=== PATIENT | female | born 1945 | race African-American/Black ===

== ENCOUNTER 2017-09-16 14:30 | Inpatient (IN) | payer OTHER, MEDICAID ==
[~2017-09-16] VITALS: Ht 162.6 cm; Wt 92.8 kg
[~2017-09-16 14:30] MED LIST: ALBU05 NEB; AMLO10TA80 PO; ASPI-1159 PO; BACL-141 PO; BACL20TA PO; CARB200T PO; CARB200T6 PO; COMBIVENT; GABA-531 PO; HYDR-4005 PO; INSU100V3 SUBCUT; INSU3INS6 SUBCUT; LOSA100T14 PO; OMEP20CA10 PO; PANT40TA4 PO; RANI150C12 PO; ROSU10TA PO
[2017-09-16 15:35] LABS: BASOPHILS % 0.6 % (0.0-2.0); EOSINOPHILS % 1.2 % (0.0-5.0); MEAN CORPUSCULAR HEMOGLOBIN 23.4 pg (28.0-32.0); MEAN PLATELET VOLUME 7.4 fl (7.4-10.4); MONOCYTES % 10.7 % (2.0-8.0); NEUTROPHILS % 55.5 % (40.0-76.0); PLATELET 680 x1000/uL (130-400); RED BLOOD CELL COUNT 2.47 mill/uL (4.2-5.4); RED CELL DISTRIBUTION WIDTH 17.7 % (11.6-14.6)
[2017-09-16 15:37] LABS: HEMOGLOBIN. 5.8 g/dL (12.0-16.0)
[2017-09-16 15:39] LABS: CHLORIDE 86 mEq/L (98-107)
[2017-09-16 15:49] LABS: INR 4.9
[2017-09-16] MEDS ORDERED: IPRATROPIUM/ALBUTEROL 0.5-3(2.5)MG/3ML NEB INH PRN (16:00)
[2017-09-16] MEDS ORDERED: ACETAMINOPHEN 650MG SUPP PR PRN (16:00)
[2017-09-16] MEDS ORDERED: ONDANSETRON HCL 4MG/2ML VIAL IV PRN (16:00)
[2017-09-16] MEDS ORDERED: POTASSIUM CHLORIDE INJ 40 MEQ in DEXT 5% WATER 250 ML IV ONE ×2 (16:00→16:15)
[2017-09-16] MEDS ORDERED: POTASSIUM CHLORIDE 20MEQ TABLET SR PO ONE (16:15)
[2017-09-16 16:33] LABS: BG BASE EXCESS 22.2 mmol/L (-2.0-2.0); BG CARBOXYHEMOGLOBIN 1.7 % (0.5-1.5); BG DEOXYHEMOGLOBIN 0.8 % (0.0-5.0); BG FRACTION INSPIRED OXYGEN 28; BG HCO3 ACT 47.6 mmol/L (22.0-26.0); BG METHEMOGLOBIN 0.3 % (0.0-1.5); BG OXYGEN SATURATION 99.2 % (92.0-98.5); BG OXYHEMOGLOBIN 97.2 % (94.0-97.0); BG PCO2 64.3 mmHg (35.0-45.0); BG PH 7.487 (7.350-7.450); BG PO2 113.1 mmHg (75.0-100.0); BG SAMPLE SITE LEFT BRACHIAL; BG TOTAL HEMOGLOBIN 5.9 g/dL (12.0-18.0); BG VENT MODE NASAL CANNULA
[2017-09-16 17:09] LABS: CREATINE KINASE 63 IU/L (26-192)
[2017-09-16 17:10] LABS: CREATINE KINASE MB FRACTION < 0.5 ng/mL (0.5-3.6)
[2017-09-16 18:06] LABS: HEPATITIS B SURFACE ANTIGEN NEGATIVE
[2017-09-16] MEDS ORDERED: KCL 20MEQ/100ML PREMIX 100 ML IV SCH (18:30)
[2017-09-16 18:34] LABS: HEPATITIS B CORE AB IGM NEGATIVE
[2017-09-16 18:36] LABS: HEPATITIS A AB IGM NEGATIVE (NEGATIVE)
[2017-09-17] VITALS (23 sets, daily range): BP systolic 109–159; BP diastolic 65–86
[2017-09-17 02:05] LABS: AMMONIA 26 uMol/L (<32); HEMATOCRIT 19.4 % (36.0-48.0); HEMOGLOBIN 5.5 g/dL (12.0-16.0)
[2017-09-17 02:08] LABS: CREATINE KINASE 50 IU/L (26-192)
[2017-09-17 02:09] LABS: CREATINE KINASE MB FRACTION 0.6 ng/mL (0.5-3.6)
[2017-09-17] MEDS ORDERED: HYDRALAZINE 20MG/ML VIAL IV PRN (03:58)
[2017-09-17] MEDS ORDERED: DEXTROSE 50% WATER 50ML SYRINGE IV PRN (03:59)
[2017-09-17] MEDS ORDERED: POTASSIUM CHLORIDE IV ONE (04:15)
[2017-09-17] MEDS ORDERED: KCL IV ONE (04:15)
[2017-09-17] MEDS: KCL 20MEQ/100ML PREMIX 100 ML IV SCH ×3 (06:36→22:12)
[2017-09-17] MEDS: PIPERACILLIN/TAZ 3.375G PREMIX 50 ML IV SCH ×3 (06:36→21:29)
[2017-09-17] MEDS: DEXT 5%/0.9% NACL 1,000 ML IV SCH ×2 (06:37→21:30)
[2017-09-17] MEDS: BLOOD SUGAR DIAGNOSTIC STRIP TEST SCH ×4 (07:30→21:28)
[2017-09-17] MEDS: INSULIN LISPRO 100 UNITS/ML SUBCUT SCH ×4 (08:00→21:00)
[2017-09-17 10:20] LABS: MEAN CORPUSCULAR HEMOGLOBIN 23.9 pg (28.0-32.0); MEAN CORPUSCULAR VOLUME 81.4 fL (81.0-99.0); MEAN PLATELET VOLUME 7.8 fl (7.4-10.4); PLATELET 567 x1000/uL (130-400); RED BLOOD CELL COUNT 2.26 mill/uL (4.2-5.4); RED CELL DISTRIBUTION WIDTH 17.1 % (11.6-14.6)
[2017-09-17 10:21] LABS: INR 3.1; PROTHROMBIN TIME 32.4 sec (9.4-11.6)
[2017-09-17 10:37] LABS: HEMATOCRIT. 18.4 % (36.0-48.0); HEMOGLOBIN. 5.4 g/dL (12.0-16.0)
[2017-09-17 10:44] LABS: CHLORIDE 92 mEq/L (98-107)
[2017-09-17 10:54] LABS: LDL CHOLESTEROL 80 mg/dL (5-100)
[2017-09-17 10:55] LABS: CREATINE KINASE 65 IU/L (26-192); CREATINE KINASE MB FRACTION < 0.5 ng/mL (0.5-3.6)
[2017-09-17 10:56] LABS: HDL CHOLESTEROL 52 mg/dL (40-59); T4 FREE 0.73 ng/dL (0.76-1.46)
[2017-09-17] MEDS ORDERED: PANTOPRAZOLE SODIUM 40 MG/VIAL IV SCH (11:15)
[2017-09-17 11:37] LABS: PLATELET ESTIMATE INCREASED
[2017-09-17] MEDS: PANTOPRAZOLE SODIUM 40 MG/VIAL IV SCH ×2 (12:40→17:18)
[2017-09-17] MEDS ORDERED: LIDOCAINE HCL/PF 1% 10 MG/ML 5ML VIAL ONE (12:51)
[2017-09-17 12:52] LABS: TOTAL IRON BINDING CAPACITY 363 ug/dL (250-450)
[2017-09-17 13:18] LABS: FOLIC ACID (FOLATE) SERUM 15.6 ng/mL (>5.38)
[2017-09-17 15:55] LABS: HEMATOCRIT 21.8 % (36.0-48.0)
[2017-09-17] MEDS ORDERED: SORBITOL 70% SOLN 30ML PO ONE ×2 (16:00→20:00)
[2017-09-17 16:01] LABS: HEMOGLOBIN 6.6 g/dL (12.0-16.0)
[2017-09-17] MEDS ORDERED: BACLOFEN 10MG TABLET PO PRN (16:15)
[2017-09-17 19:26] LABS: HEMATOCRIT 25.9 % (36.0-48.0); HEMOGLOBIN 7.8 g/dL (12.0-16.0)
[2017-09-17 19:31] LABS: INR 2.5; PROTHROMBIN TIME 25.7 sec (9.4-11.6)
[2017-09-17 19:33] LABS: CHLORIDE 93 mEq/L (98-107)
[2017-09-17] MEDS ORDERED: POTASSIUM CHLORIDE 20MEQ TABLET SR PO NR (20:15)
[2017-09-17] MEDS ORDERED: SORBITOL 70% SOLN 30ML PO SCH (20:30)
[2017-09-18] VITALS (14 sets, daily range): BP systolic 120–149; BP diastolic 76–96
[2017-09-18] MEDS: KCL 20MEQ/100ML PREMIX 100 ML IV SCH ×3 (01:41→15:57)
[2017-09-18] MEDS: DIPHENHYDRAMINE 50MG/ML VIAL IV PRN (04:34)
[2017-09-18] MEDS: HYDROCODONE/ACETAMINOPHEN 5/325MG TABLET PO PRN ×2 (04:42→23:24)
[2017-09-18] MEDS: BACLOFEN 10MG TABLET PO PRN (04:42)
[2017-09-18] MEDS: PIPERACILLIN/TAZ 3.375G PREMIX 50 ML IV SCH ×3 (05:25→21:08)
[2017-09-18 06:03] LABS: HEMATOCRIT 29.6 % (36.0-48.0); HEMOGLOBIN 9.3 g/dL (12.0-16.0); MEAN CORPUSCULAR HEMOGLOBIN 25.9 pg (28.0-32.0); MEAN CORPUSCULAR VOLUME 82.2 fL (81.0-99.0); PLATELET 557 x1000/uL (130-400); RED CELL DISTRIBUTION WIDTH 16.2 % (11.6-14.6)
[2017-09-18 06:11] LABS: CHLORIDE 98 mEq/L (98-107)
[2017-09-18] MEDS: BLOOD SUGAR DIAGNOSTIC STRIP TEST SCH ×4 (07:30→21:08)
[2017-09-18 07:33] LABS: INR 1.8; PARTIAL THROMBOPLASTIN TIME 33.6 sec (23.4-31.0); PROTHROMBIN TIME 18.8 sec (9.4-11.6)
[2017-09-18] MEDS: INSULIN LISPRO 100 UNITS/ML SUBCUT SCH ×4 (08:00→21:10)
[2017-09-18] MEDS: PANTOPRAZOLE SODIUM 40 MG/VIAL IV SCH ×2 (09:13→17:25)
[2017-09-18] MEDS ORDERED: POTASSIUM CHLORIDE INJ 40 MEQ in DEXT 5% WATER 250 ML IV ONE (11:15)
[2017-09-18 12:17] LABS: HEMATOCRIT 28.2 % (36.0-48.0); HEMOGLOBIN 8.8 g/dL (12.0-16.0)
[2017-09-18] MEDS: METHYLPREDNISOLONE SOD SUCC 40 MG/ML VIAL IV SCH ×2 (12:42→17:25)
[2017-09-18] MEDS ORDERED: MORPHINE SULFATE 4 MG/ML CPJ (NOT FOR IM USE) IV NR (12:45)
[2017-09-18] MEDS ORDERED: KCL 20MEQ/100ML PREMIX 100 ML IV SCH (13:00)
[2017-09-18] MEDS: CARBAMAZEPINE 200MG TABLET PO SCH ×3 (13:00→21:08)
[2017-09-18] MEDS ORDERED: MIDAZOLAM HCL 5 MG/5 ML VIAL ONE (18:08)
[2017-09-18] MEDS ORDERED: FENTANYL CITRATE/PF 50MCG/ML 2ML VIAL ONE (18:08)
[2017-09-18] MEDS ORDERED: SIMETHICONE 40 MG/0.6 ML 30ML ONE (18:09)
[2017-09-18] MEDS ORDERED: FENTANYL CITRATE/PF 50MCG/ML 2ML VIAL IV ONE (18:16)
[2017-09-18] MEDS ORDERED: MIDAZOLAM HCL 5 MG/5 ML VIAL IV PRN (18:50)
[2017-09-18] MEDS: DEXT 5%/0.9% NACL 1,000 ML IV SCH (21:08)
[2017-09-19] VITALS (12 sets, daily range): BP systolic 117–156; BP diastolic 44–88
[2017-09-19] MEDS: HYDROCODONE/ACETAMINOPHEN 5/325MG TABLET PO PRN ×3 (05:08→17:27)
[2017-09-19] MEDS: PIPERACILLIN/TAZ 3.375G PREMIX 50 ML IV SCH ×3 (05:08→21:30)
[2017-09-19] MEDS: BLOOD SUGAR DIAGNOSTIC STRIP TEST SCH ×4 (07:30→21:31)
[2017-09-19] MEDS: IPRATROPIUM/ALBUTEROL 0.5-3(2.5)MG/3ML NEB HHN SCH ×2 (08:00→20:23)
[2017-09-19] MEDS: INSULIN LISPRO 100 UNITS/ML SUBCUT SCH ×4 (08:00→21:37)
[2017-09-19] MEDS: PANTOPRAZOLE SODIUM 40 MG/VIAL IV SCH ×2 (09:22→17:28)
[2017-09-19] MEDS: CARBAMAZEPINE 200MG TABLET PO SCH ×4 (09:22→21:30)
[2017-09-19] MEDS: METHYLPREDNISOLONE SOD SUCC 40 MG/ML VIAL IV SCH ×2 (09:22→17:28)
[2017-09-19] MEDS ORDERED: MORPHINE SULFATE 4 MG/ML CPJ (NOT FOR IM USE) IV NR (12:00)
[2017-09-19] MEDS ORDERED: POTASSIUM CHLORIDE 20MEQ TABLET SR PO NR (12:15)
[2017-09-19] MEDS ORDERED: SODIUM CHLORIDE 0.45% 1,000 ML IV SCH (12:15)
[2017-09-19] MEDS: BACLOFEN 10MG TABLET PO PRN (19:33)
[2017-09-19] MEDS: BUDESONIDE 0.5MG/2ML NEB HHN SCH (20:23)
[2017-09-19] MEDS: DIPHENHYDRAMINE 50MG/ML VIAL IV PRN (21:30)
[2017-09-20] VITALS (16 sets, daily range): BP systolic 112–151; BP diastolic 52–119
[2017-09-20] MEDS ORDERED: INSULIN LISPRO 100 UNITS/ML SUBCUT SCH
[2017-09-20] MEDS ORDERED: BLOOD SUGAR DIAGNOSTIC STRIP TEST SCH
[2017-09-20] MEDS: HYDROCODONE/ACETAMINOPHEN 5/325MG TABLET PO PRN ×2 (00:42→10:05)
[2017-09-20] MEDS: IPRATROPIUM/ALBUTEROL 0.5-3(2.5)MG/3ML NEB HHN SCH ×4 (02:13→20:22)
[2017-09-20] MEDS: BACLOFEN 10MG TABLET PO PRN (03:32)
[2017-09-20] MEDS: DIPHENHYDRAMINE 50MG/ML VIAL IV PRN (03:33)
[2017-09-20] MEDS: PIPERACILLIN/TAZ 3.375G PREMIX 50 ML IV SCH ×2 (05:56→12:29)
[2017-09-20 07:06] LABS: HEMATOCRIT 25.2 % (36.0-48.0); HEMOGLOBIN 7.7 g/dL (12.0-16.0); MEAN CORPUSCULAR HEMOGLOBIN 25.3 pg (28.0-32.0); MEAN CORPUSCULAR VOLUME 82.7 fL (81.0-99.0); PLATELET 460 x1000/uL (130-400); RED BLOOD CELL COUNT 3.05 mill/uL (4.2-5.4); RED CELL DISTRIBUTION WIDTH 16.2 % (11.6-14.6)
[2017-09-20 07:18] LABS: CHLORIDE 102 mEq/L (98-107)
[2017-09-20] MEDS: BLOOD SUGAR DIAGNOSTIC STRIP TEST SCH ×3 (07:30→18:13)
[2017-09-20] MEDS: INSULIN LISPRO 100 UNITS/ML SUBCUT SCH ×3 (08:00→18:00)
[2017-09-20] MEDS: BUDESONIDE 0.5MG/2ML NEB HHN SCH (08:24)
[2017-09-20] MEDS ORDERED: IOHEXOL-350 100 ML BOTTLE ONE (09:25)
[2017-09-20] MEDS: CARBAMAZEPINE 200MG TABLET PO SCH ×3 (09:54→18:12)
[2017-09-20] MEDS: PANTOPRAZOLE SODIUM 40 MG/VIAL IV SCH ×2 (09:54→18:12)
[2017-09-20] MEDS: METHYLPREDNISOLONE SOD SUCC 40 MG/ML VIAL IV SCH (09:54)
[2017-09-20] MEDS ORDERED: METOPROLOL TARTRATE 25MG TABLET PO SCH (11:00)
[2017-09-20] MEDS: FERROUS SULFATE 300MG/5ML UDC PO SCH ×2 (12:29→18:12)
[2017-09-20] MEDS ORDERED: GABAPENTIN 100MG CAPSULE PO SCH (12:30)
[2017-09-21] MEDS ORDERED: METHYLPREDNISOLONE SOD SUCC 40 MG/ML VIAL IV SCH (09:00)
== END 2017-09-20 21:20 | DRG 377 ==
LOC: ER 14:30 → EDBEDREQ 14:59 → SUPCPDRO 15:56 → EDBEDREQ 18:11 → EDBEDREQSVC 20:31 → EDBEDREQTM 20:31 → EDBEDREQSVC 21:56 → ENRESERV 22:19 → EDBEDREQ 09-17 03:35 → 5EST 09-17 03:45
PROVIDERS: ADMIT Internal Medicine; ATTEND Internal Medicine
PROC: 30233N1 Transfusion of Nonautologous Red Blood Cells into Peripheral Vein, Percutaneous Approach (ICD-10-PCS; 2017-09-16)
PROC: 30233L1 Transfusion of Nonautologous Fresh Plasma into Peripheral Vein, Percutaneous Approach (ICD-10-PCS; principal; 2017-09-17)
PROC: 05H933Z Insertion of Infusion Device into Right Brachial Vein, Percutaneous Approach (ICD-10-PCS; 2017-09-17)
PROC: B54MZZA Ultrasonography of Right Upper Extremity Veins, Guidance (ICD-10-PCS; 2017-09-17)
PROC: 30233K1 Transfusion of Nonautologous Frozen Plasma into Peripheral Vein, Percutaneous Approach (ICD-10-PCS; 2017-09-17)
PROC: 0W3P8ZZ Control Bleeding in Gastrointestinal Tract, Via Natural or Artificial Opening Endoscopic (ICD-10-PCS; 2017-09-18)
PROC: 0DJD8ZZ Inspection of Lower Intestinal Tract, Via Natural or Artificial Opening Endoscopic (ICD-10-PCS; 2017-09-18)
DX: K31.811 Angiodysplasia of stomach and duodenum with bleeding (principal); I50.43 Acute on chronic combined systolic (congestive) and diastolic (congestive) heart failure; J18.9 Pneumonia, unspecified organism; G93.41 Metabolic encephalopathy; J96.20 Acute and chronic respiratory failure, unspecified whether with hypoxia or hypercapnia; D68.9 Coagulation defect, unspecified; E87.3 Alkalosis; J98.11 Atelectasis; K76.6 Portal hypertension; J44.0 Chronic obstructive pulmonary disease with (acute) lower respiratory infection; J44.1 Chronic obstructive pulmonary disease with (acute) exacerbation; I11.0 Hypertensive heart disease with heart failure; E87.6 Hypokalemia; E11.9 Type 2 diabetes mellitus without complications; K74.60 Unspecified cirrhosis of liver; R79.89 Other specified abnormal findings of blood chemistry; D50.9 Iron deficiency anemia, unspecified; K64.8 Other hemorrhoids; B18.2 Chronic viral hepatitis C; D64.9 Anemia, unspecified; F03.90 Unspecified dementia, unspecified severity, without behavioral disturbance, psychotic disturbance, mood disturbance, and anxiety; G50.0 Trigeminal neuralgia; K31.89 Other diseases of stomach and duodenum; E66.9 Obesity, unspecified; K44.9 Diaphragmatic hernia without obstruction or gangrene; K56.41 Fecal impaction; K57.31 Diverticulosis of large intestine without perforation or abscess with bleeding; K29.71 Gastritis, unspecified, with bleeding; K58.9 Irritable bowel syndrome, unspecified; M41.9 Scoliosis, unspecified; N28.1 Cyst of kidney, acquired; Z79.01 Long term (current) use of anticoagulants; Z86.711 Personal history of pulmonary embolism; Z90.710 Acquired absence of both cervix and uterus; Z68.35 Body mass index [BMI] 35.0-35.9, adult; Z88.1 Allergy status to other antibiotic agents; Q27.9 Congenital malformation of peripheral vascular system, unspecified; Z79.82 Long term (current) use of aspirin; Z79.4 Long term (current) use of insulin; Z79.899 Other long term (current) drug therapy
CPT/HCPCS: 36415; 36430; 36569; 36600; 70450; 71045; 71275; 74176; 76937; 80048; 80053; 80061; 82140; 82270; 82375; 82550; 82553; 82607; 82728; 82746; 82805; 82962; 83036; 83540; 83550; 83880; 84132; 84439; 84443; 84484; 85014; 85018; 85025; 85027; 85379; 85610; 85730; 86705; 86709; 86803; 86850; 86900; 86920; 86927; 87040; 87340; 93005; 93306; 93970; 94640; 96365; 96376; 99152; 99153; 99291; A6261; C1725; C9113; J1200; J1815; J2250; J2270; J2543; J2920; J3010; J3480; J3490; J7040; J7042; J7050; J7060; J7620; J7626; P9016; P9017; Q9967

== ENCOUNTER 2017-10-09 13:44 | Inpatient (IN) | payer OTHER, MEDICAID ==
[~2017-10-09] VITALS: Ht 165.1 cm; Wt 100.2 kg
[2017-10-09] MEDS ORDERED: SODIUM CHLORIDE 0.9% 500 ML IV ONE (16:45)
[2017-10-09 17:26] LABS: BASOPHILS % 0.5 % (0.0-2.0); EOSINOPHILS % 1.8 % (0.0-5.0); HEMATOCRIT. 39.1 % (36.0-48.0); HEMOGLOBIN. 11.7 g/dL (12.0-16.0); LYMPHOCYTES % 13.3 % (20.0-50.0); MEAN CORPUSCULAR HEMOGLOBIN 25.7 pg (28.0-32.0); MEAN CORPUSCULAR VOLUME 86.1 fL (81.0-99.0); MEAN PLATELET VOLUME 8.3 fl (7.4-10.4); MONOCYTES % 7.4 % (2.0-8.0); PLATELET 433 x1000/uL (130-400); RED BLOOD CELL COUNT 4.55 mill/uL (4.2-5.4); RED CELL DISTRIBUTION WIDTH 19.5 % (11.6-14.6)
[2017-10-09 17:27] LABS: CHLORIDE 98 mEq/L (98-107)
[2017-10-09 17:28] LABS: INR 1.1; PROTHROMBIN TIME 11.4 sec (9.4-11.6)
[2017-10-09] MEDS ORDERED: DILTIAZEM HCL 5MG/ML 5ML VIAL IV ONE (17:30)
[2017-10-09 17:59] LABS: CLARITY URINE CLOUDY (CLEAR); COLOR URINE DARK YELLOW (YELLOW); KETONES URINE TRACE (NEGATIVE); LEUKOCYTE ESTERASE URINE 1+ (NEGATIVE); NITRITE URINE POSITIVE (NEGATIVE); OCCULT BLOOD URINE NEGATIVE (NEGATIVE); PROTEIN URINE 1+ (NEGATIVE); SPECIFIC GRAVITY URINE 1.034 (1.005-1.030)
[2017-10-09 18:14] LABS: *AMPHETAMINES SCREEN URINE NEGATIVE (NEGATIVE); *BARBITURATES SCREEN URINE NEGATIVE (NEGATIVE); *BENZODIAZEPINES SCREEN URINE NEGATIVE (NEGATIVE); *COCAINE SCREEN URINE NEGATIVE (NEGATIVE); METHADONE URINE SCREEN NEGATIVE (NEGATIVE); OPIATES URINE SCREEN NEGATIVE (NEGATIVE)
[2017-10-09 18:15] LABS: CANNABINOID URINE SCREEN NEGATIVE (NEGATIVE); PHENCYCLIDINE URINE SCREEN NEGATIVE (NEGATIVE)
[2017-10-09 19:17] LABS: BG BASE EXCESS 16.8 mmol/L (-2.0-2.0); BG CARBOXYHEMOGLOBIN 1.4 % (0.5-1.5); BG DEOXYHEMOGLOBIN 1.8 % (0.0-5.0); BG FRACTION INSPIRED OXYGEN 323; BG HCO3 ACT 46.8 mmol/L (22.0-26.0); BG METHEMOGLOBIN 0.1 % (0.0-1.5); BG OXYGEN SATURATION 98.2 % (92.0-98.5); BG OXYHEMOGLOBIN 96.7 % (94.0-97.0); BG PCO2 91.3 mmHg (35.0-45.0); BG PH 7.328 (7.350-7.450); BG PO2 114.4 mmHg (75.0-100.0); BG SAMPLE SITE LEFT RADIAL; BG TOTAL HEMOGLOBIN 12.2 g/dL (12.0-18.0); BG VENT MODE NASAL CANNULA
[2017-10-09 20:00] VITALS: BP 137/82
[2017-10-09] MEDS ORDERED: DEXTROSE 50% WATER 50ML SYRINGE IV PRN (21:15)
[2017-10-09] MEDS ORDERED: DIGOXIN 500MCG/2ML AMP IV NR (21:15)
[2017-10-09] MEDS ORDERED: BLOOD SUGAR DIAGNOSTIC STRIP TEST SCH (21:15)
[2017-10-09] MEDS ORDERED: ENOXAPARIN 30MG/0.3ML SYR SUBCUT SCH (21:30)
[2017-10-09 22:00] VITALS: BP 117/78
[2017-10-09] MEDS: METHYLPREDNISOLONE SOD SUCC 40 MG/ML VIAL IV SCH (22:51)
[2017-10-09] MEDS: ENOXAPARIN 80MG/0.8ML SYR SUBCUT SCH (22:52)
[2017-10-09] MEDS: DEXT 5%/0.45% NACL 1000ML 1,000 ML IV SCH (22:54)
[2017-10-09 23:50] VITALS: BP 129/93
[2017-10-10] VITALS (12 sets, daily range): BP systolic 117–155; BP diastolic 58–104
[2017-10-10] MEDS: IPRATROPIUM/ALBUTEROL 0.5-3(2.5)MG/3ML NEB HHN SCH ×7 (00:10→21:48)
[2017-10-10] MEDS ORDERED: DIGOXIN 500MCG/2ML AMP IV NR (00:45)
[2017-10-10] MEDS: BLOOD SUGAR DIAGNOSTIC STRIP TEST SCH ×5 (05:31→23:50)
[2017-10-10] MEDS: INSULIN LISPRO 100 UNITS/ML SUBCUT SCH ×4 (06:06→23:50)
[2017-10-10] MEDS: METHYLPREDNISOLONE SOD SUCC 40 MG/ML VIAL IV SCH ×3 (06:06→21:08)
[2017-10-10 07:04] LABS: BASOPHILS % 0.4 % (0.0-2.0); HEMATOCRIT. 34.9 % (36.0-48.0); HEMOGLOBIN. 10.5 g/dL (12.0-16.0); MEAN CORPUSCULAR HEMOGLOBIN 25.8 pg (28.0-32.0); MEAN CORPUSCULAR VOLUME 85.3 fL (81.0-99.0); MEAN PLATELET VOLUME 8.6 fl (7.4-10.4); MONOCYTES % 2.9 % (2.0-8.0); NEUTROPHILS % 88.7 % (40.0-76.0); PLATELET 400 x1000/uL (130-400); RED BLOOD CELL COUNT 4.09 mill/uL (4.2-5.4); RED CELL DISTRIBUTION WIDTH 19.6 % (11.6-14.6)
[2017-10-10 07:25] LABS: CHLORIDE 98 mEq/L (98-107)
[2017-10-10] MEDS: PANTOPRAZOLE SODIUM 40 MG/VIAL IV SCH (08:41)
[2017-10-10] MEDS: ENOXAPARIN 80MG/0.8ML SYR SUBCUT SCH (08:42)
[2017-10-10] MEDS ORDERED: DILTIAZEM HCL 5MG/ML 5ML VIAL IV NR (10:15)
[2017-10-10] MEDS ORDERED: DILTIAZEM HCL 125 MG in DEXT 5% WATER 100 ML IV SCH (11:00)
[2017-10-10 11:25] LABS: BG BASE EXCESS 15.7 mmol/L (-2.0-2.0); BG CARBOXYHEMOGLOBIN 0.4 % (0.5-1.5); BG DEOXYHEMOGLOBIN 3.1 % (0.0-5.0); BG FRACTION INSPIRED OXYGEN 32; BG HCO3 ACT 43.9 mmol/L (22.0-26.0); BG METHEMOGLOBIN 0.1 % (0.0-1.5); BG OXYGEN SATURATION 96.9 % (92.0-98.5); BG OXYHEMOGLOBIN 96.4 % (94.0-97.0); BG PO2 89.3 mmHg (75.0-100.0); BG SAMPLE SITE RIGHT BRACHIAL; BG TOTAL HEMOGLOBIN 11.4 g/dL (12.0-18.0); BG VENT MODE NASAL CANNULA
[2017-10-10] MEDS: DEXT 5%/0.45% NACL 1000ML 1,000 ML IV SCH (11:33)
[2017-10-10] MEDS ORDERED: PIPERACILLIN/TAZ 3.375G PREMIX 50 ML IV SCH (12:00)
[2017-10-10] MEDS: BACLOFEN 10MG TABLET PO SCH ×2 (13:21→18:01)
[2017-10-10] MEDS: PIPERACILLIN/TAZ 3.375G PREMIX 50 ML IV SCH ×2 (18:09→23:50)
[2017-10-10] MEDS: CARBAMAZEPINE 200MG TABLET PO SCH (21:08)
[2017-10-10] MEDS: MICONAZOLE NITRATE 2% OINT 71GM TOP SCH (21:09)
[2017-10-10] MEDS: ENOXAPARIN 100MG/ML SYR SUBCUT SCH (21:09)
[2017-10-10] MEDS: NYSTATIN POWDER 15GM TOP SCH (21:10)
[2017-10-10] MEDS: HYDROCODONE/ACETAMINOPHEN 5/325MG TABLET PO PRN (21:41)
[2017-10-11] VITALS (12 sets, daily range): BP systolic 124–160; BP diastolic 71–95
[2017-10-11] MEDS: IPRATROPIUM/ALBUTEROL 0.5-3(2.5)MG/3ML NEB HHN SCH ×6 (02:09→21:24)
[2017-10-11] MEDS: INSULIN LISPRO 100 UNITS/ML SUBCUT SCH ×3 (05:16→17:04)
[2017-10-11] MEDS: BLOOD SUGAR DIAGNOSTIC STRIP TEST SCH ×3 (05:16→17:04)
[2017-10-11] MEDS: METHYLPREDNISOLONE SOD SUCC 40 MG/ML VIAL IV SCH ×3 (05:32→21:14)
[2017-10-11] MEDS: PIPERACILLIN/TAZ 3.375G PREMIX 50 ML IV SCH ×2 (05:33→11:22)
[2017-10-11] MEDS: DEXT 5%/0.45% NACL 1000ML 1,000 ML IV SCH ×2 (05:33→15:49)
[2017-10-11] MEDS: HYDROCODONE/ACETAMINOPHEN 5/325MG TABLET PO PRN ×2 (05:35→18:59)
[2017-10-11 07:04] LABS: BASOPHILS % 0.3 % (0.0-2.0); HEMOGLOBIN. 10.3 g/dL (12.0-16.0); LYMPHOCYTES % 15.2 % (20.0-50.0); MEAN CORPUSCULAR HEMOGLOBIN 25.5 pg (28.0-32.0); MEAN CORPUSCULAR VOLUME 84.3 fL (81.0-99.0); MEAN PLATELET VOLUME 8.8 fl (7.4-10.4); NEUTROPHILS % 78.5 % (40.0-76.0); PLATELET 419 x1000/uL (130-400); RED BLOOD CELL COUNT 4.03 mill/uL (4.2-5.4); RED CELL DISTRIBUTION WIDTH 19.2 % (11.6-14.6)
[2017-10-11 07:29] LABS: CHLORIDE 95 mEq/L (98-107)
[2017-10-11] MEDS: CARBAMAZEPINE 200MG TABLET PO SCH ×2 (08:35→20:20)
[2017-10-11] MEDS: PANTOPRAZOLE SODIUM 40 MG/VIAL IV SCH (08:35)
[2017-10-11] MEDS: BACLOFEN 10MG TABLET PO SCH ×2 (08:35→16:58)
[2017-10-11] MEDS: MICONAZOLE NITRATE 2% OINT 71GM TOP SCH ×2 (08:36→20:27)
[2017-10-11] MEDS: NYSTATIN POWDER 15GM TOP SCH ×2 (08:36→16:52)
[2017-10-11] MEDS: ENOXAPARIN 100MG/ML SYR SUBCUT SCH ×2 (08:37→20:21)
[2017-10-11] MEDS ORDERED: POTASSIUM CHLORIDE 20MEQ TABLET SR PO NR (10:00)
[2017-10-11] MEDS: DILTIAZEM HCL 60MG TABLET PO SCH ×2 (11:20→17:04)
[2017-10-11] MEDS ORDERED: MAGNESIUM 1 G PREMIX 100 ML IV NR (11:30)
[2017-10-11] MEDS: GABAPENTIN 100MG CAPSULE PO SCH ×2 (12:52→20:20)
[2017-10-11] MEDS: AMOXICILLIN/POTASSIUM CLAVULANATE 875/125MG TAB PO SCH ×2 (14:56→20:19)
[2017-10-11] MEDS: CEFTRIAXONE 1 G PREMIX 50 ML IV SCH (16:31)
[2017-10-11] MEDS: ATORVASTATIN CALCIUM 10MG TABLET PO SCH (20:20)
[2017-10-12] VITALS (12 sets, daily range): BP systolic 120–159; BP diastolic 55–103
[2017-10-12] MEDS: BLOOD SUGAR DIAGNOSTIC STRIP TEST SCH ×4 (00:29→17:20)
[2017-10-12] MEDS: DILTIAZEM HCL 60MG TABLET PO SCH ×4 (00:29→17:17)
[2017-10-12] MEDS: INSULIN LISPRO 100 UNITS/ML SUBCUT SCH ×4 (00:30→17:29)
[2017-10-12] MEDS: HYDROCODONE/ACETAMINOPHEN 5/325MG TABLET PO PRN ×5 (00:53→21:17)
[2017-10-12] MEDS: IPRATROPIUM/ALBUTEROL 0.5-3(2.5)MG/3ML NEB HHN SCH ×6 (02:26→21:20)
[2017-10-12 05:56] LABS: CHLORIDE 97 mEq/L (98-107)
[2017-10-12] MEDS: METHYLPREDNISOLONE SOD SUCC 40 MG/ML VIAL IV SCH ×3 (06:08→21:08)
[2017-10-12] MEDS: DEXT 5%/0.45% NACL 1000ML 1,000 ML IV SCH ×2 (06:10→21:06)
[2017-10-12 06:13] LABS: HEMATOCRIT. 36.2 % (36.0-48.0); HEMOGLOBIN. 11.1 g/dL (12.0-16.0); MEAN CORPUSCULAR HEMOGLOBIN 26.1 pg (28.0-32.0); MEAN PLATELET VOLUME 8.6 fl (7.4-10.4); PLATELET 381 x1000/uL (130-400); RED BLOOD CELL COUNT 4.26 mill/uL (4.2-5.4); RED CELL DISTRIBUTION WIDTH 19.7 % (11.6-14.6)
[2017-10-12] MEDS: PANTOPRAZOLE SODIUM 40 MG/VIAL IV SCH (08:29)
[2017-10-12] MEDS: CARBAMAZEPINE 200MG TABLET PO SCH ×2 (08:29→21:07)
[2017-10-12] MEDS: AMOXICILLIN/POTASSIUM CLAVULANATE 875/125MG TAB PO SCH ×2 (08:29→21:06)
[2017-10-12] MEDS: ENOXAPARIN 100MG/ML SYR SUBCUT SCH ×2 (08:30→21:08)
[2017-10-12] MEDS: MICONAZOLE NITRATE 2% OINT 71GM TOP SCH ×2 (08:30→21:08)
[2017-10-12] MEDS: NYSTATIN POWDER 15GM TOP SCH ×2 (08:30→17:17)
[2017-10-12] MEDS: GABAPENTIN 100MG CAPSULE PO SCH ×2 (08:30→21:07)
[2017-10-12] MEDS: BACLOFEN 10MG TABLET PO SCH ×2 (08:41→17:16)
[2017-10-12 14:06] LABS: PLATELET ESTIMATE NORMAL
[2017-10-12] MEDS: CEFTRIAXONE 1 G PREMIX 50 ML IV SCH (16:06)
[2017-10-12] MEDS ORDERED: POTASSIUM CHLORIDE 20MEQ TABLET SR PO NR (17:00)
[2017-10-12] MEDS: ATORVASTATIN CALCIUM 10MG TABLET PO SCH (21:07)
[2017-10-13] VITALS (12 sets, daily range): BP systolic 102–169; BP diastolic 66–120
[2017-10-13] MEDS: BLOOD SUGAR DIAGNOSTIC STRIP TEST SCH ×4 (00:12→17:36)
[2017-10-13] MEDS: DILTIAZEM HCL 60MG TABLET PO SCH ×4 (00:13→17:35)
[2017-10-13] MEDS: IPRATROPIUM/ALBUTEROL 0.5-3(2.5)MG/3ML NEB HHN SCH ×6 (00:19→20:09)
[2017-10-13] MEDS: INSULIN LISPRO 100 UNITS/ML SUBCUT SCH ×4 (00:21→17:35)
[2017-10-13] MEDS: HYDROCODONE/ACETAMINOPHEN 5/325MG TABLET PO PRN ×6 (04:38→20:30)
[2017-10-13] MEDS: METHYLPREDNISOLONE SOD SUCC 40 MG/ML VIAL IV SCH ×3 (05:39→20:29)
[2017-10-13 09:03] LABS: HEMOGLOBIN. 10.7 g/dL (12.0-16.0); LYMPHOCYTES % 10.7 % (20.0-50.0); MEAN CORPUSCULAR HEMOGLOBIN 25.9 pg (28.0-32.0); MEAN CORPUSCULAR VOLUME 84.8 fL (81.0-99.0); MEAN PLATELET VOLUME 8.6 fl (7.4-10.4); NEUTROPHILS % 81.3 % (40.0-76.0); PLATELET 350 x1000/uL (130-400); RED BLOOD CELL COUNT 4.13 mill/uL (4.2-5.4)
[2017-10-13 10:34] LABS: CHLORIDE 93 mEq/L (98-107)
[2017-10-13] MEDS: PANTOPRAZOLE SODIUM 40 MG/VIAL IV SCH (10:59)
[2017-10-13] MEDS: BACLOFEN 10MG TABLET PO SCH ×2 (11:00→16:46)
[2017-10-13] MEDS: AMOXICILLIN/POTASSIUM CLAVULANATE 875/125MG TAB PO SCH ×2 (11:00→20:30)
[2017-10-13] MEDS: CARBAMAZEPINE 200MG TABLET PO SCH ×2 (11:01→20:30)
[2017-10-13] MEDS: GABAPENTIN 100MG CAPSULE PO SCH ×2 (11:01→20:30)
[2017-10-13] MEDS: MICONAZOLE NITRATE 2% OINT 71GM TOP SCH ×2 (11:02→20:31)
[2017-10-13] MEDS: NYSTATIN POWDER 15GM TOP SCH ×2 (11:02→16:46)
[2017-10-13] MEDS: ENOXAPARIN 100MG/ML SYR SUBCUT SCH ×2 (11:02→20:31)
[2017-10-13] MEDS ORDERED: CLONIDINE 0.2MG TABLET PO PRN (14:15)
[2017-10-13] MEDS ORDERED: CLONIDINE 0.1MG TABLET PO PRN (14:30)
[2017-10-13] MEDS: DEXT 5%/0.45% NACL 1000ML 1,000 ML IV SCH (16:44)
[2017-10-13] MEDS: CEFTRIAXONE 1 G PREMIX 50 ML IV SCH (16:44)
[2017-10-13] MEDS: ATORVASTATIN CALCIUM 10MG TABLET PO SCH (20:29)
[2017-10-14] VITALS (12 sets, daily range): BP systolic 113–155; BP diastolic 64–105
[2017-10-14] MEDS: DILTIAZEM HCL 60MG TABLET PO SCH ×4 (01:34→18:17)
[2017-10-14] MEDS: INSULIN LISPRO 100 UNITS/ML SUBCUT SCH ×4 (01:39→17:30)
[2017-10-14] MEDS: IPRATROPIUM/ALBUTEROL 0.5-3(2.5)MG/3ML NEB HHN SCH ×4 (04:01→16:41)
[2017-10-14] MEDS: HYDROCODONE/ACETAMINOPHEN 5/325MG TABLET PO PRN (05:36)
[2017-10-14] MEDS: METHYLPREDNISOLONE SOD SUCC 40 MG/ML VIAL IV SCH (05:47)
[2017-10-14 06:30] LABS: HEMATOCRIT. 33.6 % (36.0-48.0); HEMOGLOBIN. 10.4 g/dL (12.0-16.0); MEAN CORPUSCULAR VOLUME 84.4 fL (81.0-99.0); MEAN PLATELET VOLUME 8.6 fl (7.4-10.4); PLATELET 323 x1000/uL (130-400); RED BLOOD CELL COUNT 3.99 mill/uL (4.2-5.4); RED CELL DISTRIBUTION WIDTH 19.3 % (11.6-14.6)
[2017-10-14] MEDS ORDERED: INSULIN LISPRO 100 UNITS/ML SUBCUT SCH (07:30)
[2017-10-14] MEDS ORDERED: BLOOD SUGAR DIAGNOSTIC STRIP TEST SCH (07:30)
[2017-10-14 07:46] LABS: CHLORIDE 95 mEq/L (98-107)
[2017-10-14] MEDS: GABAPENTIN 100MG CAPSULE PO SCH (08:08)
[2017-10-14] MEDS: PANTOPRAZOLE SODIUM 40 MG/VIAL IV SCH (08:08)
[2017-10-14] MEDS: AMOXICILLIN/POTASSIUM CLAVULANATE 875/125MG TAB PO SCH (08:08)
[2017-10-14] MEDS: ENOXAPARIN 100MG/ML SYR SUBCUT SCH (08:08)
[2017-10-14] MEDS: CARBAMAZEPINE 200MG TABLET PO SCH (08:08)
[2017-10-14] MEDS: BLOOD SUGAR DIAGNOSTIC STRIP TEST SCH ×4 (08:09→17:43)
[2017-10-14] MEDS: NYSTATIN POWDER 15GM TOP SCH ×2 (08:17→18:16)
[2017-10-14] MEDS: BACLOFEN 10MG TABLET PO SCH ×2 (08:18→18:16)
[2017-10-14] MEDS: MICONAZOLE NITRATE 2% OINT 71GM TOP SCH (10:15)
[2017-10-14] MEDS: MORPHINE SULFATE 4 MG/ML CPJ (NOT FOR IM USE) IV PRN ×2 (12:14→17:03)
[2017-10-14 13:55] LABS: PLATELET ESTIMATE NORMAL
[2017-10-14] MEDS ORDERED: METHYLPREDNISOLONE SOD SUCC 40 MG/ML VIAL IV SCH (18:00)
[2017-10-14] MEDS: CEFTRIAXONE 1 G PREMIX 50 ML IV SCH (18:16)
[2017-10-15] MEDS ORDERED: FAMOTIDINE 20MG/2ML VIAL IV SCH (09:00)
== END 2017-10-14 19:35 | DRG 70 ==
LOC: ER 14:11 → 5EST 17:27 → ENRESERV 17:45 → 5EST 22:32
PROVIDERS: ADMIT Internal Medicine; ATTEND Internal Medicine
PROC: 5A09357 Assistance with Respiratory Ventilation, Less than 24 Consecutive Hours, Continuous Positive Airway Pressure (ICD-10-PCS; principal; 2017-10-09)
PROC: 5A09357 Assistance with Respiratory Ventilation, Less than 24 Consecutive Hours, Continuous Positive Airway Pressure (ICD-10-PCS; 2017-10-10)
PROC: 5A09357 Assistance with Respiratory Ventilation, Less than 24 Consecutive Hours, Continuous Positive Airway Pressure (ICD-10-PCS; 2017-10-11)
DX: G93.41 Metabolic encephalopathy (principal); J18.9 Pneumonia, unspecified organism; J96.01 Acute respiratory failure with hypoxia; J96.02 Acute respiratory failure with hypercapnia; I50.43 Acute on chronic combined systolic (congestive) and diastolic (congestive) heart failure; I48.92 Unspecified atrial flutter; N39.0 Urinary tract infection, site not specified; J44.0 Chronic obstructive pulmonary disease with (acute) lower respiratory infection; E87.2 Acidosis; I11.0 Hypertensive heart disease with heart failure; G50.0 Trigeminal neuralgia; D64.9 Anemia, unspecified; K74.60 Unspecified cirrhosis of liver; B19.20 Unspecified viral hepatitis C without hepatic coma; K57.30 Diverticulosis of large intestine without perforation or abscess without bleeding; K21.9 Gastro-esophageal reflux disease without esophagitis; I48.91 Unspecified atrial fibrillation; F41.9 Anxiety disorder, unspecified; I35.0 Nonrheumatic aortic (valve) stenosis; F03.90 Unspecified dementia, unspecified severity, without behavioral disturbance, psychotic disturbance, mood disturbance, and anxiety; E87.6 Hypokalemia; E83.42 Hypomagnesemia; E78.5 Hyperlipidemia, unspecified; E66.9 Obesity, unspecified; E11.9 Type 2 diabetes mellitus without complications; B96.20 Unspecified Escherichia coli [E. coli] as the cause of diseases classified elsewhere; K44.9 Diaphragmatic hernia without obstruction or gangrene; K59.00 Constipation, unspecified; G89.29 Other chronic pain; Z90.710 Acquired absence of both cervix and uterus; Z86.711 Personal history of pulmonary embolism; Z88.8 Allergy status to other drugs, medicaments and biological substances; Z88.1 Allergy status to other antibiotic agents; Z79.899 Other long term (current) drug therapy; Z79.82 Long term (current) use of aspirin
CPT/HCPCS: 36415; 36600; 70450; 71045; 80048; 80053; 80305; 81003; 81025; 82375; 82805; 82962; 83036; 83735; 83880; 84443; 84484; 85025; 85610; 87040; 87077; 87086; 87186; 93005; 96374; 99285; A6261; C9113; J0696; J1160; J1650; J1815; J2270; J2543; J2920; J3475; J3490; J7030; J7040; J7060; J7620

== ENCOUNTER 2017-10-15 10:48 | Emergency (ER) | payer OTHER, MEDICAID ==
[~2017-10-15] VITALS: Ht 177.8 cm; Wt 90.0 kg
[2017-10-15] MEDS ORDERED: MORPHINE SULFATE 4 MG/ML CPJ (NOT FOR IM USE) IV STA (11:06)
[2017-10-15] MEDS ORDERED: ONDANSETRON HCL 4MG/2ML VIAL IV STA (11:06)
[2017-10-15] MEDS ORDERED: ASPIRIN 325MG TABLET PO ONE (11:15)
[2017-10-15] MEDS ORDERED: NITROGLYCERIN OINT 1GM/INCH UDPKT TD ONE (11:15)
[2017-10-15 12:15] LABS: BASOPHILS % 0.4 % (0.0-2.0); EOSINOPHILS % 0.2 % (0.0-5.0); HEMATOCRIT. 33.1 % (36.0-48.0); HEMOGLOBIN. 10.1 g/dL (12.0-16.0); LYMPHOCYTES % 23.8 % (20.0-50.0); MEAN CORPUSCULAR VOLUME 85.1 fL (81.0-99.0); MEAN PLATELET VOLUME 8.3 fl (7.4-10.4); MONOCYTES % 11.1 % (2.0-8.0); NEUTROPHILS % 64.5 % (40.0-76.0); PLATELET 278 x1000/uL (130-400); RED BLOOD CELL COUNT 3.88 mill/uL (4.2-5.4); RED CELL DISTRIBUTION WIDTH 19.6 % (11.6-14.6)
[2017-10-15 12:17] LABS: CHLORIDE 96 mEq/L (98-107)
[2017-10-15 12:24] LABS: PROTHROMBIN TIME 10.4 sec (9.4-11.6)
[2017-10-15] MEDS ORDERED: PIPERACILLIN/TAZ 3.375G PREMIX 50 ML IV ONE (12:30)
[2017-10-15 13:13] LABS: CLARITY URINE CLEAR (CLEAR); COLOR URINE YELLOW (YELLOW); KETONES URINE NEGATIVE (NEGATIVE); LEUKOCYTE ESTERASE URINE TRACE (NEGATIVE); NITRITE URINE NEGATIVE (NEGATIVE); OCCULT BLOOD URINE NEGATIVE (NEGATIVE); PH URINE 6.5 (4.5-8.0); PROTEIN URINE NEGATIVE (NEGATIVE); SPECIFIC GRAVITY URINE 1.021 (1.005-1.030); UROBILINOGEN URINE 0.2 E.U./dL (0.2-1.0)
[2017-10-15 16:19] VITALS: BP 146/98
== END 2017-10-15 16:27 | disposition home or self-care (01) ==
LOC: ER 11:20 → EDBEDREQ 12:44 → CANBEDREQ 13:10 → ER 16:27
DX: J18.9 Pneumonia, unspecified organism (principal); I48.92 Unspecified atrial flutter; G50.0 Trigeminal neuralgia; N39.0 Urinary tract infection, site not specified; D64.9 Anemia, unspecified; E87.70 Fluid overload, unspecified; I11.0 Hypertensive heart disease with heart failure; I50.9 Heart failure, unspecified; J44.9 Chronic obstructive pulmonary disease, unspecified; K21.9 Gastro-esophageal reflux disease without esophagitis; E11.9 Type 2 diabetes mellitus without complications; R07.9 Chest pain, unspecified
CPT/HCPCS: 36415; 71045; 80053; 81003; 83605; 83880; 84484; 85025; 85610; 87040; 93005; 96365; 96375; 99285; J2270; J2405; J2543

== ENCOUNTER 2018-10-10 18:19 | Inpatient (IN) | payer MEDICAID, OTHER ==
[~2018-10-10] VITALS: Ht 162.6 cm; Wt 105.5 kg
[~2018-10-10 18:19] MED LIST changes: -ASPI-1159 PO; +ASPI-1393 PO; +CRES10 PO; -LOSA100T14 PO; +LOSA100T32 PO; -OMEP20CA10 PO; +OMEP20CA5 PO; -ROSU10TA PO
[2018-10-10] MEDS ORDERED: SUCCINYLCHOLINE CHLORIDE 200MG/10ML IV ONE ×2 (18:41→18:45)
[2018-10-10] MEDS ORDERED: ETOMIDATE 2MG/ML 10ML VIAL IV ONE ×2 (18:41→18:45)
[2018-10-10] MEDS ORDERED: PROPOFOL 10MG/ML 100ML 100 ML IV SCH (18:45)
[2018-10-10] MEDS ORDERED: FENTANYL CITRATE/PF 1,000 MCG in SODIUM CHLORIDE 0.9% 80 ML IV PRN ×2 (19:00→19:45)
[2018-10-10] MEDS ORDERED: SODIUM CHLORIDE 0.9% 1000ML BAG (SEPSIS BOLUS) IV ONE (19:00)
[2018-10-10] MEDS ORDERED: MIDAZOLAM HCL 50 MG in DEXTROSE 5% WATER 40 ML IV ONE (19:00)
[2018-10-10 19:06] LABS: CHLORIDE 90 mEq/L (98-107)
[2018-10-10 19:14] LABS: BASOPHILS % 0.2 % (0.0-2.0); EOSINOPHILS % 2.5 % (0.0-5.0); HEMATOCRIT. 27.9 % (36.0-48.0); HEMOGLOBIN. 9.1 g/dL (12.0-16.0); LYMPHOCYTES % 7.5 % (20.0-50.0); MEAN CORPUSCULAR HEMOGLOBIN 30.6 pg (28.0-32.0); MEAN CORPUSCULAR VOLUME 93.3 fL (81.0-99.0); MEAN PLATELET VOLUME 7.8 fl (7.4-10.4); MONOCYTES % 9.5 % (2.0-8.0); NEUTROPHILS % 80.3 % (40.0-76.0); PLATELET 364 x1000/uL (130-400); RED BLOOD CELL COUNT 2.99 mill/uL (4.2-5.4); RED CELL DISTRIBUTION WIDTH 14.3 % (11.6-14.6)
[2018-10-10] MEDS ORDERED: MIDAZOLAM HCL 50 MG in DEXTROSE 5% WATER 40 ML IV PRN (19:45)
[2018-10-10 20:13] LABS: *AMPHETAMINES SCREEN URINE NEGATIVE (NEGATIVE); *BARBITURATES SCREEN URINE NEGATIVE (NEGATIVE); *BENZODIAZEPINES SCREEN URINE NEGATIVE (NEGATIVE); *COCAINE SCREEN URINE NEGATIVE (NEGATIVE); METHADONE URINE SCREEN NEGATIVE (NEGATIVE); OPIATES URINE SCREEN PRESUMTIVE POSITIVE (NEGATIVE)
[2018-10-10 20:14] LABS: CANNABINOID URINE SCREEN NEGATIVE (NEGATIVE); PHENCYCLIDINE URINE SCREEN NEGATIVE (NEGATIVE)
[2018-10-10] MEDS ORDERED: VANCOMYCIN 1 G PREMIX 200 ML IV SCH (20:15)
[2018-10-10] MEDS ORDERED: PIPERACILLIN/TAZ 3.375G PREMIX 50 ML IV ONE (20:15)
[2018-10-10 20:25] LABS: BG BASE EXCESS 11.2 mmol/L (-2.0-2.0); BG CARBOXYHEMOGLOBIN 0.7 % (0.5-1.5); BG DEOXYHEMOGLOBIN 0.1 % (0.0-5.0); BG FRACTION INSPIRED OXYGEN 100; BG HCO3 ACT 38.2 mmol/L (22.0-26.0); BG METHEMOGLOBIN 0.3 % (0.0-1.5); BG OXYGEN SATURATION 99.9 % (92.0-98.5); BG OXYHEMOGLOBIN 98.9 % (94.0-97.0); BG PCO2 66.6 mmHg (35.0-45.0); BG PH 7.376 (7.350-7.450); BG PO2 310.7 mmHg (75.0-100.0); BG SAMPLE SITE RIGHT FEMORAL; BG TIDAL VOLUME(mL) 500 mL; BG TOTAL HEMOGLOBIN 9.1 g/dL (12.0-18.0); BG VENT MODE VENT - A/C; BG VENT RATE 12 set
[2018-10-10] MEDS ORDERED: ACETAMINOPHEN 650MG SUPP PR NR (20:30)
[2018-10-10] MEDS ORDERED: SODIUM CHLORIDE 0.9% 1,000 ML IV ONE (22:00)
[2018-10-11] VITALS (105 sets, daily range): BP systolic 59–145; BP diastolic 24–115
[2018-10-11] MEDS ORDERED: SODIUM CHLORIDE 0.9% 1,000 ML IV ONE (00:45)
[2018-10-11] MEDS: FENTANYL CITRATE/PF 1,000 MCG in SODIUM CHLORIDE 0.9% 80 ML IV PRN (01:14)
[2018-10-11] MEDS: NOREPINEPHRINE 16 MG in DEXT 5% WATER 484 ML IV PRN (01:16)
[2018-10-11] MEDS: MIDAZOLAM HCL 100 MG in DEXT 5% WATER 80 ML IV PRN (01:19)
[2018-10-11] MEDS ORDERED: SODIUM CHLORIDE 0.9% 1000ML BAG (SEPSIS BOLUS) IV NR (04:45)
[2018-10-11] MEDS ORDERED: DEXTROSE 50% WATER 50ML SYRINGE IV PRN (04:45)
[2018-10-11] MEDS: DEXT 5% WATER + KCL 20MEQ/L 1,000 ML IV SCH ×3 (05:31→21:33)
[2018-10-11] MEDS: PIPERACILLIN/TAZ 3.375G PREMIX 50 ML IV SCH ×4 (05:32→23:37)
[2018-10-11 05:47] LABS: HEMATOCRIT 25.7 % (36.0-48.0); HEMOGLOBIN 8.4 g/dL (12.0-16.0); MEAN CORPUSCULAR HEMOGLOBIN 30.4 pg (28.0-32.0); MEAN CORPUSCULAR VOLUME 92.7 fL (81.0-99.0); PLATELET 333 x1000/uL (130-400); RED BLOOD CELL COUNT 2.77 mill/uL (4.2-5.4); RED CELL DISTRIBUTION WIDTH 14.6 % (11.6-14.6)
[2018-10-11 05:53] LABS: CHLORIDE 99 mEq/L (98-107)
[2018-10-11] MEDS: BLOOD SUGAR DIAGNOSTIC STRIP TEST SCH ×4 (07:50→21:25)
[2018-10-11] MEDS: IPRATROPIUM/ALBUTEROL 0.5-3(2.5)MG/3ML NEB HHN SCH ×4 (09:18→20:21)
[2018-10-11] MEDS: INSULIN LISPRO 100 UNITS/ML SUBCUT SCH ×4 (09:21→21:00)
[2018-10-11] MEDS: ENOXAPARIN 40MG/0.4ML SYR SUBCUT SCH (09:22)
[2018-10-11] MEDS: FAMOTIDINE 20MG/2ML VIAL IV SCH ×2 (09:22→21:33)
[2018-10-11] MEDS: CARBAMAZEPINE 200MG TABLET PO SCH ×2 (09:22→17:30)
[2018-10-11 09:24] LABS: BG BASE EXCESS 7.5 mmol/L (-2.0-2.0); BG CARBOXYHEMOGLOBIN 0.8 % (0.5-1.5); BG DEOXYHEMOGLOBIN 0.7 % (0.0-5.0); BG FRACTION INSPIRED OXYGEN 50; BG HCO3 ACT 32.1 mmol/L (22.0-26.0); BG METHEMOGLOBIN 0.2 % (0.0-1.5); BG OXYGEN SATURATION 99.3 % (92.0-98.5); BG OXYHEMOGLOBIN 98.3 % (94.0-97.0); BG PCO2 45.7 mmHg (35.0-45.0); BG PH 7.464 (7.350-7.450); BG PO2 147.1 mmHg (75.0-100.0); BG SAMPLE SITE RIGHT RADIAL; BG TIDAL VOLUME(mL) 500 mL; BG TOTAL HEMOGLOBIN 8.7 g/dL (12.0-18.0); BG VENT MODE VENT - A/C; BG VENT RATE 12 set
[2018-10-11] MEDS: MIDODRINE HCL 5MG TABLET PO SCH ×3 (12:10→17:04)
[2018-10-11 16:41] LABS: TOTAL IRON BINDING CAPACITY 221 ug/dL (250-450)
[2018-10-11] MEDS: METHYLPREDNISOLONE SOD SUCC 40 MG/ML VIAL IV SCH ×2 (17:04→23:37)
[2018-10-11] MEDS: DILTIAZEM HCL 30MG TABLET PO SCH (21:33)
[2018-10-12] VITALS (93 sets, daily range): BP systolic 81–148; BP diastolic 50–111
[2018-10-12] MEDS: IPRATROPIUM/ALBUTEROL 0.5-3(2.5)MG/3ML NEB HHN SCH ×6 (00:19→20:19)
[2018-10-12] MEDS: MIDAZOLAM HCL 100 MG in DEXT 5% WATER 80 ML IV PRN (00:42)
[2018-10-12] MEDS: NOREPINEPHRINE 16 MG in DEXT 5% WATER 484 ML IV PRN (00:43)
[2018-10-12 05:13] LABS: HEMATOCRIT. 25.5 % (36.0-48.0); HEMOGLOBIN. 8.4 g/dL (12.0-16.0); MEAN CORPUSCULAR VOLUME 91.6 fL (81.0-99.0); MEAN PLATELET VOLUME 8.2 fl (7.4-10.4); PLATELET 349 x1000/uL (130-400); RED BLOOD CELL COUNT 2.78 mill/uL (4.2-5.4)
[2018-10-12 05:19] LABS: CHLORIDE 94 mEq/L (98-107)
[2018-10-12] MEDS: DEXT 5% WATER + KCL 20MEQ/L 1,000 ML IV SCH (05:36)
[2018-10-12] MEDS: PIPERACILLIN/TAZ 3.375G PREMIX 50 ML IV SCH ×3 (05:36→17:30)
[2018-10-12] MEDS: DILTIAZEM HCL 30MG TABLET PO SCH ×2 (05:37→05:45)
[2018-10-12] MEDS: BLOOD SUGAR DIAGNOSTIC STRIP TEST SCH ×4 (07:50→21:28)
[2018-10-12 08:05] LABS: PLATELET ESTIMATE NORMAL
[2018-10-12] MEDS ORDERED: VANCOMYCIN 1500MG in DEXTROSE 5% WATER 250ML IV SCH (08:30)
[2018-10-12] MEDS: INSULIN LISPRO 100 UNITS/ML SUBCUT SCH ×4 (09:09→21:43)
[2018-10-12] MEDS: ENOXAPARIN 40MG/0.4ML SYR SUBCUT SCH (09:10)
[2018-10-12] MEDS: FAMOTIDINE 20MG/2ML VIAL IV SCH ×2 (09:10→21:41)
[2018-10-12] MEDS: METHYLPREDNISOLONE SOD SUCC 40 MG/ML VIAL IV SCH ×2 (09:10→16:03)
[2018-10-12] MEDS: MIDODRINE HCL 5MG TABLET PO SCH ×3 (09:11→16:02)
[2018-10-12] MEDS: CARBAMAZEPINE 200MG TABLET PO SCH ×2 (09:11→17:30)
[2018-10-12] MEDS: FUROSEMIDE 40MG/4ML VIAL IVP SCH (13:06)
[2018-10-12] MEDS: DILTIAZEM HCL 60MG TABLET PO SCH ×2 (13:06→21:42)
[2018-10-12] MEDS: VANCOMYCIN 1250MG in DEXTROSE 5% WATER 250ML IV SCH (21:41)
[2018-10-12] MEDS: ENOXAPARIN 30MG/0.3ML SYR SUBCUT SCH (21:42)
[2018-10-12] MEDS: FENTANYL CITRATE/PF 1,000 MCG in SODIUM CHLORIDE 0.9% 80 ML IV PRN (21:55)
[2018-10-13] VITALS (48 sets, daily range): BP systolic 82–169; BP diastolic 54–150
[2018-10-13] MEDS: ACETYLCYSTEINE 100MG/ML 10% VIAL 4ML INH SCH ×3 (00:05→15:50)
[2018-10-13] MEDS: IPRATROPIUM/ALBUTEROL 0.5-3(2.5)MG/3ML NEB HHN SCH ×6 (00:05→21:07)
[2018-10-13] MEDS: PIPERACILLIN/TAZ 3.375G PREMIX 50 ML IV SCH ×4 (00:19→17:02)
[2018-10-13] MEDS: METHYLPREDNISOLONE SOD SUCC 40 MG/ML VIAL IV SCH ×3 (00:19→16:51)
[2018-10-13] MEDS: MIDAZOLAM HCL 100 MG in DEXT 5% WATER 80 ML IV PRN (01:03)
[2018-10-13 05:49] LABS: BASOPHILS % 0.3 % (0.0-2.0); EOSINOPHILS % 0.1 % (0.0-5.0); HEMATOCRIT. 26.6 % (36.0-48.0); HEMOGLOBIN. 8.7 g/dL (12.0-16.0); LYMPHOCYTES % 8.6 % (20.0-50.0); MEAN CORPUSCULAR HEMOGLOBIN 29.1 pg (28.0-32.0); MEAN CORPUSCULAR VOLUME 89.7 fL (81.0-99.0); MEAN PLATELET VOLUME 8.3 fl (7.4-10.4); MONOCYTES % 3.1 % (2.0-8.0); NEUTROPHILS % 87.9 % (40.0-76.0); PLATELET 360 x1000/uL (130-400); RED BLOOD CELL COUNT 2.97 mill/uL (4.2-5.4)
[2018-10-13 05:52] LABS: CHLORIDE 91 mEq/L (98-107)
[2018-10-13] MEDS: DILTIAZEM HCL 60MG TABLET PO SCH ×3 (06:04→21:55)
[2018-10-13] MEDS: BLOOD SUGAR DIAGNOSTIC STRIP TEST SCH ×3 (07:50→18:22)
[2018-10-13] MEDS: INSULIN LISPRO 100 UNITS/ML SUBCUT SCH ×3 (08:20→18:00)
[2018-10-13] MEDS: CARBAMAZEPINE 200MG TABLET PO SCH ×2 (08:59→17:21)
[2018-10-13] MEDS: MIDODRINE HCL 5MG TABLET PO SCH ×3 (09:00→17:04)
[2018-10-13] MEDS: ENOXAPARIN 30MG/0.3ML SYR SUBCUT SCH (09:13)
[2018-10-13] MEDS: FUROSEMIDE 40MG/4ML VIAL IVP SCH (09:14)
[2018-10-13] MEDS: FAMOTIDINE 20MG/2ML VIAL IV SCH ×2 (09:14→21:55)
[2018-10-13 10:40] LABS: BG BASE EXCESS 3.9 mmol/L (-2.0-2.0); BG CARBOXYHEMOGLOBIN 0.3 % (0.5-1.5); BG FRACTION INSPIRED OXYGEN 40; BG HCO3 ACT 27.3 mmol/L (22.0-26.0); BG METHEMOGLOBIN 0.3 % (0.0-1.5); BG OXYHEMOGLOBIN 97.4 % (94.0-97.0); BG PH 7.497 (7.350-7.450); BG PO2 106.1 mmHg (75.0-100.0); BG SAMPLE SITE LEFT RADIAL; BG TIDAL VOLUME(mL) 500 mL; BG TOTAL HEMOGLOBIN 9.1 g/dL (12.0-18.0); BG VENT MODE VENT - A/C; BG VENT RATE 12 set
[2018-10-13] MEDS ORDERED: ENOXAPARIN 60MG/0.6ML SYR SUBCUT NR (11:00)
[2018-10-13 14:39] LABS: BG BASE EXCESS 2.5 mmol/L (-2.0-2.0); BG CARBOXYHEMOGLOBIN 0.3 % (0.5-1.5); BG FRACTION INSPIRED OXYGEN 40; BG HCO3 ACT 27.6 mmol/L (22.0-26.0); BG METHEMOGLOBIN 0.1 % (0.0-1.5); BG OXYHEMOGLOBIN 93.6 % (94.0-97.0); BG PH 7.405 (7.350-7.450); BG PO2 77.2 mmHg (75.0-100.0); BG PRESSURE SUPPORT 10; BG SAMPLE SITE RIGHT RADIAL; BG TOTAL HEMOGLOBIN 9.7 g/dL (12.0-18.0); BG VENT MODE VENT - CPAP
[2018-10-13 15:37] LABS: INR 1.1; PROTHROMBIN TIME 11.2 sec (9.6-11.0)
[2018-10-13] MEDS: VANCOMYCIN 1250MG in DEXTROSE 5% WATER 250ML IV SCH (20:46)
[2018-10-13] MEDS: ENOXAPARIN 100MG/ML SYR SUBCUT SCH (21:56)
[2018-10-14] VITALS (26 sets, daily range): BP systolic 108–153; BP diastolic 62–105
[2018-10-14] MEDS: METHYLPREDNISOLONE SOD SUCC 40 MG/ML VIAL IV SCH ×3 (00:12→16:35)
[2018-10-14] MEDS: PIPERACILLIN/TAZ 3.375G PREMIX 50 ML IV SCH ×4 (00:12→18:05)
[2018-10-14] MEDS: LORAZEPAM 2MG/ML CPJ IV PRN (00:12)
[2018-10-14] MEDS: BLOOD SUGAR DIAGNOSTIC STRIP TEST SCH ×5 (00:12→23:55)
[2018-10-14] MEDS: ACETYLCYSTEINE 100MG/ML 10% VIAL 4ML INH SCH ×4 (00:15→17:04)
[2018-10-14] MEDS: IPRATROPIUM/ALBUTEROL 0.5-3(2.5)MG/3ML NEB HHN SCH ×5 (04:46→20:39)
[2018-10-14 05:46] LABS: BASOPHILS % 0.4 % (0.0-2.0); HEMOGLOBIN. 8.5 g/dL (12.0-16.0); LYMPHOCYTES % 8.8 % (20.0-50.0); MEAN CORPUSCULAR HEMOGLOBIN 30.1 pg (28.0-32.0); MEAN CORPUSCULAR VOLUME 88.3 fL (81.0-99.0); MEAN PLATELET VOLUME 7.7 fl (7.4-10.4); MONOCYTES % 5.9 % (2.0-8.0); NEUTROPHILS % 84.9 % (40.0-76.0); PLATELET 398 x1000/uL (130-400); RED BLOOD CELL COUNT 2.83 mill/uL (4.2-5.4); RED CELL DISTRIBUTION WIDTH 15.3 % (11.6-14.6)
[2018-10-14 05:51] LABS: CHLORIDE 92 mEq/L (98-107)
[2018-10-14] MEDS ORDERED: DILTIAZEM HCL 60MG TABLET NG SCH (06:00)
[2018-10-14] MEDS: INSULIN LISPRO 100 UNITS/ML SUBCUT SCH ×5 (06:00→18:00)
[2018-10-14] MEDS: MIDODRINE HCL 5MG TABLET PO SCH ×3 (09:00→17:00)
[2018-10-14] MEDS ORDERED: POTASSIUM CHLORIDE 20MEQ/PACKET PO NR (09:45)
[2018-10-14] MEDS: FAMOTIDINE 20MG/2ML VIAL IV SCH ×2 (10:01→21:18)
[2018-10-14] MEDS: FUROSEMIDE 40MG/4ML VIAL IVP SCH (10:01)
[2018-10-14] MEDS: CARBAMAZEPINE 200MG TABLET PO SCH ×2 (10:02→18:05)
[2018-10-14 10:06] LABS: BG CARBOXYHEMOGLOBIN 0.3 % (0.5-1.5); BG DEOXYHEMOGLOBIN 2.2 % (0.0-5.0); BG FRACTION INSPIRED OXYGEN 40; BG HCO3 ACT 30.5 mmol/L (22.0-26.0); BG OXYGEN SATURATION 97.8 % (92.0-98.5); BG OXYHEMOGLOBIN 97.5 % (94.0-97.0); BG PCO2 44.5 mmHg (35.0-45.0); BG PH 7.454 (7.350-7.450); BG PO2 104.9 mmHg (75.0-100.0); BG PRESSURE SUPPORT 10; BG SAMPLE SITE RIGHT RADIAL; BG TOTAL HEMOGLOBIN 9.5 g/dL (12.0-18.0); BG VENT MODE VENT - CPAP
[2018-10-14] MEDS: ENOXAPARIN 100MG/ML SYR SUBCUT SCH ×2 (10:11→21:19)
[2018-10-14] MEDS: DILTIAZEM HCL 125 MG in DEXT 5% WATER 100 ML IV PRN ×2 (10:58→21:38)
[2018-10-14] MEDS: VANCOMYCIN 1 G PREMIX 200 ML IV SCH ×2 (10:58→23:25)
[2018-10-14 13:56] LABS: BG BASE EXCESS 6.7 mmol/L (-2.0-2.0); BG CARBOXYHEMOGLOBIN 0.2 % (0.5-1.5); BG DEOXYHEMOGLOBIN 7.6 % (0.0-5.0); BG FRACTION INSPIRED OXYGEN 40; BG HCO3 ACT 31.3 mmol/L (22.0-26.0); BG METHEMOGLOBIN 0.1 % (0.0-1.5); BG OXYGEN SATURATION 92.4 % (92.0-98.5); BG OXYHEMOGLOBIN 92.1 % (94.0-97.0); BG PCO2 45.4 mmHg (35.0-45.0); BG PH 7.457 (7.350-7.450); BG PO2 66.5 mmHg (75.0-100.0); BG SAMPLE SITE LEFT RADIAL; BG TOTAL HEMOGLOBIN 9.8 g/dL (12.0-18.0); BG VENT MODE T-TUBE
[2018-10-14 16:19] LABS: BG BASE EXCESS 6.2 mmol/L (-2.0-2.0); BG DEOXYHEMOGLOBIN 1.5 % (0.0-5.0); BG OXYGEN SATURATION 98.5 % (92.0-98.5); BG OXYHEMOGLOBIN 98.5 % (94.0-97.0); BG PCO2 45.7 mmHg (35.0-45.0); BG PH 7.449 (7.350-7.450); BG PO2 125.9 mmHg (75.0-100.0); BG SAMPLE SITE RIGHT BRACHIAL; BG TOTAL HEMOGLOBIN 11.9 g/dL (12.0-18.0); BG VENT MODE MASK - AEROSOL
[2018-10-15] VITALS (22 sets, daily range): BP systolic 120–162; BP diastolic 48–102
[2018-10-15] MEDS: INSULIN LISPRO 100 UNITS/ML SUBCUT SCH ×5 (00:05→23:55)
[2018-10-15] MEDS: ACETYLCYSTEINE 100MG/ML 10% VIAL 4ML INH SCH ×2 (00:09→00:16)
[2018-10-15] MEDS: IPRATROPIUM/ALBUTEROL 0.5-3(2.5)MG/3ML NEB HHN SCH ×6 (00:15→20:53)
[2018-10-15] MEDS: PIPERACILLIN/TAZ 3.375G PREMIX 50 ML IV SCH ×4 (00:53→17:22)
[2018-10-15] MEDS: METHYLPREDNISOLONE SOD SUCC 40 MG/ML VIAL IV SCH ×3 (04:21→17:21)
[2018-10-15] MEDS: BLOOD SUGAR DIAGNOSTIC STRIP TEST SCH ×4 (05:59→23:54)
[2018-10-15 07:06] LABS: BASOPHILS % 0.1 % (0.0-2.0); HEMATOCRIT. 27.6 % (36.0-48.0); HEMOGLOBIN. 8.9 g/dL (12.0-16.0); LYMPHOCYTES % 10.8 % (20.0-50.0); MEAN CORPUSCULAR VOLUME 89.8 fL (81.0-99.0); MEAN PLATELET VOLUME 7.5 fl (7.4-10.4); MONOCYTES % 9.6 % (2.0-8.0); NEUTROPHILS % 79.5 % (40.0-76.0); PLATELET 471 x1000/uL (130-400); RED BLOOD CELL COUNT 3.07 mill/uL (4.2-5.4); RED CELL DISTRIBUTION WIDTH 15.3 % (11.6-14.6)
[2018-10-15 07:17] LABS: CHLORIDE 90 mEq/L (98-107)
[2018-10-15] MEDS: CARBAMAZEPINE 200MG TABLET PO SCH ×2 (07:48→17:21)
[2018-10-15] MEDS: HYDROCODONE/ACETAMINOPHEN 5/325MG TABLET PO PRN ×2 (07:48→21:33)
[2018-10-15] MEDS: ENOXAPARIN 100MG/ML SYR SUBCUT SCH (08:12)
[2018-10-15] MEDS: FAMOTIDINE 20MG/2ML VIAL IV SCH ×2 (08:13→21:33)
[2018-10-15] MEDS ORDERED: POTASSIUM CHLORIDE 20MEQ/PACKET PO NR (09:30)
[2018-10-15] MEDS: FUROSEMIDE 40MG/4ML VIAL IVP SCH (09:45)
[2018-10-15] MEDS: VANCOMYCIN 1 G PREMIX 200 ML IV SCH ×2 (10:10→23:40)
[2018-10-15] MEDS ORDERED: MIDODRINE HCL 5MG TABLET PO PRN (10:45)
[2018-10-15] MEDS: DILTIAZEM HCL 60MG TABLET PO SCH ×3 (11:35→23:57)
[2018-10-15] MEDS ORDERED: DILTIAZEM HCL 60MG TABLET PO SCH (14:00)
[2018-10-15] MEDS ORDERED: CARBAMAZEPINE 200MG TABLET PO SCH ×2 (15:30→17:00)
[2018-10-15] MEDS: ENOXAPARIN 80MG/0.8ML SYR SUBCUT SCH (21:31)
[2018-10-16] VITALS (25 sets, daily range): BP systolic 114–157; BP diastolic 40–107
[2018-10-16] MEDS: IPRATROPIUM/ALBUTEROL 0.5-3(2.5)MG/3ML NEB HHN SCH ×4 (00:09→11:14)
[2018-10-16] MEDS: ACETYLCYSTEINE 100MG/ML 10% VIAL 4ML INH SCH ×3 (00:45→16:10)
[2018-10-16] MEDS: PIPERACILLIN/TAZ 3.375G PREMIX 50 ML IV SCH ×4 (01:36→18:28)
[2018-10-16] MEDS: LORAZEPAM 2MG/ML CPJ IV PRN ×2 (03:30→10:22)
[2018-10-16] MEDS: METHYLPREDNISOLONE SOD SUCC 40 MG/ML VIAL IV SCH (04:20)
[2018-10-16] MEDS: DILTIAZEM HCL 60MG TABLET PO SCH (05:31)
[2018-10-16] MEDS: BLOOD SUGAR DIAGNOSTIC STRIP TEST SCH ×3 (05:31→16:16)
[2018-10-16] MEDS: INSULIN LISPRO 100 UNITS/ML SUBCUT SCH ×3 (05:32→16:17)
[2018-10-16 06:47] LABS: HEMATOCRIT 29.3 % (36.0-48.0); HEMOGLOBIN 9.6 g/dL (12.0-16.0); MEAN CORPUSCULAR HEMOGLOBIN 29.3 pg (28.0-32.0); MEAN CORPUSCULAR VOLUME 89.3 fL (81.0-99.0); PLATELET 483 x1000/uL (130-400); RED BLOOD CELL COUNT 3.28 mill/uL (4.2-5.4); RED CELL DISTRIBUTION WIDTH 15.2 % (11.6-14.6)
[2018-10-16 07:15] LABS: CHLORIDE 87 mEq/L (98-107)
[2018-10-16] MEDS: ENOXAPARIN 80MG/0.8ML SYR SUBCUT SCH ×2 (08:07→21:32)
[2018-10-16] MEDS: CARBAMAZEPINE 200MG TABLET PO SCH ×2 (08:07→18:27)
[2018-10-16] MEDS: FAMOTIDINE 20MG/2ML VIAL IV SCH ×2 (08:07→21:31)
[2018-10-16] MEDS ORDERED: AMLODIPINE 10MG TABLET PO SCH (09:00)
[2018-10-16] MEDS ORDERED: POTASSIUM CHLORIDE 20MEQ TABLET SR PO NR ×2 (09:45→10:15)
[2018-10-16] MEDS ORDERED: POTASSIUM CHLORIDE 20MEQ TABLET SR PO SCH ×2 (11:00→14:00)
[2018-10-16] MEDS: DILTIAZEM HCL 90MG TABLET PO SCH ×2 (11:16→18:28)
[2018-10-16] MEDS: VANCOMYCIN 1 G PREMIX 200 ML IV SCH (11:17)
[2018-10-16] MEDS ORDERED: CARBAMAZEPINE 200MG TABLET PO SCH (12:15)
[2018-10-16] MEDS ORDERED: IPRATROPIUM/ALBUTEROL 0.5-3(2.5)MG/3ML NEB HHN PRN (13:15)
[2018-10-16] MEDS: METOPROLOL TARTRATE 25MG TABLET PO SCH ×2 (13:20→21:31)
[2018-10-16 16:13] LABS: CLARITY URINE CLEAR (CLEAR); COLOR URINE YELLOW (YELLOW); KETONES URINE NEGATIVE (NEGATIVE); LEUKOCYTE ESTERASE URINE NEGATIVE (NEGATIVE); NITRITE URINE NEGATIVE (NEGATIVE); OCCULT BLOOD URINE 1+ (NEGATIVE); PROTEIN URINE NEGATIVE (NEGATIVE); SPECIFIC GRAVITY URINE 1.014 (1.005-1.030)
[2018-10-16 17:39] LABS: T4 FREE 0.96 ng/dL (0.76-1.46)
[2018-10-17] VITALS (12 sets, daily range): BP systolic 100–151; BP diastolic 62–92
[2018-10-17] MEDS: VANCOMYCIN 1 G PREMIX 200 ML IV SCH ×3 (00:01→22:22)
[2018-10-17] MEDS: DILTIAZEM HCL 90MG TABLET PO SCH ×4 (00:06→17:57)
[2018-10-17] MEDS: BLOOD SUGAR DIAGNOSTIC STRIP TEST SCH ×4 (00:06→17:28)
[2018-10-17] MEDS: ACETYLCYSTEINE 100MG/ML 10% VIAL 4ML INH SCH (01:29)
[2018-10-17] MEDS: PIPERACILLIN/TAZ 3.375G PREMIX 50 ML IV SCH ×4 (01:46→17:57)
[2018-10-17] MEDS: LORAZEPAM 2MG/ML CPJ IV PRN (03:49)
[2018-10-17] MEDS: INSULIN LISPRO 100 UNITS/ML SUBCUT SCH ×4 (05:34→17:28)
[2018-10-17 07:39] LABS: BASOPHILS % 0.2 % (0.0-2.0); EOSINOPHILS % 1.4 % (0.0-5.0); HEMATOCRIT. 27.9 % (36.0-48.0); LYMPHOCYTES % 25.8 % (20.0-50.0); MEAN CORPUSCULAR HEMOGLOBIN 28.4 pg (28.0-32.0); MEAN CORPUSCULAR VOLUME 88.4 fL (81.0-99.0); MEAN PLATELET VOLUME 7.3 fl (7.4-10.4); MONOCYTES % 12.5 % (2.0-8.0); NEUTROPHILS % 60.1 % (40.0-76.0); PLATELET 522 x1000/uL (130-400); RED BLOOD CELL COUNT 3.16 mill/uL (4.2-5.4); RED CELL DISTRIBUTION WIDTH 15.1 % (11.6-14.6)
[2018-10-17 07:58] LABS: CHLORIDE 90 mEq/L (98-107)
[2018-10-17] MEDS: CARBAMAZEPINE 200MG TABLET PO SCH ×2 (08:34→17:57)
[2018-10-17] MEDS: FAMOTIDINE 20MG/2ML VIAL IV SCH (08:34)
[2018-10-17] MEDS: METOPROLOL TARTRATE 25MG TABLET PO SCH ×2 (08:35→21:21)
[2018-10-17] MEDS: ENOXAPARIN 80MG/0.8ML SYR SUBCUT SCH (08:35)
[2018-10-17] MEDS ORDERED: POTASSIUM CHLORIDE INJ 40 MEQ in DEXT 5% WATER 250 ML IV SCH (12:00)
[2018-10-17] MEDS ORDERED: RIVAROXABAN 20 MG TABLET PO SCH (17:20)
[2018-10-17 17:48] LABS: HEMATOCRIT 30.8 % (36.0-48.0); HEMOGLOBIN 10.1 g/dL (12.0-16.0)
[2018-10-17] MEDS: FAMOTIDINE 20MG TABLET PO SCH (21:21)
[2018-10-18] VITALS (13 sets, daily range): BP systolic 105–149; BP diastolic 52–85
[2018-10-18] MEDS: PIPERACILLIN/TAZ 3.375G PREMIX 50 ML IV SCH ×3 (00:17→11:44)
[2018-10-18] MEDS: DILTIAZEM HCL 90MG TABLET PO SCH ×4 (01:10→17:43)
[2018-10-18] MEDS: INSULIN LISPRO 100 UNITS/ML SUBCUT SCH ×5 (06:00→23:23)
[2018-10-18] MEDS: BLOOD SUGAR DIAGNOSTIC STRIP TEST SCH ×2 (06:00)
[2018-10-18 07:40] LABS: HEMATOCRIT 26.8 % (36.0-48.0); HEMOGLOBIN 8.8 g/dL (12.0-16.0); MEAN CORPUSCULAR HEMOGLOBIN 29.2 pg (28.0-32.0); MEAN CORPUSCULAR VOLUME 88.5 fL (81.0-99.0); PLATELET 498 x1000/uL (130-400); RED BLOOD CELL COUNT 3.03 mill/uL (4.2-5.4); RED CELL DISTRIBUTION WIDTH 14.7 % (11.6-14.6)
[2018-10-18 07:48] LABS: CHLORIDE 93 mEq/L (98-107)
[2018-10-18] MEDS: CARBAMAZEPINE 200MG TABLET PO SCH ×2 (08:58→17:05)
[2018-10-18] MEDS: METOPROLOL TARTRATE 25MG TABLET PO SCH ×2 (08:58→21:28)
[2018-10-18] MEDS: FAMOTIDINE 20MG TABLET PO SCH ×2 (08:58→21:28)
[2018-10-18] MEDS ORDERED: LORAZEPAM 2MG/ML CPJ IV PRN ×2 (11:30→17:30)
[2018-10-18] MEDS: VANCOMYCIN 1 G PREMIX 200 ML IV SCH ×2 (11:44→23:09)
[2018-10-18] MEDS ORDERED: POTASSIUM CHLORIDE INJ 40 MEQ in DEXT 5% WATER 250 ML IV NR (12:30)
[2018-10-18 14:03] LABS: HEMOGLOBIN 9.5 g/dL (12.0-16.0)
[2018-10-18] MEDS ORDERED: PIPERACILLIN/TAZ 3.375G PREMIX 50 ML IV SCH (18:00)
[2018-10-18 20:28] LABS: HEMATOCRIT 30.7 % (36.0-48.0)
[2018-10-18] MEDS: METRONIDAZOLE 500MG TABLET PO SCH (21:28)
[2018-10-18] MEDS: HYDROCODONE/ACETAMINOPHEN 5/325MG TABLET PO PRN (21:41)
[2018-10-19] VITALS (11 sets, daily range): BP systolic 97–135; BP diastolic 52–79
[2018-10-19] MEDS: DILTIAZEM HCL 90MG TABLET PO SCH ×4 (00:34→17:35)
[2018-10-19] MEDS: INSULIN LISPRO 100 UNITS/ML SUBCUT SCH ×3 (06:00→17:12)
[2018-10-19] MEDS: METRONIDAZOLE 500MG TABLET PO SCH ×2 (06:38→14:00)
[2018-10-19 06:48] LABS: HEMATOCRIT 29.5 % (36.0-48.0); HEMOGLOBIN 9.6 g/dL (12.0-16.0); MEAN CORPUSCULAR HEMOGLOBIN 28.9 pg (28.0-32.0); MEAN CORPUSCULAR VOLUME 89.2 fL (81.0-99.0); PLATELET 522 x1000/uL (130-400); RED BLOOD CELL COUNT 3.31 mill/uL (4.2-5.4)
[2018-10-19 06:56] LABS: CHLORIDE 97 mEq/L (98-107)
[2018-10-19] MEDS: CARBAMAZEPINE 200MG TABLET PO SCH ×2 (09:14→17:35)
[2018-10-19] MEDS: FAMOTIDINE 20MG TABLET PO SCH ×2 (09:14→21:03)
[2018-10-19] MEDS: METOPROLOL TARTRATE 25MG TABLET PO SCH ×2 (09:14→21:03)
[2018-10-19] MEDS: VANCOMYCIN 1 G PREMIX 200 ML IV SCH (12:52)
== END 2018-10-19 21:38 | DRG 871 ==
LOC: ER 18:39 → CVICU 20:31 → ENRESERV 21:04 → 3WST 10-15 13:55
PROVIDERS: ADMIT Internal Medicine; ATTEND Internal Medicine
PROC: 5A1945Z Respiratory Ventilation, 24-96 Consecutive Hours (ICD-10-PCS; principal; 2018-10-10)
PROC: 0BH17EZ Insertion of Endotracheal Airway into Trachea, Via Natural or Artificial Opening (ICD-10-PCS; 2018-10-10)
PROC: 02HV33Z Insertion of Infusion Device into Superior Vena Cava, Percutaneous Approach (ICD-10-PCS; 2018-10-11)
PROC: B548ZZA Ultrasonography of Superior Vena Cava, Guidance (ICD-10-PCS; 2018-10-11)
DX: A41.9 Sepsis, unspecified organism (principal); E43 Unspecified severe protein-calorie malnutrition; J18.9 Pneumonia, unspecified organism; J96.00 Acute respiratory failure, unspecified whether with hypoxia or hypercapnia; I50.33 Acute on chronic diastolic (congestive) heart failure; R65.21 Severe sepsis with septic shock; J44.0 Chronic obstructive pulmonary disease with (acute) lower respiratory infection; E87.1 Hypo-osmolality and hyponatremia; I42.9 Cardiomyopathy, unspecified; I48.92 Unspecified atrial flutter; J44.1 Chronic obstructive pulmonary disease with (acute) exacerbation; G93.40 Encephalopathy, unspecified; I47.1 Supraventricular tachycardia; R04.2 Hemoptysis; D64.9 Anemia, unspecified; I35.0 Nonrheumatic aortic (valve) stenosis; E87.8 Other disorders of electrolyte and fluid balance, not elsewhere classified; F41.9 Anxiety disorder, unspecified; E11.9 Type 2 diabetes mellitus without complications; F03.90 Unspecified dementia, unspecified severity, without behavioral disturbance, psychotic disturbance, mood disturbance, and anxiety; I48.0 Paroxysmal atrial fibrillation; E78.5 Hyperlipidemia, unspecified; E87.6 Hypokalemia; G89.29 Other chronic pain; I27.20 Pulmonary hypertension, unspecified; K74.60 Unspecified cirrhosis of liver; I11.0 Hypertensive heart disease with heart failure; G50.0 Trigeminal neuralgia; B19.20 Unspecified viral hepatitis C without hepatic coma; K57.30 Diverticulosis of large intestine without perforation or abscess without bleeding; Z68.39 Body mass index [BMI] 39.0-39.9, adult; Z86.711 Personal history of pulmonary embolism; Z78.1 Physical restraint status; Z86.73 Personal history of transient ischemic attack (TIA), and cerebral infarction without residual deficits; Z87.01 Personal history of pneumonia (recurrent); Z88.8 Allergy status to other drugs, medicaments and biological substances; Z79.82 Long term (current) use of aspirin; Z79.899 Other long term (current) drug therapy; Z79.4 Long term (current) use of insulin
CPT/HCPCS: 31500; 36415; 36600; 51702; 71045; 71250; 76937; 80048; 80202; 80305; 82375; 82728; 82805; 82962; 83520; 83540; 83550; 83605; 83735; 83880; 84132; 84145; 84439; 84478; 84481; 84484; 85014; 85018; 85027; 87070; 87077; 93005; 93306; 94002; 94003; 94640; 96361; 96374; 96375; 97162; 97530; 99291; A6261; C1725; J0330; J1650; J1815; J1940; J2060; J2250; J2543; J2920; J3010; J3370; J3480; J3490; J7040; J7042; J7050; J7060; J7608; J7620

== ENCOUNTER 2019-02-04 02:08 | Inpatient (IN) | payer MEDICARE, OTHER ==
[2019-02-04] VITALS (76 sets, daily range): BP systolic 84–134; BP diastolic 38–101
[~2019-02-04] VITALS: Ht 165.1 cm; Wt 98.9 kg
[~2019-02-04 02:08] MED LIST changes: -BACL-141 PO; -CARB200T6 PO; -GABA-531 PO; -INSU3INS6 SUBCUT
[2019-02-04] MEDS ORDERED: NOREPINEPHRINE 4 MG in DEXT 5% WATER 250 ML IV STA (02:39)
[2019-02-04] MEDS ORDERED: ONDANSETRON HCL 4MG/2ML INJ IV STA (02:39)
[2019-02-04] MEDS ORDERED: EPINEPHRINE 1 MG in SODIUM CHLORIDE 0.9% 250 ML IV STA (02:39)
[2019-02-04] MEDS ORDERED: ETOMIDATE 2MG/ML 10ML VIAL IV ONE (02:45)
[2019-02-04] MEDS ORDERED: MIDAZOLAM HCL 50 MG in DEXTROSE 5% WATER 40 ML IV ONE (02:45)
[2019-02-04] MEDS ORDERED: VECURONIUM BROMIDE 10 MG/VIAL IV ONE (02:45)
[2019-02-04] MEDS ORDERED: SODIUM CHLORIDE 0.9% 1000ML BAG (SEPSIS BOLUS) IV ONE (02:45)
[2019-02-04] MEDS ORDERED: VANCOMYCIN 1 G PREMIX 200 ML IV ONE (02:45)
[2019-02-04] MEDS ORDERED: PIPERACILLIN/TAZ 3.375G PREMIX 50 ML IV ONE (02:45)
[2019-02-04] MEDS ORDERED: NOREPINEPHRINE 4MG/250ML PMX 250 ML IV SCH (03:00)
[2019-02-04 03:08] LABS: CHLORIDE 88 mEq/L (98-107)
[2019-02-04 03:09] LABS: HEMATOCRIT. 31.6 % (36.0-48.0); HEMOGLOBIN. 9.8 g/dL (12.0-16.0); MEAN CORPUSCULAR HEMOGLOBIN 27.3 pg (28.0-32.0); MEAN CORPUSCULAR VOLUME 88.3 fL (81.0-99.0); MEAN PLATELET VOLUME 8.2 fl (7.4-10.4); PLATELET 332 x1000/uL (130-400); RED BLOOD CELL COUNT 3.58 mill/uL (4.2-5.4); RED CELL DISTRIBUTION WIDTH 16.2 % (11.6-14.6)
[2019-02-04 03:13] LABS: INR 1.1; PROTHROMBIN TIME 11.4 sec (9.6-11.0)
[2019-02-04 03:13] LABS: BG BASE EXCESS 0.8 mmol/L (-2.0-2.0); BG CARBOXYHEMOGLOBIN 0.5 % (0.5-1.5); BG DEOXYHEMOGLOBIN 1.8 % (0.0-5.0); BG FRACTION INSPIRED OXYGEN 100; BG METHEMOGLOBIN 0.2 % (0.0-1.5); BG OXYGEN SATURATION 98.2 % (92.0-98.5); BG OXYHEMOGLOBIN 97.5 % (94.0-97.0); BG PCO2 60.8 mmHg (35.0-45.0); BG PH 7.281 (7.350-7.450); BG PO2 131.3 mmHg (75.0-100.0); BG SAMPLE SITE LEFT FEMORAL; BG TIDAL VOLUME(mL) 500 mL; BG TOTAL HEMOGLOBIN 8.3 g/dL (12.0-18.0); BG VENT MODE VENT - A/C; BG VENT RATE 16 set
[2019-02-04 03:44] LABS: PLATELET ESTIMATE NORMAL
[2019-02-04 03:47] LABS: CLARITY URINE CLEAR (CLEAR); COLOR URINE YELLOW (YELLOW); KETONES URINE NEGATIVE (NEGATIVE); LEUKOCYTE ESTERASE URINE TRACE (NEGATIVE); NITRITE URINE NEGATIVE (NEGATIVE); OCCULT BLOOD URINE NEGATIVE (NEGATIVE); PH URINE 6.5 (4.5-8.0); PROTEIN URINE 3+ (NEGATIVE); SPECIFIC GRAVITY URINE 1.018 (1.005-1.030)
[2019-02-04] MEDS ORDERED: NOREPINEPHRINE 4MG/250ML PMX 250 ML IV ONE (05:18)
[2019-02-04] MEDS ORDERED: PHENYLEPHRINE 10 MG in DEXT 5% WATER 249 ML IV PRN ×2 (05:45→07:00)
[2019-02-04] MEDS ORDERED: DEXTROSE 50% WATER 50ML SYRINGE IV PRN (05:45)
[2019-02-04] MEDS ORDERED: ENOXAPARIN 40MG/0.4ML SYR SUBCUT ONE (05:45)
[2019-02-04] MEDS ORDERED: NOREPINEPHRINE 4MG/250ML PMX 250 ML IV PRN (05:45)
[2019-02-04] MEDS: BLOOD SUGAR DIAGNOSTIC STRIP TEST SCH ×4 (06:00→23:43)
[2019-02-04] MEDS ORDERED: NOREPINEPHRINE 4 MG in DEXTROSE 5% WATER 250 ML IV PRN (06:45)
[2019-02-04] MEDS ORDERED: METHYLPREDNISOLONE SOD SUCC 40 MG/ML VIAL IV SCH (06:45)
[2019-02-04] MEDS ORDERED: VANCOMYCIN 1 G PREMIX 200 ML IV SCH (08:00)
[2019-02-04] MEDS: METHYLPREDNISOLONE SOD SUCC 40 MG/ML VIAL IV SCH ×3 (08:20→21:03)
[2019-02-04] MEDS: DEXT 5%/0.9% NACL 1,000 ML IV SCH ×2 (08:21→19:53)
[2019-02-04] MEDS: PANTOPRAZOLE SODIUM 40 MG/VIAL IV SCH (08:23)
[2019-02-04] MEDS: INSULIN LISPRO 100 UNITS/ML SUBCUT SCH ×4 (08:24→23:47)
[2019-02-04] MEDS: IPRATROPIUM/ALBUTEROL 0.5-3(2.5)MG/3ML NEB HHN SCH ×4 (08:45→19:57)
[2019-02-04 08:50] LABS: BG BASE EXCESS 7.8 mmol/L (-2.0-2.0); BG CARBOXYHEMOGLOBIN 0.5 % (0.5-1.5); BG DEOXYHEMOGLOBIN 4.5 % (0.0-5.0); BG FRACTION INSPIRED OXYGEN 100; BG HCO3 ACT 33.6 mmol/L (22.0-26.0); BG METHEMOGLOBIN 0.1 % (0.0-1.5); BG OXYGEN SATURATION 95.5 % (92.0-98.5); BG OXYHEMOGLOBIN 94.9 % (94.0-97.0); BG PCO2 54.3 mmHg (35.0-45.0); BG PO2 76.7 mmHg (75.0-100.0); BG SAMPLE SITE RIGHT BRACHIAL; BG TIDAL VOLUME(mL) 500 mL; BG TOTAL HEMOGLOBIN 10.3 g/dL (12.0-18.0); BG VENT MODE VENT - A/C; BG VENT RATE 16 set
[2019-02-04] MEDS: ENOXAPARIN 40MG/0.4ML SYR SUBCUT SCH (08:54)
[2019-02-04] MEDS ORDERED: NOREPINEPHRINE 8 MG in DEXT 5% WATER 492 ML IV PRN (10:15)
[2019-02-04] MEDS ORDERED: SODIUM CHLORIDE 0.9% 1,000 ML IV SCH (12:30)
[2019-02-04 12:49] LABS: HEMATOCRIT. 34.1 % (36.0-48.0); HEMOGLOBIN. 10.4 g/dL (12.0-16.0); MEAN CORPUSCULAR HEMOGLOBIN 27.1 pg (28.0-32.0); MEAN CORPUSCULAR VOLUME 88.5 fL (81.0-99.0); MEAN PLATELET VOLUME 8.5 fl (7.4-10.4); PLATELET 318 x1000/uL (130-400); RED BLOOD CELL COUNT 3.86 mill/uL (4.2-5.4); RED CELL DISTRIBUTION WIDTH 16.2 % (11.6-14.6)
[2019-02-04 12:57] LABS: CHLORIDE 96 mEq/L (98-107)
[2019-02-04 13:25] LABS: PLATELET ESTIMATE NORMAL
[2019-02-04] MEDS: PIPERACILLIN/TAZOBACTAM 3.375 G in DEXT 5% WATER 100 ML IV SCH ×2 (14:21→19:53)
[2019-02-04] MEDS ORDERED: POTASSIUM CHLORIDE INJ 40 MEQ in DEXT 5% WATER 250 ML IV NR (15:00)
[2019-02-04 15:15] LABS: CREATINE KINASE MB FRACTION 1.6 ng/mL (0.5-3.6)
[2019-02-04] MEDS: ACETAMINOPHEN 650MG/20.3ML UDC PO PRN (16:21)
[2019-02-04] MEDS: PROPOFOL 10MG/ML 100ML 100 ML IV PRN (20:48)
[2019-02-05] VITALS (93 sets, daily range): BP systolic 84–133; BP diastolic 59–82
[2019-02-05] MEDS ORDERED: PHENYLEPHRINE 40 MG in DEXT 5% WATER 246 ML IV PRN (00:30)
[2019-02-05] MEDS: IPRATROPIUM/ALBUTEROL 0.5-3(2.5)MG/3ML NEB HHN SCH ×2 (00:39→04:15)
[2019-02-05] MEDS: PIPERACILLIN/TAZOBACTAM 3.375 G in DEXT 5% WATER 100 ML IV SCH ×4 (01:47→19:39)
[2019-02-05 05:42] LABS: HEMATOCRIT. 27.9 % (36.0-48.0); HEMOGLOBIN. 8.7 g/dL (12.0-16.0); MEAN CORPUSCULAR HEMOGLOBIN 26.8 pg (28.0-32.0); MEAN CORPUSCULAR VOLUME 86.2 fL (81.0-99.0); MEAN PLATELET VOLUME 8.6 fl (7.4-10.4); PLATELET 245 x1000/uL (130-400); RED BLOOD CELL COUNT 3.24 mill/uL (4.2-5.4); RED CELL DISTRIBUTION WIDTH 16.3 % (11.6-14.6)
[2019-02-05 05:52] LABS: CHLORIDE 102 mEq/L (98-107)
[2019-02-05 05:59] LABS: PHOSPHORUS 1.8 mg/dL (2.5-4.9)
[2019-02-05] MEDS: INSULIN LISPRO 100 UNITS/ML SUBCUT SCH ×4 (06:00→23:10)
[2019-02-05] MEDS: BLOOD SUGAR DIAGNOSTIC STRIP TEST SCH ×4 (06:19→23:10)
[2019-02-05] MEDS: METHYLPREDNISOLONE SOD SUCC 40 MG/ML VIAL IV SCH ×3 (06:20→21:11)
[2019-02-05] MEDS: PROPOFOL 10MG/ML 100ML 100 ML IV PRN ×3 (06:23→23:10)
[2019-02-05 07:36] LABS: PLATELET ESTIMATE NORMAL
[2019-02-05] MEDS: PANTOPRAZOLE SODIUM 40 MG/VIAL IV SCH (08:15)
[2019-02-05] MEDS: DEXT 5%/0.9% NACL 1,000 ML IV SCH ×2 (08:16→23:10)
[2019-02-05] MEDS: VANCOMYCIN 1500MG in DEXTROSE 5% WATER 250ML IV SCH (08:16)
[2019-02-05] MEDS: ENOXAPARIN 40MG/0.4ML SYR SUBCUT SCH (08:16)
[2019-02-05 09:40] LABS: BG BASE EXCESS 4.8 mmol/L (-2.0-2.0); BG CARBOXYHEMOGLOBIN 0.3 % (0.5-1.5); BG DEOXYHEMOGLOBIN 1.4 % (0.0-5.0); BG FRACTION INSPIRED OXYGEN 100; BG HCO3 ACT 29.2 mmol/L (22.0-26.0); BG METHEMOGLOBIN 0.3 % (0.0-1.5); BG OXYGEN SATURATION 98.6 % (92.0-98.5); BG PCO2 42.9 mmHg (35.0-45.0); BG PH 7.451 (7.350-7.450); BG PO2 127.3 mmHg (75.0-100.0); BG SAMPLE SITE RIGHT BRACHIAL; BG TIDAL VOLUME(mL) 500 mL; BG TOTAL HEMOGLOBIN 9.2 g/dL (12.0-18.0); BG VENT MODE VENT - A/C; BG VENT RATE 16 set
[2019-02-05] MEDS ORDERED: MORPHINE SULFATE 2 MG/ML CPJ (NOT FOR IM USE) IV SCH (12:00)
[2019-02-05] MEDS ORDERED: IPRATROPIUM BROMIDE (0.02%) 0.5MG/2.5ML NEB ONE (12:03)
[2019-02-05] MEDS ORDERED: IPRATROPIUM/ALBUTEROL 0.5-3(2.5)MG/3ML NEB HHN PRN (13:15)
[2019-02-05] MEDS ORDERED: MAGNESIUM 2 G PREMIX 50 ML IV SCH (14:00)
[2019-02-05] MEDS: IPRATROPIUM BROMIDE (0.02%) 0.5MG/2.5ML NEB HHN SCH ×3 (14:36→21:20)
[2019-02-05] MEDS ORDERED: IOHEXOL-350 100 ML BOTTLE ONE (18:58)
[2019-02-05] MEDS ORDERED: DIGOXIN 500MCG/2ML AMP IV NR ×2 (20:45→22:45)
[2019-02-06] VITALS (82 sets, daily range): BP systolic 92–156; BP diastolic 55–96
[2019-02-06] MEDS: IPRATROPIUM BROMIDE (0.02%) 0.5MG/2.5ML NEB HHN SCH ×6 (01:05→20:28)
[2019-02-06] MEDS: PIPERACILLIN/TAZOBACTAM 3.375 G in DEXT 5% WATER 100 ML IV SCH ×4 (02:10→19:54)
[2019-02-06] MEDS: PROPOFOL 10MG/ML 100ML 100 ML IV PRN ×2 (02:11→11:06)
[2019-02-06] MEDS: INSULIN LISPRO 100 UNITS/ML SUBCUT SCH ×4 (05:05→23:13)
[2019-02-06] MEDS: BLOOD SUGAR DIAGNOSTIC STRIP TEST SCH ×4 (05:05→23:09)
[2019-02-06] MEDS: METHYLPREDNISOLONE SOD SUCC 40 MG/ML VIAL IV SCH ×3 (05:08→21:24)
[2019-02-06 06:05] LABS: HEMATOCRIT 23.4 % (36.0-48.0); HEMOGLOBIN 7.5 g/dL (12.0-16.0); MEAN CORPUSCULAR HEMOGLOBIN 27.3 pg (28.0-32.0); MEAN CORPUSCULAR VOLUME 84.7 fL (81.0-99.0); PLATELET 228 x1000/uL (130-400); RED BLOOD CELL COUNT 2.76 mill/uL (4.2-5.4); RED CELL DISTRIBUTION WIDTH 16.1 % (11.6-14.6)
[2019-02-06 06:18] LABS: CHLORIDE 105 mEq/L (98-107)
[2019-02-06] MEDS: PANTOPRAZOLE SODIUM 40 MG/VIAL IV SCH (08:23)
[2019-02-06] MEDS: ENOXAPARIN 40MG/0.4ML SYR SUBCUT SCH (09:00)
[2019-02-06] MEDS: VANCOMYCIN 1500MG in DEXTROSE 5% WATER 250ML IV SCH (09:04)
[2019-02-06] MEDS: LORAZEPAM 2MG/ML CPJ IV PRN (09:40)
[2019-02-06 09:53] LABS: BG BASE EXCESS 2.5 mmol/L (-2.0-2.0); BG CARBOXYHEMOGLOBIN 0.3 % (0.5-1.5); BG DEOXYHEMOGLOBIN 0.7 % (0.0-5.0); BG FRACTION INSPIRED OXYGEN 85; BG HCO3 ACT 26.9 mmol/L (22.0-26.0); BG METHEMOGLOBIN 0.1 % (0.0-1.5); BG OXYGEN SATURATION 99.3 % (92.0-98.5); BG OXYHEMOGLOBIN 98.9 % (94.0-97.0); BG PCO2 40.7 mmHg (35.0-45.0); BG PH 7.438 (7.350-7.450); BG PO2 189.4 mmHg (75.0-100.0); BG SAMPLE SITE RIGHT RADIAL; BG TIDAL VOLUME(mL) 500 mL; BG TOTAL HEMOGLOBIN 8.5 g/dL (12.0-18.0); BG VENT MODE VENT - A/C; BG VENT RATE 16 set
[2019-02-06] MEDS: FENTANYL CITRATE/PF 500 MCG in SODIUM CHLORIDE 0.9% 40 ML IV PRN ×2 (15:25→22:53)
[2019-02-06] MEDS: MIDAZOLAM HCL 100 MG in DEXT 5% WATER 80 ML IV PRN (15:26)
[2019-02-07] VITALS (46 sets, daily range): BP systolic 118–179; BP diastolic 68–110
[2019-02-07] MEDS: IPRATROPIUM BROMIDE (0.02%) 0.5MG/2.5ML NEB HHN SCH ×6 (00:13→20:03)
[2019-02-07] MEDS: PIPERACILLIN/TAZOBACTAM 3.375 G in DEXT 5% WATER 100 ML IV SCH ×4 (01:56→20:04)
[2019-02-07] MEDS: DEXT 5%/0.9% NACL 1,000 ML IV SCH ×2 (01:56→14:00)
[2019-02-07] MEDS: MIDAZOLAM HCL 100 MG in DEXT 5% WATER 80 ML IV PRN ×2 (02:23→16:12)
[2019-02-07 05:05] LABS: HEMATOCRIT. 25.1 % (36.0-48.0); HEMOGLOBIN. 7.9 g/dL (12.0-16.0); MEAN CORPUSCULAR HEMOGLOBIN 26.9 pg (28.0-32.0); MEAN CORPUSCULAR VOLUME 85.5 fL (81.0-99.0); MEAN PLATELET VOLUME 8.1 fl (7.4-10.4); PLATELET 249 x1000/uL (130-400); RED BLOOD CELL COUNT 2.94 mill/uL (4.2-5.4); RED CELL DISTRIBUTION WIDTH 16.3 % (11.6-14.6)
[2019-02-07 05:12] LABS: CHLORIDE 104 mEq/L (98-107)
[2019-02-07] MEDS: METHYLPREDNISOLONE SOD SUCC 40 MG/ML VIAL IV SCH ×3 (05:56→22:15)
[2019-02-07] MEDS: INSULIN LISPRO 100 UNITS/ML SUBCUT SCH ×4 (05:56→23:43)
[2019-02-07] MEDS: BLOOD SUGAR DIAGNOSTIC STRIP TEST SCH ×4 (05:57→23:41)
[2019-02-07 06:42] LABS: PLATELET ESTIMATE NORMAL
[2019-02-07] MEDS: PANTOPRAZOLE SODIUM 40 MG/VIAL IV SCH (08:33)
[2019-02-07] MEDS: VANCOMYCIN 1500MG in DEXTROSE 5% WATER 250ML IV SCH (08:34)
[2019-02-07] MEDS: LORAZEPAM 2MG/ML CPJ IV PRN ×2 (08:34→20:04)
[2019-02-07 08:53] LABS: BG BASE EXCESS 4.8 mmol/L (-2.0-2.0); BG CARBOXYHEMOGLOBIN 0.3 % (0.5-1.5); BG DEOXYHEMOGLOBIN 7.2 % (0.0-5.0); BG METHEMOGLOBIN 0.3 % (0.0-1.5); BG OXYGEN SATURATION 92.8 % (92.0-98.5); BG OXYHEMOGLOBIN 92.2 % (94.0-97.0); BG PCO2 48.2 mmHg (35.0-45.0); BG PH 7.412 (7.350-7.450); BG PO2 67.9 mmHg (75.0-100.0); BG SAMPLE SITE RIGHT RADIAL; BG TIDAL VOLUME(mL) 500 mL; BG TOTAL HEMOGLOBIN 8.9 g/dL (12.0-18.0); BG VENT MODE VENT - A/C; BG VENT RATE 16 set
[2019-02-07] MEDS: FENTANYL CITRATE/PF 500 MCG in SODIUM CHLORIDE 0.9% 40 ML IV PRN (10:28)
[2019-02-07] MEDS: FENTANYL CITRATE/PF 1,000 MCG in SODIUM CHLORIDE 0.9% 80 ML IV PRN (10:30)
[2019-02-07] MEDS: VANCOMYCIN 1 G PREMIX 200 ML IV SCH (20:04)
[2019-02-08] VITALS (38 sets, daily range): BP systolic 111–177; BP diastolic 54–115
[2019-02-08] MEDS: IPRATROPIUM BROMIDE (0.02%) 0.5MG/2.5ML NEB HHN SCH ×6 (00:09→21:01)
[2019-02-08] MEDS: FENTANYL CITRATE/PF 1,000 MCG in SODIUM CHLORIDE 0.9% 80 ML IV PRN ×2 (00:58→17:20)
[2019-02-08] MEDS: PIPERACILLIN/TAZOBACTAM 3.375 G in DEXT 5% WATER 100 ML IV SCH ×4 (01:00→20:20)
[2019-02-08] MEDS: DEXT 5%/0.9% NACL 1,000 ML IV SCH ×3 (04:14→17:53)
[2019-02-08] MEDS: MIDAZOLAM HCL 100 MG in DEXT 5% WATER 80 ML IV PRN ×2 (05:21→20:27)
[2019-02-08 05:23] LABS: HEMATOCRIT. 24.1 % (36.0-48.0); HEMOGLOBIN. 7.7 g/dL (12.0-16.0); MEAN CORPUSCULAR HEMOGLOBIN 27.2 pg (28.0-32.0); MEAN CORPUSCULAR VOLUME 84.9 fL (81.0-99.0); MEAN PLATELET VOLUME 8.4 fl (7.4-10.4); PLATELET 275 x1000/uL (130-400); RED BLOOD CELL COUNT 2.83 mill/uL (4.2-5.4); RED CELL DISTRIBUTION WIDTH 15.8 % (11.6-14.6)
[2019-02-08 05:27] LABS: CHLORIDE 103 mEq/L (98-107)
[2019-02-08] MEDS: BLOOD SUGAR DIAGNOSTIC STRIP TEST SCH ×4 (06:01→23:45)
[2019-02-08] MEDS: INSULIN LISPRO 100 UNITS/ML SUBCUT SCH ×4 (06:02→23:46)
[2019-02-08] MEDS: METHYLPREDNISOLONE SOD SUCC 40 MG/ML VIAL IV SCH ×3 (06:02→21:57)
[2019-02-08 07:24] LABS: PLATELET ESTIMATE NORMAL
[2019-02-08 07:44] LABS: BG BASE EXCESS 3.6 mmol/L (-2.0-2.0); BG CARBOXYHEMOGLOBIN 0.3 % (0.5-1.5); BG DEOXYHEMOGLOBIN 2.6 % (0.0-5.0); BG HCO3 ACT 28.4 mmol/L (22.0-26.0); BG METHEMOGLOBIN 0.3 % (0.0-1.5); BG OXYGEN SATURATION 97.4 % (92.0-98.5); BG OXYHEMOGLOBIN 96.8 % (94.0-97.0); BG PCO2 44.4 mmHg (35.0-45.0); BG PH 7.424 (7.350-7.450); BG PO2 102.1 mmHg (75.0-100.0); BG SAMPLE SITE RIGHT RADIAL; BG TIDAL VOLUME(mL) 500 mL; BG TOTAL HEMOGLOBIN 8.3 g/dL (12.0-18.0); BG VENT MODE VENT - A/C; BG VENT RATE 16 set
[2019-02-08] MEDS: VANCOMYCIN 1 G PREMIX 200 ML IV SCH ×2 (08:02→20:20)
[2019-02-08] MEDS: PANTOPRAZOLE SODIUM 40 MG/VIAL IV SCH (08:03)
[2019-02-08] MEDS: LORAZEPAM 2MG/ML CPJ IV PRN ×2 (08:03→17:56)
[2019-02-08] MEDS: MORPHINE SULFATE 2 MG/ML CPJ (NOT FOR IM USE) IV PRN ×3 (08:59→21:58)
[2019-02-08] MEDS: CARBAMAZEPINE 200MG TABLET PO SCH (17:53)
[2019-02-08] MEDS: LIDOCAINE 5% PATCH TOP SCH (18:56)
[2019-02-09] VITALS (93 sets, daily range): BP systolic 104–199; BP diastolic 56–170
[2019-02-09] MEDS: IPRATROPIUM BROMIDE (0.02%) 0.5MG/2.5ML NEB HHN SCH ×6 (00:42→20:02)
[2019-02-09] MEDS: PIPERACILLIN/TAZOBACTAM 3.375 G in DEXT 5% WATER 100 ML IV SCH ×4 (02:00→20:19)
[2019-02-09] MEDS: MORPHINE SULFATE 2 MG/ML CPJ (NOT FOR IM USE) IV PRN ×2 (03:47→10:33)
[2019-02-09 05:43] LABS: HEMATOCRIT. 24.5 % (36.0-48.0); HEMOGLOBIN. 7.9 g/dL (12.0-16.0); MEAN CORPUSCULAR HEMOGLOBIN 27.3 pg (28.0-32.0); MEAN CORPUSCULAR VOLUME 84.8 fL (81.0-99.0); MEAN PLATELET VOLUME 8.6 fl (7.4-10.4); PLATELET 290 x1000/uL (130-400); RED BLOOD CELL COUNT 2.89 mill/uL (4.2-5.4); RED CELL DISTRIBUTION WIDTH 16.3 % (11.6-14.6)
[2019-02-09] MEDS: BLOOD SUGAR DIAGNOSTIC STRIP TEST SCH ×3 (05:43→17:47)
[2019-02-09] MEDS: METHYLPREDNISOLONE SOD SUCC 40 MG/ML VIAL IV SCH ×3 (05:43→21:42)
[2019-02-09] MEDS: INSULIN LISPRO 100 UNITS/ML SUBCUT SCH ×3 (05:44→17:59)
[2019-02-09] MEDS: DEXT 5%/0.9% NACL 1,000 ML IV SCH ×2 (05:45→15:24)
[2019-02-09 05:53] LABS: CHLORIDE 103 mEq/L (98-107)
[2019-02-09 07:44] LABS: PLATELET ESTIMATE NORMAL
[2019-02-09 08:12] LABS: BG BASE EXCESS 4.5 mmol/L (-2.0-2.0); BG CARBOXYHEMOGLOBIN 0.3 % (0.5-1.5); BG DEOXYHEMOGLOBIN 1.3 % (0.0-5.0); BG FRACTION INSPIRED OXYGEN 40; BG HCO3 ACT 28.7 mmol/L (22.0-26.0); BG METHEMOGLOBIN 0.1 % (0.0-1.5); BG OXYGEN SATURATION 98.7 % (92.0-98.5); BG OXYHEMOGLOBIN 98.3 % (94.0-97.0); BG PCO2 41.3 mmHg (35.0-45.0); BG PO2 136.5 mmHg (75.0-100.0); BG SAMPLE SITE RIGHT RADIAL; BG TIDAL VOLUME(mL) 500 mL; BG TOTAL HEMOGLOBIN 8.3 g/dL (12.0-18.0); BG VENT MODE VENT - A/C; BG VENT RATE 16 set
[2019-02-09] MEDS: PANTOPRAZOLE SODIUM 40 MG/VIAL IV SCH (08:38)
[2019-02-09] MEDS: VANCOMYCIN 1 G PREMIX 200 ML IV SCH ×2 (08:39→21:42)
[2019-02-09] MEDS: CARBAMAZEPINE 200MG TABLET PO SCH ×2 (08:39→20:19)
[2019-02-09] MEDS: FENTANYL CITRATE/PF 1,000 MCG in SODIUM CHLORIDE 0.9% 80 ML IV PRN (12:00)
[2019-02-09] MEDS: MIDAZOLAM HCL 100 MG in DEXT 5% WATER 80 ML IV PRN (12:01)
[2019-02-09] MEDS: LIDOCAINE 5% PATCH TOP SCH (17:58)
[2019-02-10] VITALS (92 sets, daily range): BP systolic 110–186; BP diastolic 57–118
[2019-02-10] MEDS: BLOOD SUGAR DIAGNOSTIC STRIP TEST SCH ×5 (00:06→23:18)
[2019-02-10] MEDS: INSULIN LISPRO 100 UNITS/ML SUBCUT SCH ×5 (00:11→23:18)
[2019-02-10] MEDS: IPRATROPIUM BROMIDE (0.02%) 0.5MG/2.5ML NEB HHN SCH ×6 (00:18→20:02)
[2019-02-10] MEDS: FENTANYL CITRATE/PF 1,000 MCG in SODIUM CHLORIDE 0.9% 80 ML IV PRN ×2 (00:46→16:27)
[2019-02-10] MEDS: MIDAZOLAM HCL 100 MG in DEXT 5% WATER 80 ML IV PRN ×2 (01:44→16:28)
[2019-02-10] MEDS: PIPERACILLIN/TAZOBACTAM 3.375 G in DEXT 5% WATER 100 ML IV SCH ×4 (01:44→20:01)
[2019-02-10] MEDS: METHYLPREDNISOLONE SOD SUCC 40 MG/ML VIAL IV SCH ×2 (05:31→17:44)
[2019-02-10 05:54] LABS: CHLORIDE 103 mEq/L (98-107)
[2019-02-10 05:55] LABS: HEMATOCRIT. 28.4 % (36.0-48.0); HEMOGLOBIN. 9.2 g/dL (12.0-16.0); MEAN CORPUSCULAR HEMOGLOBIN 27.2 pg (28.0-32.0); MEAN CORPUSCULAR VOLUME 84.3 fL (81.0-99.0); MEAN PLATELET VOLUME 8.6 fl (7.4-10.4); PLATELET 316 x1000/uL (130-400); RED BLOOD CELL COUNT 3.36 mill/uL (4.2-5.4); RED CELL DISTRIBUTION WIDTH 15.9 % (11.6-14.6)
[2019-02-10 07:10] LABS: PLATELET ESTIMATE NORMAL
[2019-02-10 07:43] LABS: BG BASE EXCESS 4.6 mmol/L (-2.0-2.0); BG CARBOXYHEMOGLOBIN 0.2 % (0.5-1.5); BG DEOXYHEMOGLOBIN 1.2 % (0.0-5.0); BG FRACTION INSPIRED OXYGEN 40; BG HCO3 ACT 29.5 mmol/L (22.0-26.0); BG METHEMOGLOBIN 0.1 % (0.0-1.5); BG OXYGEN SATURATION 98.8 % (92.0-98.5); BG OXYHEMOGLOBIN 98.5 % (94.0-97.0); BG PCO2 45.6 mmHg (35.0-45.0); BG PH 7.429 (7.350-7.450); BG PO2 152.8 mmHg (75.0-100.0); BG SAMPLE SITE RIGHT RADIAL; BG TIDAL VOLUME(mL) 500 mL; BG TOTAL HEMOGLOBIN 9.6 g/dL (12.0-18.0); BG VENT MODE VENT - A/C; BG VENT RATE 16 set
[2019-02-10] MEDS: CARBAMAZEPINE 200MG TABLET PO SCH ×2 (08:31→20:04)
[2019-02-10] MEDS: PANTOPRAZOLE SODIUM 40 MG/VIAL IV SCH (08:31)
[2019-02-10] MEDS: VANCOMYCIN 1 G PREMIX 200 ML IV SCH (08:31)
[2019-02-10] MEDS: DEXT 5%/0.9% NACL 1,000 ML IV SCH ×2 (09:41→22:47)
[2019-02-10 13:55] LABS: BG BASE EXCESS 1.9 mmol/L (-2.0-2.0); BG DEOXYHEMOGLOBIN 9.7 % (0.0-5.0); BG FRACTION INSPIRED OXYGEN 30; BG HCO3 ACT 29.2 mmol/L (22.0-26.0); BG METHEMOGLOBIN 0.1 % (0.0-1.5); BG OXYGEN SATURATION 90.2 % (92.0-98.5); BG OXYHEMOGLOBIN 89.2 % (94.0-97.0); BG PCO2 58.3 mmHg (35.0-45.0); BG PH 7.318 (7.350-7.450); BG PRESSURE SUPPORT 10; BG SAMPLE SITE RIGHT RADIAL; BG TOTAL HEMOGLOBIN 12.5 g/dL (12.0-18.0); BG VENT MODE VENT - CPAP
[2019-02-10] MEDS: LORAZEPAM 2MG/ML CPJ IM PRN (16:28)
[2019-02-10] MEDS: LIDOCAINE 5% PATCH TOP SCH (17:44)
[2019-02-10] MEDS ORDERED: BISACODYL 10MG SUPP PR PRN (19:00)
[2019-02-11] VITALS (94 sets, daily range): BP systolic 106–172; BP diastolic 49–119
[2019-02-11] MEDS: IPRATROPIUM BROMIDE (0.02%) 0.5MG/2.5ML NEB HHN SCH ×6 (00:10→20:02)
[2019-02-11] MEDS: LORAZEPAM 2MG/ML CPJ IM PRN ×2 (00:59→09:36)
[2019-02-11] MEDS: PIPERACILLIN/TAZOBACTAM 3.375 G in DEXT 5% WATER 100 ML IV SCH ×4 (01:01→19:56)
[2019-02-11] MEDS: MORPHINE SULFATE 2 MG/ML CPJ (NOT FOR IM USE) IV PRN (03:55)
[2019-02-11] MEDS: FENTANYL CITRATE/PF 1,000 MCG in SODIUM CHLORIDE 0.9% 80 ML IV PRN ×2 (04:21→19:14)
[2019-02-11] MEDS: MIDAZOLAM HCL 100 MG in DEXT 5% WATER 80 ML IV PRN ×2 (04:22→20:36)
[2019-02-11 05:23] LABS: HEMATOCRIT 27.2 % (36.0-48.0); HEMOGLOBIN 9.1 g/dL (12.0-16.0); MEAN CORPUSCULAR HEMOGLOBIN 28.2 pg (28.0-32.0); MEAN CORPUSCULAR VOLUME 84.4 fL (81.0-99.0); PLATELET 370 x1000/uL (130-400); RED BLOOD CELL COUNT 3.22 mill/uL (4.2-5.4); RED CELL DISTRIBUTION WIDTH 15.6 % (11.6-14.6)
[2019-02-11 05:26] LABS: CHLORIDE 104 mEq/L (98-107)
[2019-02-11] MEDS: BLOOD SUGAR DIAGNOSTIC STRIP TEST SCH ×4 (05:59→23:46)
[2019-02-11] MEDS: INSULIN LISPRO 100 UNITS/ML SUBCUT SCH ×4 (05:59→23:51)
[2019-02-11] MEDS: METHYLPREDNISOLONE SOD SUCC 40 MG/ML VIAL IV SCH ×2 (06:05→18:28)
[2019-02-11 08:09] LABS: BG BASE EXCESS 4.3 mmol/L (-2.0-2.0); BG DEOXYHEMOGLOBIN 3.5 % (0.0-5.0); BG FRACTION INSPIRED OXYGEN 30; BG HCO3 ACT 28.9 mmol/L (22.0-26.0); BG METHEMOGLOBIN 0.4 % (0.0-1.5); BG OXYGEN SATURATION 96.5 % (92.0-98.5); BG OXYHEMOGLOBIN 96.1 % (94.0-97.0); BG PCO2 43.4 mmHg (35.0-45.0); BG PH 7.441 (7.350-7.450); BG PO2 90.1 mmHg (75.0-100.0); BG SAMPLE SITE RIGHT RADIAL; BG TIDAL VOLUME(mL) 500 mL; BG TOTAL HEMOGLOBIN 11.6 g/dL (12.0-18.0); BG VENT MODE VENT - A/C; BG VENT RATE 16 set
[2019-02-11] MEDS: ENOXAPARIN 40MG/0.4ML SYR SUBCUT SCH (08:24)
[2019-02-11] MEDS: CARBAMAZEPINE 200MG TABLET PO SCH ×2 (08:24→20:58)
[2019-02-11] MEDS: DOCUSATE SODIUM SUGAR FREE 100MG/10ML UDC NG SCH (08:24)
[2019-02-11] MEDS: PANTOPRAZOLE SODIUM 40 MG/VIAL IV SCH (08:24)
[2019-02-11] MEDS: DEXT 5%/0.9% NACL 1,000 ML IV SCH ×2 (12:05→15:25)
[2019-02-11 13:16] LABS: BG BASE EXCESS 4.3 mmol/L (-2.0-2.0); BG CARBOXYHEMOGLOBIN 0.5 % (0.5-1.5); BG DEOXYHEMOGLOBIN 8.1 % (0.0-5.0); BG FRACTION INSPIRED OXYGEN 30; BG HCO3 ACT 31.7 mmol/L (22.0-26.0); BG METHEMOGLOBIN 0.3 % (0.0-1.5); BG OXYGEN SATURATION 91.8 % (92.0-98.5); BG OXYHEMOGLOBIN 91.1 % (94.0-97.0); BG PCO2 60.4 mmHg (35.0-45.0); BG PH 7.338 (7.350-7.450); BG PO2 70.9 mmHg (75.0-100.0); BG PRESSURE SUPPORT 10; BG SAMPLE SITE RIGHT BRACHIAL; BG TOTAL HEMOGLOBIN 12.9 g/dL (12.0-18.0); BG VENT MODE VENT - CPAP
[2019-02-11] MEDS: LORAZEPAM 2MG/ML CPJ IV PRN (15:23)
[2019-02-11] MEDS: LIDOCAINE 5% PATCH TOP SCH (18:30)
[2019-02-12] VITALS (86 sets, daily range): BP systolic 111–188; BP diastolic 66–129
[2019-02-12] MEDS: IPRATROPIUM BROMIDE (0.02%) 0.5MG/2.5ML NEB HHN SCH ×6 (00:24→20:10)
[2019-02-12] MEDS: BLOOD SUGAR DIAGNOSTIC STRIP TEST SCH ×4 (05:26→23:33)
[2019-02-12] MEDS: INSULIN LISPRO 100 UNITS/ML SUBCUT SCH ×4 (05:26→23:23)
[2019-02-12] MEDS: METHYLPREDNISOLONE SOD SUCC 40 MG/ML VIAL IV SCH ×2 (05:26→17:27)
[2019-02-12 05:31] LABS: BASOPHILS % 0.2 % (0.0-2.0); EOSINOPHILS % 1.1 % (0.0-5.0); HEMATOCRIT. 26.6 % (36.0-48.0); HEMOGLOBIN. 8.8 g/dL (12.0-16.0); LYMPHOCYTES % 12.1 % (20.0-50.0); MEAN PLATELET VOLUME 8.4 fl (7.4-10.4); MONOCYTES % 9.1 % (2.0-8.0); NEUTROPHILS % 77.5 % (40.0-76.0); PLATELET 371 x1000/uL (130-400); RED BLOOD CELL COUNT 3.13 mill/uL (4.2-5.4)
[2019-02-12 05:42] LABS: CHLORIDE 105 mEq/L (98-107)
[2019-02-12] MEDS: FENTANYL CITRATE/PF 1,000 MCG in SODIUM CHLORIDE 0.9% 80 ML IV PRN (06:54)
[2019-02-12] MEDS: MIDAZOLAM HCL 100 MG in DEXT 5% WATER 80 ML IV PRN (06:54)
[2019-02-12] MEDS: CARBAMAZEPINE 200MG TABLET PO SCH ×2 (08:47→20:02)
[2019-02-12] MEDS: PANTOPRAZOLE SODIUM 40 MG/VIAL IV SCH (08:48)
[2019-02-12] MEDS: ENOXAPARIN 40MG/0.4ML SYR SUBCUT SCH (08:49)
[2019-02-12] MEDS: DOCUSATE SODIUM SUGAR FREE 100MG/10ML UDC NG SCH (08:49)
[2019-02-12 11:11] LABS: BG BASE EXCESS 5.4 mmol/L (-2.0-2.0); BG CARBOXYHEMOGLOBIN 0.3 % (0.5-1.5); BG DEOXYHEMOGLOBIN 10.2 % (0.0-5.0); BG FRACTION INSPIRED OXYGEN 30; BG HCO3 ACT 32.1 mmol/L (22.0-26.0); BG METHEMOGLOBIN 0.3 % (0.0-1.5); BG OXYGEN SATURATION 89.7 % (92.0-98.5); BG OXYHEMOGLOBIN 89.2 % (94.0-97.0); BG PCO2 58.6 mmHg (35.0-45.0); BG PH 7.356 (7.350-7.450); BG PO2 63.7 mmHg (75.0-100.0); BG PRESSURE SUPPORT 10; BG SAMPLE SITE RIGHT RADIAL; BG TOTAL HEMOGLOBIN 10.2 g/dL (12.0-18.0); BG VENT MODE VENT - CPAP
[2019-02-12] MEDS ORDERED: FENTANYL CITRATE/PF 1,000 MCG in SODIUM CHLORIDE 0.9% 80 ML IV PRN (11:30)
[2019-02-12] MEDS: DEXT 5%/0.9% NACL 1,000 ML IV SCH (14:43)
[2019-02-12] MEDS: DILTIAZEM HCL 5MG/ML 5ML VIAL IV PRN (14:43)
[2019-02-12] MEDS: MORPHINE SULFATE 2 MG/ML CPJ (NOT FOR IM USE) IV PRN ×3 (14:55→20:04)
[2019-02-12 15:18] LABS: BG BASE EXCESS 3.3 mmol/L (-2.0-2.0); BG CARBOXYHEMOGLOBIN 0.4 % (0.5-1.5); BG DEOXYHEMOGLOBIN 3.9 % (0.0-5.0); BG FRACTION INSPIRED OXYGEN 35; BG METHEMOGLOBIN 0.3 % (0.0-1.5); BG OXYGEN SATURATION 96.1 % (92.0-98.5); BG OXYHEMOGLOBIN 95.4 % (94.0-97.0); BG PCO2 56.4 mmHg (35.0-45.0); BG PH 7.344 (7.350-7.450); BG PO2 90.4 mmHg (75.0-100.0); BG PRESSURE SUPPORT 10; BG SAMPLE SITE RIGHT RADIAL; BG TOTAL HEMOGLOBIN 10.8 g/dL (12.0-18.0); BG VENT MODE VENT - CPAP
[2019-02-12] MEDS ORDERED: DILTIAZEM HCL 5MG/ML 5ML VIAL IV NR (16:30)
[2019-02-12] MEDS: LIDOCAINE 5% PATCH TOP SCH (17:36)
[2019-02-12] MEDS: CLONIDINE 0.1MG TABLET NG PRN (20:02)
[2019-02-13] VITALS (94 sets, daily range): BP systolic 72–197; BP diastolic 28–140
[2019-02-13] MEDS: LORAZEPAM 2MG/ML CPJ IV PRN (00:40)
[2019-02-13] MEDS: MORPHINE SULFATE 2 MG/ML CPJ (NOT FOR IM USE) IV PRN ×5 (01:02→22:26)
[2019-02-13] MEDS: IPRATROPIUM BROMIDE (0.02%) 0.5MG/2.5ML NEB HHN SCH ×4 (02:45→20:34)
[2019-02-13 05:31] LABS: CHLORIDE 105 mEq/L (98-107)
[2019-02-13 05:32] LABS: BASOPHILS % 0.1 % (0.0-2.0); EOSINOPHILS % 0.5 % (0.0-5.0); HEMATOCRIT. 27.6 % (36.0-48.0); LYMPHOCYTES % 14.1 % (20.0-50.0); MEAN CORPUSCULAR HEMOGLOBIN 27.8 pg (28.0-32.0); MEAN CORPUSCULAR VOLUME 85.7 fL (81.0-99.0); MEAN PLATELET VOLUME 7.9 fl (7.4-10.4); MONOCYTES % 10.2 % (2.0-8.0); NEUTROPHILS % 75.1 % (40.0-76.0); PLATELET 404 x1000/uL (130-400); RED BLOOD CELL COUNT 3.22 mill/uL (4.2-5.4); RED CELL DISTRIBUTION WIDTH 16.2 % (11.6-14.6)
[2019-02-13] MEDS: INSULIN LISPRO 100 UNITS/ML SUBCUT SCH ×3 (05:51→17:15)
[2019-02-13] MEDS: BLOOD SUGAR DIAGNOSTIC STRIP TEST SCH ×3 (05:51→17:15)
[2019-02-13] MEDS: METHYLPREDNISOLONE SOD SUCC 40 MG/ML VIAL IV SCH ×2 (05:52→18:22)
[2019-02-13] MEDS: CLONIDINE 0.1MG TABLET NG PRN (05:53)
[2019-02-13] MEDS: DOCUSATE SODIUM SUGAR FREE 100MG/10ML UDC NG SCH (09:03)
[2019-02-13] MEDS: PANTOPRAZOLE SODIUM 40 MG/VIAL IV SCH (09:03)
[2019-02-13] MEDS: DILTIAZEM HCL 5MG/ML 5ML VIAL IV PRN ×2 (09:03→15:00)
[2019-02-13] MEDS: CARBAMAZEPINE 200MG TABLET PO SCH ×2 (09:04→20:17)
[2019-02-13] MEDS: ENOXAPARIN 40MG/0.4ML SYR SUBCUT SCH (09:04)
[2019-02-13] MEDS: DEXT 5%/0.9% NACL 1,000 ML IV SCH (09:05)
[2019-02-13 10:11] LABS: BG BASE EXCESS 4.8 mmol/L (-2.0-2.0); BG CARBOXYHEMOGLOBIN 0.3 % (0.5-1.5); BG DEOXYHEMOGLOBIN 3.1 % (0.0-5.0); BG HCO3 ACT 29.3 mmol/L (22.0-26.0); BG METHEMOGLOBIN 0.3 % (0.0-1.5); BG OXYGEN SATURATION 96.9 % (92.0-98.5); BG OXYHEMOGLOBIN 96.3 % (94.0-97.0); BG PCO2 43.3 mmHg (35.0-45.0); BG PH 7.448 (7.350-7.450); BG PO2 92.6 mmHg (75.0-100.0); BG SAMPLE SITE RIGHT RADIAL; BG TOTAL HEMOGLOBIN 9.9 g/dL (12.0-18.0)
[2019-02-13 10:13] LABS: BG TIDAL VOLUME(mL) 500 mL; BG VENT RATE 16 set
[2019-02-13 10:49] LABS: BG VENT MODE VENT-AC
[2019-02-13 10:50] LABS: BG FRACTION INSPIRED OXYGEN 35
[2019-02-13] MEDS: HYDRALAZINE 20MG/ML VIAL IV PRN (13:14)
[2019-02-13 13:47] LABS: BG BASE EXCESS 6.7 mmol/L (-2.0-2.0); BG CARBOXYHEMOGLOBIN 0.3 % (0.5-1.5); BG DEOXYHEMOGLOBIN 0.5 % (0.0-5.0); BG FRACTION INSPIRED OXYGEN 100; BG HCO3 ACT 32.2 mmol/L (22.0-26.0); BG METHEMOGLOBIN 0.3 % (0.0-1.5); BG OXYGEN SATURATION 99.5 % (92.0-98.5); BG OXYHEMOGLOBIN 98.9 % (94.0-97.0); BG PCO2 50.8 mmHg (35.0-45.0); BG PO2 301.6 mmHg (75.0-100.0); BG SAMPLE SITE RIGHT RADIAL; BG TOTAL HEMOGLOBIN 10.5 g/dL (12.0-18.0); BG VENT MODE MASK - NRB
[2019-02-13] MEDS: DILTIAZEM HCL 125 MG in DEXT 5% WATER 100 ML IV PRN (17:37)
[2019-02-13] MEDS ORDERED: HYDRALAZINE 20MG/ML VIAL IV SCH (18:00)
[2019-02-13] MEDS: LIDOCAINE 5% PATCH TOP SCH (18:23)
[2019-02-14] VITALS (96 sets, daily range): BP systolic 66–190; BP diastolic 27–161
[2019-02-14] MEDS: BLOOD SUGAR DIAGNOSTIC STRIP TEST SCH ×5 (00:34→23:05)
[2019-02-14] MEDS: INSULIN LISPRO 100 UNITS/ML SUBCUT SCH ×5 (00:41→23:05)
[2019-02-14] MEDS: IPRATROPIUM BROMIDE (0.02%) 0.5MG/2.5ML NEB HHN SCH ×4 (02:04→20:00)
[2019-02-14] MEDS: MORPHINE SULFATE 2 MG/ML CPJ (NOT FOR IM USE) IV PRN ×2 (05:10→12:14)
[2019-02-14] MEDS: DILTIAZEM HCL 125 MG in DEXT 5% WATER 100 ML IV PRN (05:11)
[2019-02-14 05:36] LABS: BASOPHILS % 0.6 % (0.0-2.0); EOSINOPHILS % 0.1 % (0.0-5.0); HEMATOCRIT. 31.9 % (36.0-48.0); HEMOGLOBIN. 10.1 g/dL (12.0-16.0); LYMPHOCYTES % 9.3 % (20.0-50.0); MEAN CORPUSCULAR HEMOGLOBIN 27.6 pg (28.0-32.0); MEAN CORPUSCULAR VOLUME 87.3 fL (81.0-99.0); MEAN PLATELET VOLUME 8.3 fl (7.4-10.4); PLATELET 493 x1000/uL (130-400); RED BLOOD CELL COUNT 3.65 mill/uL (4.2-5.4); RED CELL DISTRIBUTION WIDTH 16.5 % (11.6-14.6)
[2019-02-14] MEDS: HYDRALAZINE 20MG/ML VIAL IV PRN (05:42)
[2019-02-14] MEDS: DEXT 5%/0.9% NACL 1,000 ML IV SCH ×2 (05:51→18:41)
[2019-02-14] MEDS: METHYLPREDNISOLONE SOD SUCC 40 MG/ML VIAL IV SCH ×2 (05:57→17:49)
[2019-02-14 06:02] LABS: CHLORIDE 102 mEq/L (98-107)
[2019-02-14] MEDS: DOCUSATE SODIUM SUGAR FREE 100MG/10ML UDC NG SCH (09:10)
[2019-02-14] MEDS: PANTOPRAZOLE SODIUM 40 MG/VIAL IV SCH (09:10)
[2019-02-14] MEDS: CARBAMAZEPINE 200MG TABLET PO SCH ×2 (09:11→20:27)
[2019-02-14] MEDS: ENOXAPARIN 40MG/0.4ML SYR SUBCUT SCH (09:11)
[2019-02-14 10:04] LABS: BG BASE EXCESS 9.2 mmol/L (-2.0-2.0); BG CARBOXYHEMOGLOBIN 0.5 % (0.5-1.5); BG DEOXYHEMOGLOBIN 7.7 % (0.0-5.0); BG FRACTION INSPIRED OXYGEN 28; BG METHEMOGLOBIN 0.1 % (0.0-1.5); BG OXYGEN SATURATION 92.3 % (92.0-98.5); BG OXYHEMOGLOBIN 91.7 % (94.0-97.0); BG PCO2 53.9 mmHg (35.0-45.0); BG SAMPLE SITE RIGHT RADIAL; BG TOTAL HEMOGLOBIN 11.3 g/dL (12.0-18.0); BG VENT MODE NASAL CANNULA
[2019-02-14] MEDS: CLONIDINE 0.1MG TABLET NG PRN (15:56)
[2019-02-14] MEDS: APIXABAN 5 MG TABLET PO SCH (16:39)
[2019-02-14] MEDS: DILTIAZEM HCL 30MG TABLET PO SCH ×2 (17:49→23:01)
[2019-02-14] MEDS: LIDOCAINE 5% PATCH TOP SCH (17:51)
[2019-02-14] MEDS ORDERED: FUROSEMIDE 40MG/4ML VIAL IVP NR (18:45)
[2019-02-14] MEDS: DILTIAZEM HCL 5MG/ML 5ML VIAL IV PRN (20:27)
[2019-02-14] MEDS: LORAZEPAM 2MG/ML CPJ IV PRN (21:22)
[2019-02-14] MEDS ORDERED: CEFEPIME 2,000 MG in DEXT 5% WATER 100 ML IV SCH (23:30)
[2019-02-14] MEDS ORDERED: DILTIAZEM HCL 5MG/ML 5ML VIAL IV NR (23:45)
[2019-02-15 00:30] VITALS: BP 126/74
[2019-02-15] MEDS: CEFEPIME 2,000 MG in DEXT 5% WATER 100 ML IV SCH ×2 (01:21→11:58)
[2019-02-15] MEDS: IPRATROPIUM BROMIDE (0.02%) 0.5MG/2.5ML NEB HHN SCH ×4 (02:28→21:49)
[2019-02-15 04:00] VITALS: BP 127/74
[2019-02-15] MEDS: DEXT 5%/0.9% NACL 1,000 ML IV SCH (05:39)
[2019-02-15] MEDS: METHYLPREDNISOLONE SOD SUCC 40 MG/ML VIAL IV SCH ×2 (05:39→17:54)
[2019-02-15] MEDS: BLOOD SUGAR DIAGNOSTIC STRIP TEST SCH ×3 (05:42→17:45)
[2019-02-15] MEDS: INSULIN LISPRO 100 UNITS/ML SUBCUT SCH ×3 (05:47→17:45)
[2019-02-15] MEDS: DILTIAZEM HCL 30MG TABLET PO SCH (05:48)
[2019-02-15 06:16] LABS: BASOPHILS % 0.2 % (0.0-2.0); HEMATOCRIT. 31.7 % (36.0-48.0); HEMOGLOBIN. 10.1 g/dL (12.0-16.0); LYMPHOCYTES % 7.6 % (20.0-50.0); MEAN CORPUSCULAR HEMOGLOBIN 27.4 pg (28.0-32.0); MEAN CORPUSCULAR VOLUME 86.1 fL (81.0-99.0); MEAN PLATELET VOLUME 8.1 fl (7.4-10.4); NEUTROPHILS % 85.2 % (40.0-76.0); PLATELET 452 x1000/uL (130-400); RED BLOOD CELL COUNT 3.68 mill/uL (4.2-5.4); RED CELL DISTRIBUTION WIDTH 16.6 % (11.6-14.6)
[2019-02-15 06:43] LABS: CHLORIDE 99 mEq/L (98-107)
[2019-02-15 08:00] VITALS: BP 160/100
[2019-02-15] MEDS: PANTOPRAZOLE SODIUM 40 MG/VIAL IV SCH (08:31)
[2019-02-15] MEDS: APIXABAN 5 MG TABLET PO SCH ×2 (08:31→16:34)
[2019-02-15] MEDS: CARBAMAZEPINE 200MG TABLET PO SCH ×2 (08:31→20:53)
[2019-02-15] MEDS: DOCUSATE SODIUM SUGAR FREE 100MG/10ML UDC NG SCH (08:31)
[2019-02-15] MEDS: MORPHINE SULFATE 2 MG/ML CPJ (NOT FOR IM USE) IV PRN (08:56)
[2019-02-15] MEDS: HYDRALAZINE 20MG/ML VIAL IV PRN (09:59)
[2019-02-15] MEDS ORDERED: DILTIAZEM HCL 30MG TABLET PO NR (11:30)
[2019-02-15 12:00] VITALS: BP 152/100
[2019-02-15] MEDS: DILTIAZEM HCL 60MG TABLET PO SCH ×2 (13:33→17:54)
[2019-02-15] MEDS: ACETAMINOPHEN 650MG/20.3ML UDC PO PRN (16:34)
[2019-02-15] MEDS: LIDOCAINE 5% PATCH TOP SCH (17:55)
[2019-02-15 20:00] VITALS: BP 148/79
[2019-02-15] MEDS: METOPROLOL TARTRATE 25MG TABLET PO SCH (20:53)
[2019-02-16] VITALS: BP 165/102
[2019-02-16] MEDS: CEFEPIME 2,000 MG in DEXT 5% WATER 100 ML IV SCH (00:25)
[2019-02-16] MEDS: DILTIAZEM HCL 60MG TABLET PO SCH ×4 (00:26→17:41)
[2019-02-16] MEDS: HYDRALAZINE 20MG/ML VIAL IV PRN (00:26)
[2019-02-16] MEDS: INSULIN LISPRO 100 UNITS/ML SUBCUT SCH ×4 (00:27→17:31)
[2019-02-16] MEDS: IPRATROPIUM BROMIDE (0.02%) 0.5MG/2.5ML NEB HHN SCH ×4 (02:03→20:29)
[2019-02-16] MEDS ORDERED: KETOROLAC 30MG/ML VIAL IV SCH (02:15)
[2019-02-16 04:00] VITALS: BP 161/91
[2019-02-16] MEDS: METHYLPREDNISOLONE SOD SUCC 40 MG/ML VIAL IV SCH (05:31)
[2019-02-16] MEDS: BLOOD SUGAR DIAGNOSTIC STRIP TEST SCH ×4 (06:00→17:55)
[2019-02-16 07:45] LABS: CHLORIDE 97 mEq/L (98-107)
[2019-02-16 07:49] LABS: BASOPHILS % 0.3 % (0.0-2.0); HEMATOCRIT. 33.6 % (36.0-48.0); HEMOGLOBIN. 10.7 g/dL (12.0-16.0); LYMPHOCYTES % 11.5 % (20.0-50.0); MEAN CORPUSCULAR HEMOGLOBIN 27.5 pg (28.0-32.0); MEAN CORPUSCULAR VOLUME 86.3 fL (81.0-99.0); MEAN PLATELET VOLUME 8.2 fl (7.4-10.4); MONOCYTES % 7.9 % (2.0-8.0); NEUTROPHILS % 80.3 % (40.0-76.0); PLATELET 482 x1000/uL (130-400); RED BLOOD CELL COUNT 3.89 mill/uL (4.2-5.4); RED CELL DISTRIBUTION WIDTH 16.4 % (11.6-14.6)
[2019-02-16 08:00] VITALS: BP 160/90
[2019-02-16] MEDS: METOPROLOL TARTRATE 25MG TABLET PO SCH ×2 (08:43→21:21)
[2019-02-16] MEDS: CARBAMAZEPINE 200MG TABLET PO SCH ×2 (08:43→21:20)
[2019-02-16] MEDS: PANTOPRAZOLE SODIUM 40 MG/VIAL IV SCH (08:44)
[2019-02-16] MEDS: APIXABAN 5 MG TABLET PO SCH ×2 (08:44→17:41)
[2019-02-16] MEDS: DOCUSATE SODIUM SUGAR FREE 100MG/10ML UDC NG SCH (08:44)
[2019-02-16 12:00] VITALS: BP 161/92
[2019-02-16 16:00] VITALS: BP 155/92
[2019-02-16] MEDS ORDERED: LEVOFLOXACIN 750MG PREMIX 150 ML IV SCH (17:00)
[2019-02-16 20:00] VITALS: BP 154/98
[2019-02-16] MEDS: LIDOCAINE 5% PATCH TOP SCH (21:23)
[2019-02-16] MEDS ORDERED: HYDROCODONE/ACETAMINOPHEN 5/325MG TABLET PO NR (22:15)
[2019-02-16] MEDS ORDERED: HYDROCODONE/ACETAMINOPHEN 5/325MG TABLET PO PRN (22:30)
[2019-02-17] VITALS (9 sets, daily range): BP systolic 129–166; BP diastolic 66–94
[2019-02-17] MEDS: BLOOD SUGAR DIAGNOSTIC STRIP TEST SCH ×4 (00:38→17:09)
[2019-02-17] MEDS: DILTIAZEM HCL 60MG TABLET PO SCH ×4 (00:56→17:16)
[2019-02-17] MEDS: MEROPENEM 500 MG in SODIUM CHLORIDE 0.9% 50 ML IV SCH ×2 (01:20→09:27)
[2019-02-17] MEDS: IPRATROPIUM BROMIDE (0.02%) 0.5MG/2.5ML NEB HHN SCH ×4 (02:58→21:07)
[2019-02-17] MEDS: CLONIDINE 0.1MG TABLET NG PRN (03:45)
[2019-02-17] MEDS: INSULIN LISPRO 100 UNITS/ML SUBCUT SCH ×4 (05:44→17:17)
[2019-02-17] MEDS: DOCUSATE SODIUM SUGAR FREE 100MG/10ML UDC NG SCH (09:00)
[2019-02-17] MEDS ORDERED: PREDNISONE 20MG TABLET PO SCH (09:00)
[2019-02-17] MEDS: APIXABAN 5 MG TABLET PO SCH ×2 (09:26→17:16)
[2019-02-17] MEDS: CARBAMAZEPINE 200MG TABLET PO SCH ×2 (09:26→20:44)
[2019-02-17] MEDS: METOPROLOL TARTRATE 25MG TABLET PO SCH ×2 (09:26→20:44)
[2019-02-17] MEDS: PANTOPRAZOLE SODIUM 40 MG/VIAL IV SCH (09:27)
[2019-02-17] MEDS ORDERED: MEROPENEM 1,000 MG in SODIUM CHLORIDE 0.9% 100 ML IV SCH ×2 (12:00→18:00)
[2019-02-17 12:01] LABS: BASOPHILS % 0.1 % (0.0-2.0); EOSINOPHILS % 0.5 % (0.0-5.0); HEMATOCRIT. 34.9 % (36.0-48.0); HEMOGLOBIN. 11.3 g/dL (12.0-16.0); LYMPHOCYTES % 16.7 % (20.0-50.0); MEAN CORPUSCULAR VOLUME 86.6 fL (81.0-99.0); MEAN PLATELET VOLUME 8.1 fl (7.4-10.4); NEUTROPHILS % 73.7 % (40.0-76.0); PLATELET 391 x1000/uL (130-400); RED BLOOD CELL COUNT 4.03 mill/uL (4.2-5.4); RED CELL DISTRIBUTION WIDTH 16.5 % (11.6-14.6)
[2019-02-17 12:16] LABS: CHLORIDE 94 mEq/L (98-107)
[2019-02-17] MEDS: LIDOCAINE 5% PATCH TOP SCH (18:00)
== END 2019-02-17 22:20 | DRG 870 ==
LOC: ER 02:08 → EDBEDREQSVC 03:44 → EDBEDREQ 03:44 → EDBEDREQTM 03:44 → MICUNO 04:28 → EDBEDREQTM 04:32 → EDBEDREQ 04:32 → ENRESERV 05:07 → MICUSO 02-06 11:10 → 8WST 02-15 00:30
PROVIDERS: ADMIT Internal Medicine; ATTEND Internal Medicine
PROC: 5A1955Z Respiratory Ventilation, Greater than 96 Consecutive Hours (ICD-10-PCS; principal; 2019-02-04)
PROC: 5A12012 Performance of Cardiac Output, Single, Manual (ICD-10-PCS; 2019-02-04)
PROC: 0BH17EZ Insertion of Endotracheal Airway into Trachea, Via Natural or Artificial Opening (ICD-10-PCS; 2019-02-04)
PROC: 06HY33Z Insertion of Infusion Device into Lower Vein, Percutaneous Approach (ICD-10-PCS; 2019-02-04)
PROC: B54BZZA Ultrasonography of Right Lower Extremity Veins, Guidance (ICD-10-PCS; 2019-02-04)
PROC: 30233N1 Transfusion of Nonautologous Red Blood Cells into Peripheral Vein, Percutaneous Approach (ICD-10-PCS; 2019-02-09)
DX: A41.9 Sepsis, unspecified organism (principal); J96.02 Acute respiratory failure with hypercapnia; J18.9 Pneumonia, unspecified organism; E43 Unspecified severe protein-calorie malnutrition; J11.00 Influenza due to unidentified influenza virus with unspecified type of pneumonia; I46.9 Cardiac arrest, cause unspecified; R65.21 Severe sepsis with septic shock; D68.59 Other primary thrombophilia; E87.2 Acidosis; G93.40 Encephalopathy, unspecified; J44.0 Chronic obstructive pulmonary disease with (acute) lower respiratory infection; J44.1 Chronic obstructive pulmonary disease with (acute) exacerbation; N39.0 Urinary tract infection, site not specified; I48.92 Unspecified atrial flutter; E11.9 Type 2 diabetes mellitus without complications; D64.9 Anemia, unspecified; E83.42 Hypomagnesemia; E86.0 Dehydration; F41.9 Anxiety disorder, unspecified; G50.0 Trigeminal neuralgia; K74.60 Unspecified cirrhosis of liver; K75.9 Inflammatory liver disease, unspecified; I50.9 Heart failure, unspecified; I48.91 Unspecified atrial fibrillation; K21.9 Gastro-esophageal reflux disease without esophagitis; I27.20 Pulmonary hypertension, unspecified; F41.1 Generalized anxiety disorder; G89.29 Other chronic pain; K57.90 Diverticulosis of intestine, part unspecified, without perforation or abscess without bleeding; Z68.36 Body mass index [BMI] 36.0-36.9, adult; Z79.899 Other long term (current) drug therapy; Z88.8 Allergy status to other drugs, medicaments and biological substances; Z88.1 Allergy status to other antibiotic agents; Z86.73 Personal history of transient ischemic attack (TIA), and cerebral infarction without residual deficits; Z79.82 Long term (current) use of aspirin; Z78.1 Physical restraint status; Z90.49 Acquired absence of other specified parts of digestive tract; Z22.322 Carrier or suspected carrier of Methicillin resistant Staphylococcus aureus; Z86.711 Personal history of pulmonary embolism; Z99.81 Dependence on supplemental oxygen
CPT/HCPCS: 31500; 36415; 36600; 71045; 71275; 76700; 80048; 80076; 80202; 81003; 82140; 82375; 82550; 82553; 82805; 82962; 83605; 83735; 83880; 84100; 84145; 84443; 84478; 84484; 85027; 85044; 85379; 86850; 86900; 86920; 87070; 87077; 87186; 87804; 93005; 93306; 93970; 94002; 94003; 94640; 97162; 99291; A6261; C9113; J0360; J0692; J1160; J1650; J1815; J1885; J1940; J1956; J2060; J2185; J2250; J2270; J2370; J2405; J2543; J2704; J2920; J3010; J3370; J3475; J3480; J3490; J7030; J7040; J7042; J7050; J7060; J7512; J7620; P9016; Q9967

== ENCOUNTER 2019-04-10 18:09 | Inpatient (IN) | payer MEDICARE, OTHER ==
[~2019-04-10] VITALS: Ht 165.1 cm; Wt 90.9 kg
[~2019-04-10 18:09] MED LIST changes: -ASPI-1393 PO; +ASPI-1497 PO; +OMEP20CA14 PO; -OMEP20CA5 PO
[2019-04-10 18:48] LABS: BASOPHILS % 0.2 % (0.0-2.0); HEMATOCRIT. 24.6 % (36.0-48.0); HEMOGLOBIN. 7.6 g/dL (12.0-16.0); MEAN CORPUSCULAR VOLUME 87.2 fL (81.0-99.0); MEAN PLATELET VOLUME 6.6 fl (7.4-10.4); MONOCYTES % 3.1 % (2.0-8.0); NEUTROPHILS % 86.7 % (40.0-76.0); PLATELET 485 x1000/uL (130-400); RED BLOOD CELL COUNT 2.82 mill/uL (4.2-5.4); RED CELL DISTRIBUTION WIDTH 16.2 % (11.6-14.6)
[2019-04-10 18:55] LABS: CHLORIDE 84 mEq/L (98-107)
[2019-04-10 18:57] LABS: PROTHROMBIN TIME 9.9 sec (9.6-11.0)
[2019-04-10 19:02] LABS: LDL CHOLESTEROL 151 mg/dL (5-100)
[2019-04-10] MEDS ORDERED: ASPIRIN 81MG TABLET PO ONE (19:45)
[2019-04-10] MEDS ORDERED: VANCOMYCIN 1 G PREMIX 200 ML IV ONE (20:45)
[2019-04-10] MEDS ORDERED: ASPIRIN 300MG SUPP PR ONE (20:45)
[2019-04-10] MEDS ORDERED: PIPERACILLIN/TAZ 3.375G PREMIX 50 ML IV ONE (20:45)
[2019-04-10] MEDS ORDERED: SODIUM CHLORIDE 0.9% 1000ML BAG (SEPSIS BOLUS) IV ONE (20:45)
[2019-04-10] MEDS ORDERED: IOHEXOL-350 100 ML BOTTLE ONE (23:03)
[2019-04-10 23:52] LABS: CLARITY URINE CLEAR (CLEAR); COLOR URINE YELLOW (YELLOW); KETONES URINE NEGATIVE (NEGATIVE); LEUKOCYTE ESTERASE URINE TRACE (NEGATIVE); NITRITE URINE NEGATIVE (NEGATIVE); OCCULT BLOOD URINE 1+ (NEGATIVE); PROTEIN URINE NEGATIVE (NEGATIVE); SPECIFIC GRAVITY URINE 1.022 (1.005-1.030); UROBILINOGEN URINE 0.2 E.U./dL (0.2-1.0)
[2019-04-11 00:25] VITALS: BP 129/67
[2019-04-11] MEDS ORDERED: ACETAMINOPHEN 325MG TABLET PO PRN (01:45)
[2019-04-11] MEDS ORDERED: HYDROCODONE/ACETAMINOPHEN 5/325MG TABLET PO PRN (01:45)
[2019-04-11] MEDS ORDERED: ONDANSETRON HCL 4MG/2ML INJ IV PRN (01:45)
[2019-04-11] MEDS ORDERED: DEXTROSE 50% WATER 50ML SYRINGE IV PRN (01:45)
[2019-04-11] MEDS: SODIUM CHLORIDE 0.9% 1,000 ML IV SCH ×2 (02:41→18:56)
[2019-04-11 04:00] VITALS: BP 124/62
[2019-04-11] MEDS: IPRATROPIUM/ALBUTEROL 0.5-3(2.5)MG/3ML NEB HHN SCH ×5 (04:09→20:44)
[2019-04-11] MEDS ORDERED: LORAZEPAM 0.5MG TABLET PO PRN (04:15)
[2019-04-11] MEDS ORDERED: APIX5TAB PO (04:17)
[2019-04-11] MEDS ORDERED: DILT60TA3 PO (04:17)
[2019-04-11] MEDS ORDERED: LORA-249 PO (04:17)
[2019-04-11] MEDS ORDERED: METO25TA6 PO (04:17)
[2019-04-11] MEDS ORDERED: FAMO20TA8 PO (04:17)
[2019-04-11] MEDS ORDERED: HYDR-3281 PO (04:17)
[2019-04-11] MEDS: DILTIAZEM HCL 60MG TABLET PO SCH ×2 (06:15→09:51)
[2019-04-11] MEDS: BLOOD SUGAR DIAGNOSTIC STRIP TEST SCH ×4 (07:40→21:09)
[2019-04-11 08:00] VITALS: BP 120/60
[2019-04-11] MEDS: INSULIN LISPRO 100 UNITS/ML SUBCUT SCH ×4 (08:06→21:00)
[2019-04-11] MEDS: FAMOTIDINE 20MG TABLET PO SCH ×2 (09:51→18:54)
[2019-04-11] MEDS: CARBAMAZEPINE 200MG TABLET PO SCH ×2 (09:51→21:09)
[2019-04-11] MEDS: METOPROLOL TARTRATE 25MG TABLET PO SCH ×2 (09:52→21:00)
[2019-04-11] MEDS: APIXABAN 5 MG TABLET PO SCH ×2 (10:12→18:54)
[2019-04-11 11:27] LABS: CHLORIDE 88 mEq/L (98-107)
[2019-04-11 11:32] LABS: HEMATOCRIT. 22.7 % (36.0-48.0); HEMOGLOBIN. 7.2 g/dL (12.0-16.0); MEAN CORPUSCULAR HEMOGLOBIN 27.3 pg (28.0-32.0); MEAN CORPUSCULAR VOLUME 86.5 fL (81.0-99.0); MEAN PLATELET VOLUME 7.4 fl (7.4-10.4); PLATELET 461 x1000/uL (130-400); RED BLOOD CELL COUNT 2.63 mill/uL (4.2-5.4); RED CELL DISTRIBUTION WIDTH 16.1 % (11.6-14.6)
[2019-04-11 11:38] LABS: T4 FREE 0.88 ng/dL (0.76-1.46)
[2019-04-11 12:00] VITALS: BP 98/58
[2019-04-11 12:33] LABS: BG BASE EXCESS 19.7 mmol/L (-2.0-2.0); BG CARBOXYHEMOGLOBIN 0.9 % (0.5-1.5); BG DEOXYHEMOGLOBIN 9.4 % (0.0-5.0); BG FRACTION INSPIRED OXYGEN 21; BG HCO3 ACT 47.7 mmol/L (22.0-26.0); BG METHEMOGLOBIN 0.3 % (0.0-1.5); BG OXYGEN SATURATION 90.5 % (92.0-98.5); BG OXYHEMOGLOBIN 89.4 % (94.0-97.0); BG PCO2 88.6 mmHg (35.0-45.0); BG PH 7.349 (7.350-7.450); BG PO2 61.1 mmHg (75.0-100.0); BG SAMPLE SITE RIGHT RADIAL; BG TOTAL HEMOGLOBIN 7.3 g/dL (12.0-18.0); BG VENT MODE ROOM AIR
[2019-04-11 16:00] VITALS: BP 110/60
[2019-04-11 17:34] LABS: BG BASE EXCESS 15.6 mmol/L (-2.0-2.0); BG CARBOXYHEMOGLOBIN 0.7 % (0.5-1.5); BG DEOXYHEMOGLOBIN 2.3 % (0.0-5.0); BG FRACTION INSPIRED OXYGEN 32; BG HCO3 ACT 42.6 mmol/L (22.0-26.0); BG METHEMOGLOBIN 0.4 % (0.0-1.5); BG OXYGEN SATURATION 97.7 % (92.0-98.5); BG OXYHEMOGLOBIN 96.6 % (94.0-97.0); BG PCO2 74.7 mmHg (35.0-45.0); BG PH 7.374 (7.350-7.450); BG SAMPLE SITE RIGHT RADIAL; BG TOTAL HEMOGLOBIN 7.2 g/dL (12.0-18.0); BG VENT MODE NASAL CANNULA
[2019-04-11 20:00] VITALS: BP 102/50
[2019-04-11 20:27] LABS: HEMATOCRIT 25.8 % (36.0-48.0)
[2019-04-11] MEDS ORDERED: LEVOFLOXACIN 500MG PREMIX 100 ML IV SCH (21:00)
[2019-04-11] MEDS ORDERED: SODIUM CHLORIDE 0.9% 1,000 ML IV SCH (21:00)
[2019-04-11] MEDS: PREDNISONE 20MG TABLET PO SCH (21:18)
[2019-04-11] MEDS: AMOXICILLIN/POTASSIUM CLAVULANATE 875/125MG TAB PO SCH (21:38)
[2019-04-11] MEDS ORDERED: DILTIAZEM HCL 30MG TABLET PO SCH (22:00)
[2019-04-12] VITALS (11 sets, daily range): BP systolic 107–143; BP diastolic 51–83
[2019-04-12] MEDS: IPRATROPIUM/ALBUTEROL 0.5-3(2.5)MG/3ML NEB HHN SCH ×6 (00:28→21:01)
[2019-04-12] MEDS: DILTIAZEM HCL 30MG TABLET PO SCH ×4 (00:41→18:00)
[2019-04-12] MEDS: SODIUM CHLORIDE 0.9% 1,000 ML IV SCH ×2 (06:10→21:44)
[2019-04-12] MEDS: BLOOD SUGAR DIAGNOSTIC STRIP TEST SCH ×3 (07:40→21:00)
[2019-04-12] MEDS: INSULIN LISPRO 100 UNITS/ML SUBCUT SCH ×3 (07:55→21:00)
[2019-04-12 08:11] LABS: HEMATOCRIT. 22.8 % (36.0-48.0); HEMOGLOBIN. 7.2 g/dL (12.0-16.0); MEAN CORPUSCULAR HEMOGLOBIN 27.2 pg (28.0-32.0); MEAN CORPUSCULAR VOLUME 86.8 fL (81.0-99.0); MEAN PLATELET VOLUME 7.2 fl (7.4-10.4); PLATELET 484 x1000/uL (130-400); RED BLOOD CELL COUNT 2.63 mill/uL (4.2-5.4); RED CELL DISTRIBUTION WIDTH 16.5 % (11.6-14.6)
[2019-04-12 08:48] LABS: CHLORIDE 90 mEq/L (98-107)
[2019-04-12] MEDS: PREDNISONE 20MG TABLET PO SCH (09:44)
[2019-04-12] MEDS: APIXABAN 5 MG TABLET PO SCH ×2 (09:45→17:59)
[2019-04-12] MEDS: CARBAMAZEPINE 200MG TABLET PO SCH ×2 (09:45→21:42)
[2019-04-12] MEDS: FAMOTIDINE 20MG TABLET PO SCH ×2 (09:45→17:59)
[2019-04-12] MEDS: METOPROLOL TARTRATE 25MG TABLET PO SCH ×2 (09:46→21:42)
[2019-04-12] MEDS: AMOXICILLIN/POTASSIUM CLAVULANATE 875/125MG TAB PO SCH ×2 (09:59→21:42)
[2019-04-12 14:28] LABS: PLATELET ESTIMATE INCREASED
[2019-04-12 17:20] LABS: PLATELET ESTIMATE INCREASED
[2019-04-12 17:53] LABS: HEMATOCRIT 21.3 % (36.0-48.0)
[2019-04-12 18:03] LABS: HEMOGLOBIN 6.6 g/dL (12.0-16.0)
[2019-04-12 20:45] LABS: INR 1.1; PROTHROMBIN TIME 10.8 sec (9.6-11.0)
[2019-04-12] MEDS: PANTOPRAZOLE SODIUM 40 MG/VIAL IV SCH (21:41)
[2019-04-13] VITALS (7 sets, daily range): BP systolic 95–143; BP diastolic 56–84
[2019-04-13 00:02] LABS: HEMATOCRIT 26.4 % (36.0-48.0); HEMOGLOBIN 8.3 g/dL (12.0-16.0)
[2019-04-13] MEDS: IPRATROPIUM/ALBUTEROL 0.5-3(2.5)MG/3ML NEB HHN SCH ×4 (01:06→15:49)
[2019-04-13] MEDS: DILTIAZEM HCL 30MG TABLET PO SCH ×4 (06:00→17:24)
[2019-04-13 07:31] LABS: CHLORIDE 92 mEq/L (98-107)
[2019-04-13 07:45] LABS: HEMATOCRIT 23.8 % (36.0-48.0); HEMOGLOBIN 7.8 g/dL (12.0-16.0); MEAN CORPUSCULAR HEMOGLOBIN 28.1 pg (28.0-32.0); MEAN CORPUSCULAR VOLUME 85.5 fL (81.0-99.0); PLATELET 435 x1000/uL (130-400); RED BLOOD CELL COUNT 2.79 mill/uL (4.2-5.4); RED CELL DISTRIBUTION WIDTH 16.2 % (11.6-14.6)
[2019-04-13] MEDS: INSULIN LISPRO 100 UNITS/ML SUBCUT SCH ×3 (08:10→18:39)
[2019-04-13] MEDS: PREDNISONE 20MG TABLET PO SCH (09:28)
[2019-04-13] MEDS: AMOXICILLIN/POTASSIUM CLAVULANATE 875/125MG TAB PO SCH (09:28)
[2019-04-13] MEDS: PANTOPRAZOLE SODIUM 40 MG/VIAL IV SCH ×2 (09:28→17:24)
[2019-04-13] MEDS: CARBAMAZEPINE 200MG TABLET PO SCH (09:29)
[2019-04-13] MEDS: METOPROLOL TARTRATE 25MG TABLET PO SCH (09:29)
[2019-04-13] MEDS: BLOOD SUGAR DIAGNOSTIC STRIP TEST SCH ×2 (12:40→18:33)
[2019-04-13 13:08] LABS: PHOSPHORUS 3.3 mg/dL (2.5-4.9)
[2019-04-13 14:31] LABS: CREATINE KINASE 34 IU/L (26-192)
[2019-04-13 14:32] LABS: CREATINE KINASE MB FRACTION 1.1 ng/mL (0.5-3.6)
== END 2019-04-13 19:28 | DRG 190 ==
LOC: ER 18:09 → 7WST 21:37 → ENRESERV 23:21
PROVIDERS: ADMIT Internal Medicine; ATTEND Internal Medicine
PROC: 5A09357 Assistance with Respiratory Ventilation, Less than 24 Consecutive Hours, Continuous Positive Airway Pressure (ICD-10-PCS; principal; 2019-04-11)
PROC: 5A09357 Assistance with Respiratory Ventilation, Less than 24 Consecutive Hours, Continuous Positive Airway Pressure (ICD-10-PCS; 2019-04-12)
PROC: 30233N1 Transfusion of Nonautologous Red Blood Cells into Peripheral Vein, Percutaneous Approach (ICD-10-PCS; 2019-04-12)
DX: J44.1 Chronic obstructive pulmonary disease with (acute) exacerbation (principal); G93.41 Metabolic encephalopathy; I48.92 Unspecified atrial flutter; D68.59 Other primary thrombophilia; J45.901 Unspecified asthma with (acute) exacerbation; K75.9 Inflammatory liver disease, unspecified; D64.9 Anemia, unspecified; E11.9 Type 2 diabetes mellitus without complications; F41.9 Anxiety disorder, unspecified; G50.0 Trigeminal neuralgia; I11.0 Hypertensive heart disease with heart failure; I50.9 Heart failure, unspecified; K57.90 Diverticulosis of intestine, part unspecified, without perforation or abscess without bleeding; E78.5 Hyperlipidemia, unspecified; E87.8 Other disorders of electrolyte and fluid balance, not elsewhere classified; I27.20 Pulmonary hypertension, unspecified; I48.91 Unspecified atrial fibrillation; K29.70 Gastritis, unspecified, without bleeding; Z86.74 Personal history of sudden cardiac arrest; Z87.01 Personal history of pneumonia (recurrent); Z88.1 Allergy status to other antibiotic agents; Z86.73 Personal history of transient ischemic attack (TIA), and cerebral infarction without residual deficits; Z99.81 Dependence on supplemental oxygen; Z88.7 Allergy status to serum and vaccine; Z79.899 Other long term (current) drug therapy; Z79.4 Long term (current) use of insulin; Z79.82 Long term (current) use of aspirin
CPT/HCPCS: 36415; 36600; 71045; 80048; 80053; 81003; 82375; 82550; 82553; 82805; 82962; 83605; 83721; 83735; 83880; 84100; 84439; 84443; 84484; 85014; 85018; 85025; 85027; 86850; 86900; 86920; 93005; 94640; 99291; A6261; C1893; C9113; J1815; J2543; J3370; J7030; J7512; J7620; P9021; Q9967

== ENCOUNTER 2019-07-02 19:55 | Inpatient (IN) | payer OTHER ==
[~2019-07-02] VITALS: Ht 177.8 cm; Wt 96.6 kg
[~2019-07-02 19:55] MED LIST changes: -AMLO10TA80 PO; +APIX5TAB PO; -ASPI-1497 PO; -BACL20TA PO; -COMBIVENT; -CRES10 PO; +DILT60TA3 PO; +FAMO20TA8 PO; +HYDR-3281 PO; -HYDR-4005 PO; +LORA-249 PO; -LOSA100T32 PO; +METO25TA6 PO; -OMEP20CA14 PO; -PANT40TA4 PO; -RANI150C12 PO
[2019-07-02] MEDS ORDERED: SODIUM CHLORIDE 0.9% 1,000 ML IV ONE (21:00)
[2019-07-02 21:35] LABS: CHLORIDE 93 mEq/L (98-107)
[2019-07-02 21:38] LABS: CLARITY URINE TURBID (CLEAR); COLOR URINE DARK YELLOW (YELLOW); KETONES URINE TRACE (NEGATIVE); LEUKOCYTE ESTERASE URINE TRACE (NEGATIVE); NITRITE URINE NEGATIVE (NEGATIVE); OCCULT BLOOD URINE NEGATIVE (NEGATIVE); PROTEIN URINE 2+ (NEGATIVE); SPECIFIC GRAVITY URINE 1.022 (1.005-1.030)
[2019-07-02 21:42] LABS: INR 0.9; PROTHROMBIN TIME 10.1 sec (9.6-11.0)
[2019-07-02 22:02] LABS: HEMATOCRIT. 36.4 % (36.0-48.0); HEMOGLOBIN. 10.8 g/dL (12.0-16.0); MEAN CORPUSCULAR HEMOGLOBIN 25.9 pg (28.0-32.0); MEAN CORPUSCULAR VOLUME 87.6 fL (81.0-99.0); MEAN PLATELET VOLUME 8.1 fl (7.4-10.4); PLATELET 255 x1000/uL (130-400); RED BLOOD CELL COUNT 4.16 mill/uL (4.2-5.4); RED CELL DISTRIBUTION WIDTH 20.4 % (11.6-14.6)
[2019-07-02 22:16] LABS: PLATELET ESTIMATE NORMAL
[2019-07-02] MEDS ORDERED: VANCOMYCIN 1 G PREMIX 200 ML IV ONE (23:00)
[2019-07-02] MEDS ORDERED: AZITHROMYCIN 500 MG in DEXT 5% WATER 250 ML IV ONE (23:00)
[2019-07-02] MEDS ORDERED: PIPERACILLIN/TAZ 3.375G PREMIX 50 ML IV ONE (23:00)
[2019-07-02] MEDS ORDERED: SODIUM CHLORIDE 0.9% 1000ML BAG (SEPSIS BOLUS) IV ONE (23:00)
[2019-07-03 12:30] VITALS: BP 92/53
[2019-07-03 12:49] VITALS: BP 92/53
[2019-07-03] MEDS: DILTIAZEM HCL 60MG TABLET PO SCH ×2 (15:12→21:20)
[2019-07-03] MEDS ORDERED: CLONIDINE 0.1MG TABLET PO PRN (15:15)
[2019-07-03] MEDS ORDERED: ENOXAPARIN 40MG/0.4ML SYR SUBCUT SCH (15:15)
[2019-07-03] MEDS ORDERED: LORAZEPAM 0.5MG TABLET PO PRN (15:15)
[2019-07-03] MEDS ORDERED: VANCOMYCIN 1 G PREMIX 200 ML IV SCH (15:15)
[2019-07-03] MEDS ORDERED: DEXTROSE 50% WATER 50ML SYRINGE IV PRN (15:15)
[2019-07-03] MEDS ORDERED: HYDROCODONE/ACETAMINOPHEN 10/325MG TABLET PO PRN (15:15)
[2019-07-03] MEDS: APIXABAN 5 MG TABLET PO SCH ×2 (15:41→20:53)
[2019-07-03 16:00] VITALS: BP 100/58
[2019-07-03] MEDS: PIPERACILLIN/TAZOBACTAM 3.375 G in DEXT 5% WATER 100 ML IV SCH (16:24)
[2019-07-03] MEDS: INSULIN LISPRO 100 UNITS/ML SUBCUT SCH ×2 (16:51→21:00)
[2019-07-03] MEDS: BLOOD SUGAR DIAGNOSTIC STRIP TEST SCH ×2 (16:51→20:43)
[2019-07-03] MEDS: VANCOMYCIN 1 G PREMIX 200 ML IV SCH (17:02)
[2019-07-03 20:00] VITALS: BP 139/82
[2019-07-03] MEDS: CARBAMAZEPINE 200MG TABLET PO SCH (20:40)
[2019-07-03] MEDS: FAMOTIDINE 20MG TABLET PO SCH (20:40)
[2019-07-03] MEDS: METOPROLOL TARTRATE 25MG TABLET PO SCH (21:21)
[2019-07-04] VITALS: BP 95/55
[2019-07-04] MEDS: METHYLPREDNISOLONE SOD SUCC 40 MG/ML VIAL IV SCH ×4 (00:06→22:06)
[2019-07-04] MEDS: PIPERACILLIN/TAZOBACTAM 3.375 G in DEXT 5% WATER 100 ML IV SCH ×4 (00:06→22:06)
[2019-07-04 04:00] VITALS: BP 112/51
[2019-07-04] MEDS: DILTIAZEM HCL 60MG TABLET PO SCH ×4 (04:13→21:19)
[2019-07-04] MEDS: BLOOD SUGAR DIAGNOSTIC STRIP TEST SCH ×4 (07:01→21:19)
[2019-07-04] MEDS: INSULIN LISPRO 100 UNITS/ML SUBCUT SCH ×4 (07:35→21:20)
[2019-07-04 08:00] VITALS: BP 124/56
[2019-07-04] MEDS: APIXABAN 5 MG TABLET PO SCH ×2 (08:30→21:18)
[2019-07-04] MEDS: CARBAMAZEPINE 200MG TABLET PO SCH ×2 (08:30→21:18)
[2019-07-04] MEDS: FAMOTIDINE 20MG TABLET PO SCH ×2 (08:30→21:19)
[2019-07-04] MEDS: METOPROLOL TARTRATE 25MG TABLET PO SCH ×2 (08:31→21:19)
[2019-07-04 09:55] LABS: BG BASE EXCESS 7.9 mmol/L (-2.0-2.0); BG CARBOXYHEMOGLOBIN 0.5 % (0.5-1.5); BG DEOXYHEMOGLOBIN 9.1 % (0.0-5.0); BG FRACTION INSPIRED OXYGEN 44; BG HCO3 ACT 35.7 mmol/L (22.0-26.0); BG METHEMOGLOBIN 0.1 % (0.0-1.5); BG OXYGEN SATURATION 90.8 % (92.0-98.5); BG OXYHEMOGLOBIN 90.3 % (94.0-97.0); BG PCO2 68.4 mmHg (35.0-45.0); BG PH 7.335 (7.350-7.450); BG PO2 60.4 mmHg (75.0-100.0); BG SAMPLE SITE RIGHT BRACHIAL; BG VENT MODE NASAL CANNULA
[2019-07-04 12:00] VITALS: BP 129/54
[2019-07-04] MEDS: VANCOMYCIN 1 G PREMIX 200 ML IV SCH (12:59)
[2019-07-04 14:44] LABS: HEMATOCRIT. 34.7 % (36.0-48.0); HEMOGLOBIN. 9.9 g/dL (12.0-16.0); MEAN CORPUSCULAR HEMOGLOBIN 25.6 pg (28.0-32.0); MEAN CORPUSCULAR VOLUME 89.7 fL (81.0-99.0); MEAN PLATELET VOLUME 9.2 fl (7.4-10.4); PLATELET 238 x1000/uL (130-400); RED BLOOD CELL COUNT 3.87 mill/uL (4.2-5.4)
[2019-07-04 16:00] VITALS: BP 118/56
[2019-07-04 16:00] LABS: ATYPICAL LYMPHOCYTES 1; PLATELET ESTIMATE NORMAL
[2019-07-04 18:22] LABS: CHLORIDE 98 mEq/L (98-107)
[2019-07-04 18:32] LABS: CREATINE KINASE 692 IU/L (26-192)
[2019-07-04 18:33] LABS: T4 FREE 0.88 ng/dL (0.76-1.46)
[2019-07-04 18:34] LABS: HDL CHOLESTEROL 49 mg/dL (40-59); LDL CHOLESTEROL 130 mg/dL (5-100)
[2019-07-04 20:55] VITALS: BP 118/66
[2019-07-05 00:35] VITALS: BP 96/48
[2019-07-05] MEDS: DILTIAZEM HCL 60MG TABLET PO SCH ×4 (02:43→21:53)
[2019-07-05 04:00] VITALS: BP 108/51
[2019-07-05] MEDS: METHYLPREDNISOLONE SOD SUCC 40 MG/ML VIAL IV SCH ×3 (05:40→21:53)
[2019-07-05] MEDS: PIPERACILLIN/TAZOBACTAM 3.375 G in DEXT 5% WATER 100 ML IV SCH ×3 (05:42→21:52)
[2019-07-05] MEDS: VANCOMYCIN 1 G PREMIX 200 ML IV SCH (06:21)
[2019-07-05] MEDS: BLOOD SUGAR DIAGNOSTIC STRIP TEST SCH ×4 (07:40→21:54)
[2019-07-05 08:00] VITALS: BP 108/44
[2019-07-05] MEDS: METOPROLOL TARTRATE 25MG TABLET PO SCH ×2 (08:55→21:53)
[2019-07-05] MEDS: APIXABAN 5 MG TABLET PO SCH ×2 (08:55→21:53)
[2019-07-05] MEDS: CARBAMAZEPINE 200MG TABLET PO SCH ×2 (08:56→21:53)
[2019-07-05] MEDS: INSULIN LISPRO 100 UNITS/ML SUBCUT SCH ×4 (08:58→21:00)
[2019-07-05] MEDS: FAMOTIDINE 20MG TABLET PO SCH ×2 (09:05→21:53)
[2019-07-05 12:00] VITALS: BP 132/75
[2019-07-05 16:00] VITALS: BP 108/49
[2019-07-05 18:21] LABS: CHLORIDE 100 mEq/L (98-107)
[2019-07-05 20:00] VITALS: BP 139/85
[2019-07-06] VITALS (37 sets, daily range): BP systolic 83–149; BP diastolic 49–99
[2019-07-06] MEDS: VANCOMYCIN 1 G PREMIX 200 ML IV SCH (01:48)
[2019-07-06] MEDS: DILTIAZEM HCL 60MG TABLET PO SCH ×5 (04:10→21:40)
[2019-07-06] MEDS: PIPERACILLIN/TAZOBACTAM 3.375 G in DEXT 5% WATER 100 ML IV SCH ×3 (05:27→21:15)
[2019-07-06] MEDS: METHYLPREDNISOLONE SOD SUCC 40 MG/ML VIAL IV SCH ×2 (05:27→14:21)
[2019-07-06] MEDS ORDERED: SODIUM BICARBONATE 4% (2.4MEQ) 5ML VIAL IV ONE (07:40)
[2019-07-06] MEDS ORDERED: LIDOCAINE HCL 1% 20ML VIAL (Pyxis) INJ ONE (07:41)
[2019-07-06] MEDS: BLOOD SUGAR DIAGNOSTIC STRIP TEST SCH ×4 (07:46→21:15)
[2019-07-06 08:13] LABS: CHLORIDE 99 mEq/L (98-107)
[2019-07-06] MEDS: INSULIN LISPRO 100 UNITS/ML SUBCUT SCH ×4 (09:22→21:15)
[2019-07-06] MEDS: FAMOTIDINE 20MG TABLET PO SCH ×2 (09:23→21:14)
[2019-07-06] MEDS: METOPROLOL TARTRATE 25MG TABLET PO SCH ×3 (09:23→21:40)
[2019-07-06] MEDS: CARBAMAZEPINE 200MG TABLET PO SCH ×2 (09:23→21:14)
[2019-07-06] MEDS: APIXABAN 5 MG TABLET PO SCH ×2 (09:23→21:14)
[2019-07-06 15:00] LABS: BG BASE EXCESS 12.5 mmol/L (-2.0-2.0); BG CARBOXYHEMOGLOBIN 0.4 % (0.5-1.5); BG DEOXYHEMOGLOBIN 1.3 % (0.0-5.0); BG FRACTION INSPIRED OXYGEN 100; BG HCO3 ACT 45.8 mmol/L (22.0-26.0); BG METHEMOGLOBIN 0.2 % (0.0-1.5); BG OXYGEN SATURATION 98.7 % (92.0-98.5); BG OXYHEMOGLOBIN 98.1 % (94.0-97.0); BG PCO2 136.6 mmHg (35.0-45.0); BG PH 7.143 (7.350-7.450); BG PO2 144.9 mmHg (75.0-100.0); BG SAMPLE SITE RIGHT RADIAL; BG TOTAL HEMOGLOBIN 11.3 g/dL (12.0-18.0); BG VENT MODE MASK - NRB
[2019-07-06] MEDS: VANCOMYCIN 750 MG in DEXT 5% WATER 250 ML IV SCH (16:30)
[2019-07-06] MEDS: MIDAZOLAM HCL 50 MG in DEXTROSE 5% WATER 40 ML IV PRN (17:29)
[2019-07-06] MEDS: FENTANYL CITRATE/PF 500 MCG in SODIUM CHLORIDE 0.9% 40 ML IV PRN (17:30)
[2019-07-06 17:45] LABS: BG BASE EXCESS 10.6 mmol/L (-2.0-2.0); BG CARBOXYHEMOGLOBIN 0.3 % (0.5-1.5); BG FRACTION INSPIRED OXYGEN 100; BG HCO3 ACT 36.1 mmol/L (22.0-26.0); BG METHEMOGLOBIN 0.1 % (0.0-1.5); BG OXYHEMOGLOBIN 90.6 % (94.0-97.0); BG PCO2 53.1 mmHg (35.0-45.0); BG PO2 53.1 mmHg (75.0-100.0); BG SAMPLE SITE RIGHT RADIAL; BG TIDAL VOLUME(mL) 500 mL; BG TOTAL HEMOGLOBIN 10.5 g/dL (12.0-18.0); BG VENT MODE VENT - A/C; BG VENT RATE 20 set
[2019-07-07] VITALS (90 sets, daily range): BP systolic 100–163; BP diastolic 55–94
[2019-07-07] MEDS: VANCOMYCIN 750 MG in DEXT 5% WATER 250 ML IV SCH ×2 (01:08→13:13)
[2019-07-07] MEDS: ACETAMINOPHEN 325MG TABLET PO PRN (01:08)
[2019-07-07] MEDS: DILTIAZEM HCL 60MG TABLET PO SCH ×4 (03:03→21:20)
[2019-07-07 06:15] LABS: BASOPHILS % 0.1 % (0.0-2.0); HEMATOCRIT. 31.6 % (36.0-48.0); HEMOGLOBIN. 9.2 g/dL (12.0-16.0); LYMPHOCYTES % 8.9 % (20.0-50.0); MEAN CORPUSCULAR HEMOGLOBIN 25.6 pg (28.0-32.0); MEAN CORPUSCULAR VOLUME 87.8 fL (81.0-99.0); MEAN PLATELET VOLUME 8.5 fl (7.4-10.4); MONOCYTES % 10.5 % (2.0-8.0); NEUTROPHILS % 80.5 % (40.0-76.0); PLATELET 300 x1000/uL (130-400); RED BLOOD CELL COUNT 3.59 mill/uL (4.2-5.4); RED CELL DISTRIBUTION WIDTH 19.3 % (11.6-14.6)
[2019-07-07 06:26] LABS: CHLORIDE 100 mEq/L (98-107)
[2019-07-07] MEDS: INSULIN LISPRO 100 UNITS/ML SUBCUT SCH ×4 (06:32→21:00)
[2019-07-07] MEDS: BLOOD SUGAR DIAGNOSTIC STRIP TEST SCH ×4 (06:32→21:00)
[2019-07-07] MEDS: PIPERACILLIN/TAZOBACTAM 3.375 G in DEXT 5% WATER 100 ML IV SCH ×3 (06:32→21:20)
[2019-07-07 09:04] LABS: BG BASE EXCESS 11.6 mmol/L (-2.0-2.0); BG CARBOXYHEMOGLOBIN 0.3 % (0.5-1.5); BG DEOXYHEMOGLOBIN 0.3 % (0.0-5.0); BG HCO3 ACT 33.8 mmol/L (22.0-26.0); BG METHEMOGLOBIN 0.1 % (0.0-1.5); BG OXYGEN SATURATION 99.7 % (92.0-98.5); BG OXYHEMOGLOBIN 99.3 % (94.0-97.0); BG PCO2 34.7 mmHg (35.0-45.0); BG PH 7.606 (7.350-7.450); BG PO2 211.6 mmHg (75.0-100.0); BG SAMPLE SITE RIGHT RADIAL; BG TIDAL VOLUME(mL) 500 mL; BG TOTAL HEMOGLOBIN 9.9 g/dL (12.0-18.0); BG VENT MODE VENT - A/C; BG VENT RATE 20 set
[2019-07-07] MEDS: APIXABAN 5 MG TABLET PO SCH ×2 (09:30→21:19)
[2019-07-07] MEDS: FAMOTIDINE 20MG TABLET PO SCH ×2 (09:30→21:19)
[2019-07-07] MEDS: CARBAMAZEPINE 200MG TABLET PO SCH ×2 (09:30→21:19)
[2019-07-07] MEDS: METOPROLOL TARTRATE 25MG TABLET PO SCH ×2 (09:31→21:20)
[2019-07-07 13:43] LABS: BG CARBOXYHEMOGLOBIN 0.3 % (0.5-1.5); BG DEOXYHEMOGLOBIN 0.3 % (0.0-5.0); BG HCO3 ACT 39.7 mmol/L (22.0-26.0); BG METHEMOGLOBIN 0.1 % (0.0-1.5); BG OXYGEN SATURATION 99.7 % (92.0-98.5); BG OXYHEMOGLOBIN 99.3 % (94.0-97.0); BG PCO2 50.7 mmHg (35.0-45.0); BG PH 7.512 (7.350-7.450); BG PO2 277.1 mmHg (75.0-100.0); BG SAMPLE SITE RIGHT RADIAL; BG TIDAL VOLUME(mL) 450 mL; BG TOTAL HEMOGLOBIN 10.1 g/dL (12.0-18.0); BG VENT MODE VENT - A/C; BG VENT RATE 14 set
[2019-07-07] MEDS: FENTANYL CITRATE/PF 500 MCG in SODIUM CHLORIDE 0.9% 40 ML IV PRN (22:26)
[2019-07-07] MEDS: MIDAZOLAM HCL 50 MG in DEXTROSE 5% WATER 40 ML IV PRN (22:27)
[2019-07-08] VITALS (72 sets, daily range): BP systolic 85–134; BP diastolic 45–80
[2019-07-08] MEDS: VANCOMYCIN 750 MG in DEXT 5% WATER 250 ML IV SCH ×2 (02:39→14:26)
[2019-07-08] MEDS: DILTIAZEM HCL 60MG TABLET PO SCH ×4 (02:43→21:10)
[2019-07-08] MEDS: BLOOD SUGAR DIAGNOSTIC STRIP TEST SCH ×4 (06:34→21:59)
[2019-07-08] MEDS: PIPERACILLIN/TAZOBACTAM 3.375 G in DEXT 5% WATER 100 ML IV SCH ×3 (06:44→21:08)
[2019-07-08] MEDS: INSULIN LISPRO 100 UNITS/ML SUBCUT SCH ×4 (06:45→22:06)
[2019-07-08] MEDS ORDERED: LIDOCAINE HCL 1% 20ML VIAL (Pyxis) INJ ONE (08:13)
[2019-07-08 08:50] LABS: BASOPHILS % 0.1 % (0.0-2.0); EOSINOPHILS % 0.3 % (0.0-5.0); HEMOGLOBIN. 9.2 g/dL (12.0-16.0); LYMPHOCYTES % 9.2 % (20.0-50.0); MEAN CORPUSCULAR HEMOGLOBIN 25.7 pg (28.0-32.0); MEAN CORPUSCULAR VOLUME 87.1 fL (81.0-99.0); MEAN PLATELET VOLUME 8.1 fl (7.4-10.4); MONOCYTES % 8.8 % (2.0-8.0); NEUTROPHILS % 81.6 % (40.0-76.0); PLATELET 301 x1000/uL (130-400); RED BLOOD CELL COUNT 3.56 mill/uL (4.2-5.4); RED CELL DISTRIBUTION WIDTH 19.5 % (11.6-14.6)
[2019-07-08] MEDS: METOPROLOL TARTRATE 25MG TABLET PO SCH ×2 (08:56→21:10)
[2019-07-08 08:57] LABS: CHLORIDE 98 mEq/L (98-107)
[2019-07-08] MEDS: FAMOTIDINE 20MG TABLET PO SCH ×2 (09:25→21:09)
[2019-07-08] MEDS: CARBAMAZEPINE 200MG TABLET PO SCH ×2 (09:25→21:09)
[2019-07-08] MEDS: APIXABAN 5 MG TABLET PO SCH ×2 (09:25→21:09)
[2019-07-08 09:59] LABS: BG BASE EXCESS 12.8 mmol/L (-2.0-2.0); BG CARBOXYHEMOGLOBIN 0.3 % (0.5-1.5); BG DEOXYHEMOGLOBIN 4.5 % (0.0-5.0); BG FRACTION INSPIRED OXYGEN 70; BG HCO3 ACT 38.8 mmol/L (22.0-26.0); BG METHEMOGLOBIN 0.1 % (0.0-1.5); BG OXYGEN SATURATION 95.5 % (92.0-98.5); BG OXYHEMOGLOBIN 95.1 % (94.0-97.0); BG PCO2 58.3 mmHg (35.0-45.0); BG PH 7.441 (7.350-7.450); BG PO2 74.8 mmHg (75.0-100.0); BG SAMPLE SITE RIGHT RADIAL; BG TIDAL VOLUME(mL) 400 mL; BG TOTAL HEMOGLOBIN 9.8 g/dL (12.0-18.0); BG VENT MODE VENT - A/C; BG VENT RATE 14 set
[2019-07-08] MEDS: ACETAMINOPHEN 325MG TABLET PO PRN ×5 (12:07→17:15)
[2019-07-08] MEDS ORDERED: POTASSIUM CHLORIDE 20MEQ/PACKET PO NR (16:00)
[2019-07-08] MEDS: FENTANYL CITRATE/PF 500 MCG in SODIUM CHLORIDE 0.9% 40 ML IV PRN (19:59)
[2019-07-08] MEDS: MIDAZOLAM HCL 50 MG in DEXTROSE 5% WATER 40 ML IV PRN (20:00)
[2019-07-09] VITALS (71 sets, daily range): BP systolic 88–136; BP diastolic 41–81
[2019-07-09] MEDS: DILTIAZEM HCL 60MG TABLET PO SCH ×4 (03:00→20:49)
[2019-07-09] MEDS: VANCOMYCIN 750 MG in DEXT 5% WATER 250 ML IV SCH ×2 (03:04→14:22)
[2019-07-09] MEDS: BLOOD SUGAR DIAGNOSTIC STRIP TEST SCH ×3 (06:57→17:30)
[2019-07-09] MEDS: INSULIN LISPRO 100 UNITS/ML SUBCUT SCH ×3 (07:02→17:35)
[2019-07-09] MEDS: FAMOTIDINE 20MG TABLET PO SCH ×2 (08:39→20:48)
[2019-07-09] MEDS: APIXABAN 5 MG TABLET PO SCH ×2 (08:39→20:48)
[2019-07-09] MEDS: METOPROLOL TARTRATE 25MG TABLET PO SCH ×2 (08:40→20:49)
[2019-07-09] MEDS: CARBAMAZEPINE 200MG TABLET PO SCH ×2 (08:42→20:47)
[2019-07-09 11:28] LABS: BASOPHILS % 0.1 % (0.0-2.0); EOSINOPHILS % 1.2 % (0.0-5.0); HEMATOCRIT. 29.2 % (36.0-48.0); HEMOGLOBIN. 8.5 g/dL (12.0-16.0); LYMPHOCYTES % 8.1 % (20.0-50.0); MEAN CORPUSCULAR HEMOGLOBIN 25.4 pg (28.0-32.0); MEAN CORPUSCULAR VOLUME 87.2 fL (81.0-99.0); MEAN PLATELET VOLUME 8.8 fl (7.4-10.4); MONOCYTES % 6.3 % (2.0-8.0); NEUTROPHILS % 84.3 % (40.0-76.0); PLATELET 313 x1000/uL (130-400); RED BLOOD CELL COUNT 3.35 mill/uL (4.2-5.4); RED CELL DISTRIBUTION WIDTH 19.6 % (11.6-14.6)
[2019-07-09 11:37] LABS: CHLORIDE 98 mEq/L (98-107)
[2019-07-09 15:36] LABS: COVID-19 PCR RNA DETECTED
[2019-07-09 16:18] LABS: BG BASE EXCESS 12.2 mmol/L (-2.0-2.0); BG CARBOXYHEMOGLOBIN 0.1 % (0.5-1.5); BG DEOXYHEMOGLOBIN 3.4 % (0.0-5.0); BG HCO3 ACT 38.5 mmol/L (22.0-26.0); BG METHEMOGLOBIN 0.2 % (0.0-1.5); BG OXYGEN SATURATION 96.6 % (92.0-98.5); BG OXYHEMOGLOBIN 96.3 % (94.0-97.0); BG PCO2 62.5 mmHg (35.0-45.0); BG PH 7.408 (7.350-7.450); BG PO2 88.8 mmHg (75.0-100.0); BG SAMPLE SITE RIGHT RADIAL; BG TIDAL VOLUME(mL) 400 mL; BG TOTAL HEMOGLOBIN 8.9 g/dL (12.0-18.0); BG VENT MODE VENT - A/C; BG VENT RATE 14 set
[2019-07-09] MEDS: FENTANYL CITRATE/PF 500 MCG in SODIUM CHLORIDE 0.9% 40 ML IV PRN (17:15)
[2019-07-09] MEDS: ZINC SULFATE 220 MG ( 50 ) CAPSULE PO SCH (17:53)
[2019-07-09] MEDS: HYDROXYCHLOROQUINE SULFATE 200MG TABLET PO SCH (17:53)
[2019-07-09] MEDS ORDERED: PIPERACILLIN/TAZOBACTAM 3.375 G in DEXT 5% WATER 100 ML IV SCH (18:00)
[2019-07-09] MEDS: MIDAZOLAM HCL 50 MG in DEXTROSE 5% WATER 40 ML IV PRN (18:03)
[2019-07-09] MEDS ORDERED: CEFTRIAXONE 1 G PREMIX 50 ML IV SCH (18:30)
[2019-07-09] MEDS: ASCORBIC ACID 500 MG TABLET PO SCH (20:48)
[2019-07-10] VITALS (60 sets, daily range): BP systolic 88–207; BP diastolic 55–105
[2019-07-10] MEDS: DILTIAZEM HCL 60MG TABLET PO SCH ×3 (03:00→15:00)
[2019-07-10] MEDS: FENTANYL CITRATE/PF 500 MCG in SODIUM CHLORIDE 0.9% 40 ML IV PRN (03:37)
[2019-07-10] MEDS: MIDAZOLAM HCL 50 MG in DEXTROSE 5% WATER 40 ML IV PRN (03:38)
[2019-07-10 05:20] LABS: BASOPHILS % 0.5 % (0.0-2.0); EOSINOPHILS % 2.7 % (0.0-5.0); HEMATOCRIT. 27.6 % (36.0-48.0); HEMOGLOBIN. 8.4 g/dL (12.0-16.0); LYMPHOCYTES % 8.3 % (20.0-50.0); MEAN CORPUSCULAR HEMOGLOBIN 26.4 pg (28.0-32.0); MEAN PLATELET VOLUME 8.5 fl (7.4-10.4); MONOCYTES % 7.7 % (2.0-8.0); NEUTROPHILS % 80.8 % (40.0-76.0); PLATELET 342 x1000/uL (130-400); RED BLOOD CELL COUNT 3.18 mill/uL (4.2-5.4); RED CELL DISTRIBUTION WIDTH 19.3 % (11.6-14.6)
[2019-07-10 05:23] LABS: CHLORIDE 97 mEq/L (98-107)
[2019-07-10] MEDS: INSULIN LISPRO 100 UNITS/ML SUBCUT SCH ×3 (06:00→12:38)
[2019-07-10] MEDS: BLOOD SUGAR DIAGNOSTIC STRIP TEST SCH ×3 (06:59→12:10)
[2019-07-10] MEDS: ZINC SULFATE 220 MG ( 50 ) CAPSULE PO SCH (08:00)
[2019-07-10] MEDS: HYDROXYCHLOROQUINE SULFATE 200MG TABLET PO SCH (08:00)
[2019-07-10] MEDS: FAMOTIDINE 20MG TABLET PO SCH (08:00)
[2019-07-10] MEDS: APIXABAN 5 MG TABLET PO SCH (08:00)
[2019-07-10] MEDS: ASCORBIC ACID 500 MG TABLET PO SCH (08:00)
[2019-07-10] MEDS: CARBAMAZEPINE 200MG TABLET PO SCH (08:00)
[2019-07-10] MEDS: METOPROLOL TARTRATE 25MG TABLET PO SCH (08:01)
[2019-07-10 08:43] LABS: BG BASE EXCESS 14.5 mmol/L (-2.0-2.0); BG CARBOXYHEMOGLOBIN 0.5 % (0.5-1.5); BG DEOXYHEMOGLOBIN 6.6 % (0.0-5.0); BG FRACTION INSPIRED OXYGEN 70; BG HCO3 ACT 40.8 mmol/L (22.0-26.0); BG METHEMOGLOBIN 0.3 % (0.0-1.5); BG OXYGEN SATURATION 93.3 % (92.0-98.5); BG OXYHEMOGLOBIN 92.6 % (94.0-97.0); BG PCO2 63.2 mmHg (35.0-45.0); BG PH 7.428 (7.350-7.450); BG PO2 66.9 mmHg (75.0-100.0); BG SAMPLE SITE RIGHT RADIAL; BG TIDAL VOLUME(mL) 450 mL; BG TOTAL HEMOGLOBIN 9.1 g/dL (12.0-18.0); BG VENT MODE VENT - A/C; BG VENT RATE 14 set
[2019-07-10 13:31] LABS: BG BASE EXCESS 15.6 mmol/L (-2.0-2.0); BG CARBOXYHEMOGLOBIN 0.3 % (0.5-1.5); BG DEOXYHEMOGLOBIN 3.5 % (0.0-5.0); BG FRACTION INSPIRED OXYGEN 70; BG HCO3 ACT 40.8 mmol/L (22.0-26.0); BG METHEMOGLOBIN 0.1 % (0.0-1.5); BG OXYGEN SATURATION 96.5 % (92.0-98.5); BG OXYHEMOGLOBIN 96.1 % (94.0-97.0); BG PCO2 55.8 mmHg (35.0-45.0); BG PH 7.482 (7.350-7.450); BG PO2 81.4 mmHg (75.0-100.0); BG SAMPLE SITE RIGHT RADIAL; BG TIDAL VOLUME(mL) 450 mL; BG TOTAL HEMOGLOBIN 8.4 g/dL (12.0-18.0); BG VENT MODE VENT - A/C; BG VENT RATE 18 set
[2019-07-10] MEDS ORDERED: LORAZEPAM 2MG/ML CPJ IV PRN (16:15)
[2019-07-10] MEDS ORDERED: MORPHINE SULFATE 2 MG/ML CPJ (NOT FOR IM USE) IV PRN (16:15)
[2019-07-10] MEDS ORDERED: HYDROXYCHLOROQUINE SULFATE 200MG TABLET PO SCH (17:00)
[2019-07-10] MEDS: LORAZEPAM 2MG/ML CPJ IV PRN (18:20)
[2019-07-10] MEDS: MORPHINE SULFATE 2 MG/ML CPJ (NOT FOR IM USE) IV PRN ×2 (18:21→20:41)
[2019-07-11 04:00] VITALS: BP 170/86
[2019-07-11 12:00] VITALS: BP 179/98
[2019-07-11] MEDS: METHYLPREDNISOLONE SOD SUCC 40 MG/ML VIAL IV SCH ×2 (15:19→22:00)
[2019-07-11 16:00] VITALS: BP 141/89
[2019-07-11] MEDS ORDERED: VANCOMYCIN 1250MG in DEXTROSE 5% WATER 250ML IV SCH (17:00)
[2019-07-11] MEDS ORDERED: VANCOMYCIN 1,250 MG in DEXT 5% WATER 250 ML IV SCH (19:00)
[2019-07-11 20:00] VITALS: BP 158/83
[2019-07-11] MEDS: CEFEPIME 1,000 MG in DEXTROSE 5% WATER 50 ML IV SCH (20:43)
[2019-07-11] MEDS: MORPHINE SULFATE 2 MG/ML CPJ (NOT FOR IM USE) IV PRN (22:00)
[2019-07-12] VITALS: BP 157/78
[2019-07-12 04:00] VITALS: BP 148/72
[2019-07-12] MEDS: VANCOMYCIN 750 MG PREMIX 150 ML IV SCH ×2 (05:25→18:16)
[2019-07-12] MEDS: METHYLPREDNISOLONE SOD SUCC 40 MG/ML VIAL IV SCH ×3 (05:50→21:11)
[2019-07-12 08:00] VITALS: BP 167/75
[2019-07-12] MEDS: CEFEPIME 1,000 MG in DEXTROSE 5% WATER 50 ML IV SCH ×2 (09:47→21:11)
[2019-07-12 12:00] VITALS: BP 120/62
[2019-07-12 16:00] VITALS: BP 130/59
[2019-07-12 20:00] VITALS: BP 136/59
[2019-07-13] VITALS: BP 145/60
[2019-07-13] MEDS: MORPHINE SULFATE 2 MG/ML CPJ (NOT FOR IM USE) IV PRN ×4 (01:04→18:42)
[2019-07-13 04:00] VITALS: BP 121/57
[2019-07-13] MEDS: VANCOMYCIN 750 MG PREMIX 150 ML IV SCH ×2 (05:24→17:38)
[2019-07-13] MEDS: METHYLPREDNISOLONE SOD SUCC 40 MG/ML VIAL IV SCH ×3 (05:25→22:02)
[2019-07-13 08:00] VITALS: BP 131/50
[2019-07-13 08:09] LABS: CHLORIDE 101 mEq/L (98-107)
[2019-07-13] MEDS: CEFEPIME 1,000 MG in DEXTROSE 5% WATER 50 ML IV SCH ×2 (09:26→20:57)
[2019-07-13 12:00] VITALS: BP 113/57
[2019-07-13 16:00] VITALS: BP 121/60
[2019-07-13 20:00] VITALS: BP 114/50
[2019-07-14] VITALS: BP 125/57
[2019-07-14] MEDS: MORPHINE SULFATE 2 MG/ML CPJ (NOT FOR IM USE) IV PRN ×4 (00:41→17:32)
[2019-07-14] MEDS ORDERED: DEXTROSE 50% WATER 50ML SYRINGE IV PRN (02:00)
[2019-07-14 04:00] VITALS: BP 118/50
[2019-07-14] MEDS: VANCOMYCIN 750 MG PREMIX 150 ML IV SCH (05:35)
[2019-07-14] MEDS: METHYLPREDNISOLONE SOD SUCC 40 MG/ML VIAL IV SCH ×3 (05:35→21:46)
[2019-07-14] MEDS: LORAZEPAM 2MG/ML CPJ IV PRN (05:57)
[2019-07-14] MEDS ORDERED: BLOOD SUGAR DIAGNOSTIC STRIP TEST SCH (07:40)
[2019-07-14 08:00] VITALS: BP 140/64
[2019-07-14] MEDS ORDERED: INSULIN LISPRO 100 UNITS/ML SUBCUT SCH (08:10)
[2019-07-14] MEDS: CEFEPIME 1,000 MG in DEXTROSE 5% WATER 50 ML IV SCH ×2 (09:11→20:28)
[2019-07-14 10:40] LABS: CHLORIDE 99 mEq/L (98-107)
[2019-07-14 12:00] VITALS: BP 123/63
[2019-07-14 16:00] VITALS: BP 129/58
[2019-07-14] MEDS: VANCOMYCIN 1 G PREMIX 200 ML IV SCH (17:31)
[2019-07-14 20:00] VITALS: BP 129/55
[2019-07-14] MEDS: ENOXAPARIN 40MG/0.4ML SYR SUBCUT SCH (20:57)
[2019-07-15] VITALS: BP 131/64
[2019-07-15] MEDS: MORPHINE SULFATE 2 MG/ML CPJ (NOT FOR IM USE) IV PRN ×3 (01:05→21:32)
[2019-07-15 04:00] VITALS: BP 125/68
[2019-07-15] MEDS: VANCOMYCIN 1 G PREMIX 200 ML IV SCH ×2 (06:08→17:30)
[2019-07-15] MEDS: METHYLPREDNISOLONE SOD SUCC 40 MG/ML VIAL IV SCH ×3 (06:09→20:44)
[2019-07-15 08:10] VITALS: BP 133/64
[2019-07-15] MEDS: CEFEPIME 1,000 MG in DEXTROSE 5% WATER 50 ML IV SCH ×2 (08:28→20:37)
[2019-07-15 12:02] VITALS: BP 117/63
[2019-07-15] MEDS: LORAZEPAM 2MG/ML CPJ IV PRN (13:38)
[2019-07-15 16:00] VITALS: BP 135/73
[2019-07-15 20:00] VITALS: BP 152/85
[2019-07-15] MEDS: ENOXAPARIN 40MG/0.4ML SYR SUBCUT SCH (20:38)
[2019-07-15] MEDS ORDERED: LORAZEPAM 2MG/ML CPJ IV PRN (20:45)
[2019-07-16] VITALS: BP 178/85
[2019-07-16 04:00] VITALS: BP 170/79
[2019-07-16] MEDS: VANCOMYCIN 1 G PREMIX 200 ML IV SCH ×2 (05:45→18:00)
[2019-07-16] MEDS: METHYLPREDNISOLONE SOD SUCC 40 MG/ML VIAL IV SCH ×2 (05:45→17:57)
[2019-07-16 08:00] VITALS: BP 171/95
[2019-07-16 11:08] LABS: BG BASE EXCESS 23.9 mmol/L (-2.0-2.0); BG CARBOXYHEMOGLOBIN 0.3 % (0.5-1.5); BG DEOXYHEMOGLOBIN 1.5 % (0.0-5.0); BG FRACTION INSPIRED OXYGEN 100; BG HCO3 ACT 52.3 mmol/L (22.0-26.0); BG METHEMOGLOBIN 0.2 % (0.0-1.5); BG OXYGEN SATURATION 98.5 % (92.0-98.5); BG PCO2 87.9 mmHg (35.0-45.0); BG PH 7.392 (7.350-7.450); BG PO2 127.6 mmHg (75.0-100.0); BG SAMPLE SITE RIGHT RADIAL; BG TOTAL HEMOGLOBIN 8.8 g/dL (12.0-18.0); BG VENT MODE MASK - NRB
[2019-07-16 12:00] VITALS: BP 167/90
[2019-07-16] MEDS: DILTIAZEM HCL 30MG TABLET PO SCH ×2 (12:45→18:00)
[2019-07-16] MEDS: CEFEPIME 1,000 MG in DEXTROSE 5% WATER 50 ML IV SCH ×2 (15:44→20:00)
[2019-07-16 16:00] VITALS: BP 140/71
[2019-07-16 20:00] VITALS: BP 119/70
[2019-07-16] MEDS: ENOXAPARIN 40MG/0.4ML SYR SUBCUT SCH (21:56)
[2019-07-17 00:01] VITALS: BP 122/75
[2019-07-17] MEDS: DILTIAZEM HCL 30MG TABLET PO SCH ×4 (01:16→17:17)
[2019-07-17 04:00] VITALS: BP 145/77
[2019-07-17] MEDS: METHYLPREDNISOLONE SOD SUCC 40 MG/ML VIAL IV SCH ×2 (05:29→17:16)
[2019-07-17] MEDS: CEFEPIME 1,000 MG in DEXTROSE 5% WATER 50 ML IV SCH ×2 (05:29→21:53)
[2019-07-17 08:00] VITALS: BP 165/96
[2019-07-17 12:00] VITALS: BP_SYST 159; BP_SYST 165; BP_DIAS 85; BP_DIAS 96
[2019-07-17 16:00] VITALS: BP 125/68
[2019-07-17 20:00] VITALS: BP 146/69
[2019-07-17] MEDS: ENOXAPARIN 40MG/0.4ML SYR SUBCUT SCH (21:58)
[2019-07-17] MEDS: MORPHINE SULFATE 2 MG/ML CPJ (NOT FOR IM USE) IV PRN (22:17)
[2019-07-18] VITALS: BP 137/70
[2019-07-18] MEDS: DILTIAZEM HCL 30MG TABLET PO SCH ×4 (00:27→18:07)
[2019-07-18 04:00] VITALS: BP 153/81
[2019-07-18] MEDS: METHYLPREDNISOLONE SOD SUCC 40 MG/ML VIAL IV SCH ×2 (06:22→18:07)
[2019-07-18 08:00] VITALS: BP 177/95
[2019-07-18] MEDS: CEFEPIME 1,000 MG in DEXTROSE 5% WATER 50 ML IV SCH ×2 (08:56→21:08)
[2019-07-18] MEDS: ACETAMINOPHEN 325MG TABLET PO PRN ×2 (08:56→21:08)
[2019-07-18 12:00] VITALS: BP 174/84
[2019-07-18 15:50] LABS: CLARITY URINE CLOUDY (CLEAR); COLOR URINE YELLOW (YELLOW); KETONES URINE NEGATIVE (NEGATIVE); LEUKOCYTE ESTERASE URINE 1+ (NEGATIVE); NITRITE URINE NEGATIVE (NEGATIVE); OCCULT BLOOD URINE 2+ (NEGATIVE); PH URINE 7.5 (4.5-8.0); PROTEIN URINE 1+ (NEGATIVE); UROBILINOGEN URINE 0.2 E.U./dL (0.2-1.0)
[2019-07-18 16:00] VITALS: BP 121/87
[2019-07-18 20:00] VITALS: BP 154/72
[2019-07-18] MEDS: ENOXAPARIN 40MG/0.4ML SYR SUBCUT SCH (21:09)
[2019-07-19] VITALS (10 sets, daily range): BP systolic 123–162; BP diastolic 51–90
[2019-07-19] MEDS: DILTIAZEM HCL 30MG TABLET PO SCH ×4 (00:36→17:25)
[2019-07-19] MEDS: MORPHINE SULFATE 2 MG/ML CPJ (NOT FOR IM USE) IV PRN ×4 (01:21→21:36)
[2019-07-19 06:12] LABS: HEMATOCRIT. 23.5 % (36.0-48.0); LYMPHOCYTES % 9.8 % (20.0-50.0); MEAN CORPUSCULAR HEMOGLOBIN 26.1 pg (28.0-32.0); MEAN CORPUSCULAR VOLUME 87.8 fL (81.0-99.0); MONOCYTES % 6.8 % (2.0-8.0); NEUTROPHILS % 82.4 % (40.0-76.0); PLATELET 397 x1000/uL (130-400); RED BLOOD CELL COUNT 2.68 mill/uL (4.2-5.4); RED CELL DISTRIBUTION WIDTH 18.5 % (11.6-14.6)
[2019-07-19 06:17] LABS: CHLORIDE 94 mEq/L (98-107)
[2019-07-19] MEDS: METHYLPREDNISOLONE SOD SUCC 40 MG/ML VIAL IV SCH (06:23)
[2019-07-19] MEDS: CEFEPIME 1,000 MG in DEXTROSE 5% WATER 50 ML IV SCH ×2 (09:00→20:38)
[2019-07-20] VITALS: BP 131/72
[2019-07-20] MEDS: MORPHINE SULFATE 2 MG/ML CPJ (NOT FOR IM USE) IV PRN ×2 (02:49→11:24)
[2019-07-20 04:00] VITALS: BP 154/62
[2019-07-20] MEDS: DILTIAZEM HCL 30MG TABLET PO SCH ×5 (06:00→23:45)
[2019-07-20 06:53] LABS: HEMATOCRIT 28.4 % (36.0-48.0); HEMOGLOBIN 8.7 g/dL (12.0-16.0)
[2019-07-20] MEDS: METHYLPREDNISOLONE SOD SUCC 40 MG/ML VIAL IV SCH (09:57)
[2019-07-20] MEDS: CEFEPIME 1,000 MG in DEXTROSE 5% WATER 50 ML IV SCH ×2 (09:57→22:02)
[2019-07-20 12:00] VITALS: BP 134/73
[2019-07-20] MEDS: ACETAMINOPHEN 325MG TABLET PO PRN (14:26)
[2019-07-20 16:00] VITALS: BP 125/75
[2019-07-20 20:00] VITALS: BP 125/71
[2019-07-21] VITALS: BP 130/60
[2019-07-21 04:00] VITALS: BP 145/70
[2019-07-21] MEDS: DILTIAZEM HCL 30MG TABLET PO SCH ×3 (07:14→18:43)
[2019-07-21] MEDS: ACETAMINOPHEN 325MG TABLET PO PRN (08:39)
[2019-07-21] MEDS: CEFEPIME 1,000 MG in DEXTROSE 5% WATER 50 ML IV SCH ×2 (08:39→20:16)
[2019-07-21] MEDS: METHYLPREDNISOLONE SOD SUCC 40 MG/ML VIAL IV SCH (08:39)
[2019-07-21 12:00] VITALS: BP 144/76
[2019-07-21] MEDS: MORPHINE SULFATE 2 MG/ML CPJ (NOT FOR IM USE) IV PRN ×2 (13:23→23:06)
[2019-07-21 16:00] VITALS: BP 124/59
[2019-07-21 20:00] VITALS: BP 136/62
[2019-07-22] VITALS (7 sets, daily range): BP systolic 124–188; BP diastolic 63–89
[2019-07-22] MEDS: DILTIAZEM HCL 30MG TABLET PO SCH ×4 (00:18→17:04)
[2019-07-22] MEDS: LORAZEPAM 2MG/ML CPJ IV PRN ×2 (02:22→12:38)
[2019-07-22] MEDS: ACETAMINOPHEN 325MG TABLET PO PRN (02:22)
[2019-07-22] MEDS: METHYLPREDNISOLONE SOD SUCC 40 MG/ML VIAL IV SCH (09:29)
[2019-07-22] MEDS: MORPHINE SULFATE 2 MG/ML CPJ (NOT FOR IM USE) IV PRN ×2 (11:10→18:10)
[2019-07-22] MEDS ORDERED: ONDANSETRON HCL 4MG/2ML INJ IV PRN (14:15)
[2019-07-22] MEDS ORDERED: HYDRALAZINE 20MG/ML VIAL IV PRN (17:15)
[2019-07-23] MEDS ORDERED: PANTOPRAZOLE 40MG DR TABLET PO SCH (07:40)
[2019-07-23] MEDS ORDERED: PREDNISONE 20MG TABLET PO SCH (09:00)
== END 2019-07-22 20:56 | DRG 870 ==
LOC: ER 19:55 → EEVIPCON 23:35 → 7WST 23:35 → EDBEDREQ 23:48 → EDBEDREQTM 23:48 → ENRESERV 07-03 07:31 → CANRESERV 07-03 07:31 → EDBEDREQSVC 07-03 09:56 → ENRESERV 07-03 11:25 → MICUNO 07-06 15:53 → 7WST 07-10 21:40
PROVIDERS: ADMIT Internal Medicine; ATTEND Internal Medicine
PROC: 0BH17EZ Insertion of Endotracheal Airway into Trachea, Via Natural or Artificial Opening (ICD-10-PCS; principal; 2019-07-06)
PROC: 5A1955Z Respiratory Ventilation, Greater than 96 Consecutive Hours (ICD-10-PCS; 2019-07-06)
PROC: 02HV33Z Insertion of Infusion Device into Superior Vena Cava, Percutaneous Approach (ICD-10-PCS; 2019-07-06)
PROC: B548ZZA Ultrasonography of Superior Vena Cava, Guidance (ICD-10-PCS; 2019-07-06)
PROC: 30233N1 Transfusion of Nonautologous Red Blood Cells into Peripheral Vein, Percutaneous Approach (ICD-10-PCS; 2019-07-19)
DX: A41.89 Other specified sepsis (principal); U07.1 COVID-19; G93.41 Metabolic encephalopathy; J96.01 Acute respiratory failure with hypoxia; J96.02 Acute respiratory failure with hypercapnia; J12.89 Other viral pneumonia; J44.0 Chronic obstructive pulmonary disease with (acute) lower respiratory infection; J44.1 Chronic obstructive pulmonary disease with (acute) exacerbation; D68.59 Other primary thrombophilia; I48.92 Unspecified atrial flutter; Z66 Do not resuscitate; E11.9 Type 2 diabetes mellitus without complications; R74.0 Nonspecific elevation of levels of transaminase and lactic acid dehydrogenase [LDH]; I11.0 Hypertensive heart disease with heart failure; I50.9 Heart failure, unspecified; D64.9 Anemia, unspecified; D72.810 Lymphocytopenia; G50.0 Trigeminal neuralgia; F41.9 Anxiety disorder, unspecified; I48.91 Unspecified atrial fibrillation; K21.9 Gastro-esophageal reflux disease without esophagitis; K57.90 Diverticulosis of intestine, part unspecified, without perforation or abscess without bleeding; Z51.5 Encounter for palliative care; K75.9 Inflammatory liver disease, unspecified; Z78.1 Physical restraint status; Z86.73 Personal history of transient ischemic attack (TIA), and cerebral infarction without residual deficits; Z79.01 Long term (current) use of anticoagulants; Z79.4 Long term (current) use of insulin; Z79.899 Other long term (current) drug therapy; Z88.1 Allergy status to other antibiotic agents
CPT/HCPCS: 36415; 36600; 71045; 80048; 80053; 80061; 80202; 81003; 82375; 82550; 82805; 82962; 83036; 83605; 83880; 84145; 84439; 84443; 84484; 85014; 85018; 85025; 86850; 86900; 86920; 87070; 87077; 87635; 87804; 92523; 93005; 94003; 94640; 96365; 99291; J0360; J0456; J0692; J0696; J1650; J1815; J2060; J2250; J2270; J2543; J2920; J3010; J3370; J3490; J7030; J7060; P9016

== ENCOUNTER 2019-12-26 09:17 | Inpatient (IN) | payer OTHER ==
[~2019-12-26] VITALS: Ht 165.1 cm; Wt 94.8 kg
[2019-12-26 10:52] LABS: HEMATOCRIT. 24.1 % (36.0-48.0); HEMOGLOBIN. 7.3 g/dL (12.0-16.0); MEAN CORPUSCULAR HEMOGLOBIN 26.6 pg (28.0-32.0); MEAN CORPUSCULAR VOLUME 88.1 fL (81.0-99.0); MEAN PLATELET VOLUME 7.5 fl (7.4-10.4); PLATELET 447 x1000/uL (130-400); RED BLOOD CELL COUNT 2.74 mill/uL (4.2-5.4)
[2019-12-26 10:57] LABS: CHLORIDE 85 mEq/L (98-107)
[2019-12-26] MEDS ORDERED: ACETAMINOPHEN 325MG TABLET PO ONE (11:00)
[2019-12-26 11:04] LABS: PROTHROMBIN TIME 10.5 sec (9.6-11.0)
[2019-12-26 11:15] LABS: PLATELET ESTIMATE INCREASED
[2019-12-26] MEDS ORDERED: IPRATROPIUM/ALBUTEROL 0.5-3(2.5)MG/3ML NEB HHN ONE (11:30)
[2019-12-26] MEDS ORDERED: AZITHROMYCIN 500 MG in DEXT 5% WATER 250 ML IV SCH (13:00)
[2019-12-26] MEDS ORDERED: CEFTRIAXONE 1 G PREMIX 50 ML IV ONE (13:00)
[2019-12-26] MEDS ORDERED: IPRATROPIUM/ALBUTEROL 0.5-3(2.5)MG/3ML NEB HHN PRN (14:30)
[2019-12-26] MEDS ORDERED: DEXTROSE 50% WATER 50ML SYRINGE IV PRN (14:30)
[2019-12-26] MEDS ORDERED: ONDANSETRON HCL 4MG/2ML INJ IV PRN (14:30)
[2019-12-26] MEDS ORDERED: PIPERACILLIN/TAZ 3.375G PREMIX 50 ML IV ONE (15:00)
[2019-12-26 16:45] VITALS: BP 124/65
[2019-12-26 17:00] VITALS: BP 124/65
[2019-12-26 17:59] LABS: BG BASE EXCESS 27.7 mmol/L (-2.0-2.0); BG CARBOXYHEMOGLOBIN 1.4 % (0.5-1.5); BG DEOXYHEMOGLOBIN 0.3 % (0.0-5.0); BG HCO3 ACT 58.9 mmol/L (22.0-26.0); BG METHEMOGLOBIN 0.3 % (0.0-1.5); BG OXYGEN SATURATION 99.7 % (92.0-98.5); BG PCO2 126.7 mmHg (35.0-45.0); BG PH 7.285 (7.350-7.450); BG SAMPLE SITE RIGHT RADIAL; BG TOTAL HEMOGLOBIN 9.1 g/dL (12.0-18.0); BG VENT MODE NASAL CANNULA
[2019-12-26 19:17] LABS: HEMATOCRIT 26.6 % (36.0-48.0); HEMOGLOBIN 8.1 g/dL (12.0-16.0)
[2019-12-26 20:00] VITALS: BP 109/47
[2019-12-26] MEDS: BLOOD SUGAR DIAGNOSTIC STRIP TEST SCH (21:00)
[2019-12-26] MEDS: INSULIN LISPRO 100 UNITS/ML SUBCUT SCH (21:00)
[2019-12-26 23:08] LABS: BG BASE EXCESS 24.3 mmol/L (-2.0-2.0); BG CARBOXYHEMOGLOBIN 1.3 % (0.5-1.5); BG DEOXYHEMOGLOBIN 9.8 % (0.0-5.0); BG FRACTION INSPIRED OXYGEN 28; BG HCO3 ACT 52.2 mmol/L (22.0-26.0); BG METHEMOGLOBIN 0.3 % (0.0-1.5); BG OXYHEMOGLOBIN 88.6 % (94.0-97.0); BG PCO2 82.7 mmHg (35.0-45.0); BG PH 7.418 (7.350-7.450); BG PO2 55.2 mmHg (75.0-100.0); BG SAMPLE SITE RIGHT RADIAL; BG TOTAL HEMOGLOBIN 8.8 g/dL (12.0-18.0); BG VENT MODE MASK - BIPAP
[2019-12-27] VITALS (7 sets, daily range): BP systolic 106–136; BP diastolic 48–81
[2019-12-27] MEDS: PIPERACILLIN/TAZOBACTAM 3.375 G in DEXT 5% WATER 100 ML IV SCH ×5 (00:29→23:38)
[2019-12-27] MEDS: METHYLPREDNISOLONE SOD SUCC 40 MG/ML VIAL IV SCH (00:29)
[2019-12-27] MEDS: BLOOD SUGAR DIAGNOSTIC STRIP TEST SCH ×4 (05:34→20:42)
[2019-12-27] MEDS: DILTIAZEM HCL 60MG TABLET PO SCH ×5 (05:34→23:44)
[2019-12-27] MEDS: INSULIN LISPRO 100 UNITS/ML SUBCUT SCH ×4 (05:34→20:42)
[2019-12-27 07:21] LABS: HEMATOCRIT. 27.8 % (36.0-48.0); HEMOGLOBIN. 8.6 g/dL (12.0-16.0); MEAN CORPUSCULAR HEMOGLOBIN 27.3 pg (28.0-32.0); MEAN CORPUSCULAR VOLUME 88.3 fL (81.0-99.0); MEAN PLATELET VOLUME 7.6 fl (7.4-10.4); PLATELET 448 x1000/uL (130-400); RED BLOOD CELL COUNT 3.15 mill/uL (4.2-5.4)
[2019-12-27 07:31] LABS: CHLORIDE 85 mEq/L (98-107)
[2019-12-27 11:45] LABS: PLATELET ESTIMATE INCREASED
[2019-12-27] MEDS ORDERED: PIPERACILLIN/TAZOBACTAM 3.375 G in DEXT 5% WATER 100 ML IV SCH (21:00)
[2019-12-27] MEDS: ACETAMINOPHEN 325MG TABLET PO PRN (22:01)
[2019-12-28 04:00] VITALS: BP 109/59
[2019-12-28] MEDS: DILTIAZEM HCL 60MG TABLET PO SCH ×3 (06:00→18:17)
[2019-12-28] MEDS: PIPERACILLIN/TAZOBACTAM 3.375 G in DEXT 5% WATER 100 ML IV SCH ×4 (06:14→23:51)
[2019-12-28] MEDS: BLOOD SUGAR DIAGNOSTIC STRIP TEST SCH ×4 (06:22→20:59)
[2019-12-28] MEDS: INSULIN LISPRO 100 UNITS/ML SUBCUT SCH ×4 (06:28→21:39)
[2019-12-28 08:00] VITALS: BP 124/65
[2019-12-28] MEDS: METHYLPREDNISOLONE SOD SUCC 40 MG/ML VIAL IV SCH (09:45)
[2019-12-28] MEDS ORDERED: LIDOCAINE HCL/PF 1% 2ML VIAL ONE (10:00)
[2019-12-28 12:03] VITALS: BP 146/80
[2019-12-28] MEDS: MORPHINE SULFATE 2 MG/ML CPJ (NOT FOR IM USE) IV PRN ×2 (12:19→17:50)
[2019-12-28 13:23] LABS: HEMATOCRIT 27.7 % (36.0-48.0); HEMOGLOBIN 8.5 g/dL (12.0-16.0); MEAN CORPUSCULAR HEMOGLOBIN 27.2 pg (28.0-32.0); MEAN CORPUSCULAR VOLUME 88.3 fL (81.0-99.0); PLATELET 469 x1000/uL (130-400); RED BLOOD CELL COUNT 3.14 mill/uL (4.2-5.4); RED CELL DISTRIBUTION WIDTH 15.9 % (11.6-14.6)
[2019-12-28 13:51] LABS: CHLORIDE 86 mEq/L (98-107)
[2019-12-28] MEDS: ACETAMINOPHEN 325MG TABLET PO PRN (14:53)
[2019-12-28] MEDS ORDERED: POTASSIUM CHLORIDE 20MEQ TABLET SR PO SCH (15:00)
[2019-12-28 15:50] LABS: BG BASE EXCESS 17.8 mmol/L (-2.0-2.0); BG CARBOXYHEMOGLOBIN 0.5 % (0.5-1.5); BG DEOXYHEMOGLOBIN 2.1 % (0.0-5.0); BG FRACTION INSPIRED OXYGEN 32; BG HCO3 ACT 46.7 mmol/L (22.0-26.0); BG METHEMOGLOBIN 0.2 % (0.0-1.5); BG OXYGEN SATURATION 97.9 % (92.0-98.5); BG OXYHEMOGLOBIN 97.2 % (94.0-97.0); BG PCO2 92.2 mmHg (35.0-45.0); BG PH 7.322 (7.350-7.450); BG PO2 107.4 mmHg (75.0-100.0); BG SAMPLE SITE RIGHT RADIAL; BG TOTAL HEMOGLOBIN 8.8 g/dL (12.0-18.0); BG VENT MODE NASAL CANNULA
[2019-12-28 16:15] VITALS: BP 156/86
[2019-12-28] MEDS: LORAZEPAM 2MG/ML CPJ IV PRN (19:51)
[2019-12-28 20:00] VITALS: BP 138/87
[2019-12-28] MEDS: BUDESONIDE 0.5MG/2ML NEB HHN SCH (20:02)
[2019-12-28] MEDS: IPRATROPIUM/ALBUTEROL 0.5-3(2.5)MG/3ML NEB HHN SCH (20:02)
[2019-12-28 20:45] LABS: BG BASE EXCESS 18.9 mmol/L (-2.0-2.0); BG CARBOXYHEMOGLOBIN 0.6 % (0.5-1.5); BG DEOXYHEMOGLOBIN 6.6 % (0.0-5.0); BG FRACTION INSPIRED OXYGEN 35; BG HCO3 ACT 47.7 mmol/L (22.0-26.0); BG METHEMOGLOBIN 0.2 % (0.0-1.5); BG OXYGEN SATURATION 93.3 % (92.0-98.5); BG OXYHEMOGLOBIN 92.6 % (94.0-97.0); BG PH 7.333 (7.350-7.450); BG SAMPLE SITE RIGHT RADIAL; BG TOTAL HEMOGLOBIN 8.8 g/dL (12.0-18.0); BG VENT MODE MASK - BIPAP
[2019-12-29] VITALS: BP 152/91
[2019-12-29] MEDS: IPRATROPIUM/ALBUTEROL 0.5-3(2.5)MG/3ML NEB HHN SCH ×5 (00:02→21:01)
[2019-12-29] MEDS: DILTIAZEM HCL 60MG TABLET PO SCH ×5 (00:12→23:32)
[2019-12-29] MEDS: MORPHINE SULFATE 2 MG/ML CPJ (NOT FOR IM USE) IV PRN ×4 (00:40→21:53)
[2019-12-29 04:00] VITALS: BP 127/82
[2019-12-29] MEDS: PIPERACILLIN/TAZOBACTAM 3.375 G in DEXT 5% WATER 100 ML IV SCH ×4 (05:07→23:32)
[2019-12-29] MEDS: BLOOD SUGAR DIAGNOSTIC STRIP TEST SCH ×4 (06:33→21:51)
[2019-12-29] MEDS: INSULIN LISPRO 100 UNITS/ML SUBCUT SCH ×4 (06:33→21:54)
[2019-12-29] MEDS: METHYLPREDNISOLONE SOD SUCC 40 MG/ML VIAL IV SCH (08:28)
[2019-12-29] MEDS: ACETAMINOPHEN 325MG TABLET PO PRN (08:29)
[2019-12-29] MEDS: LORAZEPAM 2MG/ML CPJ IV PRN ×2 (08:30→16:55)
[2019-12-29] MEDS: BUDESONIDE 0.5MG/2ML NEB HHN SCH ×2 (09:24→20:59)
[2019-12-29] MEDS ORDERED: LIDOCAINE HCL/PF 1% 2ML VIAL ONE (10:00)
[2019-12-29 10:49] LABS: BG BASE EXCESS 19.5 mmol/L (-2.0-2.0); BG CARBOXYHEMOGLOBIN 0.9 % (0.5-1.5); BG DEOXYHEMOGLOBIN 3.6 % (0.0-5.0); BG FRACTION INSPIRED OXYGEN 35; BG HCO3 ACT 46.6 mmol/L (22.0-26.0); BG METHEMOGLOBIN 0.3 % (0.0-1.5); BG OXYGEN SATURATION 96.4 % (92.0-98.5); BG OXYHEMOGLOBIN 95.2 % (94.0-97.0); BG PCO2 73.8 mmHg (35.0-45.0); BG PH 7.418 (7.350-7.450); BG PO2 80.9 mmHg (75.0-100.0); BG TOTAL HEMOGLOBIN 8.6 g/dL (12.0-18.0); BG VENT MODE MASK - BIPAP
[2019-12-29 12:00] VITALS: BP 121/50
[2019-12-29 12:54] LABS: HEMATOCRIT 25.7 % (36.0-48.0); HEMOGLOBIN 7.8 g/dL (12.0-16.0); MEAN CORPUSCULAR HEMOGLOBIN 26.6 pg (28.0-32.0); PLATELET 459 x1000/uL (130-400); RED BLOOD CELL COUNT 2.93 mill/uL (4.2-5.4); RED CELL DISTRIBUTION WIDTH 16.2 % (11.6-14.6)
[2019-12-29 12:57] LABS: CHLORIDE 87 mEq/L (98-107)
[2019-12-29] MEDS: CARBAMAZEPINE 100MG TABLET CHEW PO SCH ×2 (15:59→23:33)
[2019-12-29 16:00] VITALS: BP 136/76
[2019-12-29 20:00] VITALS: BP 144/80
[2019-12-29] MEDS ORDERED: BACLOFEN 10MG TABLET PO SCH (21:00)
[2019-12-30] VITALS: BP 125/71
[2019-12-30] MEDS: IPRATROPIUM/ALBUTEROL 0.5-3(2.5)MG/3ML NEB HHN SCH ×5 (00:08→16:10)
[2019-12-30 03:28] VITALS: BP 151/76
[2019-12-30] MEDS: PIPERACILLIN/TAZOBACTAM 3.375 G in DEXT 5% WATER 100 ML IV SCH ×2 (05:39→12:04)
[2019-12-30] MEDS: CARBAMAZEPINE 100MG TABLET CHEW PO SCH ×2 (05:39→13:21)
[2019-12-30] MEDS: DILTIAZEM HCL 60MG TABLET PO SCH ×2 (05:39→12:04)
[2019-12-30 06:15] LABS: HEMATOCRIT 26.9 % (36.0-48.0); HEMOGLOBIN 8.2 g/dL (12.0-16.0); MEAN CORPUSCULAR HEMOGLOBIN 26.9 pg (28.0-32.0); MEAN CORPUSCULAR VOLUME 88.6 fL (81.0-99.0); PLATELET 455 x1000/uL (130-400); RED BLOOD CELL COUNT 3.03 mill/uL (4.2-5.4); RED CELL DISTRIBUTION WIDTH 16.2 % (11.6-14.6)
[2019-12-30 06:16] LABS: CHLORIDE 89 mEq/L (98-107)
[2019-12-30] MEDS: BLOOD SUGAR DIAGNOSTIC STRIP TEST SCH ×2 (08:04→12:04)
[2019-12-30] MEDS: INSULIN LISPRO 100 UNITS/ML SUBCUT SCH ×2 (08:25→13:00)
[2019-12-30] MEDS: METHYLPREDNISOLONE SOD SUCC 40 MG/ML VIAL IV SCH (08:28)
[2019-12-30] MEDS: BUDESONIDE 0.5MG/2ML NEB HHN SCH (09:15)
[2019-12-30 10:26] LABS: BG BASE EXCESS 18.2 mmol/L (-2.0-2.0); BG CARBOXYHEMOGLOBIN 1.2 % (0.5-1.5); BG DEOXYHEMOGLOBIN 4.4 % (0.0-5.0); BG HCO3 ACT 45.7 mmol/L (22.0-26.0); BG METHEMOGLOBIN 0.1 % (0.0-1.5); BG OXYGEN SATURATION 95.5 % (92.0-98.5); BG OXYHEMOGLOBIN 94.3 % (94.0-97.0); BG PCO2 78.8 mmHg (35.0-45.0); BG PH 7.381 (7.350-7.450); BG PO2 75.8 mmHg (75.0-100.0); BG SAMPLE SITE LEFT RADIAL; BG TOTAL HEMOGLOBIN 8.2 g/dL (12.0-18.0)
[2019-12-30 10:29] LABS: BG FRACTION INSPIRED OXYGEN 32; BG VENT MODE NASAL CANNULA
[2019-12-30 13:21] VITALS: BP 117/64
[2019-12-30] MEDS: MORPHINE SULFATE 2 MG/ML CPJ (NOT FOR IM USE) IV PRN (13:21)
== END 2019-12-30 17:50 | DRG 193 ==
LOC: ER 09:17 → 5WST 13:07 → ENRESERV 14:11 → 5EST 12-29 21:05
PROVIDERS: ADMIT Internal Medicine; ATTEND Internal Medicine
PROC: 5A09457 Assistance with Respiratory Ventilation, 24-96 Consecutive Hours, Continuous Positive Airway Pressure (ICD-10-PCS; principal; 2019-12-26)
PROC: 30233N1 Transfusion of Nonautologous Red Blood Cells into Peripheral Vein, Percutaneous Approach (ICD-10-PCS; 2019-12-26)
DX: J18.9 Pneumonia, unspecified organism (principal); J96.22 Acute and chronic respiratory failure with hypercapnia; J44.1 Chronic obstructive pulmonary disease with (acute) exacerbation; I48.92 Unspecified atrial flutter; D68.69 Other thrombophilia; J44.0 Chronic obstructive pulmonary disease with (acute) lower respiratory infection; G93.40 Encephalopathy, unspecified; K21.9 Gastro-esophageal reflux disease without esophagitis; D64.9 Anemia, unspecified; E87.6 Hypokalemia; I50.9 Heart failure, unspecified; Z66 Do not resuscitate; E66.9 Obesity, unspecified; F41.9 Anxiety disorder, unspecified; G50.0 Trigeminal neuralgia; E11.9 Type 2 diabetes mellitus without complications; K57.90 Diverticulosis of intestine, part unspecified, without perforation or abscess without bleeding; K55.20 Angiodysplasia of colon without hemorrhage; K75.9 Inflammatory liver disease, unspecified; J45.909 Unspecified asthma, uncomplicated; Z88.1 Allergy status to other antibiotic agents; Z88.8 Allergy status to other drugs, medicaments and biological substances; Z79.891 Long term (current) use of opiate analgesic; Z79.899 Other long term (current) drug therapy; Z68.34 Body mass index [BMI] 34.0-34.9, adult; Z99.81 Dependence on supplemental oxygen; Z86.73 Personal history of transient ischemic attack (TIA), and cerebral infarction without residual deficits; Z87.01 Personal history of pneumonia (recurrent); Z74.01 Bed confinement status; Q27.33 Arteriovenous malformation of digestive system vessel; Z86.19 Personal history of other infectious and parasitic diseases
CPT/HCPCS: 36415; 36600; 70551; 71045; 80048; 80053; 82375; 82805; 82962; 85014; 85018; 85025; 85027; 86850; 86900; 86920; 93005; 94640; 94660; 99285; J0456; J1815; J2060; J2270; J2543; J2920; J3490; J7060; J7626; P9016

== ENCOUNTER 2020-07-11 20:19 | Inpatient (IN) | payer OTHER, MEDICAID ==
[~2020-07-11] VITALS: Ht 177.8 cm; Wt 85.7 kg
[~2020-07-11 20:19] MED LIST changes: -ALBU05 NEB; -APIX5TAB PO; -CARB200T PO; -DILT60TA3 PO; +ETOMIDATE 2MG/ML 10ML VIAL IV ONE; -FAMO20TA8 PO; -HYDR-3281 PO; -INSU100V3 SUBCUT; -LORA-249 PO; -METO25TA6 PO; +SUCCINYLCHOLINE CHLORIDE 200MG/10ML IV ONE
[2020-07-11] MEDS ORDERED: PIPERACILLIN/TAZ 3.375G PREMIX 50 ML IV ONE (21:30)
[2020-07-11] MEDS ORDERED: VANCOMYCIN 1 G PREMIX 200 ML IV ONE (21:30)
[2020-07-11] MEDS ORDERED: FUROSEMIDE 40MG/4ML VIAL IVP ONE (21:30)
[2020-07-11 21:58] LABS: HEMATOCRIT. 25.6 % (36.0-48.0); HEMOGLOBIN. 8.2 g/dL (12.0-16.0); MEAN CORPUSCULAR HEMOGLOBIN 29.6 pg (28.0-32.0); MEAN CORPUSCULAR VOLUME 92.8 fL (81.0-99.0); MEAN PLATELET VOLUME 7.3 fl (7.4-10.4); PLATELET 495 x1000/uL (130-400); RED BLOOD CELL COUNT 2.76 mill/uL (4.2-5.4); RED CELL DISTRIBUTION WIDTH 14.7 % (11.6-14.6)
[2020-07-11 22:03] LABS: CHLORIDE 90 mEq/L (98-107)
[2020-07-11 22:05] LABS: PROTHROMBIN TIME 10.6 sec (9.6-11.0)
[2020-07-11 22:18] LABS: PLATELET ESTIMATE INCREASED
[2020-07-11] MEDS ORDERED: SUCCINYLCHOLINE CHLORIDE 200MG/10ML IV ONE (23:00)
[2020-07-11] MEDS ORDERED: MIDAZOLAM HCL 100 MG in DEXT 5% WATER 80 ML IV ONE (23:00)
[2020-07-11] MEDS ORDERED: ETOMIDATE 2MG/ML 10ML VIAL IV ONE (23:00)
[2020-07-11] MEDS ORDERED: NOREPINEPHRINE 8MG/250ML PMX 250 ML IV ONE (23:30)
[2020-07-12] VITALS (29 sets, daily range): BP systolic 86–130; BP diastolic 44–73
[2020-07-12 01:12] LABS: CLARITY URINE CLEAR (CLEAR); COLOR URINE YELLOW (YELLOW); KETONES URINE NEGATIVE (NEGATIVE); LEUKOCYTE ESTERASE URINE NEGATIVE (NEGATIVE); NITRITE URINE NEGATIVE (NEGATIVE); OCCULT BLOOD URINE 1+ (NEGATIVE); PH URINE 5.5 (4.5-8.0); PROTEIN URINE NEGATIVE (NEGATIVE); SPECIFIC GRAVITY URINE 1.008 (1.005-1.030); UROBILINOGEN URINE 0.2 E.U./dL (0.2-1.0)
[2020-07-12 02:01] LABS: BG BASE EXCESS 8.3 mmol/L (-2.0-2.0); BG CARBOXYHEMOGLOBIN 0.8 % (0.5-1.5); BG FRACTION INSPIRED OXYGEN 100; BG HCO3 ACT 35.7 mmol/L (22.0-26.0); BG METHEMOGLOBIN 0.3 % (0.0-1.5); BG OXYGEN SATURATION 92.9 % (92.0-98.5); BG OXYHEMOGLOBIN 91.9 % (94.0-97.0); BG PCO2 69.5 mmHg (35.0-45.0); BG PH 7.329 (7.350-7.450); BG PO2 68.4 mmHg (75.0-100.0); BG SAMPLE SITE RIGHT BRACHIAL; BG TOTAL HEMOGLOBIN 8.9 g/dL (12.0-18.0); BG VENT MODE VENT - AC
[2020-07-12] MEDS: NOREPINEPHRINE 8 MG in DEXTROSE 5% WATER 250 ML IV PRN ×2 (02:43→10:34)
[2020-07-12] MEDS ORDERED: FENTANYL CITRATE/PF 1,000 MCG in SODIUM CHLORIDE 0.9% 80 ML IV PRN (10:00)
[2020-07-12] MEDS ORDERED: BISACODYL 10MG SUPP PR PRN (10:00)
[2020-07-12] MEDS ORDERED: ACETAMINOPHEN 650MG SUPP PR PRN (10:00)
[2020-07-12] MEDS ORDERED: IPRATROPIUM/ALBUTEROL 0.5-3(2.5)MG/3ML NEB HHN PRN (10:00)
[2020-07-12 10:30] LABS: BG BASE EXCESS 9.3 mmol/L (-2.0-2.0); BG CARBOXYHEMOGLOBIN 0.4 % (0.5-1.5); BG DEOXYHEMOGLOBIN 0.8 % (0.0-5.0); BG FRACTION INSPIRED OXYGEN 100; BG HCO3 ACT 33.6 mmol/L (22.0-26.0); BG METHEMOGLOBIN 0.3 % (0.0-1.5); BG OXYGEN SATURATION 99.2 % (92.0-98.5); BG OXYHEMOGLOBIN 98.5 % (94.0-97.0); BG PH 7.491 (7.350-7.450); BG PO2 130.9 mmHg (75.0-100.0); BG SAMPLE SITE RIGHT RADIAL; BG VENT MODE VENT - AC
[2020-07-12] MEDS: ACETAMINOPHEN 650MG/20.3ML UDC PO PRN (11:16)
[2020-07-12 11:28] LABS: MEAN CORPUSCULAR HEMOGLOBIN 28.6 pg (28.0-32.0); MEAN CORPUSCULAR VOLUME 92.8 fL (81.0-99.0); MEAN PLATELET VOLUME 7.4 fl (7.4-10.4); PLATELET 406 x1000/uL (130-400); RED CELL DISTRIBUTION WIDTH 15.3 % (11.6-14.6)
[2020-07-12 12:20] LABS: PLATELET ESTIMATE SLIGHTLY INCREASED
[2020-07-12] MEDS ORDERED: METF-414 PO (12:22)
[2020-07-12] MEDS ORDERED: FERR325T6 PO (12:22)
[2020-07-12] MEDS ORDERED: APIX5TAB PO (12:22)
[2020-07-12] MEDS ORDERED: BLOO-1379 MC (12:22)
[2020-07-12] MEDS ORDERED: CARB200T6 PO (12:22)
[2020-07-12] MEDS ORDERED: DOCU-138 PO (12:22)
[2020-07-12] MEDS ORDERED: FAMO20TA8 PO (12:22)
[2020-07-12] MEDS ORDERED: P50 PO (12:22)
[2020-07-12] MEDS ORDERED: PANT40TA51 PO (12:22)
[2020-07-12] MEDS ORDERED: METO25TA6 PO (12:22)
[2020-07-12] MEDS ORDERED: DILT30TA3 PO (12:22)
[2020-07-12] MEDS: PIPERACILLIN/TAZOBACTAM 3.375 G in DEXT 5% WATER 100 ML IV SCH ×3 (12:29→23:53)
[2020-07-12] MEDS: PANTOPRAZOLE SODIUM 40 MG/VIAL IV SCH (12:29)
[2020-07-12 12:32] LABS: CHLORIDE 91 mEq/L (98-107)
[2020-07-12] MEDS ORDERED: VANCOMYCIN 1250MG in DEXTROSE 5% WATER 250ML IV SCH (13:00)
[2020-07-12] MEDS ORDERED: NOREPINEPHRINE 8MG/250ML PMX 250 ML IV PRN (13:30)
[2020-07-12] MEDS ORDERED: DEXTROSE 50% WATER 50ML SYRINGE IV PRN ×2 (13:45→14:00)
[2020-07-12] MEDS ORDERED: MIDAZOLAM 100MG/100ML PMX 100 ML IV PRN (13:45)
[2020-07-12] MEDS ORDERED: NOREPINEPHRINE 8 MG in DEXTROSE 5% WATER 250 ML IV PRN (13:45)
[2020-07-12] MEDS ORDERED: POTASSIUM CHLORIDE 20MEQ TABLET SR PO NR (13:45)
[2020-07-12] MEDS: PHENYLEPHRINE 50 MG in DEXT 5% WATER 245 ML IV PRN (15:37)
[2020-07-12] MEDS ORDERED: BLOOD SUGAR DIAGNOSTIC STRIP TEST SCH ×2 (16:30)
[2020-07-12] MEDS: DILTIAZEM HCL 5MG/ML 5ML VIAL IV PRN (16:55)
[2020-07-12] MEDS ORDERED: INSULIN LISPRO 100 UNITS/ML SUBCUT SCH ×2 (17:00)
[2020-07-12] MEDS: BLOOD SUGAR DIAGNOSTIC STRIP TEST SCH ×2 (17:13→23:53)
[2020-07-12] MEDS: INSULIN LISPRO 100 UNITS/ML SUBCUT SCH ×2 (17:19→23:53)
[2020-07-12] MEDS: MIDAZOLAM HCL 100 MG in SODIUM CHLORIDE 0.9% 80 ML IV PRN (17:21)
[2020-07-12] MEDS: FENTANYL CITRATE 2,500 MCG in SODIUM CHLORIDE 0.9% 200 ML IV PRN (17:45)
[2020-07-12] MEDS ORDERED: ALBUMIN HUMAN 25GM/500ML (5%) IV ONE (19:15)
[2020-07-12] MEDS: IPRATROPIUM/ALBUTEROL 0.5-3(2.5)MG/3ML NEB HHN SCH (20:17)
[2020-07-13] VITALS (55 sets, daily range): BP systolic 88–140; BP diastolic 23–76
[2020-07-13] MEDS: IPRATROPIUM/ALBUTEROL 0.5-3(2.5)MG/3ML NEB HHN SCH ×5 (01:37→20:36)
[2020-07-13] MEDS: PHENYLEPHRINE 50 MG in DEXT 5% WATER 245 ML IV PRN ×2 (02:04→12:53)
[2020-07-13 05:04] LABS: HEMATOCRIT. 24.4 % (36.0-48.0); HEMOGLOBIN. 7.5 g/dL (12.0-16.0); MEAN CORPUSCULAR HEMOGLOBIN 27.9 pg (28.0-32.0); PLATELET 396 x1000/uL (130-400); RED BLOOD CELL COUNT 2.69 mill/uL (4.2-5.4); RED CELL DISTRIBUTION WIDTH 14.8 % (11.6-14.6)
[2020-07-13] MEDS: BLOOD SUGAR DIAGNOSTIC STRIP TEST SCH ×3 (06:09→17:58)
[2020-07-13] MEDS: INSULIN LISPRO 100 UNITS/ML SUBCUT SCH ×3 (06:18→18:00)
[2020-07-13] MEDS: PIPERACILLIN/TAZOBACTAM 3.375 G in DEXT 5% WATER 100 ML IV SCH ×3 (06:19→17:59)
[2020-07-13] MEDS: PANTOPRAZOLE SODIUM 40 MG/VIAL IV SCH (07:56)
[2020-07-13 09:19] LABS: BG BASE EXCESS 11.1 mmol/L (-2.0-2.0); BG CARBOXYHEMOGLOBIN 0.7 % (0.5-1.5); BG DEOXYHEMOGLOBIN 0.8 % (0.0-5.0); BG FRACTION INSPIRED OXYGEN 60; BG HCO3 ACT 36.5 mmol/L (22.0-26.0); BG METHEMOGLOBIN 0.4 % (0.0-1.5); BG OXYGEN SATURATION 99.2 % (92.0-98.5); BG OXYHEMOGLOBIN 98.1 % (94.0-97.0); BG PCO2 53.9 mmHg (35.0-45.0); BG PH 7.448 (7.350-7.450); BG PO2 135.3 mmHg (75.0-100.0); BG SAMPLE SITE RIGHT RADIAL; BG TOTAL HEMOGLOBIN 8.2 g/dL (12.0-18.0); BG VENT MODE VENT - AC
[2020-07-13 10:35] LABS: PLATELET ESTIMATE NORMAL
[2020-07-13] MEDS: DOCUSATE SODIUM SUGAR FREE 100MG/10ML UDC NG PRN (11:28)
[2020-07-13] MEDS: VANCOMYCIN 1 G PREMIX 200 ML IV SCH (11:48)
[2020-07-13] MEDS ORDERED: VANCOMYCIN 1250MG in DEXTROSE 5% WATER 250ML IV SCH (15:00)
[2020-07-13] MEDS: MIDAZOLAM HCL 100 MG in SODIUM CHLORIDE 0.9% 80 ML IV PRN ×2 (19:00→20:12)
[2020-07-13] MEDS: DILTIAZEM HCL 5MG/ML 5ML VIAL IV PRN (19:07)
[2020-07-13] MEDS: ACETAMINOPHEN 650MG/20.3ML UDC PO PRN (21:32)
[2020-07-14] VITALS (97 sets, daily range): BP systolic 86–135; BP diastolic 40–86
[2020-07-14] MEDS: PIPERACILLIN/TAZOBACTAM 3.375 G in DEXT 5% WATER 100 ML IV SCH ×4 (00:48→18:05)
[2020-07-14] MEDS: INSULIN LISPRO 100 UNITS/ML SUBCUT SCH ×4 (01:13→18:00)
[2020-07-14] MEDS: DILTIAZEM HCL 5MG/ML 5ML VIAL IV PRN ×2 (01:21→18:04)
[2020-07-14] MEDS: IPRATROPIUM/ALBUTEROL 0.5-3(2.5)MG/3ML NEB HHN SCH ×4 (02:10→20:18)
[2020-07-14] MEDS: BLOOD SUGAR DIAGNOSTIC STRIP TEST SCH ×4 (04:50→18:01)
[2020-07-14 05:49] LABS: HEMATOCRIT. 23.4 % (36.0-48.0); MEAN CORPUSCULAR HEMOGLOBIN 27.3 pg (28.0-32.0); MEAN PLATELET VOLUME 8.1 fl (7.4-10.4); PLATELET 373 x1000/uL (130-400); RED BLOOD CELL COUNT 2.57 mill/uL (4.2-5.4)
[2020-07-14 05:55] LABS: CHLORIDE 91 mEq/L (98-107)
[2020-07-14] MEDS: PHENYLEPHRINE 50 MG in DEXT 5% WATER 245 ML IV PRN ×2 (08:59→18:29)
[2020-07-14] MEDS: PANTOPRAZOLE SODIUM 40 MG/VIAL IV SCH ×2 (08:59→21:25)
[2020-07-14 09:00] LABS: BG CARBOXYHEMOGLOBIN 1.1 % (0.5-1.5); BG DEOXYHEMOGLOBIN 0.8 % (0.0-5.0); BG FRACTION INSPIRED OXYGEN 50; BG HCO3 ACT 35.2 mmol/L (22.0-26.0); BG METHEMOGLOBIN 0.4 % (0.0-1.5); BG OXYGEN SATURATION 99.2 % (92.0-98.5); BG OXYHEMOGLOBIN 97.7 % (94.0-97.0); BG PCO2 45.6 mmHg (35.0-45.0); BG PH 7.505 (7.350-7.450); BG PO2 129.4 mmHg (75.0-100.0); BG SAMPLE SITE RIGHT BRACHIAL; BG TOTAL HEMOGLOBIN 7.7 g/dL (12.0-18.0); BG VENT MODE VENT - AC
[2020-07-14 10:11] LABS: PLATELET ESTIMATE NORMAL
[2020-07-14] MEDS: VANCOMYCIN 1 G PREMIX 200 ML IV SCH (12:25)
[2020-07-14] MEDS: MIDAZOLAM HCL 100 MG in SODIUM CHLORIDE 0.9% 80 ML IV PRN (18:22)
[2020-07-14] MEDS: FENTANYL CITRATE 2,500 MCG in SODIUM CHLORIDE 0.9% 200 ML IV PRN (18:23)
[2020-07-15] VITALS (104 sets, daily range): BP systolic 83–213; BP diastolic 34–118
[2020-07-15] MEDS: BLOOD SUGAR DIAGNOSTIC STRIP TEST SCH ×4 (00:33→17:43)
[2020-07-15] MEDS: PIPERACILLIN/TAZOBACTAM 3.375 G in DEXT 5% WATER 100 ML IV SCH ×4 (00:49→18:37)
[2020-07-15] MEDS: PHENYLEPHRINE 50 MG in DEXT 5% WATER 245 ML IV PRN ×3 (02:03→21:16)
[2020-07-15] MEDS: IPRATROPIUM/ALBUTEROL 0.5-3(2.5)MG/3ML NEB HHN SCH ×4 (02:09→20:17)
[2020-07-15] MEDS: INSULIN LISPRO 100 UNITS/ML SUBCUT SCH ×4 (02:35→17:45)
[2020-07-15] MEDS ORDERED: LIDOCAINE HCL/PF 1% 2ML VIAL ONE (05:00)
[2020-07-15 05:27] LABS: CHLORIDE 93 mEq/L (98-107)
[2020-07-15 05:29] LABS: HEMATOCRIT. 22.2 % (36.0-48.0); MEAN CORPUSCULAR HEMOGLOBIN 27.1 pg (28.0-32.0); MEAN CORPUSCULAR VOLUME 90.1 fL (81.0-99.0); MEAN PLATELET VOLUME 8.1 fl (7.4-10.4); PLATELET 398 x1000/uL (130-400); RED BLOOD CELL COUNT 2.46 mill/uL (4.2-5.4); RED CELL DISTRIBUTION WIDTH 15.2 % (11.6-14.6)
[2020-07-15 06:32] LABS: HEMOGLOBIN. 6.7 g/dL (12.0-16.0)
[2020-07-15] MEDS: MIDAZOLAM HCL 100 MG in SODIUM CHLORIDE 0.9% 80 ML IV PRN (07:41)
[2020-07-15 07:52] LABS: BG BASE EXCESS 12.3 mmol/L (-2.0-2.0); BG DEOXYHEMOGLOBIN 0.9 % (0.0-5.0); BG FRACTION INSPIRED OXYGEN 40; BG HCO3 ACT 36.9 mmol/L (22.0-26.0); BG METHEMOGLOBIN 0.2 % (0.0-1.5); BG OXYGEN SATURATION 99.1 % (92.0-98.5); BG OXYHEMOGLOBIN 97.9 % (94.0-97.0); BG PCO2 50.4 mmHg (35.0-45.0); BG PH 7.483 (7.350-7.450); BG PO2 124.3 mmHg (75.0-100.0); BG SAMPLE SITE RIGHT RADIAL; BG TOTAL HEMOGLOBIN 7.2 g/dL (12.0-18.0); BG TOTAL RESPIRATORY RATE 14 b/min; BG VENT MODE VENT - AC
[2020-07-15] MEDS ORDERED: POTASSIUM CHLORIDE 20MEQ/PACKET PO NR (08:00)
[2020-07-15] MEDS: PANTOPRAZOLE SODIUM 40 MG/VIAL IV SCH ×2 (08:16→21:15)
[2020-07-15 10:09] LABS: PLATELET ESTIMATE NORMAL
[2020-07-15] MEDS: VANCOMYCIN 1 G PREMIX 200 ML IV SCH (12:39)
[2020-07-16] VITALS (92 sets, daily range): BP systolic 84–155; BP diastolic 42–83
[2020-07-16] MEDS: PIPERACILLIN/TAZOBACTAM 3.375 G in DEXT 5% WATER 100 ML IV SCH ×5 (00:52→23:20)
[2020-07-16] MEDS: BLOOD SUGAR DIAGNOSTIC STRIP TEST SCH ×5 (00:56→23:20)
[2020-07-16] MEDS: INSULIN LISPRO 100 UNITS/ML SUBCUT SCH ×5 (00:56→23:20)
[2020-07-16] MEDS: MIDAZOLAM HCL 100 MG in SODIUM CHLORIDE 0.9% 80 ML IV PRN ×2 (02:59→22:50)
[2020-07-16 05:26] LABS: HEMOGLOBIN. 8.5 g/dL (12.0-16.0); MEAN CORPUSCULAR VOLUME 89.5 fL (81.0-99.0); MEAN PLATELET VOLUME 7.8 fl (7.4-10.4); PLATELET 376 x1000/uL (130-400); RED BLOOD CELL COUNT 3.02 mill/uL (4.2-5.4); RED CELL DISTRIBUTION WIDTH 15.1 % (11.6-14.6)
[2020-07-16 05:30] LABS: CHLORIDE 97 mEq/L (98-107)
[2020-07-16] MEDS: IPRATROPIUM/ALBUTEROL 0.5-3(2.5)MG/3ML NEB HHN SCH ×3 (07:52→20:44)
[2020-07-16 08:39] LABS: BG CARBOXYHEMOGLOBIN 0.2 % (0.5-1.5); BG DEOXYHEMOGLOBIN 0.4 % (0.0-5.0); BG FRACTION INSPIRED OXYGEN 40; BG HCO3 ACT 35.8 mmol/L (22.0-26.0); BG METHEMOGLOBIN 0.1 % (0.0-1.5); BG OXYGEN SATURATION 99.6 % (92.0-98.5); BG OXYHEMOGLOBIN 99.3 % (94.0-97.0); BG PH 7.473 (7.350-7.450); BG PO2 268.7 mmHg (75.0-100.0); BG SAMPLE SITE RIGHT RADIAL; BG TOTAL HEMOGLOBIN 8.5 g/dL (12.0-18.0); BG VENT MODE VENT - APRV
[2020-07-16] MEDS: PANTOPRAZOLE SODIUM 40 MG/VIAL IV SCH ×2 (08:44→20:27)
[2020-07-16] MEDS: VANCOMYCIN 750 MG PREMIX 150 ML IV SCH ×2 (12:12→20:27)
[2020-07-16] MEDS: FENTANYL CITRATE 2,500 MCG in SODIUM CHLORIDE 0.9% 200 ML IV PRN (12:40)
[2020-07-16 14:37] LABS: PLATELET ESTIMATE NORMAL
[2020-07-16] MEDS: PHENYLEPHRINE 50 MG in DEXT 5% WATER 245 ML IV PRN (20:31)
[2020-07-17] VITALS (93 sets, daily range): BP systolic 84–145; BP diastolic 44–87
[2020-07-17] MEDS: IPRATROPIUM/ALBUTEROL 0.5-3(2.5)MG/3ML NEB HHN SCH ×4 (02:17→19:52)
[2020-07-17] MEDS: INSULIN LISPRO 100 UNITS/ML SUBCUT SCH ×3 (05:18→17:04)
[2020-07-17] MEDS: BLOOD SUGAR DIAGNOSTIC STRIP TEST SCH ×3 (05:18→17:04)
[2020-07-17] MEDS: PIPERACILLIN/TAZOBACTAM 3.375 G in DEXT 5% WATER 100 ML IV SCH (05:25)
[2020-07-17] MEDS: PANTOPRAZOLE SODIUM 40 MG/VIAL IV SCH ×2 (08:23→21:16)
[2020-07-17] MEDS: VANCOMYCIN 750 MG PREMIX 150 ML IV SCH ×2 (08:23→21:17)
[2020-07-17] MEDS: DOCUSATE SODIUM SUGAR FREE 100MG/10ML UDC NG PRN (08:44)
[2020-07-17] MEDS: FENTANYL CITRATE 2,500 MCG in SODIUM CHLORIDE 0.9% 200 ML IV PRN (18:51)
[2020-07-18] VITALS (99 sets, daily range): BP systolic 90–200; BP diastolic 51–109
[2020-07-18] MEDS: BLOOD SUGAR DIAGNOSTIC STRIP TEST SCH ×4 (00:50→17:09)
[2020-07-18] MEDS: IPRATROPIUM/ALBUTEROL 0.5-3(2.5)MG/3ML NEB HHN SCH ×4 (01:56→20:35)
[2020-07-18 05:44] LABS: BASOPHILS % 0.5 % (0.0-2.0); CHLORIDE 100 mEq/L (98-107); EOSINOPHILS % 2.1 % (0.0-5.0); HEMATOCRIT. 25.4 % (36.0-48.0); HEMOGLOBIN. 8.2 g/dL (12.0-16.0); LYMPHOCYTES % 9.8 % (20.0-50.0); MEAN CORPUSCULAR HEMOGLOBIN 28.7 pg (28.0-32.0); MEAN CORPUSCULAR VOLUME 88.9 fL (81.0-99.0); NEUTROPHILS % 76.6 % (40.0-76.0); PLATELET 423 x1000/uL (130-400); RED BLOOD CELL COUNT 2.86 mill/uL (4.2-5.4); RED CELL DISTRIBUTION WIDTH 15.1 % (11.6-14.6)
[2020-07-18] MEDS: INSULIN LISPRO 100 UNITS/ML SUBCUT SCH ×4 (06:00→17:15)
[2020-07-18] MEDS: PANTOPRAZOLE SODIUM 40 MG/VIAL IV SCH ×2 (08:17→23:17)
[2020-07-18] MEDS: DOCUSATE SODIUM SUGAR FREE 100MG/10ML UDC NG PRN (08:17)
[2020-07-18 08:56] LABS: BG BASE EXCESS 10.1 mmol/L (-2.0-2.0); BG CARBOXYHEMOGLOBIN 0.1 % (0.5-1.5); BG DEOXYHEMOGLOBIN 4.6 % (0.0-5.0); BG FRACTION INSPIRED OXYGEN 30; BG HCO3 ACT 34.9 mmol/L (22.0-26.0); BG METHEMOGLOBIN 0.3 % (0.0-1.5); BG OXYGEN SATURATION 95.4 % (92.0-98.5); BG PCO2 48.7 mmHg (35.0-45.0); BG PH 7.473 (7.350-7.450); BG PO2 70.3 mmHg (75.0-100.0); BG SAMPLE SITE LEFT RADIAL; BG TOTAL HEMOGLOBIN 8.9 g/dL (12.0-18.0); BG VENT MODE VENT - AC
[2020-07-18] MEDS: MIDODRINE HCL 5MG TABLET NG SCH ×2 (10:00→17:14)
[2020-07-18] MEDS: ASCORBIC ACID 500 MG TABLET PO SCH (16:14)
[2020-07-18] MEDS: ZINC SULFATE 220 MG ( 50 ) CAPSULE PO SCH (16:14)
[2020-07-18] MEDS: LACTULOSE 20G/30ML UDC NG SCH ×2 (16:14→23:17)
[2020-07-18] MEDS ORDERED: FENTANYL CITRATE/PF 2,500 MCG in SODIUM CHLORIDE 0.9% 200 ML IV PRN (19:15)
[2020-07-18] MEDS: FENTANYL CITRATE/PF 2,500 MCG in SODIUM CHLORIDE 0.9% 200 ML IV PRN (20:11)
[2020-07-18] MEDS: MIDAZOLAM HCL 100 MG in SODIUM CHLORIDE 0.9% 80 ML IV PRN (20:12)
[2020-07-19] VITALS (95 sets, daily range): BP systolic 95–168; BP diastolic 50–94
[2020-07-19] MEDS: BLOOD SUGAR DIAGNOSTIC STRIP TEST SCH ×5 (00:24→23:48)
[2020-07-19] MEDS: MIDODRINE HCL 5MG TABLET NG SCH ×3 (01:51→18:15)
[2020-07-19] MEDS: IPRATROPIUM/ALBUTEROL 0.5-3(2.5)MG/3ML NEB HHN SCH ×4 (01:58→20:38)
[2020-07-19 05:26] LABS: BASOPHILS % 0.4 % (0.0-2.0); EOSINOPHILS % 1.4 % (0.0-5.0); HEMATOCRIT. 24.2 % (36.0-48.0); HEMOGLOBIN. 7.6 g/dL (12.0-16.0); LYMPHOCYTES % 8.9 % (20.0-50.0); MEAN CORPUSCULAR HEMOGLOBIN 28.1 pg (28.0-32.0); MEAN CORPUSCULAR VOLUME 89.6 fL (81.0-99.0); MEAN PLATELET VOLUME 8.1 fl (7.4-10.4); MONOCYTES % 9.1 % (2.0-8.0); NEUTROPHILS % 80.2 % (40.0-76.0); PLATELET 477 x1000/uL (130-400); RED CELL DISTRIBUTION WIDTH 14.9 % (11.6-14.6)
[2020-07-19 05:27] LABS: CHLORIDE 100 mEq/L (98-107)
[2020-07-19] MEDS: INSULIN LISPRO 100 UNITS/ML SUBCUT SCH ×5 (05:53→23:51)
[2020-07-19] MEDS: LACTULOSE 20G/30ML UDC NG SCH (05:54)
[2020-07-19 07:46] LABS: BG BASE EXCESS 8.2 mmol/L (-2.0-2.0); BG CARBOXYHEMOGLOBIN 0.7 % (0.5-1.5); BG DEOXYHEMOGLOBIN 5.3 % (0.0-5.0); BG HCO3 ACT 32.1 mmol/L (22.0-26.0); BG METHEMOGLOBIN 0.3 % (0.0-1.5); BG OXYGEN SATURATION 94.6 % (92.0-98.5); BG OXYHEMOGLOBIN 93.7 % (94.0-97.0); BG PH 7.501 (7.350-7.450); BG SAMPLE SITE RIGHT RADIAL; BG TOTAL HEMOGLOBIN 8.8 g/dL (12.0-18.0); BG VENT MODE VENT - AC
[2020-07-19] MEDS: ASCORBIC ACID 500 MG TABLET PO SCH (09:13)
[2020-07-19] MEDS: PANTOPRAZOLE SODIUM 40 MG/VIAL IV SCH ×2 (09:13→21:19)
[2020-07-19] MEDS: ZINC SULFATE 220 MG ( 50 ) CAPSULE PO SCH (09:13)
[2020-07-19] MEDS: METHYLPREDNISOLONE SOD SUCC 40 MG/ML VIAL IV SCH ×3 (09:14→21:19)
[2020-07-19] MEDS ORDERED: LIDOCAINE HCL 1% 20ML VIAL (Pyxis) INJ ONE (11:16)
[2020-07-19] MEDS: ONDANSETRON HCL 4MG/2ML INJ IV PRN (12:51)
[2020-07-20] VITALS (97 sets, daily range): BP systolic 110–181; BP diastolic 56–129
[2020-07-20] MEDS: IPRATROPIUM/ALBUTEROL 0.5-3(2.5)MG/3ML NEB HHN SCH ×4 (01:27→20:35)
[2020-07-20] MEDS: MIDODRINE HCL 5MG TABLET NG SCH ×3 (03:00→18:21)
[2020-07-20] MEDS: METHYLPREDNISOLONE SOD SUCC 40 MG/ML VIAL IV SCH ×3 (05:13→21:01)
[2020-07-20] MEDS: BLOOD SUGAR DIAGNOSTIC STRIP TEST SCH ×4 (05:13→23:58)
[2020-07-20 05:29] LABS: HEMATOCRIT. 25.3 % (36.0-48.0); HEMOGLOBIN. 7.8 g/dL (12.0-16.0); MEAN CORPUSCULAR HEMOGLOBIN 27.6 pg (28.0-32.0); MEAN CORPUSCULAR VOLUME 89.6 fL (81.0-99.0); MEAN PLATELET VOLUME 8.3 fl (7.4-10.4); PLATELET 558 x1000/uL (130-400); RED BLOOD CELL COUNT 2.82 mill/uL (4.2-5.4)
[2020-07-20 05:35] LABS: CHLORIDE 102 mEq/L (98-107)
[2020-07-20] MEDS: INSULIN LISPRO 100 UNITS/ML SUBCUT SCH ×4 (06:12→23:55)
[2020-07-20 08:25] LABS: BG BASE EXCESS 8.1 mmol/L (-2.0-2.0); BG CARBOXYHEMOGLOBIN 0.3 % (0.5-1.5); BG DEOXYHEMOGLOBIN 1.5 % (0.0-5.0); BG FRACTION INSPIRED OXYGEN 30; BG HCO3 ACT 31.6 mmol/L (22.0-26.0); BG METHEMOGLOBIN 0.2 % (0.0-1.5); BG OXYGEN SATURATION 98.5 % (92.0-98.5); BG PH 7.516 (7.350-7.450); BG PO2 111.4 mmHg (75.0-100.0); BG SAMPLE SITE RIGHT RADIAL; BG TOTAL HEMOGLOBIN 8.5 g/dL (12.0-18.0); BG VENT MODE VENT - AC
[2020-07-20] MEDS: ASCORBIC ACID 500 MG TABLET PO SCH (08:37)
[2020-07-20] MEDS: ZINC SULFATE 220 MG ( 50 ) CAPSULE PO SCH (08:37)
[2020-07-20] MEDS: PANTOPRAZOLE SODIUM 40 MG/VIAL IV SCH ×2 (08:37→21:01)
[2020-07-20] MEDS: FENTANYL CITRATE/PF 2,500 MCG in SODIUM CHLORIDE 0.9% 200 ML IV PRN (08:38)
[2020-07-20] MEDS: MIDAZOLAM HCL 100 MG in SODIUM CHLORIDE 0.9% 80 ML IV PRN (12:44)
[2020-07-20 13:43] LABS: PLATELET ESTIMATE INCREASED
[2020-07-20] MEDS: HALOPERIDOL LACTATE 5MG/ML VIAL IM PRN (17:20)
[2020-07-20 18:10] LABS: BG BASE EXCESS 5.7 mmol/L (-2.0-2.0); BG CARBOXYHEMOGLOBIN 0.4 % (0.5-1.5); BG FRACTION INSPIRED OXYGEN 30; BG HCO3 ACT 31.6 mmol/L (22.0-26.0); BG METHEMOGLOBIN 0.3 % (0.0-1.5); BG OXYHEMOGLOBIN 95.3 % (94.0-97.0); BG PH 7.385 (7.350-7.450); BG PO2 85.3 mmHg (75.0-100.0); BG SAMPLE SITE RIGHT RADIAL; BG TOTAL HEMOGLOBIN 8.9 g/dL (12.0-18.0); BG VENT MODE VENT - CPAP
[2020-07-20 22:01] LABS: BG BASE EXCESS 9.1 mmol/L (-2.0-2.0); BG CARBOXYHEMOGLOBIN 0.3 % (0.5-1.5); BG DEOXYHEMOGLOBIN 5.9 % (0.0-5.0); BG FRACTION INSPIRED OXYGEN 35; BG HCO3 ACT 35.9 mmol/L (22.0-26.0); BG METHEMOGLOBIN 0.3 % (0.0-1.5); BG OXYGEN SATURATION 94.1 % (92.0-98.5); BG OXYHEMOGLOBIN 93.5 % (94.0-97.0); BG PCO2 63.8 mmHg (35.0-45.0); BG PH 7.368 (7.350-7.450); BG PO2 70.7 mmHg (75.0-100.0); BG SAMPLE SITE LEFT RADIAL; BG TOTAL HEMOGLOBIN 9.1 g/dL (12.0-18.0); BG VENT MODE COOL AEROSOL
[2020-07-21] VITALS (100 sets, daily range): BP systolic 110–183; BP diastolic 37–121
[2020-07-21] MEDS: IPRATROPIUM/ALBUTEROL 0.5-3(2.5)MG/3ML NEB HHN SCH ×4 (01:51→20:40)
[2020-07-21] MEDS: HALOPERIDOL LACTATE 5MG/ML VIAL IM PRN (02:26)
[2020-07-21] MEDS: MIDODRINE HCL 5MG TABLET NG SCH ×3 (02:42→18:00)
[2020-07-21] MEDS: METHYLPREDNISOLONE SOD SUCC 40 MG/ML VIAL IV SCH ×3 (05:14→21:08)
[2020-07-21] MEDS: BLOOD SUGAR DIAGNOSTIC STRIP TEST SCH ×3 (05:14→18:00)
[2020-07-21] MEDS: INSULIN LISPRO 100 UNITS/ML SUBCUT SCH ×3 (05:17→19:25)
[2020-07-21] MEDS: ZINC SULFATE 220 MG ( 50 ) CAPSULE PO SCH (09:01)
[2020-07-21] MEDS: ASCORBIC ACID 500 MG TABLET PO SCH (09:01)
[2020-07-21] MEDS: CLONIDINE 0.1MG TABLET PO PRN ×2 (09:01→14:50)
[2020-07-21] MEDS: PANTOPRAZOLE SODIUM 40 MG/VIAL IV SCH ×2 (09:02→21:09)
[2020-07-21] MEDS: AMLODIPINE 10MG TABLET PO SCH (14:49)
[2020-07-21] MEDS: ACETAMINOPHEN 325MG TABLET PO PRN (22:52)
[2020-07-22] VITALS (36 sets, daily range): BP systolic 107–165; BP diastolic 62–96
[2020-07-22] MEDS: BLOOD SUGAR DIAGNOSTIC STRIP TEST SCH ×5 (00:21→21:12)
[2020-07-22] MEDS: INSULIN LISPRO 100 UNITS/ML SUBCUT SCH ×5 (01:16→21:00)
[2020-07-22] MEDS: IPRATROPIUM/ALBUTEROL 0.5-3(2.5)MG/3ML NEB HHN SCH ×3 (01:44→21:18)
[2020-07-22] MEDS: MIDODRINE HCL 5MG TABLET NG SCH ×3 (02:00→17:59)
[2020-07-22] MEDS: HALOPERIDOL LACTATE 5MG/ML VIAL IM PRN ×2 (02:46→21:30)
[2020-07-22 05:14] LABS: CHLORIDE 101 mEq/L (98-107); HEMATOCRIT. 26.6 % (36.0-48.0); HEMOGLOBIN. 8.1 g/dL (12.0-16.0); MEAN CORPUSCULAR HEMOGLOBIN 27.4 pg (28.0-32.0); MEAN CORPUSCULAR VOLUME 89.7 fL (81.0-99.0); PLATELET 641 x1000/uL (130-400); RED BLOOD CELL COUNT 2.96 mill/uL (4.2-5.4); RED CELL DISTRIBUTION WIDTH 15.6 % (11.6-14.6)
[2020-07-22] MEDS: METHYLPREDNISOLONE SOD SUCC 40 MG/ML VIAL IV SCH ×3 (05:45→21:22)
[2020-07-22] MEDS: PANTOPRAZOLE SODIUM 40 MG/VIAL IV SCH ×2 (09:46→21:22)
[2020-07-22] MEDS: AMLODIPINE 10MG TABLET PO SCH (09:46)
[2020-07-22] MEDS: ASCORBIC ACID 500 MG TABLET PO SCH (09:46)
[2020-07-22] MEDS: ZINC SULFATE 220 MG ( 50 ) CAPSULE PO SCH (09:46)
[2020-07-22] MEDS: ACETAMINOPHEN 325MG TABLET PO PRN (11:50)
[2020-07-22] MEDS: ONDANSETRON HCL 4MG/2ML INJ IV PRN (13:05)
[2020-07-22] MEDS: MORPHINE SULFATE 2 MG/ML CPJ (NOT FOR IM USE) IV PRN ×2 (14:37→21:22)
[2020-07-22 19:01] LABS: PLATELET ESTIMATE INCREASED
[2020-07-23] VITALS: BP 150/70
[2020-07-23] MEDS: IPRATROPIUM/ALBUTEROL 0.5-3(2.5)MG/3ML NEB HHN SCH ×3 (01:18→12:45)
[2020-07-23] MEDS: MIDODRINE HCL 5MG TABLET NG SCH ×2 (01:51→09:33)
[2020-07-23 04:00] VITALS: BP 142/86
[2020-07-23] MEDS: METHYLPREDNISOLONE SOD SUCC 40 MG/ML VIAL IV SCH ×2 (05:43→14:40)
[2020-07-23] MEDS: BLOOD SUGAR DIAGNOSTIC STRIP TEST SCH ×2 (05:51→12:15)
[2020-07-23] MEDS: INSULIN LISPRO 100 UNITS/ML SUBCUT SCH ×2 (05:58→12:22)
[2020-07-23 06:44] LABS: CHLORIDE 97 mEq/L (98-107)
[2020-07-23 06:50] LABS: HEMATOCRIT. 27.2 % (36.0-48.0); HEMOGLOBIN. 8.8 g/dL (12.0-16.0); MEAN CORPUSCULAR HEMOGLOBIN 28.1 pg (28.0-32.0); PLATELET 693 x1000/uL (130-400); RED BLOOD CELL COUNT 3.12 mill/uL (4.2-5.4); RED CELL DISTRIBUTION WIDTH 15.2 % (11.6-14.6)
[2020-07-23 08:00] VITALS: BP 139/82
[2020-07-23] MEDS: AMLODIPINE 10MG TABLET PO SCH (09:32)
[2020-07-23] MEDS: ASCORBIC ACID 500 MG TABLET PO SCH (09:32)
[2020-07-23] MEDS: ZINC SULFATE 220 MG ( 50 ) CAPSULE PO SCH (09:32)
[2020-07-23] MEDS: PANTOPRAZOLE SODIUM 40 MG/VIAL IV SCH (09:33)
[2020-07-23 12:00] VITALS: BP 128/70
[2020-07-23 16:00] VITALS: BP 119/70
[2020-07-23] MEDS: ACETAMINOPHEN 325MG TABLET PO PRN (16:51)
[2020-07-23 23:10] LABS: PLATELET ESTIMATE INCREASED
== END 2020-07-23 18:05 | DRG 870 ==
LOC: ER 20:19 → MICUSO 07-12 00:05 → EDBEDREQ 07-12 00:27 → EDBEDREQTM 07-12 00:27 → EDBEDREQDT 07-12 00:27 → ENRESERV 07-12 06:35 → MICUNO 07-13 17:51 → 8WST 07-22 11:00
PROVIDERS: ADMIT Internal Medicine; ATTEND Internal Medicine
PROC: 5A1955Z Respiratory Ventilation, Greater than 96 Consecutive Hours (ICD-10-PCS; principal; 2020-07-11)
PROC: 5A09357 Assistance with Respiratory Ventilation, Less than 24 Consecutive Hours, Continuous Positive Airway Pressure (ICD-10-PCS; 2020-07-11)
PROC: 0BH17EZ Insertion of Endotracheal Airway into Trachea, Via Natural or Artificial Opening (ICD-10-PCS; 2020-07-11)
PROC: 30233N1 Transfusion of Nonautologous Red Blood Cells into Peripheral Vein, Percutaneous Approach (ICD-10-PCS; 2020-07-15)
PROC: 02HV33Z Insertion of Infusion Device into Superior Vena Cava, Percutaneous Approach (ICD-10-PCS; 2020-07-19)
PROC: 5A09357 Assistance with Respiratory Ventilation, Less than 24 Consecutive Hours, Continuous Positive Airway Pressure (ICD-10-PCS; 2020-07-21)
DX: A41.9 Sepsis, unspecified organism (principal); J18.9 Pneumonia, unspecified organism; J96.92 Respiratory failure, unspecified with hypercapnia; J44.1 Chronic obstructive pulmonary disease with (acute) exacerbation; J44.0 Chronic obstructive pulmonary disease with (acute) lower respiratory infection; D68.59 Other primary thrombophilia; E87.1 Hypo-osmolality and hyponatremia; E87.2 Acidosis; G93.40 Encephalopathy, unspecified; I48.92 Unspecified atrial flutter; I47.1 Supraventricular tachycardia; K57.90 Diverticulosis of intestine, part unspecified, without perforation or abscess without bleeding; F41.9 Anxiety disorder, unspecified; K55.20 Angiodysplasia of colon without hemorrhage; D64.9 Anemia, unspecified; E11.9 Type 2 diabetes mellitus without complications; E66.9 Obesity, unspecified; K21.9 Gastro-esophageal reflux disease without esophagitis; Z66 Do not resuscitate; K75.9 Inflammatory liver disease, unspecified; G50.0 Trigeminal neuralgia; I50.9 Heart failure, unspecified; E87.6 Hypokalemia; Z20.822 Contact with and (suspected) exposure to COVID-19; G89.29 Other chronic pain; I48.91 Unspecified atrial fibrillation; Z68.27 Body mass index [BMI] 27.0-27.9, adult; Z86.16 Personal history of COVID-19; Z86.73 Personal history of transient ischemic attack (TIA), and cerebral infarction without residual deficits; Z86.74 Personal history of sudden cardiac arrest
CPT/HCPCS: 36415; 36600; 71045; 76937; 80048; 80053; 80202; 81003; 82375; 82805; 82962; 83036; 83605; 84145; 84484; 85025; 86850; 86900; 86920; 92610; 93005; 93970; 94002; 94003; 94640; 94660; 99291; A6261; C1725; C9113; J0330; J1630; J1815; J1940; J2250; J2270; J2370; J2405; J2543; J2920; J3010; J3370; J3490; J7040; J7050; J7060; P9016; U0003

== ENCOUNTER 2020-10-19 15:46 | Inpatient (IN) | payer OTHER, MEDICAID ==
[~2020-10-19] VITALS: Ht 180.3 cm; Wt 81.0 kg
[~2020-10-19 15:46] MED LIST changes: +APIX5TAB PO; +BLOO-1379 MC; +CARB200T6 PO; +DILT30TA3 PO; +DOCU-138 PO; -ETOMIDATE 2MG/ML 10ML VIAL IV ONE; +FAMO20TA8 PO; +FERR325T6 PO; +METF-414 PO; +METO25TA6 PO; +P50 PO; +PANT40TA51 PO; -SUCCINYLCHOLINE CHLORIDE 200MG/10ML IV ONE
[2020-10-19 17:03] LABS: MEAN CORPUSCULAR HEMOGLOBIN 26.3 pg (28.0-32.0); MEAN CORPUSCULAR VOLUME 85.2 fL (81.0-99.0); MEAN PLATELET VOLUME 7.8 fl (7.4-10.4); PLATELET 416 x1000/uL (130-400); RED BLOOD CELL COUNT 2.41 mill/uL (4.2-5.4); RED CELL DISTRIBUTION WIDTH 16.9 % (11.6-14.6)
[2020-10-19 17:09] LABS: HEMATOCRIT. 20.5 % (36.0-48.0); HEMOGLOBIN. 6.3 g/dL (12.0-16.0)
[2020-10-19 17:12] LABS: CHLORIDE 91 mEq/L (98-107); PROTHROMBIN TIME 10.4 sec (9.6-11.0)
[2020-10-19 17:24] LABS: PLATELET ESTIMATE INCREASED
[2020-10-19] MEDS ORDERED: AZITHROMYCIN 500 MG in DEXT 5% WATER 250 ML IV ONE (19:45)
[2020-10-19] MEDS ORDERED: CEFTRIAXONE 1 G PREMIX 50 ML IV ONE (19:45)
[2020-10-19 20:48] LABS: CLARITY URINE CLEAR (CLEAR); COLOR URINE YELLOW (YELLOW); KETONES URINE NEGATIVE (NEGATIVE); LEUKOCYTE ESTERASE URINE TRACE (NEGATIVE); NITRITE URINE NEGATIVE (NEGATIVE); OCCULT BLOOD URINE NEGATIVE (NEGATIVE); PH URINE 5.5 (4.5-8.0); PROTEIN URINE 1+ (NEGATIVE); SPECIFIC GRAVITY URINE 1.017 (1.005-1.030); UROBILINOGEN URINE 0.2 E.U./dL (0.2-1.0)
[2020-10-19 23:05] VITALS: BP 104/58
[2020-10-19 23:15] VITALS: BP 104/58
[2020-10-20] VITALS (10 sets, daily range): BP systolic 107–150; BP diastolic 53–89
[2020-10-20] MEDS ORDERED: DEXTROSE 50% WATER 50ML SYRINGE IV PRN (00:30)
[2020-10-20] MEDS ORDERED: P20 PO (00:53)
[2020-10-20] MEDS ORDERED: TRAM50TA PO (00:56)
[2020-10-20] MEDS ORDERED: TRAMADOL 50MG TABLET PO PRN (01:00)
[2020-10-20] MEDS ORDERED: NALOXONE HCL 0.4MG/ML VIAL IV PRN (01:45)
[2020-10-20] MEDS ORDERED: DIGOXIN 500MCG/2ML AMP IV NR (03:45)
[2020-10-20] MEDS: DILTIAZEM HCL 30MG TABLET PO SCH ×4 (06:00→23:21)
[2020-10-20] MEDS: PANTOPRAZOLE 40MG DR TABLET PO SCH (06:16)
[2020-10-20] MEDS: INSULIN LISPRO 100 UNITS/ML SUBCUT SCH ×4 (06:25→21:00)
[2020-10-20] MEDS: BLOOD SUGAR DIAGNOSTIC STRIP TEST SCH ×4 (06:25→21:11)
[2020-10-20] MEDS: FERROUS SULFATE 325MG TABLET PO SCH ×2 (06:45→17:33)
[2020-10-20] MEDS: CARBAMAZEPINE 200MG TABLET PO SCH ×2 (08:57→17:33)
[2020-10-20] MEDS: DOCUSATE SODIUM 100MG CAPSULE PO SCH ×2 (08:58→17:33)
[2020-10-20] MEDS: METOPROLOL TARTRATE 25MG TABLET PO SCH ×2 (08:58→21:00)
[2020-10-20] MEDS ORDERED: PREDNISONE 20MG TABLET PO SCH (09:00)
[2020-10-20 09:32] LABS: BASOPHILS % 0.3 % (0.0-2.0); EOSINOPHILS % 0.7 % (0.0-5.0); HEMATOCRIT. 27.3 % (36.0-48.0); HEMOGLOBIN. 8.7 g/dL (12.0-16.0); LYMPHOCYTES % 9.2 % (20.0-50.0); MEAN CORPUSCULAR HEMOGLOBIN 27.2 pg (28.0-32.0); MEAN CORPUSCULAR VOLUME 85.5 fL (81.0-99.0); MEAN PLATELET VOLUME 7.4 fl (7.4-10.4); MONOCYTES % 8.8 % (2.0-8.0); PLATELET 400 x1000/uL (130-400); RED CELL DISTRIBUTION WIDTH 16.1 % (11.6-14.6)
[2020-10-20] MEDS: IPRATROPIUM/ALBUTEROL 0.5-3(2.5)MG/3ML NEB HHN SCH ×4 (09:40→21:13)
[2020-10-20 09:50] LABS: CHLORIDE 90 mEq/L (98-107)
[2020-10-20 09:58] LABS: LDL CHOLESTEROL 142 mg/dL (5-100)
[2020-10-20 09:59] LABS: HDL CHOLESTEROL 81 mg/dL (40-59)
[2020-10-20 12:16] LABS: BG BASE EXCESS 21.1 mmol/L (-2.0-2.0); BG CARBOXYHEMOGLOBIN 1.4 % (0.5-1.5); BG DEOXYHEMOGLOBIN 4.4 % (0.0-5.0); BG FRACTION INSPIRED OXYGEN 28; BG METHEMOGLOBIN 0.4 % (0.0-1.5); BG OXYGEN SATURATION 95.5 % (92.0-98.5); BG OXYHEMOGLOBIN 93.8 % (94.0-97.0); BG PCO2 102.7 mmHg (35.0-45.0); BG PH 7.314 (7.350-7.450); BG PO2 79.7 mmHg (75.0-100.0); BG SAMPLE SITE RIGHT RADIAL; BG TOTAL HEMOGLOBIN 9.5 g/dL (12.0-18.0); BG VENT MODE NASAL CANNULA
[2020-10-20] MEDS: PIPERACILLIN/TAZOBACTAM 3.375 G in DEXTROSE 5% WATER 50 ML IV SCH ×3 (14:27→23:20)
[2020-10-20] MEDS ORDERED: ACETAMINOPHEN 650MG SUPP PR PRN (15:45)
[2020-10-20] MEDS ORDERED: ACETAMINOPHEN 325MG TABLET PO PRN (15:45)
[2020-10-20] MEDS: METHYLPREDNISOLONE SOD SUCC 40 MG/ML VIAL IV SCH ×2 (16:33→23:20)
[2020-10-20 17:19] LABS: BG BASE EXCESS 18.9 mmol/L (-2.0-2.0); BG CARBOXYHEMOGLOBIN 1.4 % (0.5-1.5); BG DEOXYHEMOGLOBIN 0.8 % (0.0-5.0); BG FRACTION INSPIRED OXYGEN 40; BG HCO3 ACT 45.5 mmol/L (22.0-26.0); BG METHEMOGLOBIN 0.3 % (0.0-1.5); BG OXYGEN SATURATION 99.2 % (92.0-98.5); BG OXYHEMOGLOBIN 97.5 % (94.0-97.0); BG PCO2 67.6 mmHg (35.0-45.0); BG PH 7.446 (7.350-7.450); BG PO2 139.1 mmHg (75.0-100.0); BG SAMPLE SITE RIGHT RADIAL; BG TOTAL HEMOGLOBIN 9.3 g/dL (12.0-18.0); BG VENT MODE MASK - BIPAP
[2020-10-20 22:07] LABS: HEMATOCRIT 27.3 % (36.0-48.0); HEMOGLOBIN 8.6 g/dL (12.0-16.0)
[2020-10-20] MEDS: HYDROCODONE/ACETAMINOPHEN 5/325MG TABLET PO PRN (23:20)
[2020-10-21] VITALS (12 sets, daily range): BP systolic 103–153; BP diastolic 50–93
[2020-10-21] MEDS: METHYLPREDNISOLONE SOD SUCC 40 MG/ML VIAL IV SCH ×3 (05:19→21:20)
[2020-10-21] MEDS: PIPERACILLIN/TAZOBACTAM 3.375 G in DEXTROSE 5% WATER 50 ML IV SCH ×4 (05:19→23:36)
[2020-10-21] MEDS: DILTIAZEM HCL 30MG TABLET PO SCH ×4 (05:19→23:36)
[2020-10-21] MEDS: PANTOPRAZOLE 40MG DR TABLET PO SCH (05:58)
[2020-10-21] MEDS: BLOOD SUGAR DIAGNOSTIC STRIP TEST SCH ×4 (05:59→20:41)
[2020-10-21] MEDS: INSULIN LISPRO 100 UNITS/ML SUBCUT SCH ×4 (07:20→20:42)
[2020-10-21 07:32] LABS: HEMATOCRIT. 28.3 % (36.0-48.0); HEMOGLOBIN. 8.9 g/dL (12.0-16.0); MEAN CORPUSCULAR HEMOGLOBIN 26.8 pg (28.0-32.0); MEAN CORPUSCULAR VOLUME 85.5 fL (81.0-99.0); MEAN PLATELET VOLUME 8.5 fl (7.4-10.4); PLATELET 406 x1000/uL (130-400); RED BLOOD CELL COUNT 3.31 mill/uL (4.2-5.4); RED CELL DISTRIBUTION WIDTH 15.7 % (11.6-14.6)
[2020-10-21] MEDS: METOPROLOL TARTRATE 25MG TABLET PO SCH ×2 (08:17→21:20)
[2020-10-21 08:24] LABS: BG BASE EXCESS 18.5 mmol/L (-2.0-2.0); BG CARBOXYHEMOGLOBIN 0.5 % (0.5-1.5); BG DEOXYHEMOGLOBIN 1.5 % (0.0-5.0); BG METHEMOGLOBIN 0.4 % (0.0-1.5); BG OXYGEN SATURATION 98.5 % (92.0-98.5); BG OXYHEMOGLOBIN 97.6 % (94.0-97.0); BG PCO2 94.8 mmHg (35.0-45.0); BG PH 7.322 (7.350-7.450); BG PO2 124.4 mmHg (75.0-100.0); BG SAMPLE SITE RIGHT RADIAL; BG TOTAL HEMOGLOBIN 9.9 g/dL (12.0-18.0); BG VENT MODE MASK - BIPAP
[2020-10-21] MEDS: DOCUSATE SODIUM 100MG CAPSULE PO SCH ×2 (08:28→17:00)
[2020-10-21] MEDS: HYDROCODONE/ACETAMINOPHEN 5/325MG TABLET PO PRN ×2 (08:31→17:02)
[2020-10-21] MEDS: FERROUS SULFATE 325MG TABLET PO SCH ×2 (08:31→17:02)
[2020-10-21 08:49] LABS: CHLORIDE 93 mEq/L (98-107)
[2020-10-21] MEDS: IPRATROPIUM/ALBUTEROL 0.5-3(2.5)MG/3ML NEB HHN SCH ×4 (09:10→21:08)
[2020-10-21] MEDS: CARBAMAZEPINE 200MG TABLET PO SCH ×3 (10:25→17:02)
[2020-10-21] MEDS ORDERED: LORAZEPAM 2MG/ML CPJ IV PRN (10:45)
[2020-10-21] MEDS: MORPHINE SULFATE 2 MG/ML CPJ (NOT FOR IM USE) IV PRN (11:04)
[2020-10-21 16:28] LABS: PLATELET ESTIMATE SLIGHTLY INCREASED
[2020-10-22] VITALS (13 sets, daily range): BP systolic 100–159; BP diastolic 60–90
[2020-10-22] MEDS: MORPHINE SULFATE 2 MG/ML CPJ (NOT FOR IM USE) IV PRN (04:04)
[2020-10-22] MEDS: PIPERACILLIN/TAZOBACTAM 3.375 G in DEXTROSE 5% WATER 50 ML IV SCH ×3 (05:48→18:00)
[2020-10-22] MEDS: METHYLPREDNISOLONE SOD SUCC 40 MG/ML VIAL IV SCH ×2 (05:48→13:47)
[2020-10-22] MEDS: BLOOD SUGAR DIAGNOSTIC STRIP TEST SCH ×4 (05:57→21:05)
[2020-10-22] MEDS: PANTOPRAZOLE 40MG DR TABLET PO SCH (06:33)
[2020-10-22] MEDS: FERROUS SULFATE 325MG TABLET PO SCH ×2 (06:33→16:14)
[2020-10-22] MEDS: DILTIAZEM HCL 30MG TABLET PO SCH ×3 (06:34→18:16)
[2020-10-22] MEDS: INSULIN LISPRO 100 UNITS/ML SUBCUT SCH ×4 (06:35→21:04)
[2020-10-22 08:01] LABS: HEMOGLOBIN. 8.7 g/dL (12.0-16.0); MEAN CORPUSCULAR HEMOGLOBIN 26.9 pg (28.0-32.0); MEAN CORPUSCULAR VOLUME 86.2 fL (81.0-99.0); MEAN PLATELET VOLUME 7.7 fl (7.4-10.4); PLATELET 444 x1000/uL (130-400); RED BLOOD CELL COUNT 3.24 mill/uL (4.2-5.4)
[2020-10-22] MEDS: CARBAMAZEPINE 200MG TABLET PO SCH ×2 (08:02→16:14)
[2020-10-22] MEDS: METOPROLOL TARTRATE 25MG TABLET PO SCH ×2 (08:03→21:03)
[2020-10-22 08:24] LABS: CHLORIDE 89 mEq/L (98-107)
[2020-10-22 08:32] LABS: TOTAL IRON BINDING CAPACITY 386 ug/dL (250-450)
[2020-10-22] MEDS: IPRATROPIUM/ALBUTEROL 0.5-3(2.5)MG/3ML NEB HHN SCH ×4 (08:54→20:24)
[2020-10-22 08:57] LABS: VITAMIN B12 SERUM 521 pg/mL (211-911)
[2020-10-22] MEDS: DOCUSATE SODIUM 100MG CAPSULE PO SCH ×2 (10:09→16:14)
[2020-10-22 10:24] LABS: BG BASE EXCESS 9.4 mmol/L (-2.0-2.0); BG CARBOXYHEMOGLOBIN 0.2 % (0.5-1.5); BG FRACTION INSPIRED OXYGEN 28; BG METHEMOGLOBIN 0.1 % (0.0-1.5); BG OXYHEMOGLOBIN 95.7 % (94.0-97.0); BG PCO2 61.9 mmHg (35.0-45.0); BG PH 7.382 (7.350-7.450); BG PO2 80.5 mmHg (75.0-100.0); BG SAMPLE SITE RIGHT BRACHIAL; BG TOTAL HEMOGLOBIN 9.1 g/dL (12.0-18.0); BG VENT MODE NASAL CANNULA
[2020-10-22 11:06] LABS: FERRITIN 25 ng/mL (10-291)
[2020-10-22] MEDS ORDERED: SENNOSIDES 8.6MG TABLET PO PRN (12:15)
[2020-10-22 12:34] LABS: PLATELET ESTIMATE SLIGHTLY INCREASED
[2020-10-22] MEDS ORDERED: POLYETHYLENE GLYCOL 3350 (17GM) 1 DOSE PACK PO SCH (13:00)
== END 2020-10-23 00:05 | DRG 871 ==
LOC: ER 15:46 → EDBEDREQTM 17:13 → EDBEDREQ 17:13 → EDBEDREQSVC 17:13 → 8WST 18:18 → EDBEDREQTM 18:28 → EDBEDREQ 18:28 → ENRESERV 20:24 → 3WST 10-20 20:16
PROVIDERS: ADMIT Internal Medicine; ATTEND Internal Medicine
PROC: 30233N1 Transfusion of Nonautologous Red Blood Cells into Peripheral Vein, Percutaneous Approach (ICD-10-PCS; principal; 2020-10-19)
PROC: 5A09457 Assistance with Respiratory Ventilation, 24-96 Consecutive Hours, Continuous Positive Airway Pressure (ICD-10-PCS; 2020-10-20)
PROC: 5A09357 Assistance with Respiratory Ventilation, Less than 24 Consecutive Hours, Continuous Positive Airway Pressure (ICD-10-PCS; 2020-10-22)
DX: A41.9 Sepsis, unspecified organism (principal); J96.22 Acute and chronic respiratory failure with hypercapnia; J18.9 Pneumonia, unspecified organism; D68.59 Other primary thrombophilia; I48.92 Unspecified atrial flutter; J44.0 Chronic obstructive pulmonary disease with (acute) lower respiratory infection; J44.1 Chronic obstructive pulmonary disease with (acute) exacerbation; G93.40 Encephalopathy, unspecified; E78.5 Hyperlipidemia, unspecified; D64.9 Anemia, unspecified; F41.9 Anxiety disorder, unspecified; G50.0 Trigeminal neuralgia; I48.91 Unspecified atrial fibrillation; I50.9 Heart failure, unspecified; K21.9 Gastro-esophageal reflux disease without esophagitis; K57.90 Diverticulosis of intestine, part unspecified, without perforation or abscess without bleeding; K75.9 Inflammatory liver disease, unspecified; Z20.822 Contact with and (suspected) exposure to COVID-19; E11.9 Type 2 diabetes mellitus without complications; T14.8XXA Other injury of unspecified body region, initial encounter; X58.XXXA Exposure to other specified factors, initial encounter; Z86.16 Personal history of COVID-19; Z86.711 Personal history of pulmonary embolism; Z79.01 Long term (current) use of anticoagulants; Z86.73 Personal history of transient ischemic attack (TIA), and cerebral infarction without residual deficits; Z88.1 Allergy status to other antibiotic agents; Z79.899 Other long term (current) drug therapy; Z79.52 Long term (current) use of systemic steroids; Z87.01 Personal history of pneumonia (recurrent); Z86.74 Personal history of sudden cardiac arrest; Y93.89 Activity, other specified; Y92.89 Other specified places as the place of occurrence of the external cause; Y99.8 Other external cause status; Q27.33 Arteriovenous malformation of digestive system vessel; Z86.19 Personal history of other infectious and parasitic diseases
CPT/HCPCS: 36415; 36600; 71045; 80048; 80053; 80061; 81003; 82375; 82607; 82728; 82805; 82962; 83036; 83540; 83550; 83605; 83880; 84145; 84484; 85014; 85018; 85025; 85044; 85651; 86850; 86900; 86920; 87426; 93005; 94660; 99285; A6261; C1893; J0456; J0696; J1160; J1815; J2270; J2543; J2920; J7040; J7060; J7512; P9016

== ENCOUNTER 2020-11-01 09:56 | Inpatient (IN) | payer OTHER, MEDICAID ==
[2020-11-01] VITALS (36 sets, daily range): BP systolic 99–147; BP diastolic 60–79
[~2020-11-01] VITALS: Ht 170.2 cm; Wt 81.2 kg
[2020-11-01 10:25] LABS: BG BASE EXCESS 24.8 mmol/L (-2.0-2.0); BG CARBOXYHEMOGLOBIN 1.1 % (0.5-1.5); BG FRACTION INSPIRED OXYGEN 100; BG HCO3 ACT 58.3 mmol/L (22.0-26.0); BG METHEMOGLOBIN 0.1 % (0.0-1.5); BG OXYGEN SATURATION 93.9 % (92.0-98.5); BG OXYHEMOGLOBIN 92.8 % (94.0-97.0); BG PCO2 150.1 mmHg (35.0-45.0); BG PH 7.207 (7.350-7.450); BG PO2 78.7 mmHg (75.0-100.0); BG SAMPLE SITE RIGHT BRACHIAL; BG TOTAL HEMOGLOBIN 10.6 g/dL (12.0-18.0); BG VENT MODE MASK - NRB
[2020-11-01] MEDS ORDERED: SUCCINYLCHOLINE CHLORIDE 200MG/10ML IV ONE (10:30)
[2020-11-01] MEDS ORDERED: FENTANYL CITRATE/PF 50MCG/ML 2ML VIAL IV ONE (10:30)
[2020-11-01] MEDS ORDERED: MIDAZOLAM HCL 100 MG in DEXT 5% WATER 80 ML IV ONE (10:30)
[2020-11-01] MEDS ORDERED: ETOMIDATE 2MG/ML 10ML VIAL IV ONE (10:30)
[2020-11-01 10:48] LABS: HEMATOCRIT. 31.9 % (36.0-48.0); HEMOGLOBIN. 9.5 g/dL (12.0-16.0); MEAN CORPUSCULAR HEMOGLOBIN 26.4 pg (28.0-32.0); MEAN CORPUSCULAR VOLUME 88.8 fL (81.0-99.0); MEAN PLATELET VOLUME 8.3 fl (7.4-10.4); PLATELET 369 x1000/uL (130-400); RED BLOOD CELL COUNT 3.59 mill/uL (4.2-5.4); RED CELL DISTRIBUTION WIDTH 16.8 % (11.6-14.6)
[2020-11-01 11:09] LABS: CLARITY URINE CLEAR (CLEAR); COLOR URINE YELLOW (YELLOW); KETONES URINE TRACE (NEGATIVE); LEUKOCYTE ESTERASE URINE 1+ (NEGATIVE); NITRITE URINE NEGATIVE (NEGATIVE); OCCULT BLOOD URINE NEGATIVE (NEGATIVE); PH URINE 7.5 (4.5-8.0); PROTEIN URINE 1+ (NEGATIVE); SPECIFIC GRAVITY URINE 1.019 (1.005-1.030); UROBILINOGEN URINE 0.2 E.U./dL (0.2-1.0)
[2020-11-01] MEDS ORDERED: MIDAZOLAM HCL 100 MG in SODIUM CHLORIDE 0.9% 80 ML IV ONE (11:15)
[2020-11-01] MEDS ORDERED: PIPERACILLIN/TAZ 3.375G PREMIX 50 ML IV ONE (11:30)
[2020-11-01] MEDS ORDERED: VANCOMYCIN 1 G PREMIX 200 ML IV ONE (11:30)
[2020-11-01 11:49] LABS: BG BASE EXCESS 17.3 mmol/L (-2.0-2.0); BG CARBOXYHEMOGLOBIN 0.7 % (0.5-1.5); BG DEOXYHEMOGLOBIN 4.9 % (0.0-5.0); BG HCO3 ACT 43.5 mmol/L (22.0-26.0); BG METHEMOGLOBIN 0.3 % (0.0-1.5); BG OXYGEN SATURATION 95.1 % (92.0-98.5); BG OXYHEMOGLOBIN 94.1 % (94.0-97.0); BG PCO2 61.7 mmHg (35.0-45.0); BG PH 7.466 (7.350-7.450); BG PO2 66.2 mmHg (75.0-100.0); BG SAMPLE SITE RIGHT RADIAL; BG TOTAL HEMOGLOBIN 10.1 g/dL (12.0-18.0); BG VENT MODE VENT - AC
[2020-11-01] MEDS ORDERED: FENTANYL CITRATE/PF 500 MCG in SODIUM CHLORIDE 0.9% 40 ML IV STA (11:52)
[2020-11-01] MEDS ORDERED: FENTANYL CITRATE 2,500 MCG in SODIUM CHLORIDE 0.9% 200 ML IV PRN (12:00)
[2020-11-01 12:55] LABS: CHLORIDE 93 mEq/L (98-107)
[2020-11-01 12:59] LABS: D-DIMER 0.85 mg/L FEU (<0.50)
[2020-11-01 13:05] LABS: CREATINE KINASE 20 IU/L (26-192)
[2020-11-01] MEDS ORDERED: BISACODYL 10MG SUPP PR PRN (13:15)
[2020-11-01] MEDS ORDERED: IPRATROPIUM/ALBUTEROL 0.5-3(2.5)MG/3ML NEB HHN PRN (13:15)
[2020-11-01] MEDS ORDERED: NOREPINEPHRINE 8MG/250ML PMX 250 ML IV PRN ×2 (13:15→15:00)
[2020-11-01] MEDS ORDERED: MAGNESIUM/ALUMINUM HYDROXIDE/SIMETHICONE 30ML UDC PO PRN (14:15)
[2020-11-01] MEDS ORDERED: ONDANSETRON HCL 4MG/2ML INJ IV PRN (14:15)
[2020-11-01] MEDS ORDERED: DEXTROSE 50% WATER 50ML SYRINGE IV PRN (14:15)
[2020-11-01] MEDS ORDERED: ACETAMINOPHEN 325MG TABLET PO PRN (14:15)
[2020-11-01] MEDS ORDERED: DOCUSATE SODIUM 100MG CAPSULE PO PRN (14:15)
[2020-11-01] MEDS ORDERED: NA PHOS,M-B/NA PHOS,DI-BA ENEMA 118ML PR PRN (14:15)
[2020-11-01] MEDS ORDERED: DIPHENHYDRAMINE 50MG/ML VIAL IV PRN (14:15)
[2020-11-01] MEDS ORDERED: GUAIFENESIN 200MG/10ML SUGAR FREE UDC PO PRN (14:15)
[2020-11-01] MEDS ORDERED: ACETAMINOPHEN 650MG SUPP PR PRN (14:15)
[2020-11-01] MEDS ORDERED: CLONIDINE 0.1MG TABLET PO PRN (14:15)
[2020-11-01] MEDS ORDERED: FENTANYL CITRATE/PF 2,500 MCG in SODIUM CHLORIDE 0.9% 200 ML IV PRN (14:45)
[2020-11-01] MEDS ORDERED: MIDAZOLAM 100MG/100ML PMX 100 ML IV PRN (14:45)
[2020-11-01] MEDS ORDERED: NALOXONE HCL 0.4MG/ML VIAL IV PRN (14:45)
[2020-11-01 14:48] LABS: PLATELET ESTIMATE NORMAL
[2020-11-01] MEDS ORDERED: VANCOMYCIN 1 G PREMIX 200 ML IV SCH (15:00)
[2020-11-01] MEDS ORDERED: NOREPINEPHRINE 8 MG in DEXTROSE 5% WATER 250 ML IV PRN (15:00)
[2020-11-01] MEDS ORDERED: VANCOMYCIN 2,000 MG in DEXT 5% WATER 500 ML IV SCH (16:00)
[2020-11-01] MEDS: METHYLPREDNISOLONE SOD SUCC 40 MG/ML VIAL IV SCH ×2 (16:10→21:12)
[2020-11-01] MEDS: MIDAZOLAM HCL 100 MG in SODIUM CHLORIDE 0.9% 100 ML IV PRN (16:10)
[2020-11-01] MEDS: PANTOPRAZOLE SODIUM 40 MG/VIAL IV SCH (16:11)
[2020-11-01] MEDS: APIXABAN 5 MG TABLET PO SCH (16:14)
[2020-11-01] MEDS: BLOOD SUGAR DIAGNOSTIC STRIP TEST SCH ×2 (17:12→20:26)
[2020-11-01] MEDS: PIPERACILLIN/TAZOBACTAM 3.375G in DEXT 5% WATER 50ML IV SCH (17:40)
[2020-11-01] MEDS: INSULIN LISPRO 100 UNITS/ML SUBCUT SCH ×2 (17:41→20:26)
[2020-11-01] MEDS ORDERED: PIPERACILLIN/TAZ 3.375G PREMIX 50 ML IV SCH (19:00)
[2020-11-01] MEDS: IPRATROPIUM/ALBUTEROL 0.5-3(2.5)MG/3ML NEB HHN SCH (20:09)
[2020-11-01 23:19] LABS: CREATINE KINASE 24 IU/L (26-192)
[2020-11-01 23:20] LABS: CREATINE KINASE MB FRACTION < 1.0 ng/mL (0.5-3.6)
[2020-11-02] VITALS (101 sets, daily range): BP systolic 87–141; BP diastolic 53–83
[2020-11-02] MEDS: PIPERACILLIN/TAZOBACTAM 3.375G in DEXT 5% WATER 50ML IV SCH ×4 (00:43→18:36)
[2020-11-02] MEDS: MIDAZOLAM HCL 100 MG in SODIUM CHLORIDE 0.9% 100 ML IV PRN ×2 (01:32→22:21)
[2020-11-02] MEDS: IPRATROPIUM/ALBUTEROL 0.5-3(2.5)MG/3ML NEB HHN SCH ×4 (03:59→22:10)
[2020-11-02] MEDS: METHYLPREDNISOLONE SOD SUCC 40 MG/ML VIAL IV SCH ×3 (05:10→22:16)
[2020-11-02 05:41] LABS: CHLORIDE 94 mEq/L (98-107)
[2020-11-02 05:52] LABS: LDL CHOLESTEROL 125 mg/dL (5-100)
[2020-11-02 05:53] LABS: HDL CHOLESTEROL 87 mg/dL (40-59)
[2020-11-02 05:54] LABS: T4 FREE 1.11 ng/dL (0.76-1.46)
[2020-11-02 05:55] LABS: CREATINE KINASE 22 IU/L (26-192)
[2020-11-02 05:56] LABS: CREATINE KINASE MB FRACTION < 1.0 ng/mL (0.5-3.6)
[2020-11-02] MEDS ORDERED: VANCOMYCIN 1 G PREMIX 200 ML IV SCH (06:00)
[2020-11-02] MEDS: BLOOD SUGAR DIAGNOSTIC STRIP TEST SCH ×4 (06:30→21:00)
[2020-11-02] MEDS: INSULIN LISPRO 100 UNITS/ML SUBCUT SCH ×4 (07:00→22:16)
[2020-11-02] MEDS: PANTOPRAZOLE SODIUM 40 MG/VIAL IV SCH ×2 (09:12→16:58)
[2020-11-02] MEDS: APIXABAN 5 MG TABLET PO SCH (09:12)
[2020-11-02] MEDS: VANCOMYCIN 1 G PREMIX 200 ML IV SCH (09:14)
[2020-11-02 09:45] LABS: BG CARBOXYHEMOGLOBIN 0.3 % (0.5-1.5); BG DEOXYHEMOGLOBIN 0.1 % (0.0-5.0); BG FRACTION INSPIRED OXYGEN 100; BG HCO3 ACT 37.5 mmol/L (22.0-26.0); BG METHEMOGLOBIN 0.2 % (0.0-1.5); BG OXYGEN SATURATION 99.9 % (92.0-98.5); BG OXYHEMOGLOBIN 99.4 % (94.0-97.0); BG PCO2 37.5 mmHg (35.0-45.0); BG PH 7.618 (7.350-7.450); BG PO2 243.1 mmHg (75.0-100.0); BG SAMPLE SITE RIGHT RADIAL; BG TOTAL HEMOGLOBIN 8.6 g/dL (12.0-18.0); BG VENT MODE VENT - AC
[2020-11-02 12:59] LABS: HEMATOCRIT. 24.5 % (36.0-48.0); HEMOGLOBIN. 7.7 g/dL (12.0-16.0); MEAN CORPUSCULAR VOLUME 86.4 fL (81.0-99.0); PLATELET 307 x1000/uL (130-400); RED BLOOD CELL COUNT 2.84 mill/uL (4.2-5.4); RED CELL DISTRIBUTION WIDTH 17.3 % (11.6-14.6)
[2020-11-02 13:22] LABS: BG BASE EXCESS 14.3 mmol/L (-2.0-2.0); BG CARBOXYHEMOGLOBIN 0.6 % (0.5-1.5); BG FRACTION INSPIRED OXYGEN 70; BG HCO3 ACT 37.4 mmol/L (22.0-26.0); BG METHEMOGLOBIN 0.3 % (0.0-1.5); BG OXYHEMOGLOBIN 99.1 % (94.0-97.0); BG PCO2 40.6 mmHg (35.0-45.0); BG PH 7.582 (7.350-7.450); BG PO2 243.6 mmHg (75.0-100.0); BG SAMPLE SITE RIGHT BRACHIAL; BG TOTAL HEMOGLOBIN 9.2 g/dL (12.0-18.0); BG VENT MODE VENT - AC
[2020-11-02 13:33] LABS: PLATELET ESTIMATE DECREASED
[2020-11-02] MEDS: FENTANYL CITRATE/PF 2,500 MCG in SODIUM CHLORIDE 0.9% 200 ML IV PRN (16:59)
[2020-11-03] VITALS (59 sets, daily range): BP systolic 83–151; BP diastolic 41–105
[2020-11-03] MEDS: PIPERACILLIN/TAZOBACTAM 3.375G in DEXT 5% WATER 50ML IV SCH ×5 (00:24→23:55)
[2020-11-03] MEDS: IPRATROPIUM/ALBUTEROL 0.5-3(2.5)MG/3ML NEB HHN SCH ×4 (01:25→20:13)
[2020-11-03] MEDS: VANCOMYCIN 1 G PREMIX 200 ML IV SCH ×2 (04:21→21:33)
[2020-11-03 05:49] LABS: HEMATOCRIT. 27.9 % (36.0-48.0); HEMOGLOBIN. 8.9 g/dL (12.0-16.0); MEAN CORPUSCULAR HEMOGLOBIN 27.6 pg (28.0-32.0); MEAN CORPUSCULAR VOLUME 86.1 fL (81.0-99.0); MEAN PLATELET VOLUME 8.6 fl (7.4-10.4); PLATELET 340 x1000/uL (130-400); RED BLOOD CELL COUNT 3.24 mill/uL (4.2-5.4); RED CELL DISTRIBUTION WIDTH 16.8 % (11.6-14.6)
[2020-11-03 05:59] LABS: CHLORIDE 96 mEq/L (98-107)
[2020-11-03] MEDS: METHYLPREDNISOLONE SOD SUCC 40 MG/ML VIAL IV SCH ×3 (05:59→21:33)
[2020-11-03] MEDS: INSULIN LISPRO 100 UNITS/ML SUBCUT SCH ×4 (06:02→21:30)
[2020-11-03] MEDS: BLOOD SUGAR DIAGNOSTIC STRIP TEST SCH ×4 (06:02→21:19)
[2020-11-03] MEDS: PANTOPRAZOLE SODIUM 40 MG/VIAL IV SCH ×2 (08:56→18:02)
[2020-11-03 09:27] LABS: BG BASE EXCESS 9.4 mmol/L (-2.0-2.0); BG CARBOXYHEMOGLOBIN 0.3 % (0.5-1.5); BG DEOXYHEMOGLOBIN 0.3 % (0.0-5.0); BG FRACTION INSPIRED OXYGEN 70; BG METHEMOGLOBIN 0.4 % (0.0-1.5); BG OXYGEN SATURATION 99.7 % (92.0-98.5); BG PCO2 40.9 mmHg (35.0-45.0); BG PH 7.524 (7.350-7.450); BG PO2 270.2 mmHg (75.0-100.0); BG SAMPLE SITE RIGHT RADIAL; BG VENT MODE VENT - AC
[2020-11-03] MEDS ORDERED: POTASSIUM CHLORIDE INJ 40 MEQ in DEXT 5% WATER 250 ML IV NR (13:30)
[2020-11-03 13:51] LABS: PLATELET ESTIMATE NORMAL
[2020-11-03 14:01] LABS: BG BASE EXCESS 9.6 mmol/L (-2.0-2.0); BG CARBOXYHEMOGLOBIN 0.5 % (0.5-1.5); BG FRACTION INSPIRED OXYGEN 50; BG HCO3 ACT 37.2 mmol/L (22.0-26.0); BG METHEMOGLOBIN 0.4 % (0.0-1.5); BG OXYHEMOGLOBIN 95.1 % (94.0-97.0); BG PCO2 69.1 mmHg (35.0-45.0); BG PH 7.349 (7.350-7.450); BG PO2 86.6 mmHg (75.0-100.0); BG SAMPLE SITE RIGHT RADIAL; BG TOTAL HEMOGLOBIN 10.3 g/dL (12.0-18.0); BG VENT MODE VENT - CPAP
[2020-11-03] MEDS ORDERED: DILTIAZEM HCL 30MG TABLET PO NR (15:00)
[2020-11-03] MEDS ORDERED: KCL 20MEQ/100ML PREMIX 100 ML IV SCH (18:00)
[2020-11-03] MEDS: DILTIAZEM HCL 30MG TABLET PO SCH (21:34)
[2020-11-03] MEDS: MIDAZOLAM HCL 100 MG in SODIUM CHLORIDE 0.9% 100 ML IV PRN (23:20)
[2020-11-04] VITALS (82 sets, daily range): BP systolic 66–197; BP diastolic 29–137
[2020-11-04] MEDS: IPRATROPIUM/ALBUTEROL 0.5-3(2.5)MG/3ML NEB HHN SCH ×4 (02:12→20:44)
[2020-11-04] MEDS: FENTANYL CITRATE/PF 2,500 MCG in SODIUM CHLORIDE 0.9% 200 ML IV PRN (04:09)
[2020-11-04 05:20] LABS: HEMATOCRIT. 26.9 % (36.0-48.0); HEMOGLOBIN. 8.7 g/dL (12.0-16.0); MEAN CORPUSCULAR HEMOGLOBIN 27.8 pg (28.0-32.0); MEAN CORPUSCULAR VOLUME 86.4 fL (81.0-99.0); MEAN PLATELET VOLUME 8.1 fl (7.4-10.4); PLATELET 362 x1000/uL (130-400); RED BLOOD CELL COUNT 3.11 mill/uL (4.2-5.4); RED CELL DISTRIBUTION WIDTH 17.5 % (11.6-14.6)
[2020-11-04 05:24] LABS: CHLORIDE 97 mEq/L (98-107)
[2020-11-04] MEDS: METHYLPREDNISOLONE SOD SUCC 40 MG/ML VIAL IV SCH ×3 (05:55→21:38)
[2020-11-04] MEDS: PIPERACILLIN/TAZOBACTAM 3.375G in DEXT 5% WATER 50ML IV SCH ×3 (05:55→18:18)
[2020-11-04] MEDS: DILTIAZEM HCL 30MG TABLET PO SCH ×3 (06:00→21:39)
[2020-11-04] MEDS: BLOOD SUGAR DIAGNOSTIC STRIP TEST SCH ×4 (06:42→21:33)
[2020-11-04] MEDS: INSULIN LISPRO 100 UNITS/ML SUBCUT SCH ×4 (06:45→21:38)
[2020-11-04 08:18] LABS: BG BASE EXCESS 4.6 mmol/L (-2.0-2.0); BG CARBOXYHEMOGLOBIN 0.3 % (0.5-1.5); BG DEOXYHEMOGLOBIN 0.8 % (0.0-5.0); BG HCO3 ACT 28.4 mmol/L (22.0-26.0); BG METHEMOGLOBIN 0.3 % (0.0-1.5); BG OXYGEN SATURATION 99.2 % (92.0-98.5); BG OXYHEMOGLOBIN 98.6 % (94.0-97.0); BG PCO2 39.1 mmHg (35.0-45.0); BG PH 7.479 (7.350-7.450); BG PO2 164.1 mmHg (75.0-100.0); BG SAMPLE SITE RIGHT RADIAL; BG TOTAL HEMOGLOBIN 10.8 g/dL (12.0-18.0); BG VENT MODE VENT - AC
[2020-11-04 09:06] LABS: PLATELET ESTIMATE NORMAL
[2020-11-04] MEDS: PANTOPRAZOLE SODIUM 40 MG/VIAL IV SCH ×2 (09:24→16:42)
[2020-11-04 12:55] LABS: BG BASE EXCESS 5.9 mmol/L (-2.0-2.0); BG CARBOXYHEMOGLOBIN 0.3 % (0.5-1.5); BG FRACTION INSPIRED OXYGEN 35; BG HCO3 ACT 30.3 mmol/L (22.0-26.0); BG METHEMOGLOBIN 0.3 % (0.0-1.5); BG OXYHEMOGLOBIN 98.4 % (94.0-97.0); BG PCO2 43.4 mmHg (35.0-45.0); BG PH 7.462 (7.350-7.450); BG PO2 139.5 mmHg (75.0-100.0); BG SAMPLE SITE RIGHT RADIAL; BG TOTAL HEMOGLOBIN 10.1 g/dL (12.0-18.0); BG VENT MODE VENT - AC
[2020-11-04] MEDS ORDERED: GABA-529 MT (14:41)
[2020-11-04] MEDS ORDERED: PRED2.5T4 MT (14:41)
[2020-11-04] MEDS ORDERED: FOLI0.8T23 MT (14:41)
[2020-11-04] MEDS ORDERED: NIFE20CA MT (14:41)
[2020-11-04] MEDS ORDERED: ROSU5TAB MT (14:41)
[2020-11-04 15:57] LABS: BG BASE EXCESS 3.4 mmol/L (-2.0-2.0); BG CARBOXYHEMOGLOBIN 0.3 % (0.5-1.5); BG DEOXYHEMOGLOBIN 4.1 % (0.0-5.0); BG FRACTION INSPIRED OXYGEN 35; BG HCO3 ACT 29.9 mmol/L (22.0-26.0); BG METHEMOGLOBIN 0.3 % (0.0-1.5); BG OXYGEN SATURATION 95.9 % (92.0-98.5); BG OXYHEMOGLOBIN 95.3 % (94.0-97.0); BG PH 7.353 (7.350-7.450); BG PO2 88.3 mmHg (75.0-100.0); BG SAMPLE SITE RIGHT RADIAL; BG TOTAL HEMOGLOBIN 10.4 g/dL (12.0-18.0); BG VENT MODE VENT - CPAP
[2020-11-04] MEDS: VANCOMYCIN 1 G PREMIX 200 ML IV SCH (16:42)
[2020-11-04] MEDS: LORAZEPAM 0.5MG TABLET PO PRN (20:44)
[2020-11-04] MEDS: HYDROCODONE/ACETAMINOPHEN 5/325MG TABLET PO PRN (21:39)
[2020-11-05] VITALS (38 sets, daily range): BP systolic 118–171; BP diastolic 47–115
[2020-11-05] MEDS: PIPERACILLIN/TAZOBACTAM 3.375G in DEXT 5% WATER 50ML IV SCH ×4 (00:20→17:30)
[2020-11-05] MEDS: IPRATROPIUM/ALBUTEROL 0.5-3(2.5)MG/3ML NEB HHN SCH ×4 (02:31→18:00)
[2020-11-05] MEDS: LORAZEPAM 0.5MG TABLET PO PRN ×2 (02:58→13:03)
[2020-11-05] MEDS: HYDROCODONE/ACETAMINOPHEN 5/325MG TABLET PO PRN (03:50)
[2020-11-05 05:14] LABS: HEMATOCRIT. 29.2 % (36.0-48.0); HEMOGLOBIN. 9.2 g/dL (12.0-16.0); MEAN CORPUSCULAR HEMOGLOBIN 27.4 pg (28.0-32.0); MEAN CORPUSCULAR VOLUME 87.3 fL (81.0-99.0); MEAN PLATELET VOLUME 8.3 fl (7.4-10.4); PLATELET 415 x1000/uL (130-400); RED BLOOD CELL COUNT 3.35 mill/uL (4.2-5.4); RED CELL DISTRIBUTION WIDTH 17.2 % (11.6-14.6)
[2020-11-05] MEDS: METHYLPREDNISOLONE SOD SUCC 40 MG/ML VIAL IV SCH ×3 (05:17→21:53)
[2020-11-05] MEDS: DILTIAZEM HCL 30MG TABLET PO SCH ×3 (05:18→21:53)
[2020-11-05 05:26] LABS: CHLORIDE 100 mEq/L (98-107)
[2020-11-05] MEDS: VANCOMYCIN 1 G PREMIX 200 ML IV SCH (09:12)
[2020-11-05] MEDS: PANTOPRAZOLE SODIUM 40 MG/VIAL IV SCH ×2 (09:12→17:30)
[2020-11-05 11:21] LABS: BG BASE EXCESS 2.4 mmol/L (-2.0-2.0); BG CARBOXYHEMOGLOBIN 1.2 % (0.5-1.5); BG FRACTION INSPIRED OXYGEN 28; BG HCO3 ACT 28.2 mmol/L (22.0-26.0); BG METHEMOGLOBIN 0.3 % (0.0-1.5); BG OXYHEMOGLOBIN 95.5 % (94.0-97.0); BG PCO2 50.2 mmHg (35.0-45.0); BG PH 7.368 (7.350-7.450); BG PO2 97.4 mmHg (75.0-100.0); BG SAMPLE SITE LEFT RADIAL; BG TOTAL HEMOGLOBIN 8.9 g/dL (12.0-18.0); BG VENT MODE NASAL CANNULA
[2020-11-05] MEDS: BLOOD SUGAR DIAGNOSTIC STRIP TEST SCH ×3 (11:43→21:00)
[2020-11-05] MEDS: INSULIN LISPRO 100 UNITS/ML SUBCUT SCH ×3 (11:47→21:53)
[2020-11-05 12:32] LABS: PLATELET ESTIMATE SLIGHTLY INCREASED
[2020-11-06] VITALS (8 sets, daily range): BP systolic 120–164; BP diastolic 59–84
[2020-11-06] MEDS: IPRATROPIUM/ALBUTEROL 0.5-3(2.5)MG/3ML NEB HHN SCH ×4 (00:07→20:53)
[2020-11-06] MEDS: PIPERACILLIN/TAZOBACTAM 3.375G in DEXT 5% WATER 50ML IV SCH ×4 (01:10→18:19)
[2020-11-06] MEDS: HYDROCODONE/ACETAMINOPHEN 5/325MG TABLET PO PRN (01:29)
[2020-11-06] MEDS: LORAZEPAM 0.5MG TABLET PO PRN (02:13)
[2020-11-06] MEDS: VANCOMYCIN 1 G PREMIX 200 ML IV SCH (05:09)
[2020-11-06] MEDS: BLOOD SUGAR DIAGNOSTIC STRIP TEST SCH ×3 (05:53→16:40)
[2020-11-06] MEDS: DILTIAZEM HCL 30MG TABLET PO SCH ×2 (06:02→14:33)
[2020-11-06] MEDS: METHYLPREDNISOLONE SOD SUCC 40 MG/ML VIAL IV SCH ×2 (06:02→14:33)
[2020-11-06] MEDS: INSULIN LISPRO 100 UNITS/ML SUBCUT SCH ×4 (06:13→21:18)
[2020-11-06 07:19] LABS: HEMOGLOBIN. 8.7 g/dL (12.0-16.0); MEAN CORPUSCULAR HEMOGLOBIN 28.1 pg (28.0-32.0); MEAN CORPUSCULAR VOLUME 87.6 fL (81.0-99.0); MEAN PLATELET VOLUME 7.9 fl (7.4-10.4); PLATELET 392 x1000/uL (130-400); RED BLOOD CELL COUNT 3.08 mill/uL (4.2-5.4); RED CELL DISTRIBUTION WIDTH 16.8 % (11.6-14.6)
[2020-11-06 07:32] LABS: CHLORIDE 99 mEq/L (98-107)
[2020-11-06] MEDS: PANTOPRAZOLE SODIUM 40 MG/VIAL IV SCH ×2 (08:45→18:20)
[2020-11-06 08:46] LABS: BG BASE EXCESS 6.8 mmol/L (-2.0-2.0); BG CARBOXYHEMOGLOBIN 0.3 % (0.5-1.5); BG DEOXYHEMOGLOBIN 5.5 % (0.0-5.0); BG FRACTION INSPIRED OXYGEN 28; BG HCO3 ACT 32.1 mmol/L (22.0-26.0); BG METHEMOGLOBIN 0.3 % (0.0-1.5); BG OXYGEN SATURATION 94.5 % (92.0-98.5); BG OXYHEMOGLOBIN 93.9 % (94.0-97.0); BG PCO2 50.1 mmHg (35.0-45.0); BG PH 7.425 (7.350-7.450); BG PO2 69.8 mmHg (75.0-100.0); BG SAMPLE SITE RIGHT RADIAL; BG TOTAL HEMOGLOBIN 9.6 g/dL (12.0-18.0); BG VENT MODE NASAL CANNULA
[2020-11-06 22:47] LABS: PLATELET ESTIMATE NORMAL
== END 2020-11-06 22:23 | DRG 871 ==
LOC: ER 10:05 → MICUSO 11:31 → EDBEDREQTM 11:36 → EDBEDREQSVC 11:36 → EDBEDREQ 11:36 → ENRESERV 12:17 → MICUNO 11-02 05:26 → 7EST 11-05 21:15
PROVIDERS: ADMIT Internal Medicine; ATTEND Internal Medicine
PROC: 5A1945Z Respiratory Ventilation, 24-96 Consecutive Hours (ICD-10-PCS; principal; 2020-11-01)
PROC: 05HY33Z Insertion of Infusion Device into Upper Vein, Percutaneous Approach (ICD-10-PCS; 2020-11-01)
PROC: B54MZZA Ultrasonography of Right Upper Extremity Veins, Guidance (ICD-10-PCS; 2020-11-01)
PROC: 0BH17EZ Insertion of Endotracheal Airway into Trachea, Via Natural or Artificial Opening (ICD-10-PCS; 2020-11-01)
PROC: 30233N1 Transfusion of Nonautologous Red Blood Cells into Peripheral Vein, Percutaneous Approach (ICD-10-PCS; 2020-11-02)
DX: A41.9 Sepsis, unspecified organism (principal); J96.22 Acute and chronic respiratory failure with hypercapnia; J18.9 Pneumonia, unspecified organism; D68.59 Other primary thrombophilia; E87.4 Mixed disorder of acid-base balance; J44.0 Chronic obstructive pulmonary disease with (acute) lower respiratory infection; J44.1 Chronic obstructive pulmonary disease with (acute) exacerbation; N39.0 Urinary tract infection, site not specified; I48.92 Unspecified atrial flutter; G93.40 Encephalopathy, unspecified; D64.9 Anemia, unspecified; E11.9 Type 2 diabetes mellitus without complications; E87.6 Hypokalemia; G50.0 Trigeminal neuralgia; K75.9 Inflammatory liver disease, unspecified; K57.90 Diverticulosis of intestine, part unspecified, without perforation or abscess without bleeding; K55.20 Angiodysplasia of colon without hemorrhage; F41.9 Anxiety disorder, unspecified; K74.60 Unspecified cirrhosis of liver; Z20.822 Contact with and (suspected) exposure to COVID-19; I11.0 Hypertensive heart disease with heart failure; I50.9 Heart failure, unspecified; Z88.1 Allergy status to other antibiotic agents; Z88.8 Allergy status to other drugs, medicaments and biological substances; Z79.899 Other long term (current) drug therapy; Z86.16 Personal history of COVID-19; Z86.73 Personal history of transient ischemic attack (TIA), and cerebral infarction without residual deficits; Z86.74 Personal history of sudden cardiac arrest; T14.8XXA Other injury of unspecified body region, initial encounter
CPT/HCPCS: 36415; 36600; 71045; 76937; 80048; 80053; 80061; 80202; 81003; 82375; 82550; 82553; 82728; 82805; 82962; 83036; 83605; 83615; 84145; 84439; 84443; 84484; 85025; 85379; 85384; 86140; 86850; 86900; 86920; 87070; 92610; 93005; 94002; 94003; 94640; 99291; A6261; C1725; C1893; C9113; J1815; J2250; J2543; J2920; J3010; J3370; J3480; J3490; J7040; J7050; J7060; P9016; U0003; U0005

== ENCOUNTER 2022-06-21 13:13 | Inpatient (IN) | payer OTHER ==
[~2022-06-21] VITALS: Ht 177.8 cm; Wt 89.4 kg
[2022-06-21] VITALS (30 sets, daily range): BP systolic 74–135; BP diastolic 48–75
[~2022-06-21 13:13] MED LIST changes: +ASCO-339 PO; +BISA10SU62 RC; -BLOO-1379 MC; -CARB200T6 PO; -DOCU-138 PO; +DOCU100T PO; -FERR325T6 PO; +FOLI0.8T23 MT; +GABA-529 MT; +IPRA3AMP31 IH; +MULT-1116 PO; +NIFE20CA MT; +ONDA4TAB50 MT; +ONDA4TAB50 PO; +P20 PO; -P50 PO; -PANT40TA51 PO; +PRED2.5T4 MT; +ROSU5TAB MT; +TOPUD PO; +TRAM50TA3 PO
[2022-06-21] MEDS ORDERED: MEROPENEM 1,000 MG in SODIUM CHLORIDE 0.9% 100 ML IV STA (13:37)
[2022-06-21] MEDS ORDERED: VANCOMYCIN 1G PREMIX 200 ML IV SCH (13:45)
[2022-06-21] MEDS ORDERED: PROPOFOL 10MG/ML 100ML 100 ML IV SCH (13:45)
[2022-06-21] MEDS ORDERED: SODIUM CHLORIDE 0.9% 1000ML BAG (SEPSIS BOLUS) IV ONE (13:45)
[2022-06-21 14:00] LABS: BG BASE EXCESS 11.5 mmol/L (-2.0-2.0); BG CARBOXYHEMOGLOBIN 1.1 % (0.5-1.5); BG DEOXYHEMOGLOBIN 5.6 % (0.0-5.0); BG HCO3 ACT 37.2 mmol/L (22.0-26.0); BG METHEMOGLOBIN 0.3 % (0.0-1.5); BG OXYGEN SATURATION 94.3 % (92.0-98.5); BG PCO2 56.6 mmHg (35.0-45.0); BG PH 7.436 (7.350-7.450); BG PO2 64.8 mmHg (75.0-100.0); BG SAMPLE SITE RIGHT RADIAL; BG TOTAL HEMOGLOBIN 8.8 g/dL (12.0-18.0); BG VENT MODE VENT - AC
[2022-06-21] MEDS ORDERED: NOREPINEPHRINE 8MG/250ML PMX 250 ML IV ONE (14:00)
[2022-06-21 14:09] LABS: HEMATOCRIT. 26.3 % (36.0-48.0); HEMOGLOBIN. 7.8 g/dL (12.0-16.0); MEAN CORPUSCULAR HEMOGLOBIN 26.8 pg (28.0-32.0); MEAN CORPUSCULAR VOLUME 90.8 fL (81.0-99.0); MEAN PLATELET VOLUME 8.2 fl (7.4-10.4); PLATELET 420 x1000/uL (130-400); RED CELL DISTRIBUTION WIDTH 18.6 % (11.6-14.6)
[2022-06-21 14:12] LABS: CHLORIDE 96 mEq/L (98-107)
[2022-06-21 14:15] LABS: D-DIMER 0.7 mg/L FEU (<0.50); INR 1.1; PARTIAL THROMBOPLASTIN TIME 31.9 sec (23.4-31.0); PROTHROMBIN TIME 11.7 sec (9.6-11.0)
[2022-06-21] MEDS ORDERED: NOREPINEPHRINE 8MG/250ML PMX 250 ML IV SCH (14:15)
[2022-06-21] MEDS ORDERED: NOREPINEPHRINE 8 MG in DEXT 5% WATER 242 ML IV SCH (14:30)
[2022-06-21] MEDS ORDERED: MEROPENEM-0.9% SODIUM CHLORIDE 50 ML IV SCH (14:30)
[2022-06-21 15:01] LABS: PLATELET ESTIMATE SLIGHTLY INCREASED
[2022-06-21 15:03] LABS: CLARITY URINE CLEAR (CLEAR); COLOR URINE YELLOW (YELLOW); KETONES URINE NEGATIVE (NEGATIVE); LEUKOCYTE ESTERASE URINE NEGATIVE (NEGATIVE); NITRITE URINE NEGATIVE (NEGATIVE); OCCULT BLOOD URINE NEGATIVE (NEGATIVE); PROTEIN URINE 1+ (NEGATIVE)
[2022-06-21] MEDS ORDERED: IOHEXOL-350 100 ML BOTTLE ONE (17:17)
[2022-06-21 17:35] LABS: BG BASE EXCESS 10.5 mmol/L (-2.0-2.0); BG CARBOXYHEMOGLOBIN 0.8 % (0.5-1.5); BG DEOXYHEMOGLOBIN 4.3 % (0.0-5.0); BG HCO3 ACT 36.9 mmol/L (22.0-26.0); BG METHEMOGLOBIN 0.4 % (0.0-1.5); BG OXYGEN SATURATION 95.6 % (92.0-98.5); BG OXYHEMOGLOBIN 94.5 % (94.0-97.0); BG PCO2 61.7 mmHg (35.0-45.0); BG PH 7.395 (7.350-7.450); BG PO2 72.8 mmHg (75.0-100.0); BG SAMPLE SITE RIGHT RADIAL; BG TOTAL HEMOGLOBIN 9.2 g/dL (12.0-18.0); BG VENT MODE VENT - AC
[2022-06-21] MEDS ORDERED: FENTANYL 2500MCG/250ML PMX 250 ML IV PRN (17:45)
[2022-06-21] MEDS ORDERED: MIDAZOLAM 100MG/100ML PMX 100 ML IV PRN (17:45)
[2022-06-21] MEDS ORDERED: MIDAZOLAM HCL 100 MG in SODIUM CHLORIDE 0.9% 100 ML IV PRN (18:00)
[2022-06-21] MEDS ORDERED: FENTANYL CITRATE 2,500 MCG in SODIUM CHLORIDE 0.9% 200 ML IV PRN (18:00)
[2022-06-21] MEDS ORDERED: NOREPINEPHRINE 32 MG in DEXT 5% WATER 218 ML IV PRN (19:00)
[2022-06-21] MEDS: FENTANYL 2500MCG/250ML PMX 250 ML IV PRN (19:05)
[2022-06-21] MEDS ORDERED: PIPERACILLIN/TAZ 3.375G PREMIX 50 ML IV SCH (22:30)
[2022-06-21] MEDS ORDERED: ONDANSETRON HCL 4MG/2ML INJ IV PRN (22:30)
[2022-06-21] MEDS ORDERED: IPRATROPIUM/ALBUTEROL 0.5-3(2.5)MG/3ML NEB HHN PRN (22:30)
[2022-06-22] VITALS (97 sets, daily range): BP systolic 68–160; BP diastolic 37–94
[2022-06-22] MEDS ORDERED: VANCOMYCIN 1,750 MG in DEXT 5% WATER 500 ML IV NR ×2
[2022-06-22] MEDS: PIPERACILLIN/TAZOBACTAM 3.375G in DEXT 5% WATER 50ML IV SCH ×4 (00:09→22:32)
[2022-06-22 01:29] LABS: BASOPHILS % 0.3 % (0.0-2.0); HEMATOCRIT. 25.2 % (36.0-48.0); HEMOGLOBIN. 7.3 g/dL (12.0-16.0); LYMPHOCYTES % 7.5 % (20.0-50.0); MEAN CORPUSCULAR HEMOGLOBIN 25.7 pg (28.0-32.0); MEAN CORPUSCULAR VOLUME 88.5 fL (81.0-99.0); MEAN PLATELET VOLUME 9.1 fl (7.4-10.4); MONOCYTES % 4.5 % (2.0-8.0); NEUTROPHILS % 87.7 % (40.0-76.0); PLATELET 353 x1000/uL (130-400); RED BLOOD CELL COUNT 2.84 mill/uL (4.2-5.4); RED CELL DISTRIBUTION WIDTH 18.7 % (11.6-14.6)
[2022-06-22 01:46] LABS: CHLORIDE 96 mEq/L (98-107)
[2022-06-22] MEDS: ACETAMINOPHEN 325MG TABLET PO PRN ×2 (05:40→10:00)
[2022-06-22 06:09] LABS: CREATINE KINASE 53 IU/L (26-192); CREATINE KINASE MB FRACTION < 1.0 ng/mL (0.5-3.6)
[2022-06-22] MEDS ORDERED: DEXTROSE 50% WATER 50ML SYRINGE IV PRN (07:45)
[2022-06-22] MEDS ORDERED: DILTIAZEM HCL 5MG/ML 5ML VIAL IV NR (08:15)
[2022-06-22 08:29] LABS: BG BASE EXCESS 15.5 mmol/L (-2.0-2.0); BG CARBOXYHEMOGLOBIN 0.9 % (0.5-1.5); BG DEOXYHEMOGLOBIN 0.2 % (0.0-5.0); BG FRACTION INSPIRED OXYGEN 100; BG METHEMOGLOBIN 0.3 % (0.0-1.5); BG OXYGEN SATURATION 99.8 % (92.0-98.5); BG OXYHEMOGLOBIN 98.6 % (94.0-97.0); BG PCO2 50.4 mmHg (35.0-45.0); BG PH 7.518 (7.350-7.450); BG PO2 283.1 mmHg (75.0-100.0); BG VENT MODE VENT - AC
[2022-06-22] MEDS: PHENYLEPHRINE 100 MG in DEXT 5% WATER 240 ML IV PRN ×2 (09:48→17:28)
[2022-06-22] MEDS: INSULIN LISPRO 100 UNITS/ML SUBCUT SCH ×3 (11:26→23:15)
[2022-06-22] MEDS: BLOOD SUGAR DIAGNOSTIC STRIP TEST SCH ×3 (11:26→23:15)
[2022-06-22] MEDS: MIDODRINE HCL 5MG TABLET PO SCH ×2 (13:10→17:28)
[2022-06-22 16:52] LABS: CREATINE KINASE MB FRACTION 1.8 ng/mL (0.5-3.6)
[2022-06-22] MEDS: VANCOMYCIN 1G PREMIX 200 ML IV SCH (21:07)
[2022-06-22] MEDS ORDERED: VANCOMYCIN 1G PREMIX 200 ML IV SCH (23:00)
[2022-06-23] VITALS (102 sets, daily range): BP systolic 85–132; BP diastolic 40–84
[2022-06-23] MEDS ORDERED: NON FORMULARY PATIENT HOME MED XX SCH (01:45)
[2022-06-23] MEDS ORDERED: DILTIAZEM HCL 5MG/ML 5ML VIAL IV NR ×2 (02:00→09:30)
[2022-06-23] MEDS: PHENYLEPHRINE 100 MG in DEXT 5% WATER 240 ML IV PRN ×3 (03:41→18:23)
[2022-06-23 05:10] LABS: HEMATOCRIT. 22.2 % (36.0-48.0); MEAN CORPUSCULAR HEMOGLOBIN 26.7 pg (28.0-32.0); MEAN CORPUSCULAR VOLUME 86.6 fL (81.0-99.0); MEAN PLATELET VOLUME 8.5 fl (7.4-10.4); PLATELET 392 x1000/uL (130-400); RED BLOOD CELL COUNT 2.56 mill/uL (4.2-5.4); RED CELL DISTRIBUTION WIDTH 18.4 % (11.6-14.6)
[2022-06-23 05:14] LABS: HEMOGLOBIN. 6.8 g/dL (12.0-16.0)
[2022-06-23] MEDS: BLOOD SUGAR DIAGNOSTIC STRIP TEST SCH ×4 (05:19→23:16)
[2022-06-23] MEDS: PIPERACILLIN/TAZOBACTAM 3.375G in DEXT 5% WATER 50ML IV SCH ×3 (05:22→22:09)
[2022-06-23] MEDS: INSULIN LISPRO 100 UNITS/ML SUBCUT SCH ×4 (05:23→23:22)
[2022-06-23 05:25] LABS: CHLORIDE 93 mEq/L (98-107)
[2022-06-23] MEDS: MIDODRINE HCL 5MG TABLET PO SCH ×3 (08:41→17:15)
[2022-06-23 09:22] LABS: PLATELET ESTIMATE NORMAL
[2022-06-23] MEDS ORDERED: POTASSIUM CHLORIDE 20MEQ TABLET SR PO NR (10:15)
[2022-06-23] MEDS: DILTIAZEM HCL 30MG TABLET PO SCH ×3 (11:41→23:21)
[2022-06-23] MEDS ORDERED: MIDODRINE HCL 5MG TABLET PO NR (13:15)
[2022-06-23 15:07] LABS: HEMATOCRIT 25.9 % (36.0-48.0); HEMOGLOBIN 8.1 g/dL (12.0-16.0)
[2022-06-23] MEDS: VANCOMYCIN 1G PREMIX 200 ML IV SCH (20:28)
[2022-06-23] MEDS: FENTANYL 2500MCG/250ML PMX 250 ML IV PRN (22:10)
[2022-06-24] VITALS (94 sets, daily range): BP systolic 72–157; BP diastolic 43–114
[2022-06-24] MEDS: PHENYLEPHRINE 100 MG in DEXT 5% WATER 240 ML IV PRN ×2 (03:50→21:15)
[2022-06-24] MEDS: BLOOD SUGAR DIAGNOSTIC STRIP TEST SCH ×4 (05:35→23:07)
[2022-06-24] MEDS: PIPERACILLIN/TAZOBACTAM 3.375G in DEXT 5% WATER 50ML IV SCH ×3 (05:40→21:57)
[2022-06-24] MEDS: DILTIAZEM HCL 30MG TABLET PO SCH ×5 (05:40→23:08)
[2022-06-24] MEDS: INSULIN LISPRO 100 UNITS/ML SUBCUT SCH ×4 (05:41→23:18)
[2022-06-24 06:03] LABS: HEMATOCRIT. 25.2 % (36.0-48.0); HEMOGLOBIN. 7.8 g/dL (12.0-16.0); MEAN CORPUSCULAR HEMOGLOBIN 26.8 pg (28.0-32.0); MEAN CORPUSCULAR VOLUME 86.2 fL (81.0-99.0); MEAN PLATELET VOLUME 8.1 fl (7.4-10.4); PLATELET 409 x1000/uL (130-400); RED BLOOD CELL COUNT 2.92 mill/uL (4.2-5.4); RED CELL DISTRIBUTION WIDTH 17.9 % (11.6-14.6)
[2022-06-24 06:19] LABS: CHLORIDE 98 mEq/L (98-107)
[2022-06-24] MEDS: MIDODRINE HCL 5MG TABLET PO SCH ×3 (09:05→17:59)
[2022-06-24] MEDS: ACETAMINOPHEN 325MG TABLET PO PRN (09:23)
[2022-06-24 10:12] LABS: PLATELET ESTIMATE NORMAL
[2022-06-24] MEDS: KCL 20MEQ/100ML PREMIX 100 ML IV SCH ×2 (10:54→12:13)
[2022-06-24] MEDS: VANCOMYCIN 1G PREMIX 200 ML IV SCH (14:24)
[2022-06-25] VITALS (96 sets, daily range): BP systolic 81–161; BP diastolic 45–97
[2022-06-25 04:41] LABS: HEMATOCRIT. 24.2 % (36.0-48.0); HEMOGLOBIN. 7.5 g/dL (12.0-16.0); MEAN CORPUSCULAR HEMOGLOBIN 27.3 pg (28.0-32.0); MEAN CORPUSCULAR VOLUME 87.8 fL (81.0-99.0); MEAN PLATELET VOLUME 8.4 fl (7.4-10.4); PLATELET 390 x1000/uL (130-400); RED BLOOD CELL COUNT 2.76 mill/uL (4.2-5.4); RED CELL DISTRIBUTION WIDTH 17.7 % (11.6-14.6)
[2022-06-25 04:53] LABS: CHLORIDE 99 mEq/L (98-107)
[2022-06-25] MEDS: BLOOD SUGAR DIAGNOSTIC STRIP TEST SCH ×4 (05:09→23:17)
[2022-06-25] MEDS: DILTIAZEM HCL 30MG TABLET PO SCH ×3 (05:10→17:43)
[2022-06-25] MEDS: PIPERACILLIN/TAZOBACTAM 3.375G in DEXT 5% WATER 50ML IV SCH ×3 (05:15→21:31)
[2022-06-25] MEDS: INSULIN LISPRO 100 UNITS/ML SUBCUT SCH ×4 (05:28→23:45)
[2022-06-25] MEDS: VANCOMYCIN 1G PREMIX 200 ML IV SCH (08:26)
[2022-06-25] MEDS: MIDODRINE HCL 5MG TABLET PO SCH ×3 (08:27→21:32)
[2022-06-25 11:30] LABS: PLATELET ESTIMATE NORMAL
[2022-06-25] MEDS: ACETAMINOPHEN 325MG TABLET PO PRN (12:02)
[2022-06-25] MEDS ORDERED: DILTIAZEM HCL 5MG/ML 5ML VIAL IV SCH (12:40)
[2022-06-25 13:01] LABS: TOTAL IRON BINDING CAPACITY 250 ug/dL (250-450)
[2022-06-25 13:38] LABS: VITAMIN B12 SERUM 1237 pg/mL (211-911)
[2022-06-25] MEDS ORDERED: MIDODRINE HCL 5MG TABLET PO SCH (14:00)
[2022-06-25 15:40] LABS: CLARITY URINE CLOUDY (CLEAR); COLOR URINE DARK YELLOW (YELLOW); KETONES URINE TRACE (NEGATIVE); LEUKOCYTE ESTERASE URINE TRACE (NEGATIVE); NITRITE URINE NEGATIVE (NEGATIVE); OCCULT BLOOD URINE NEGATIVE (NEGATIVE); PROTEIN URINE 1+ (NEGATIVE); SPECIFIC GRAVITY URINE 1.035 (1.005-1.030)
[2022-06-25 15:53] LABS: *AMPHETAMINES SCREEN URINE NEGATIVE (NEGATIVE); *BARBITURATES SCREEN URINE NEGATIVE (NEGATIVE); *BENZODIAZEPINES SCREEN URINE PRESUMTIVE POSITIVE (NEGATIVE); *COCAINE SCREEN URINE NEGATIVE (NEGATIVE); CANNABINOID URINE SCREEN NEGATIVE (NEGATIVE); METHADONE URINE SCREEN NEGATIVE (NEGATIVE); OPIATES URINE SCREEN NEGATIVE (NEGATIVE); PHENCYCLIDINE URINE SCREEN NEGATIVE (NEGATIVE)
[2022-06-25] MEDS: FENTANYL 2500MCG/250ML PMX 250 ML IV PRN (17:45)
[2022-06-26] VITALS (90 sets, daily range): BP systolic 59–183; BP diastolic 34–98
[2022-06-26] MEDS: VANCOMYCIN 1G PREMIX 200 ML IV SCH (01:16)
[2022-06-26] MEDS: DILTIAZEM HCL 30MG TABLET PO SCH ×4 (06:00→17:30)
[2022-06-26] MEDS: MIDODRINE HCL 5MG TABLET PO SCH ×3 (06:18→21:27)
[2022-06-26] MEDS: PIPERACILLIN/TAZOBACTAM 3.375G in DEXT 5% WATER 50ML IV SCH ×3 (06:18→21:26)
[2022-06-26] MEDS: BLOOD SUGAR DIAGNOSTIC STRIP TEST SCH ×4 (06:19→23:53)
[2022-06-26] MEDS: INSULIN LISPRO 100 UNITS/ML SUBCUT SCH ×3 (06:28→17:31)
[2022-06-26 08:06] LABS: CHLORIDE 96 mEq/L (98-107)
[2022-06-26 09:14] LABS: BG BASE EXCESS 8.7 mmol/L (-2.0-2.0); BG CARBOXYHEMOGLOBIN 0.7 % (0.5-1.5); BG HCO3 ACT 33.2 mmol/L (22.0-26.0); BG METHEMOGLOBIN 0.2 % (0.0-1.5); BG OXYHEMOGLOBIN 96.1 % (94.0-97.0); BG PCO2 46.4 mmHg (35.0-45.0); BG PH 7.473 (7.350-7.450); BG PO2 83.7 mmHg (75.0-100.0); BG SAMPLE SITE RIGHT RADIAL; BG TOTAL HEMOGLOBIN 8.1 g/dL (12.0-18.0); BG VENT MODE VENT - AC
[2022-06-26 12:10] LABS: BG BASE EXCESS 5.9 mmol/L (-2.0-2.0); BG CARBOXYHEMOGLOBIN 0.2 % (0.5-1.5); BG DEOXYHEMOGLOBIN 11.4 % (0.0-5.0); BG METHEMOGLOBIN 0.5 % (0.0-1.5); BG OXYGEN SATURATION 88.5 % (92.0-98.5); BG OXYHEMOGLOBIN 87.9 % (94.0-97.0); BG PCO2 56.1 mmHg (35.0-45.0); BG PH 7.374 (7.350-7.450); BG PO2 60.7 mmHg (75.0-100.0); BG SAMPLE SITE RIGHT RADIAL; BG TOTAL HEMOGLOBIN 8.3 g/dL (12.0-18.0); BG VENT MODE VENT - CPAP
[2022-06-26 18:00] LABS: BASOPHILS % 0.2 % (0.0-2.0); EOSINOPHILS % 2.4 % (0.0-5.0); HEMATOCRIT. 26.7 % (36.0-48.0); MEAN CORPUSCULAR HEMOGLOBIN 27.5 pg (28.0-32.0); MEAN CORPUSCULAR VOLUME 91.2 fL (81.0-99.0); MEAN PLATELET VOLUME 8.1 fl (7.4-10.4); MONOCYTES % 12.9 % (2.0-8.0); NEUTROPHILS % 73.5 % (40.0-76.0); PLATELET 442 x1000/uL (130-400); RED BLOOD CELL COUNT 2.92 mill/uL (4.2-5.4); RED CELL DISTRIBUTION WIDTH 18.4 % (11.6-14.6)
[2022-06-26] MEDS ORDERED: FENTANYL 2500MCG/250ML PMX 250 ML IV PRN (18:45)
[2022-06-27] VITALS (87 sets, daily range): BP systolic 85–162; BP diastolic 30–84
[2022-06-27] MEDS: INSULIN LISPRO 100 UNITS/ML SUBCUT SCH ×4 (00:02→17:46)
[2022-06-27] MEDS: MIDODRINE HCL 5MG TABLET PO SCH ×3 (05:24→21:25)
[2022-06-27] MEDS: ACETAMINOPHEN 325MG TABLET PO PRN (05:25)
[2022-06-27] MEDS: BLOOD SUGAR DIAGNOSTIC STRIP TEST SCH ×3 (05:57→17:47)
[2022-06-27] MEDS: DILTIAZEM HCL 30MG TABLET PO SCH ×4 (06:00→17:47)
[2022-06-27 08:18] LABS: BG CARBOXYHEMOGLOBIN 0.6 % (0.5-1.5); BG DEOXYHEMOGLOBIN 1.3 % (0.0-5.0); BG FRACTION INSPIRED OXYGEN 40; BG HCO3 ACT 31.1 mmol/L (22.0-26.0); BG METHEMOGLOBIN 0.2 % (0.0-1.5); BG OXYGEN SATURATION 98.7 % (92.0-98.5); BG OXYHEMOGLOBIN 97.9 % (94.0-97.0); BG PCO2 37.1 mmHg (35.0-45.0); BG PH 7.541 (7.350-7.450); BG PO2 110.2 mmHg (75.0-100.0); BG SAMPLE SITE RIGHT RADIAL; BG TOTAL RESPIRATORY RATE 19 b/min; BG VENT MODE NASAL CANNULA
[2022-06-27] MEDS: LACTULOSE 20G/30ML UDC PO PRN ×2 (10:29→21:24)
[2022-06-27] MEDS ORDERED: POTASSIUM CHLORIDE 20MEQ/PACKET PO NR (10:30)
[2022-06-27] MEDS: IRON SUCROSE COMPLEX 100 MG/5 ML ML IV SCH (11:24)
[2022-06-27 12:13] LABS: BG CARBOXYHEMOGLOBIN 0.6 % (0.5-1.5); BG DEOXYHEMOGLOBIN 1.5 % (0.0-5.0); BG FRACTION INSPIRED OXYGEN 40; BG HCO3 ACT 35.6 mmol/L (22.0-26.0); BG METHEMOGLOBIN 0.3 % (0.0-1.5); BG OXYGEN SATURATION 98.5 % (92.0-98.5); BG OXYHEMOGLOBIN 97.6 % (94.0-97.0); BG PCO2 55.6 mmHg (35.0-45.0); BG PH 7.424 (7.350-7.450); BG PO2 116.2 mmHg (75.0-100.0); BG SAMPLE SITE LEFT RADIAL; BG TOTAL HEMOGLOBIN 8.2 g/dL (12.0-18.0); BG VENT MODE VENT - CPAP
[2022-06-27] MEDS: METHYLPREDNISOLONE SOD SUCC 40 MG/ML VIAL IV SCH (17:47)
[2022-06-27 20:31] LABS: T4 FREE 1.15 ng/dL (0.76-1.46)
[2022-06-28] VITALS (85 sets, daily range): BP systolic 106–163; BP diastolic 47–97
[2022-06-28] MEDS: BLOOD SUGAR DIAGNOSTIC STRIP TEST SCH ×4 (00:05→17:33)
[2022-06-28] MEDS: INSULIN LISPRO 100 UNITS/ML SUBCUT SCH ×4 (00:20→17:33)
[2022-06-28] MEDS: DILTIAZEM HCL 30MG TABLET PO SCH ×5 (06:00→18:39)
[2022-06-28] MEDS: MIDODRINE HCL 5MG TABLET PO SCH ×3 (06:00→22:00)
[2022-06-28] MEDS: METHYLPREDNISOLONE SOD SUCC 40 MG/ML VIAL IV SCH ×2 (08:49→17:32)
[2022-06-28] MEDS: IRON SUCROSE COMPLEX 100 MG/5 ML ML IV SCH (11:24)
[2022-06-28 11:55] LABS: BG BASE EXCESS 8.1 mmol/L (-2.0-2.0); BG CARBOXYHEMOGLOBIN 0.3 % (0.5-1.5); BG DEOXYHEMOGLOBIN 2.5 % (0.0-5.0); BG FRACTION INSPIRED OXYGEN 40; BG HCO3 ACT 33.5 mmol/L (22.0-26.0); BG METHEMOGLOBIN 0.2 % (0.0-1.5); BG OXYGEN SATURATION 97.5 % (92.0-98.5); BG PCO2 52.4 mmHg (35.0-45.0); BG PH 7.424 (7.350-7.450); BG PO2 99.6 mmHg (75.0-100.0); BG SAMPLE SITE LEFT RADIAL; BG TOTAL HEMOGLOBIN 8.3 g/dL (12.0-18.0); BG VENT MODE VENT - CPAP
[2022-06-28] MEDS: ACETAMINOPHEN 325MG TABLET PO PRN (15:15)
[2022-06-29] VITALS (19 sets, daily range): BP systolic 137–171; BP diastolic 67–102
[2022-06-29] MEDS: BLOOD SUGAR DIAGNOSTIC STRIP TEST SCH ×5 (00:21→23:49)
[2022-06-29] MEDS: DILTIAZEM HCL 30MG TABLET PO SCH ×2 (00:35→06:29)
[2022-06-29] MEDS: INSULIN LISPRO 100 UNITS/ML SUBCUT SCH ×5 (00:36→23:49)
[2022-06-29] MEDS: ACETAMINOPHEN 325MG TABLET PO PRN (00:36)
[2022-06-29] MEDS: MIDODRINE HCL 5MG TABLET PO SCH (06:00)
[2022-06-29] MEDS: METHYLPREDNISOLONE SOD SUCC 40 MG/ML VIAL IV SCH ×2 (10:00→17:46)
[2022-06-29] MEDS: IRON SUCROSE COMPLEX 100 MG/5 ML ML IV SCH (10:01)
[2022-06-29] MEDS: DILTIAZEM HCL 60MG TABLET PO SCH ×3 (11:46→23:48)
[2022-06-29] MEDS: IPRATROPIUM/ALBUTEROL 0.5-3(2.5)MG/3ML NEB HHN PRN ×2 (13:20→20:12)
[2022-06-30] VITALS: BP 123/69
[2022-06-30] MEDS: ACETAMINOPHEN 325MG TABLET PO PRN (00:27)
[2022-06-30 04:00] VITALS: BP 167/70
[2022-06-30] MEDS: DILTIAZEM HCL 60MG TABLET PO SCH ×3 (05:26→17:36)
[2022-06-30] MEDS: BLOOD SUGAR DIAGNOSTIC STRIP TEST SCH ×3 (05:26→17:22)
[2022-06-30] MEDS: INSULIN LISPRO 100 UNITS/ML SUBCUT SCH ×3 (05:26→17:37)
[2022-06-30 07:33] LABS: HEMATOCRIT. 25.7 % (36.0-48.0); HEMOGLOBIN. 7.8 g/dL (12.0-16.0); MEAN CORPUSCULAR HEMOGLOBIN 27.9 pg (28.0-32.0); PLATELET 570 x1000/uL (130-400); RED CELL DISTRIBUTION WIDTH 18.8 % (11.6-14.6)
[2022-06-30 08:00] VITALS: BP 152/68
[2022-06-30] MEDS: METHYLPREDNISOLONE SOD SUCC 40 MG/ML VIAL IV SCH (08:56)
[2022-06-30 09:09] LABS: CHLORIDE 98 mEq/L (98-107)
[2022-06-30 12:00] VITALS: BP 158/74
[2022-06-30] MEDS ORDERED: INSULIN GLARGINE 100 UNITS/ML SUBCUT NR (12:00)
[2022-06-30 14:02] LABS: PLATELET ESTIMATE INCREASED
[2022-06-30 16:00] VITALS: BP 141/60
[2022-06-30] MEDS ORDERED: LORAZEPAM 2MG/ML CPJ IV PRN (19:30)
[2022-06-30 20:00] VITALS: BP 112/58
[2022-06-30] MEDS: INSULIN GLARGINE 100 UNITS/ML SUBCUT SCH (21:59)
[2022-07-01] VITALS: BP 153/68
[2022-07-01] MEDS: DILTIAZEM HCL 60MG TABLET PO SCH ×4 (00:19→18:05)
[2022-07-01 04:00] VITALS: BP 116/53
[2022-07-01] MEDS: BLOOD SUGAR DIAGNOSTIC STRIP TEST SCH ×4 (06:00→18:06)
[2022-07-01] MEDS: ACETAMINOPHEN 325MG TABLET PO PRN ×3 (06:22→21:28)
[2022-07-01] MEDS: INSULIN LISPRO 100 UNITS/ML SUBCUT SCH ×4 (06:23→18:05)
[2022-07-01 08:00] VITALS: BP 116/58
[2022-07-01] MEDS: METHYLPREDNISOLONE SOD SUCC 40 MG/ML VIAL IV SCH (08:26)
[2022-07-01] MEDS: INSULIN GLARGINE 100 UNITS/ML SUBCUT SCH ×2 (10:00→21:31)
[2022-07-01 11:11] LABS: BG CARBOXYHEMOGLOBIN 0.6 % (0.5-1.5); BG DEOXYHEMOGLOBIN 13.6 % (0.0-5.0); BG FRACTION INSPIRED OXYGEN 50; BG HCO3 ACT 40.7 mmol/L (22.0-26.0); BG METHEMOGLOBIN 0.2 % (0.0-1.5); BG OXYGEN SATURATION 86.3 % (92.0-98.5); BG OXYHEMOGLOBIN 85.6 % (94.0-97.0); BG PCO2 86.8 mmHg (35.0-45.0); BG PH 7.289 (7.350-7.450); BG PO2 55.4 mmHg (75.0-100.0); BG SAMPLE SITE RIGHT RADIAL; BG TOTAL HEMOGLOBIN 8.7 g/dL (12.0-18.0); BG VENT MODE MASK - BIPAP
[2022-07-01 12:00] VITALS: BP 137/67
[2022-07-01 13:21] LABS: BG BASE EXCESS 10.8 mmol/L (-2.0-2.0); BG CARBOXYHEMOGLOBIN 0.6 % (0.5-1.5); BG DEOXYHEMOGLOBIN 7.7 % (0.0-5.0); BG FRACTION INSPIRED OXYGEN 50; BG HCO3 ACT 38.5 mmol/L (22.0-26.0); BG METHEMOGLOBIN 0.1 % (0.0-1.5); BG OXYGEN SATURATION 92.2 % (92.0-98.5); BG OXYHEMOGLOBIN 91.6 % (94.0-97.0); BG PCO2 75.2 mmHg (35.0-45.0); BG PH 7.327 (7.350-7.450); BG PO2 65.9 mmHg (75.0-100.0); BG SAMPLE SITE RIGHT RADIAL; BG TOTAL HEMOGLOBIN 8.5 g/dL (12.0-18.0); BG VENT MODE MASK - BIPAP
[2022-07-01 16:00] VITALS: BP 116/67
[2022-07-01 20:00] VITALS: BP 127/58
[2022-07-01] MEDS: LACTULOSE 20G/30ML UDC PO PRN (21:27)
[2022-07-02] MEDS: BLOOD SUGAR DIAGNOSTIC STRIP TEST SCH ×5 (00:11→20:25)
[2022-07-02 00:44] VITALS: BP 143/65
[2022-07-02] MEDS: DILTIAZEM HCL 60MG TABLET PO SCH ×4 (01:02→17:37)
[2022-07-02] MEDS: INSULIN LISPRO 100 UNITS/ML SUBCUT SCH ×5 (01:03→21:12)
[2022-07-02 04:00] VITALS: BP 128/60
[2022-07-02 05:44] LABS: HEMATOCRIT. 27.1 % (36.0-48.0); HEMOGLOBIN. 8.4 g/dL (12.0-16.0); MEAN CORPUSCULAR HEMOGLOBIN 28.6 pg (28.0-32.0); MEAN CORPUSCULAR VOLUME 91.9 fL (81.0-99.0); MEAN PLATELET VOLUME 7.9 fl (7.4-10.4); PLATELET 500 x1000/uL (130-400); RED BLOOD CELL COUNT 2.95 mill/uL (4.2-5.4); RED CELL DISTRIBUTION WIDTH 19.2 % (11.6-14.6)
[2022-07-02 07:59] LABS: CHLORIDE 98 mEq/L (98-107)
[2022-07-02 08:00] VITALS: BP 142/62
[2022-07-02 08:58] LABS: BG CARBOXYHEMOGLOBIN 0.5 % (0.5-1.5); BG DEOXYHEMOGLOBIN 7.6 % (0.0-5.0); BG FRACTION INSPIRED OXYGEN 50; BG HCO3 ACT 41.5 mmol/L (22.0-26.0); BG METHEMOGLOBIN 0.3 % (0.0-1.5); BG OXYGEN SATURATION 92.3 % (92.0-98.5); BG OXYHEMOGLOBIN 91.6 % (94.0-97.0); BG PCO2 65.3 mmHg (35.0-45.0); BG PH 7.421 (7.350-7.450); BG PO2 61.5 mmHg (75.0-100.0); BG SAMPLE SITE RIGHT RADIAL; BG TOTAL HEMOGLOBIN 9.1 g/dL (12.0-18.0); BG TOTAL RESPIRATORY RATE 29 b/min; BG VENT MODE MASK - BIPAP
[2022-07-02] MEDS: INSULIN GLARGINE 100 UNITS/ML SUBCUT SCH ×2 (09:27→21:13)
[2022-07-02] MEDS: METHYLPREDNISOLONE SOD SUCC 40 MG/ML VIAL IV SCH (09:27)
[2022-07-02 12:00] VITALS: BP 149/72
[2022-07-02] MEDS: ACETAMINOPHEN 325MG TABLET PO PRN (12:40)
[2022-07-02] MEDS: IPRATROPIUM/ALBUTEROL 0.5-3(2.5)MG/3ML NEB HHN PRN (12:57)
[2022-07-02 16:00] VITALS: BP 143/78
[2022-07-02 20:00] VITALS: BP 137/56
[2022-07-03] VITALS: BP 188/100
[2022-07-03] MEDS: ACETAMINOPHEN 325MG TABLET PO PRN ×3 (00:05→23:54)
[2022-07-03] MEDS: DILTIAZEM HCL 60MG TABLET PO SCH ×5 (00:49→23:55)
[2022-07-03 04:00] VITALS: BP 156/81
[2022-07-03] MEDS: BLOOD SUGAR DIAGNOSTIC STRIP TEST SCH ×4 (05:04→21:03)
[2022-07-03] MEDS: INSULIN LISPRO 100 UNITS/ML SUBCUT SCH ×4 (05:29→21:37)
[2022-07-03 07:33] LABS: PLATELET ESTIMATE INCREASED
[2022-07-03 08:00] VITALS: BP 166/76
[2022-07-03] MEDS ORDERED: DILTIAZEM HCL 5MG/ML 5ML VIAL IV NR (09:00)
[2022-07-03] MEDS ORDERED: NON FORMULARY PATIENT HOME MED XX SCH (09:00)
[2022-07-03] MEDS: METHYLPREDNISOLONE SOD SUCC 40 MG/ML VIAL IV SCH (09:11)
[2022-07-03] MEDS: INSULIN GLARGINE 100 UNITS/ML SUBCUT SCH ×2 (09:12→21:37)
[2022-07-03 12:00] VITALS: BP 164/84
[2022-07-03 16:00] VITALS: BP 113/74
[2022-07-03 20:00] VITALS: BP 140/64
[2022-07-04] VITALS: BP 156/78
[2022-07-04 04:00] VITALS: BP 160/71
[2022-07-04] MEDS: BLOOD SUGAR DIAGNOSTIC STRIP TEST SCH ×3 (05:24→17:20)
[2022-07-04] MEDS: DILTIAZEM HCL 60MG TABLET PO SCH ×3 (05:36→17:20)
[2022-07-04] MEDS: INSULIN LISPRO 100 UNITS/ML SUBCUT SCH ×3 (05:37→17:31)
[2022-07-04 08:00] VITALS: BP 137/65
[2022-07-04] MEDS: METHYLPREDNISOLONE SOD SUCC 40 MG/ML VIAL IV SCH (09:42)
[2022-07-04] MEDS: ACETAMINOPHEN 325MG TABLET PO PRN ×2 (09:45→17:20)
[2022-07-04 11:53] LABS: BG BASE EXCESS 14.6 mmol/L (-2.0-2.0); BG CARBOXYHEMOGLOBIN 0.5 % (0.5-1.5); BG DEOXYHEMOGLOBIN 2.2 % (0.0-5.0); BG FRACTION INSPIRED OXYGEN 50; BG HCO3 ACT 42.2 mmol/L (22.0-26.0); BG METHEMOGLOBIN 0.3 % (0.0-1.5); BG OXYGEN SATURATION 97.8 % (92.0-98.5); BG PCO2 72.4 mmHg (35.0-45.0); BG PH 7.383 (7.350-7.450); BG PO2 97.4 mmHg (75.0-100.0); BG SAMPLE SITE RIGHT RADIAL; BG TOTAL HEMOGLOBIN 9.9 g/dL (12.0-18.0); BG TOTAL RESPIRATORY RATE 24 b/min; BG VENT MODE MASK - BIPAP
[2022-07-04 12:00] VITALS: BP 135/67
[2022-07-04] MEDS: INSULIN GLARGINE 100 UNITS/ML SUBCUT SCH ×2 (14:15→21:33)
[2022-07-04 16:00] VITALS: BP 132/65
[2022-07-04 16:12] LABS: HEMATOCRIT. 28.9 % (36.0-48.0); HEMOGLOBIN. 8.8 g/dL (12.0-16.0); MEAN CORPUSCULAR HEMOGLOBIN 28.3 pg (28.0-32.0); MEAN CORPUSCULAR VOLUME 92.9 fL (81.0-99.0); PLATELET 459 x1000/uL (130-400); RED BLOOD CELL COUNT 3.11 mill/uL (4.2-5.4)
[2022-07-04 16:21] LABS: CHLORIDE 93 mEq/L (98-107)
[2022-07-04 20:00] VITALS: BP 117/69
[2022-07-05] VITALS: BP 137/59
[2022-07-05] MEDS: INSULIN LISPRO 100 UNITS/ML SUBCUT SCH ×4 (00:35→17:19)
[2022-07-05] MEDS: BLOOD SUGAR DIAGNOSTIC STRIP TEST SCH ×4 (00:35→17:19)
[2022-07-05] MEDS: DILTIAZEM HCL 60MG TABLET PO SCH ×4 (00:35→17:16)
[2022-07-05] MEDS: ACETAMINOPHEN 325MG TABLET PO PRN ×3 (00:53→21:02)
[2022-07-05 04:00] VITALS: BP 138/72
[2022-07-05 04:17] LABS: PLATELET ESTIMATE NORMAL
[2022-07-05 06:38] LABS: HEMATOCRIT. 27.2 % (36.0-48.0); HEMOGLOBIN. 8.6 g/dL (12.0-16.0); MEAN CORPUSCULAR HEMOGLOBIN 28.7 pg (28.0-32.0); MEAN CORPUSCULAR VOLUME 91.2 fL (81.0-99.0); PLATELET 430 x1000/uL (130-400); RED BLOOD CELL COUNT 2.99 mill/uL (4.2-5.4); RED CELL DISTRIBUTION WIDTH 19.6 % (11.6-14.6)
[2022-07-05 07:33] LABS: CHLORIDE 96 mEq/L (98-107)
[2022-07-05] MEDS: METHYLPREDNISOLONE SOD SUCC 40 MG/ML VIAL IV SCH (09:00)
[2022-07-05 10:52] LABS: PLATELET ESTIMATE INCREASED
[2022-07-05] MEDS: INSULIN GLARGINE 100 UNITS/ML SUBCUT SCH ×2 (12:01→20:59)
[2022-07-05 12:09] VITALS: BP 141/78
[2022-07-05 16:00] VITALS: BP 130/72
[2022-07-05] MEDS: HYDROCODONE/ACETAMINOPHEN 5/325MG TABLET PO PRN (17:18)
[2022-07-05 18:11] LABS: HEPATITIS B SURFACE ANTIGEN NEGATIVE
[2022-07-05 20:00] VITALS: BP 122/56
[2022-07-05] MEDS ORDERED: NALOXONE HCL 0.4MG/ML VIAL IV PRN (21:15)
[2022-07-06] VITALS: BP 148/68
[2022-07-06] MEDS: DILTIAZEM HCL 60MG TABLET PO SCH ×4 (01:05→18:21)
[2022-07-06] MEDS: HYDROCODONE/ACETAMINOPHEN 5/325MG TABLET PO PRN ×3 (01:07→21:52)
[2022-07-06] MEDS: INSULIN LISPRO 100 UNITS/ML SUBCUT SCH ×5 (01:12→23:18)
[2022-07-06 04:00] VITALS: BP 123/55
[2022-07-06] MEDS: BLOOD SUGAR DIAGNOSTIC STRIP TEST SCH ×5 (05:21→23:19)
[2022-07-06] MEDS: ACETAMINOPHEN 325MG TABLET PO PRN (05:23)
[2022-07-06 08:00] VITALS: BP 146/65
[2022-07-06] MEDS: METHYLPREDNISOLONE SOD SUCC 40 MG/ML VIAL IV SCH (09:18)
[2022-07-06] MEDS: INSULIN GLARGINE 100 UNITS/ML SUBCUT SCH ×2 (09:27→21:50)
[2022-07-06 12:00] VITALS: BP 153/64
[2022-07-06 16:00] VITALS: BP 150/63
[2022-07-06 20:00] VITALS: BP 122/52
[2022-07-07] VITALS: BP 128/46
[2022-07-07] MEDS: DILTIAZEM HCL 60MG TABLET PO SCH ×4 (01:08→17:33)
[2022-07-07 04:00] VITALS: BP 155/62
[2022-07-07] MEDS: BLOOD SUGAR DIAGNOSTIC STRIP TEST SCH ×4 (05:47→23:49)
[2022-07-07] MEDS: INSULIN LISPRO 100 UNITS/ML SUBCUT SCH ×3 (05:49→17:34)
[2022-07-07 07:56] LABS: HEMATOCRIT. 30.8 % (36.0-48.0); HEMOGLOBIN. 9.8 g/dL (12.0-16.0); MEAN CORPUSCULAR HEMOGLOBIN 29.1 pg (28.0-32.0); MEAN CORPUSCULAR VOLUME 91.9 fL (81.0-99.0); MEAN PLATELET VOLUME 8.3 fl (7.4-10.4); PLATELET 393 x1000/uL (130-400); RED BLOOD CELL COUNT 3.35 mill/uL (4.2-5.4); RED CELL DISTRIBUTION WIDTH 19.8 % (11.6-14.6)
[2022-07-07 08:00] VITALS: BP 115/56
[2022-07-07 09:02] LABS: CHLORIDE 96 mEq/L (98-107)
[2022-07-07] MEDS: METHYLPREDNISOLONE SOD SUCC 40 MG/ML VIAL IV SCH (09:21)
[2022-07-07 12:00] VITALS: BP 126/57
[2022-07-07] MEDS: INSULIN GLARGINE 100 UNITS/ML SUBCUT SCH ×2 (12:52→20:46)
[2022-07-07 16:00] VITALS: BP 138/69
[2022-07-07 20:00] VITALS: BP 137/74
[2022-07-07] MEDS: HYDROCODONE/ACETAMINOPHEN 5/325MG TABLET PO PRN (20:45)
[2022-07-07] MEDS ORDERED: TEMAZEPAM 15MG CAPSULE PO PRN (22:15)
[2022-07-07] MEDS: ACETAMINOPHEN 325MG TABLET PO PRN (22:23)
[2022-07-08] MEDS: INSULIN LISPRO 100 UNITS/ML SUBCUT SCH ×4 (00:19→17:28)
[2022-07-08] MEDS: DILTIAZEM HCL 60MG TABLET PO SCH ×4 (00:19→17:27)
[2022-07-08 00:30] VITALS: BP 139/65
[2022-07-08 04:00] VITALS: BP 132/72
[2022-07-08] MEDS: HYDROCODONE/ACETAMINOPHEN 5/325MG TABLET PO PRN ×2 (05:05→13:51)
[2022-07-08] MEDS: BLOOD SUGAR DIAGNOSTIC STRIP TEST SCH ×3 (05:09→17:30)
[2022-07-08] MEDS: ACETAMINOPHEN 325MG TABLET PO PRN (05:10)
[2022-07-08 05:33] LABS: BASOPHILS % 0.2 % (0.0-2.0); HEMATOCRIT. 31.8 % (36.0-48.0); HEMOGLOBIN. 9.7 g/dL (12.0-16.0); LYMPHOCYTES % 8.2 % (20.0-50.0); MEAN CORPUSCULAR HEMOGLOBIN 28.1 pg (28.0-32.0); MEAN CORPUSCULAR VOLUME 92.1 fL (81.0-99.0); MEAN PLATELET VOLUME 8.4 fl (7.4-10.4); MONOCYTES % 10.3 % (2.0-8.0); NEUTROPHILS % 81.3 % (40.0-76.0); PLATELET 342 x1000/uL (130-400); RED BLOOD CELL COUNT 3.45 mill/uL (4.2-5.4); RED CELL DISTRIBUTION WIDTH 19.7 % (11.6-14.6)
[2022-07-08 06:14] LABS: CHLORIDE 96 mEq/L (98-107)
[2022-07-08 06:37] LABS: PLATELET ESTIMATE NORMAL
[2022-07-08 08:00] VITALS: BP 152/68
[2022-07-08] MEDS: METHYLPREDNISOLONE SOD SUCC 40 MG/ML VIAL IV SCH (09:20)
[2022-07-08] MEDS: INSULIN GLARGINE 100 UNITS/ML SUBCUT SCH ×2 (09:31→21:24)
[2022-07-08 12:00] VITALS: BP 126/56
[2022-07-08 16:00] VITALS: BP 137/65
[2022-07-08 20:00] VITALS: BP 114/60
[2022-07-09] VITALS: BP 128/77
[2022-07-09] MEDS ORDERED: INSULIN LISPRO 100 UNITS/ML SUBCUT NR ×2 (00:45→22:00)
[2022-07-09] MEDS: DILTIAZEM HCL 60MG TABLET PO SCH ×5 (01:08→23:53)
[2022-07-09 04:00] VITALS: BP 118/50
[2022-07-09 06:26] LABS: CHLORIDE 95 mEq/L (98-107)
[2022-07-09 06:51] LABS: HEMOGLOBIN. 9.2 g/dL (12.0-16.0); MEAN CORPUSCULAR HEMOGLOBIN 28.4 pg (28.0-32.0); MEAN CORPUSCULAR VOLUME 91.8 fL (81.0-99.0); MEAN PLATELET VOLUME 8.7 fl (7.4-10.4); PLATELET 315 x1000/uL (130-400); RED BLOOD CELL COUNT 3.26 mill/uL (4.2-5.4); RED CELL DISTRIBUTION WIDTH 19.7 % (11.6-14.6)
[2022-07-09 08:00] VITALS: BP 120/63
[2022-07-09] MEDS ORDERED: INSULIN LISPRO 100 UNITS/ML SUBCUT SCH (08:10)
[2022-07-09] MEDS: INSULIN LISPRO 100 UNITS/ML SUBCUT SCH ×4 (08:10→21:52)
[2022-07-09] MEDS: METHYLPREDNISOLONE SOD SUCC 40 MG/ML VIAL IV SCH (09:41)
[2022-07-09 09:52] LABS: PLATELET ESTIMATE NORMAL
[2022-07-09] MEDS: INSULIN GLARGINE 100 UNITS/ML SUBCUT SCH (10:09)
[2022-07-09 12:05] VITALS: BP 133/70
[2022-07-09 16:37] VITALS: BP 122/54
[2022-07-09 20:00] VITALS: BP 127/63
[2022-07-09] MEDS ORDERED: DEXTROSE 50% WATER 50ML SYRINGE IV PRN (21:00)
[2022-07-09] MEDS: BLOOD SUGAR DIAGNOSTIC STRIP TEST SCH (21:53)
[2022-07-09] MEDS ORDERED: INSULIN GLARGINE 100 UNITS/ML SUBCUT SCH (22:00)
[2022-07-09] MEDS: HYDROCODONE/ACETAMINOPHEN 5/325MG TABLET PO PRN (23:52)
[2022-07-10] VITALS: BP 117/53
[2022-07-10 04:00] VITALS: BP 126/64
[2022-07-10] MEDS: DILTIAZEM HCL 60MG TABLET PO SCH (06:00)
[2022-07-10 06:13] LABS: BASOPHILS % 0.1 % (0.0-2.0); HEMATOCRIT. 31.2 % (36.0-48.0); HEMOGLOBIN. 9.5 g/dL (12.0-16.0); LYMPHOCYTES % 10.2 % (20.0-50.0); MEAN CORPUSCULAR HEMOGLOBIN 28.4 pg (28.0-32.0); MEAN CORPUSCULAR VOLUME 92.7 fL (81.0-99.0); MEAN PLATELET VOLUME 8.8 fl (7.4-10.4); NEUTROPHILS % 78.7 % (40.0-76.0); PLATELET 300 x1000/uL (130-400); RED BLOOD CELL COUNT 3.36 mill/uL (4.2-5.4); RED CELL DISTRIBUTION WIDTH 19.6 % (11.6-14.6)
[2022-07-10 06:14] LABS: CHLORIDE 95 mEq/L (98-107)
[2022-07-10] MEDS: BLOOD SUGAR DIAGNOSTIC STRIP TEST SCH (06:47)
[2022-07-10] MEDS: METHYLPREDNISOLONE SOD SUCC 40 MG/ML VIAL IV SCH (08:48)
[2022-07-10] MEDS: ACETAMINOPHEN 325MG TABLET PO PRN (09:00)
[2022-07-10] MEDS: INSULIN LISPRO 100 UNITS/ML SUBCUT SCH (09:05)
[2022-07-10 09:24] VITALS: BP 129/62
[2022-07-10 09:43] VITALS: BP 129/62
== END 2022-07-10 12:35 | DRG 207 ==
LOC: ER 13:13 → EDBEDREQTM 15:31 → EDBEDREQ 15:31 → ENRESERV 15:35 → MICUSO 15:59 → 7WST 06-29 16:56
PROVIDERS: ADMIT Internal Medicine; ATTEND Internal Medicine
PROC: 0BH17EZ Insertion of Endotracheal Airway into Trachea, Via Natural or Artificial Opening (ICD-10-PCS; principal; 2022-06-21)
PROC: 5A1955Z Respiratory Ventilation, Greater than 96 Consecutive Hours (ICD-10-PCS; 2022-06-21)
PROC: 30233N1 Transfusion of Nonautologous Red Blood Cells into Peripheral Vein, Percutaneous Approach (ICD-10-PCS; 2022-06-23)
PROC: 02HV33Z Insertion of Infusion Device into Superior Vena Cava, Percutaneous Approach (ICD-10-PCS; 2022-06-24)
PROC: B548ZZA Ultrasonography of Superior Vena Cava, Guidance (ICD-10-PCS; 2022-06-24)
PROC: 5A09357 Assistance with Respiratory Ventilation, Less than 24 Consecutive Hours, Continuous Positive Airway Pressure (ICD-10-PCS; 2022-06-28)
PROC: 5A09357 Assistance with Respiratory Ventilation, Less than 24 Consecutive Hours, Continuous Positive Airway Pressure (ICD-10-PCS; 2022-06-30)
PROC: 5A09457 Assistance with Respiratory Ventilation, 24-96 Consecutive Hours, Continuous Positive Airway Pressure (ICD-10-PCS; 2022-07-01)
PROC: 5A09357 Assistance with Respiratory Ventilation, Less than 24 Consecutive Hours, Continuous Positive Airway Pressure (ICD-10-PCS; 2022-07-04)
PROC: 5A09357 Assistance with Respiratory Ventilation, Less than 24 Consecutive Hours, Continuous Positive Airway Pressure (ICD-10-PCS; 2022-07-05)
PROC: 5A09357 Assistance with Respiratory Ventilation, Less than 24 Consecutive Hours, Continuous Positive Airway Pressure (ICD-10-PCS; 2022-07-06)
DX: J96.02 Acute respiratory failure with hypercapnia (principal); E43 Unspecified severe protein-calorie malnutrition; J18.9 Pneumonia, unspecified organism; J44.0 Chronic obstructive pulmonary disease with (acute) lower respiratory infection; I48.92 Unspecified atrial flutter; J96.01 Acute respiratory failure with hypoxia; F03.90 Unspecified dementia, unspecified severity, without behavioral disturbance, psychotic disturbance, mood disturbance, and anxiety; E11.9 Type 2 diabetes mellitus without complications; D50.9 Iron deficiency anemia, unspecified; K74.60 Unspecified cirrhosis of liver; E87.6 Hypokalemia; J44.9 Chronic obstructive pulmonary disease, unspecified; I48.0 Paroxysmal atrial fibrillation; I34.81 Nonrheumatic mitral (valve) annulus calcification; K21.9 Gastro-esophageal reflux disease without esophagitis; B19.20 Unspecified viral hepatitis C without hepatic coma; Z20.822 Contact with and (suspected) exposure to COVID-19; E78.5 Hyperlipidemia, unspecified; K59.00 Constipation, unspecified; I50.9 Heart failure, unspecified; I11.0 Hypertensive heart disease with heart failure; Z86.711 Personal history of pulmonary embolism; Z86.73 Personal history of transient ischemic attack (TIA), and cerebral infarction without residual deficits; Z90.49 Acquired absence of other specified parts of digestive tract; Z68.28 Body mass index [BMI] 28.0-28.9, adult
CPT/HCPCS: 31500; 36415; 36573; 36600; 71045; 71275; 76705; 78227; 80048; 80053; 80076; 80202; 80305; 81003; 82248; 82270; 82375; 82550; 82553; 82607; 82805; 82962; 83036; 83540; 83550; 83605; 83735; 83880; 84145; 84439; 84443; 84481; 84484; 85014; 85018; 85025; 85379; 86705; 86709; 86803; 86850; 86900; 86920; 87015; 87045; 87070; 87340; 87426; 87427; 87449; 89055; 93005; 93306; 93970; 94002; 94003; 94640; 94660; 99285; A6261; A9537; C1725; C1893; J1815; J2060; J2185; J2250; J2370; J2405; J2543; J2704; J2920; J3010; J3370; J3480; J3490; J7030; J7050; J7060; P9016; Q9967; A4315

== ENCOUNTER 2022-08-28 01:04 | Inpatient (IN) | payer MEDICARE, MEDICAID ==
[~2022-08-28] VITALS: Ht 165.1 cm; Wt 88.9 kg
[2022-08-28] VITALS (49 sets, daily range): BP systolic 80–143; BP diastolic 50–83
[2022-08-28] MEDS: IPRATROPIUM/ALBUTEROL 0.5-3(2.5)MG/3ML NEB HHN SCH ×3 (00:20→21:19)
[2022-08-28] MEDS ORDERED: SODIUM CHLORIDE 0.9% 1,000 ML IV ONE (02:00)
[2022-08-28 02:27] LABS: BG BASE EXCESS 22.2 mmol/L (-2.0-2.0); BG CARBOXYHEMOGLOBIN 1.3 % (0.5-1.5); BG DEOXYHEMOGLOBIN 3.6 % (0.0-5.0); BG FRACTION INSPIRED OXYGEN 32; BG HCO3 ACT 54.9 mmol/L (22.0-26.0); BG METHEMOGLOBIN 0.2 % (0.0-1.5); BG OXYGEN SATURATION 96.3 % (92.0-98.5); BG OXYHEMOGLOBIN 94.9 % (94.0-97.0); BG PCO2 138.1 mmHg (35.0-45.0); BG PH 7.217 (7.350-7.450); BG PO2 93.8 mmHg (75.0-100.0); BG SAMPLE SITE LEFT RADIAL; BG TOTAL HEMOGLOBIN 10.4 g/dL (12.0-18.0); BG VENT MODE NASAL CANNULA
[2022-08-28] MEDS ORDERED: MIDAZOLAM HCL 100 MG in DEXT 5% WATER 80 ML IV ONE (02:45)
[2022-08-28] MEDS ORDERED: SUCCINYLCHOLINE CHLORIDE 200MG/10ML IV ONE (02:45)
[2022-08-28] MEDS ORDERED: PROPOFOL 10MG/ML 100ML 100 ML IV ONE (02:45)
[2022-08-28] MEDS ORDERED: ETOMIDATE 2MG/ML 10ML VIAL IV ONE (02:45)
[2022-08-28 02:58] LABS: BASOPHILS % 0.4 % (0.0-2.0); EOSINOPHILS % 0.5 % (0.0-5.0); HEMATOCRIT. 30.5 % (36.0-48.0); HEMOGLOBIN. 9.3 g/dL (12.0-16.0); MEAN CORPUSCULAR HEMOGLOBIN 30.1 pg (28.0-32.0); MEAN CORPUSCULAR VOLUME 98.5 fL (81.0-99.0); MEAN PLATELET VOLUME 8.5 fl (7.4-10.4); NEUTROPHILS % 77.1 % (40.0-76.0); PLATELET 344 x1000/uL (130-400); RED BLOOD CELL COUNT 3.09 mill/uL (4.2-5.4); RED CELL DISTRIBUTION WIDTH 15.4 % (11.6-14.6)
[2022-08-28] MEDS ORDERED: MIDAZOLAM HCL 100 MG in SODIUM CHLORIDE 0.9% 100 ML IV NR (03:00)
[2022-08-28 03:03] LABS: CHLORIDE 96 mEq/L (98-107)
[2022-08-28] MEDS ORDERED: PIPERACILLIN/TAZ 3.375G PREMIX 50 ML IV NR (03:45)
[2022-08-28] MEDS ORDERED: VANCOMYCIN 1G PREMIX 200 ML IV NR (03:45)
[2022-08-28] MEDS: SODIUM CHLORIDE 0.9% 1,000 ML IV NR ×3 (03:45→04:39)
[2022-08-28 04:54] LABS: BG BASE EXCESS 13.4 mmol/L (-2.0-2.0); BG CARBOXYHEMOGLOBIN 0.9 % (0.5-1.5); BG DEOXYHEMOGLOBIN 0.6 % (0.0-5.0); BG FRACTION INSPIRED OXYGEN 50; BG HCO3 ACT 38.4 mmol/L (22.0-26.0); BG METHEMOGLOBIN 0.2 % (0.0-1.5); BG OXYGEN SATURATION 99.4 % (92.0-98.5); BG OXYHEMOGLOBIN 98.3 % (94.0-97.0); BG PCO2 50.4 mmHg (35.0-45.0); BG SAMPLE SITE LEFT RADIAL; BG TOTAL HEMOGLOBIN 11.8 g/dL (12.0-18.0); BG VENT MODE VENT - AC
[2022-08-28 05:13] LABS: CLARITY URINE CLEAR (CLEAR); COLOR URINE YELLOW (YELLOW); KETONES URINE NEGATIVE (NEGATIVE); LEUKOCYTE ESTERASE URINE TRACE (NEGATIVE); NITRITE URINE POSITIVE (NEGATIVE); OCCULT BLOOD URINE NEGATIVE (NEGATIVE); PROTEIN URINE 1+ (NEGATIVE); SPECIFIC GRAVITY URINE 1.019 (1.005-1.030)
[2022-08-28] MEDS ORDERED: ONDANSETRON HCL 4MG/2ML INJ IV PRN (10:30)
[2022-08-28] MEDS ORDERED: DEXTROSE 50% WATER 50ML SYRINGE IV PRN (10:45)
[2022-08-28] MEDS ORDERED: NOREPINEPHRINE 32 MG in DEXT 5% WATER 218 ML IV PRN (11:00)
[2022-08-28] MEDS: PANTOPRAZOLE SODIUM 40 MG/VIAL IV SCH (11:09)
[2022-08-28] MEDS: INSULIN LISPRO 100 UNITS/ML SUBCUT SCH ×2 (12:00→17:28)
[2022-08-28] MEDS: BLOOD SUGAR DIAGNOSTIC STRIP TEST SCH ×2 (12:08→17:27)
[2022-08-28] MEDS: PIPERACILLIN/TAZOBACTAM 3.375 G in DEXTROSE 5% WATER 50 ML IV SCH ×2 (12:14→21:36)
[2022-08-28] MEDS: ACETAMINOPHEN 325MG TABLET PO PRN (16:24)
[2022-08-28 16:26] LABS: BG BASE EXCESS 13.7 mmol/L (-2.0-2.0); BG CARBOXYHEMOGLOBIN 0.3 % (0.5-1.5); BG DEOXYHEMOGLOBIN 0.8 % (0.0-5.0); BG FRACTION INSPIRED OXYGEN 50; BG HCO3 ACT 35.3 mmol/L (22.0-26.0); BG METHEMOGLOBIN 0.3 % (0.0-1.5); BG OXYGEN SATURATION 99.2 % (92.0-98.5); BG OXYHEMOGLOBIN 98.6 % (94.0-97.0); BG PCO2 32.7 mmHg (35.0-45.0); BG PH 7.651 (7.350-7.450); BG PO2 159.8 mmHg (75.0-100.0); BG SAMPLE SITE LEFT RADIAL; BG TOTAL HEMOGLOBIN 9.5 g/dL (12.0-18.0); BG TOTAL RESPIRATORY RATE 20 b/min; BG VENT MODE VENT - AC
[2022-08-28 16:36] LABS: CREATINE KINASE 67 IU/L (26-192)
[2022-08-28] MEDS: VANCOMYCIN 750MG PREMIX 150 ML IV SCH (17:33)
[2022-08-28 19:04] LABS: BG BASE EXCESS 13.5 mmol/L (-2.0-2.0); BG CARBOXYHEMOGLOBIN 0.1 % (0.5-1.5); BG DEOXYHEMOGLOBIN 0.8 % (0.0-5.0); BG FRACTION INSPIRED OXYGEN 50; BG METHEMOGLOBIN 0.4 % (0.0-1.5); BG OXYGEN SATURATION 99.2 % (92.0-98.5); BG OXYHEMOGLOBIN 98.7 % (94.0-97.0); BG PH 7.516 (7.350-7.450); BG PO2 152.3 mmHg (75.0-100.0); BG SAMPLE SITE LEFT RADIAL; BG TOTAL HEMOGLOBIN 9.7 g/dL (12.0-18.0); BG TOTAL RESPIRATORY RATE 17 b/min; BG VENT MODE VENT - AC
[2022-08-28] MEDS ORDERED: PHENYLEPHRINE 100 MG in DEXT 5% WATER 240 ML IV PRN (20:15)
[2022-08-28] MEDS ORDERED: FENTANYL 2500MCG/250ML PMX 250 ML IV ONE (20:15)
[2022-08-28 20:28] LABS: CREATINE KINASE MB FRACTION < 1.0 ng/mL (0.5-3.6)
[2022-08-28] MEDS ORDERED: DILTIAZEM HCL 30MG TABLET PO SCH (21:00)
[2022-08-28] MEDS: FENTANYL CITRATE 2,500 MCG in SODIUM CHLORIDE 0.9% 200 ML IV PRN (21:36)
[2022-08-28] MEDS: MIDAZOLAM HCL 100 MG in SODIUM CHLORIDE 0.9% 80 ML IV PRN (22:28)
[2022-08-28 23:17] LABS: CREATINE KINASE MB FRACTION 1.3 ng/mL (0.5-3.6)
[2022-08-29] VITALS (53 sets, daily range): BP systolic 86–145; BP diastolic 48–77
[2022-08-29] MEDS: BLOOD SUGAR DIAGNOSTIC STRIP TEST SCH ×4 (00:40→17:19)
[2022-08-29] MEDS ORDERED: DILTIAZEM HCL 30MG TABLET PO SCH (00:45)
[2022-08-29] MEDS: METHYLPREDNISOLONE SOD SUCC 40 MG/ML VIAL IV SCH ×4 (00:55→21:40)
[2022-08-29] MEDS: DILTIAZEM HCL 30MG TABLET PO SCH ×4 (03:51→21:00)
[2022-08-29] MEDS: IPRATROPIUM/ALBUTEROL 0.5-3(2.5)MG/3ML NEB HHN SCH ×5 (04:57→20:59)
[2022-08-29 05:21] LABS: HEMOGLOBIN 8.9 g/dL (12.0-16.0); PLATELET 280 x1000/uL (130-400); RED BLOOD CELL COUNT 2.96 mill/uL (4.2-5.4); RED CELL DISTRIBUTION WIDTH 15.4 % (11.6-14.6)
[2022-08-29 05:28] LABS: CHLORIDE 99 mEq/L (98-107)
[2022-08-29] MEDS: PIPERACILLIN/TAZOBACTAM 3.375 G in DEXTROSE 5% WATER 50 ML IV SCH ×3 (05:53→21:40)
[2022-08-29] MEDS: INSULIN LISPRO 100 UNITS/ML SUBCUT SCH ×4 (05:55→17:19)
[2022-08-29] MEDS: PANTOPRAZOLE SODIUM 40 MG/VIAL IV SCH (08:24)
[2022-08-29] MEDS: VANCOMYCIN 750MG PREMIX 150 ML IV SCH (11:42)
[2022-08-29] MEDS ORDERED: FUROSEMIDE 40MG/4ML VIAL IVP NR (17:30)
[2022-08-29 18:40] LABS: BG BASE EXCESS 12.9 mmol/L (-2.0-2.0); BG CARBOXYHEMOGLOBIN 0.2 % (0.5-1.5); BG DEOXYHEMOGLOBIN 0.9 % (0.0-5.0); BG FRACTION INSPIRED OXYGEN 50; BG HCO3 ACT 39.8 mmol/L (22.0-26.0); BG METHEMOGLOBIN 0.3 % (0.0-1.5); BG OXYGEN SATURATION 99.1 % (92.0-98.5); BG OXYHEMOGLOBIN 98.6 % (94.0-97.0); BG PCO2 66.1 mmHg (35.0-45.0); BG PH 7.397 (7.350-7.450); BG PO2 140.9 mmHg (75.0-100.0); BG SAMPLE SITE RIGHT RADIAL; BG TOTAL HEMOGLOBIN 9.6 g/dL (12.0-18.0); BG VENT MODE VENT - SIMV
[2022-08-30] VITALS (77 sets, daily range): BP systolic 91–121; BP diastolic 44–94
[2022-08-30] MEDS: IPRATROPIUM/ALBUTEROL 0.5-3(2.5)MG/3ML NEB HHN SCH ×6 (00:39→20:10)
[2022-08-30] MEDS: INSULIN LISPRO 100 UNITS/ML SUBCUT SCH ×4 (01:26→17:41)
[2022-08-30] MEDS: DILTIAZEM HCL 30MG TABLET PO SCH ×4 (03:34→21:36)
[2022-08-30 05:48] LABS: CHLORIDE 97 mEq/L (98-107)
[2022-08-30] MEDS: PIPERACILLIN/TAZOBACTAM 3.375 G in DEXTROSE 5% WATER 50 ML IV SCH ×3 (06:04→21:36)
[2022-08-30] MEDS: METHYLPREDNISOLONE SOD SUCC 40 MG/ML VIAL IV SCH ×3 (06:04→21:36)
[2022-08-30] MEDS: VANCOMYCIN 750MG PREMIX 150 ML IV SCH (06:04)
[2022-08-30] MEDS: BLOOD SUGAR DIAGNOSTIC STRIP TEST SCH ×4 (06:33→17:24)
[2022-08-30 07:49] LABS: BG HCO3 ACT 39.5 mmol/L (22.0-26.0); BG METHEMOGLOBIN 0.7 % (0.0-1.5); BG OXYHEMOGLOBIN 98.3 % (94.0-97.0); BG PCO2 66.2 mmHg (35.0-45.0); BG PH 7.394 (7.350-7.450); BG PO2 159.1 mmHg (75.0-100.0); BG SAMPLE SITE RIGHT RADIAL; BG TOTAL HEMOGLOBIN 7.9 g/dL (12.0-18.0); BG VENT MODE VENT - SIMV
[2022-08-30] MEDS: MIDAZOLAM HCL 100 MG in SODIUM CHLORIDE 0.9% 80 ML IV PRN (07:59)
[2022-08-30 09:15] LABS: HEMATOCRIT. 23.1 % (36.0-48.0); HEMOGLOBIN. 7.2 g/dL (12.0-16.0); MEAN CORPUSCULAR HEMOGLOBIN 30.1 pg (28.0-32.0); MEAN CORPUSCULAR VOLUME 96.3 fL (81.0-99.0); MEAN PLATELET VOLUME 7.9 fl (7.4-10.4); PLATELET 273 x1000/uL (130-400); RED CELL DISTRIBUTION WIDTH 15.1 % (11.6-14.6)
[2022-08-30] MEDS: PANTOPRAZOLE SODIUM 40 MG/VIAL IV SCH (09:16)
[2022-08-30 10:21] LABS: PLATELET ESTIMATE NORMAL
[2022-08-30 20:48] LABS: BG BASE EXCESS 13.6 mmol/L (-2.0-2.0); BG CARBOXYHEMOGLOBIN 0.4 % (0.5-1.5); BG DEOXYHEMOGLOBIN 0.4 % (0.0-5.0); BG FRACTION INSPIRED OXYGEN 35; BG HCO3 ACT 39.2 mmol/L (22.0-26.0); BG METHEMOGLOBIN 0.3 % (0.0-1.5); BG OXYGEN SATURATION 99.6 % (92.0-98.5); BG OXYHEMOGLOBIN 98.9 % (94.0-97.0); BG PCO2 57.7 mmHg (35.0-45.0); BG PEEP (cmH2O) 0 cmH2O; BG SAMPLE SITE LEFT RADIAL; BG TOTAL HEMOGLOBIN 8.2 g/dL (12.0-18.0); BG VENT MODE VENT - SIMV
[2022-08-31] VITALS (81 sets, daily range): BP systolic 89–156; BP diastolic 34–88
[2022-08-31] MEDS: BLOOD SUGAR DIAGNOSTIC STRIP TEST SCH ×4 (00:04→17:58)
[2022-08-31] MEDS: VANCOMYCIN 750MG PREMIX 150 ML IV SCH ×2 (00:08→18:00)
[2022-08-31] MEDS: INSULIN LISPRO 100 UNITS/ML SUBCUT SCH ×4 (00:09→18:06)
[2022-08-31] MEDS: IPRATROPIUM/ALBUTEROL 0.5-3(2.5)MG/3ML NEB HHN SCH ×6 (00:18→20:03)
[2022-08-31] MEDS: DILTIAZEM HCL 30MG TABLET PO SCH ×4 (03:52→21:31)
[2022-08-31 05:45] LABS: HEMATOCRIT. 21.9 % (36.0-48.0); MEAN CORPUSCULAR HEMOGLOBIN 30.3 pg (28.0-32.0); MEAN CORPUSCULAR VOLUME 96.2 fL (81.0-99.0); MEAN PLATELET VOLUME 8.1 fl (7.4-10.4); PLATELET 291 x1000/uL (130-400); RED BLOOD CELL COUNT 2.28 mill/uL (4.2-5.4); RED CELL DISTRIBUTION WIDTH 14.9 % (11.6-14.6)
[2022-08-31 06:00] LABS: HEMOGLOBIN. 6.9 g/dL (12.0-16.0)
[2022-08-31 06:17] LABS: CHLORIDE 97 mEq/L (98-107)
[2022-08-31] MEDS: PIPERACILLIN/TAZOBACTAM 3.375 G in DEXTROSE 5% WATER 50 ML IV SCH ×3 (06:20→21:31)
[2022-08-31] MEDS: FENTANYL CITRATE 2,500 MCG in SODIUM CHLORIDE 0.9% 200 ML IV PRN (06:20)
[2022-08-31] MEDS: METHYLPREDNISOLONE SOD SUCC 40 MG/ML VIAL IV SCH ×3 (06:23→21:31)
[2022-08-31] MEDS: PANTOPRAZOLE SODIUM 40 MG/VIAL IV SCH (08:42)
[2022-08-31 08:47] LABS: PLATELET ESTIMATE NORMAL
[2022-08-31 10:06] LABS: BG BASE EXCESS 13.8 mmol/L (-2.0-2.0); BG DEOXYHEMOGLOBIN 4.5 % (0.0-5.0); BG FRACTION INSPIRED OXYGEN 30; BG METHEMOGLOBIN 0.5 % (0.0-1.5); BG OXYGEN SATURATION 95.5 % (92.0-98.5); BG PCO2 62.8 mmHg (35.0-45.0); BG PH 7.422 (7.350-7.450); BG PO2 80.4 mmHg (75.0-100.0); BG SAMPLE SITE RIGHT RADIAL; BG TOTAL HEMOGLOBIN 8.3 g/dL (12.0-18.0); BG VENT MODE VENT - CPAP
[2022-08-31] MEDS ORDERED: LORAZEPAM 2MG/ML CPJ IV PRN (12:30)
[2022-08-31 13:16] LABS: BG BASE EXCESS 15.9 mmol/L (-2.0-2.0); BG CARBOXYHEMOGLOBIN 0.4 % (0.5-1.5); BG FRACTION INSPIRED OXYGEN 30; BG METHEMOGLOBIN 0.1 % (0.0-1.5); BG OXYHEMOGLOBIN 95.5 % (94.0-97.0); BG PH 7.394 (7.350-7.450); BG PO2 79.9 mmHg (75.0-100.0); BG SAMPLE SITE RIGHT RADIAL; BG TOTAL HEMOGLOBIN 8.8 g/dL (12.0-18.0); BG VENT MODE VENT - CPAP
[2022-08-31 18:12] LABS: HEMATOCRIT. 27.5 % (36.0-48.0); HEMOGLOBIN. 8.9 g/dL (12.0-16.0); MEAN CORPUSCULAR HEMOGLOBIN 30.5 pg (28.0-32.0); MEAN CORPUSCULAR VOLUME 94.8 fL (81.0-99.0); MEAN PLATELET VOLUME 7.7 fl (7.4-10.4); PLATELET 316 x1000/uL (130-400); RED CELL DISTRIBUTION WIDTH 15.9 % (11.6-14.6)
[2022-08-31 20:05] LABS: PLATELET ESTIMATE NORMAL
[2022-09-01] VITALS (24 sets, daily range): BP systolic 104–166; BP diastolic 43–80
[2022-09-01] MEDS: BLOOD SUGAR DIAGNOSTIC STRIP TEST SCH ×4 (00:05→18:43)
[2022-09-01] MEDS: INSULIN LISPRO 100 UNITS/ML SUBCUT SCH ×4 (00:09→18:45)
[2022-09-01] MEDS: IPRATROPIUM/ALBUTEROL 0.5-3(2.5)MG/3ML NEB HHN SCH ×7 (00:16→23:54)
[2022-09-01] MEDS: DILTIAZEM HCL 30MG TABLET PO SCH ×4 (02:18→21:28)
[2022-09-01 02:21] LABS: BG BASE EXCESS 12.7 mmol/L (-2.0-2.0); BG CARBOXYHEMOGLOBIN 0.3 % (0.5-1.5); BG DEOXYHEMOGLOBIN 2.4 % (0.0-5.0); BG FRACTION INSPIRED OXYGEN 3; BG HCO3 ACT 38.9 mmol/L (22.0-26.0); BG METHEMOGLOBIN 0.1 % (0.0-1.5); BG OXYGEN SATURATION 97.6 % (92.0-98.5); BG OXYHEMOGLOBIN 97.2 % (94.0-97.0); BG PCO2 60.7 mmHg (35.0-45.0); BG PH 7.425 (7.350-7.450); BG PO2 96.8 mmHg (75.0-100.0); BG SAMPLE SITE RIGHT RADIAL; BG TOTAL HEMOGLOBIN 9.6 g/dL (12.0-18.0)
[2022-09-01 04:23] LABS: HEMATOCRIT. 26.2 % (36.0-48.0); HEMOGLOBIN. 8.4 g/dL (12.0-16.0); MEAN CORPUSCULAR HEMOGLOBIN 30.4 pg (28.0-32.0); MEAN PLATELET VOLUME 7.8 fl (7.4-10.4); PLATELET 293 x1000/uL (130-400); RED BLOOD CELL COUNT 2.76 mill/uL (4.2-5.4); RED CELL DISTRIBUTION WIDTH 15.5 % (11.6-14.6)
[2022-09-01 04:39] LABS: CHLORIDE 98 mEq/L (98-107)
[2022-09-01 04:48] LABS: INR 1.1; PROTHROMBIN TIME 11.3 sec (9.6-11.0)
[2022-09-01] MEDS: PIPERACILLIN/TAZOBACTAM 3.375 G in DEXTROSE 5% WATER 50 ML IV SCH ×3 (05:05→22:38)
[2022-09-01] MEDS: METHYLPREDNISOLONE SOD SUCC 40 MG/ML VIAL IV SCH (06:15)
[2022-09-01] MEDS ORDERED: LIDOCAINE HCL 1% 10 MG/ML 10ML VIAL ONE (07:18)
[2022-09-01] MEDS: PANTOPRAZOLE SODIUM 40 MG/VIAL IV SCH (09:23)
[2022-09-01 09:30] LABS: PLATELET ESTIMATE NORMAL
[2022-09-01] MEDS ORDERED: INSULIN GLARGINE 100 UNITS/ML SUBCUT SCH (12:30)
[2022-09-01] MEDS: ACETAMINOPHEN 325MG TABLET PO PRN (12:46)
[2022-09-01] MEDS: INSULIN GLARGINE 100 UNITS/ML SUBCUT SCH (21:30)
[2022-09-02] VITALS (7 sets, daily range): BP systolic 125–133; BP diastolic 64–76
[2022-09-02] MEDS: BLOOD SUGAR DIAGNOSTIC STRIP TEST SCH ×5 (00:18→21:44)
[2022-09-02] MEDS: INSULIN LISPRO 100 UNITS/ML SUBCUT SCH ×5 (00:28→21:43)
[2022-09-02] MEDS: DILTIAZEM HCL 30MG TABLET PO SCH ×4 (03:26→21:40)
[2022-09-02] MEDS: IPRATROPIUM/ALBUTEROL 0.5-3(2.5)MG/3ML NEB HHN SCH ×4 (03:58→20:30)
[2022-09-02] MEDS: PIPERACILLIN/TAZOBACTAM 3.375 G in DEXTROSE 5% WATER 50 ML IV SCH (05:53)
[2022-09-02] MEDS: PREDNISONE 20MG TABLET PO SCH (08:35)
[2022-09-02] MEDS: PANTOPRAZOLE SODIUM 40 MG/VIAL IV SCH (08:36)
[2022-09-02] MEDS: ACETAMINOPHEN 325MG TABLET PO PRN (10:25)
[2022-09-02] MEDS: INSULIN GLARGINE 100 UNITS/ML SUBCUT SCH ×2 (10:26→21:42)
[2022-09-03 00:01] VITALS: BP 130/71
[2022-09-03] MEDS: IPRATROPIUM/ALBUTEROL 0.5-3(2.5)MG/3ML NEB HHN SCH (00:53)
[2022-09-03 02:58] VITALS: BP 141/79
[2022-09-03] MEDS: DILTIAZEM HCL 30MG TABLET PO SCH ×2 (02:59→08:47)
[2022-09-03] MEDS: BLOOD SUGAR DIAGNOSTIC STRIP TEST SCH (06:03)
[2022-09-03] MEDS: INSULIN LISPRO 100 UNITS/ML SUBCUT SCH (06:12)
[2022-09-03 08:00] VITALS: BP 141/76
[2022-09-03] MEDS: PREDNISONE 20MG TABLET PO SCH (08:48)
[2022-09-03] MEDS: PANTOPRAZOLE SODIUM 40 MG/VIAL IV SCH (08:48)
[2022-09-03] MEDS: INSULIN GLARGINE 100 UNITS/ML SUBCUT SCH (10:01)
[2022-09-03] MEDS: ACETAMINOPHEN 325MG TABLET PO PRN (10:02)
[2022-09-03 12:00] VITALS: BP 138/82
== END 2022-09-03 12:42 | DRG 208 ==
LOC: ER 01:04 → MICUNO 03:45 → EDBEDREQ 03:56 → EDBEDREQTM 03:56 → ER 07:40 → 8WST 09-01 10:53
PROVIDERS: ADMIT Internal Medicine; ATTEND Internal Medicine
PROC: 0BH17EZ Insertion of Endotracheal Airway into Trachea, Via Natural or Artificial Opening (ICD-10-PCS; principal; 2022-08-28)
PROC: 5A1945Z Respiratory Ventilation, 24-96 Consecutive Hours (ICD-10-PCS; 2022-08-28)
PROC: 06HY33Z Insertion of Infusion Device into Lower Vein, Percutaneous Approach (ICD-10-PCS; 2022-08-28)
PROC: B54BZZA Ultrasonography of Right Lower Extremity Veins, Guidance (ICD-10-PCS; 2022-08-28)
PROC: 30233N1 Transfusion of Nonautologous Red Blood Cells into Peripheral Vein, Percutaneous Approach (ICD-10-PCS; 2022-08-31)
PROC: 02HV33Z Insertion of Infusion Device into Superior Vena Cava, Percutaneous Approach (ICD-10-PCS; 2022-09-01)
PROC: B548ZZA Ultrasonography of Superior Vena Cava, Guidance (ICD-10-PCS; 2022-09-01)
DX: J96.22 Acute and chronic respiratory failure with hypercapnia (principal); J18.9 Pneumonia, unspecified organism; J44.1 Chronic obstructive pulmonary disease with (acute) exacerbation; I48.92 Unspecified atrial flutter; R57.9 Shock, unspecified; E87.29 Other acidosis; R78.81 Bacteremia; J44.0 Chronic obstructive pulmonary disease with (acute) lower respiratory infection; E11.9 Type 2 diabetes mellitus without complications; B96.89 Other specified bacterial agents as the cause of diseases classified elsewhere; D64.9 Anemia, unspecified; I11.0 Hypertensive heart disease with heart failure; I50.9 Heart failure, unspecified; F03.90 Unspecified dementia, unspecified severity, without behavioral disturbance, psychotic disturbance, mood disturbance, and anxiety; G89.29 Other chronic pain; K21.9 Gastro-esophageal reflux disease without esophagitis; Z88.8 Allergy status to other drugs, medicaments and biological substances; Z79.899 Other long term (current) drug therapy
CPT/HCPCS: 31500; 36415; 36573; 36600; 71045; 71275; 74177; 80048; 80053; 80202; 81003; 82375; 82550; 82553; 82805; 82962; 83605; 83735; 84484; 85025; 85027; 86850; 86900; 86920; 87070; 87077; 94002; 94003; 94640; 99285; C1725; C9113; J1815; J1940; J2250; J2370; J2543; J2704; J2920; J3010; J3370; J3490; J7030; J7050; J7060; J7512; P9016

== ENCOUNTER 2022-11-23 21:42 | Emergency (ER) | payer MEDICARE, OTHER ==
[~2022-11-23] VITALS: Ht 175.3 cm; Wt 111.0 kg
[2022-11-23 22:00] VITALS: O2SAT 100
[2022-11-23 22:53] LABS: BASOPHILS % 0.7 % (0.0-2.0); EOSINOPHILS % 3.3 % (0.0-5.0); HEMATOCRIT. 32.2 % (36.0-48.0); HEMOGLOBIN. 10.1 g/dL (12.0-16.0); LYMPHOCYTES % 24.6 % (20.0-50.0); MEAN CORPUSCULAR HGB CONC 31.4 g/dL (31.0-37.0); MEAN CORPUSCULAR VOLUME 86.2 fL (81.0-99.0); MEAN PLATELET VOLUME 7.2 fl (7.4-10.4); MONOCYTES % 10.4 % (2.0-8.0); PLATELET 302 x1000/uL (130-400); RED BLOOD CELL COUNT 3.74 mill/uL (4.2-5.4); WHITE BLOOD COUNT 4.7 x1000/uL (4.5-11.0)
[2022-11-23 23:01] LABS: CHLORIDE 100 mEq/L (98-107); INDEX HEMOLYSI 1 (1-3); INDEX ICTERIC 1 (1-4); INDEX LIPEMIC 1 (1-3); POTASSIUM 3.8 mEq/L (3.5-5.1); SODIUM 135 mEq/L (136-145)
[2022-11-23 23:07] LABS: ALANINE AMINOTRANSFERASE 24 IU/L (13-61); ALBUMIN 2.5 g/dL (3.4-5.0); ASPARTATE AMINOTRANSFERASE 30 IU/L (15-37); BILIRUBIN TOTAL 0.2 mg/dL (0.1-1.0); CALCIUM 8.4 mg/dL (8.5-10.1); CARBON DIOXIDE 34 mEq/L (21-32); CREATININE 0.6 mg/dL (0.6-1.3); GLUCOSE 142 mg/dL (70-105); PHOSPHORUS 3.2 mg/dL (2.5-4.9); PROTEIN TOTAL 7.5 g/dL (6.0-8.3); UREA NITROGEN BLOOD 13 mg/dL (7-21)
[2022-11-24 00:01] LABS: CLARITY URINE CLEAR (CLEAR); COLOR URINE YELLOW (YELLOW); GLUCOSE URINE NEGATIVE (NEGATIVE); KETONES URINE NEGATIVE (NEGATIVE); LEUKOCYTE ESTERASE URINE 2+ (NEGATIVE); NITRITE URINE NEGATIVE (NEGATIVE); OCCULT BLOOD URINE NEGATIVE (NEGATIVE); PH URINE 6.5 (4.5-8.0); PROTEIN URINE NEGATIVE (NEGATIVE); SPECIFIC GRAVITY URINE 1.019 (1.005-1.030)
[2022-11-24 01:48] LABS: SQUAMOUS EPITHELIAL CELL URINE FEW /lpf (RARE/1+)
[2022-11-24 01:50] LABS: BACTERIA URINE 3+; RBC URINE 0-2 /hpf (0-2); WBC URINE 50-100 /hpf (0-2)
[2022-11-24] MEDS ORDERED: CEFTRIAXONE 1GM PREMIX 50 ML IV NR (03:15)
[2022-11-24] MEDS ORDERED: METOPROLOL SUCCINATE 50MG ER TABLET PO STA (05:28)
[2022-11-24 06:45] VITALS: BP 166/95; PULSE 77; RESP 16; TEMP 98.4
== END 2022-11-24 06:48 | disposition home or self-care (01) ==
LOC: ER 21:42
DX: N39.0 Urinary tract infection, site not specified (principal); I50.9 Heart failure, unspecified; J44.9 Chronic obstructive pulmonary disease, unspecified; E11.9 Type 2 diabetes mellitus without complications; I49.9 Cardiac arrhythmia, unspecified; Z79.899 Other long term (current) drug therapy; Z20.822 Contact with and (suspected) exposure to COVID-19
CPT/HCPCS: 99285; 70450; 71045; 87426; 80053; 81003; 83605; 83690; 83735; 84100; 85025; 87086; 87186; 87804 ×2; 36415; 84145; 93005; 96374; C9803; J0696